=== PATIENT | male | born 1960 | race African-American/Black ===

== ENCOUNTER → 2017-01-04 | Outpatient (CLI) | payer OTHER ==
[2014-09-03 15:19] VITALS: BP 149/103
[~2017-01-04] MED LIST: ASPI325T4 PO; FURO-68 PO; HYDR-2869 PO; ISOS30TA4 PO; METO25TA4 PO
--- NOTE | 2017-01-04 12:58 | CARD ---
APPROVED REPORT EXAM: Two-dimensional and M-mode echocardiogram with Doppler and color Doppler. Other Information Quality : GoodHR: 72bpm Rhythm : NSR INDICATION Non ischemic cardiomyopathy RISK FACTORS Hypertension 2D DIMENSIONS RVDd3.3 (2.9-3.5cm)Left Atrium(2D)5.2 (1.6-4.0cm) IVSd1.3 (0.7-1.1cm)Aortic Root(2D)3.1 (2.0-3.7cm) LVDd5.5 (3.9-5.9cm)LVOT Diameter2.2 (1.8-2.4cm) PWd1.3 (0.7-1.1cm)LVDs3.6 (2.5-4.0cm) FS (%) 34.7 %SV91.7 ml LVEF(%)63.3 (>50%) Aortic Valve AI P 1/2 Cjsk459bk Mitral Valve MV E Rmenvhpb809.6cm/sMV E Peak Gr.4mmHg MV DECEL [id number] A Chgqinmm93.6cm/s MV E Mean Gr.1mmHgE/A Ratio2.2 MV A Evrmkeog09et Pulmonary Valve PV Peak Ecezldml97.7cm/s Tricuspid Valve TR P. Rvedqair506sp/sTR Peak Gr.49mmHg Pulmonary Vein S1 Hkaeiauj86.0cm/sD2 Ddhhrgjo81.7cm/s PVa juwlylqe11nbag LEFT VENTRICLE The left ventricle is normal size. There is mild concentric left ventricular hypertrophy. The left ve ntricular systolic function is normal. The Ejection Fraction is 60-65%. There is normal LV segmental wall motion. Transmitral Doppler flow pattern is Grade II-pseudonormal filling dynamics. RIGHT VENTRICLE The right ventricle is normal size. There is normal right ventricular wall thickness. The right ventr icular systolic function is normal. ATRIA The left atrium is moderately dilated. The right atrium is moderately dilated. The interatrial septum is intact with no evidence for an atrial septal defect or patent foramen ovale as noted on 2-D or Do ppler imaging. AORTIC VALVE The aortic valve is mildly sclerotic. The aortic valve is trileaflet. Doppler and Color Flow revealed mild to moderate aortic regurgitation. There is no significant aortic valvular stenosis. MITRAL VALVE The mitral valve leaflets are thickened. There is no evidence of mitral valve prolapse. There is no m itral valve stenosis. Doppler and Color Flow revealed moderate mitral regurgitation. TRICUSPID VALVE Doppler and Color Flow revealed moderate tricuspid regurgitation. The pulmonary artery systolic press ure is estimated at 52 mmHg. There is moderate pulmonary hypertension. PULMONIC VALVE The pulmonary valve is normal in structure and function. Doppler and Color Flow revealed no pulmonic valvular regurgitation. There is no pulmonic valvular stenosis. GREAT VESSELS The aortic root is normal in size. The ascending aorta is normal in size. The pulmonary artery is nor mal. The IVC is normal in size and collapses >50% with inspiration. PERICARDIAL EFFUSION There is trace pericardial effusion. Critical Notification Critical Value: No <Conclusion> The left ventricular systolic function is normal. The Ejection Fraction is 60-65%. There is normal LV segmental wall motion. The left atrium is moderately dilated. Mild to moderate aortic regurgitation. Moderate mitral regurgitation. Moderate tricuspid regurgitation. The pulmonary artery systolic pressure is estimated at 52 mmHg. There is moderate pulmonary hypertension. There is trace pericardial effusion.
== END | disposition home or self-care (01) ==
LOC: ECHO 09:59
PROVIDERS: ATTEND Internal Medicine Cardiovascular Disease
DX: I42.8 Other cardiomyopathies (principal); I51.7 Cardiomegaly; I35.1 Nonrheumatic aortic (valve) insufficiency; I34.0 Nonrheumatic mitral (valve) insufficiency; I27.2 Other secondary pulmonary hypertension
CPT/HCPCS: 93306

== ENCOUNTER → 2018-07-08 | Outpatient (CLI) | payer OTHER ==
[2014-09-03 15:19] VITALS: BP 149/103
[~2018-07-08] MED LIST changes: -ASPI325T4 PO; +ASPI325T8 PO
--- NOTE | 2018-07-08 13:48 | CARD ---
MR#: [id number] Date of Study: 07/08/2018 Ordering Physician: DESMOND VINCENT, Referring Physician: DESMOND VINCENT Tech: Qi Moser RDCS APPROVED REPORT EXAM: Two-dimensional and M-mode echocardiogram with Doppler and color Doppler. Other Information Quality : Good INDICATION Non-Ischemic Cardiomyopathy RISK FACTORS Smoking 2D DIMENSIONS RVDd3.3 (2.9-3.5cm)Left Atrium(2D)3.9 (1.6-4.0cm) IVSd1.5 (0.7-1.1cm)Aortic Root(2D)3.0 (2.0-3.7cm) LVDd4.9 (3.9-5.9cm)LVOT Diameter2.2 (1.8-2.4cm) PWd1.7 (0.7-1.1cm)LVDs3.6 (2.5-4.0cm) FS (%) 26.8 %SV59.7 ml LVEF(%)52.2 (>50%) Aortic Valve AoV Peak Luis.231.0cm/sAoV VTI34.7cm AO Peak GR.21.3mmHgLVOT Peak Luis.146.3cm/s LVOT VTI 23.90cmAO Mean GR.11mmHg COCO (VMAX)2.78he1FTV (VTI)2.59cm2 AI P 1/2 Fnvt018dh Mitral Valve MV E Jpbvfxmo54.3cm/sMV DECEL USWF395js MV A Bomgsdor29.2cm/sMV ETY23fz E/A Ratio0.8MVA (PHT)2.86cm2 TDI E/Lateral E'18.6E/Medial E'16.0 Tricuspid Valve TR P. Ickgubto301jw/sRAP YZUXZPYT1ytXw TR Peak Gr.21byGtAGCT27baTj Pulmonary Vein S1 Idzrmtmm63.7cm/sD2 Xxjyowma09.1cm/s LEFT VENTRICLE The Left Ventricle is borderline dilated. There is moderate concentric left ventricular hypertrophy. Left ventricle systolic function is low normal. The Ejection Fraction is 50-55%. There is normal LV s egmental wall motion. Transmitral Doppler flow pattern is Grade I-abnormal relaxation pattern. RIGHT VENTRICLE The right ventricle is normal size. The right ventricular systolic function is normal. ATRIA The left atrium is mildly dilated. The right atrium size is normal. The interatrial septum is intact with no evidence for an atrial septal defect or patent foramen ovale as noted on 2-D or Doppler imagi ng. AORTIC VALVE The aortic valve is calcified but opens well. Doppler and Color Flow revealed mild to moderate aortic regurgitation. There is no significant aortic valvular stenosis. MITRAL VALVE The mitral valve is normal in structure and function. There is no evidence of mitral valve prolapse. There is no mitral valve stenosis. Doppler and Color-flow revealed trace to mild mitral regurgitation . TRICUSPID VALVE The tricuspid valve is normal in structure and function. Doppler and Color Flow revealed mild tricusp id regurgitation. The PA pressure was estimated at 42 mmHg. There is no tricuspid valve stenosis. PULMONIC VALVE The pulmonic valve is not well visualized. Doppler and Color Flow revealed no pulmonic valvular regur gitation. There is no pulmonic valvular stenosis. GREAT VESSELS The aortic root is normal in size. The ascending aorta is normal in size. The IVC is normal in size a nd collapses >50% with inspiration. PERICARDIAL EFFUSION There is no evidence of significant pericardial effusion. Critical Notification Critical Value: No <Conclusion> The Left Ventricle is borderline dilated. Left ventricle systolic function is low normal. The Ejection Fraction is 50-55%. There is moderate concentric left ventricular hypertrophy. There is no significant aortic valvular stenosis. Doppler and Color Flow revealed mild to moderate aortic regurgitation. Doppler and Color-flow revealed trace to mild mitral regurgitation. Doppler and Color Flow revealed mild tricuspid regurgitation. The PA pressure was estimated at 42 mmHg. Signed by : Fred Harrison MD Electronically Approved : 07/08/2018 13:47:23
== END | disposition home or self-care (01) ==
LOC: ECHO 12:46
PROVIDERS: ATTEND Internal Medicine Cardiovascular Disease
DX: I08.2 Rheumatic disorders of both aortic and tricuspid valves (principal); J43.9 Emphysema, unspecified; I13.0 Hypertensive heart and chronic kidney disease with heart failure and stage 1 through stage 4 chronic kidney disease, or unspecified chronic kidney disease; I50.21 Acute systolic (congestive) heart failure; N18.3 Chronic kidney disease, stage 3 (moderate); I48.91 Unspecified atrial fibrillation; Z86.2 Personal history of diseases of the blood and blood-forming organs and certain disorders involving the immune mechanism; Z87.891 Personal history of nicotine dependence
CPT/HCPCS: 93306

== ENCOUNTER → 2018-12-06 | Outpatient (CLI) | payer OTHER ==
[2014-09-03 15:19] VITALS: BP 149/103
[~2018-12-06] MED LIST changes: +ACET500T68 PO; +AMIO200T4 PO; +APIX5TAB PO; +ASPI-630 PO; +AZIT250T6 PO; +BENZ1LOZ48 MM; +BUDE10.22 IH; +BUME1TAB3 PO; +CETI10TA16 PO; +DILT180C29 PO; +DILT240C66 PO; +FERR325T14 PO; +INHA-9 MC; +LACT1CAP19 PO; +LOPE2CAP88 PO; +LOSA25TA54 PO; +METO-247 PO; +MULT1TAB52 PO; +Pantoprazole PO; +REGADENOSON 0.4 MG/5 ML DISP.SYRIN. IV ONE; +SACU1TAB PO; +XOPENEX HFA15 GM IH; +[UNRECOGNIZED DRUG - OTHER]
--- NOTE | 2018-12-06 12:49 | RAD ---
MR#: [id number] Date of Study: 12/06/2018 Ordering Physician: DESMOND VINCENT Referring Physician: ANTONIO AMARO Tech: RT Fernie LunaR) (N) APPROVED REPORT Test Type: Pharmacological Stress Nurse/Tech: Reena Mosley R.N. Test Indications: Dyspnea on exertion Cardiac History: Hypertension, smoker Medications: See Electronic Medical Record Medical History: See Electronic Medical Record Resting ECG: S. tach Resting Heart Rate: 127 bpm Resting Blood Pressure: 153/104mmHg Pretest Chest Pain: No chest pain Nurse/Tech Notes S1S2. lungs sounded clear Consent: The procedure was explained to the patient in lay terms. Informed consent was witnessed. Ariel eout was entered into [employer]. History and Stress Test performed by Reena Mosley R.N. Pharm. Details Pharmacologic stress testing was performed using 0.4mg per 5ml of regadenoson given intravenously ove r 7-10 seconds. Stress Symptoms Dyspnea POST EXERCISE Reason for Termination: Infusion complete Max HR: 129 bpm Max Blood Pressure: 142/102mmHg Blood Pressure response to exercise: Normal blood pressure response during stress. Chest Pain: No. Arrhythmia: Yes. cont. in s. tach ST Change: No. INTERPRETATION Stress EKG Conclusion: Baseline EKG showed atrial flutter. Non diagnostic changes at peak stress. Imaging Protocol IMAGE PROTOCOL: Rest Tc-99m/stress Tc-99m 1 day Rest: Stress: Viability: Radiopharm.Tc99m XojlnoaknBo32o Sestamibi Dose10.5mCi 33mCi Duration 13min. 13min. Img Date 12/06/2018 12/06/2018 Inj-Img Upsb82zuw. 60min. Rest Admin Site:IV - Left AntecubitalAdministrator:RT Beatriz Luna)(N) Stress Admin Site: IV - Left AntecubitalAdministrator: ANGELITO Hannah STRESS DATA End Diast. Vol.201.0mlLVEDV index BSA90.0ml End Syst. Vol.123.0mlLVESV index BSA55.0ml Myocardial Ihmo171.0gEject. Gybgvbcf05.0% Stress Scores Regional WT3.00Summed WT46.00 Regional WM0.00Summed WM21.00 LV Perfusion Scintigraphic images did not show any significant fixed or reversible defects Wall Motion Moderate left ventricle systolic dysfunction with ejection fraction calculated at 39% LV Perf. Quant 17 Seg. SSS0.00 17 Seg. SRS1.00 17 Seg. SDS0.00 Stress Defect Extent (% LAD)0.00Rest Defect Extent (% LAD)0.00Rev. Defect Extent (% LAD)0.00 Stress Defect Extent (% LCX) 0.00Rest Defect Extent (% LCX)12.50Rev. Defect Extent (% LCX)0.00 Stress Defect Extent (% RCA)0.00Rest Defect Extent (% RCA)0.00Rev. Defect Extent (% RCA)0.00 Stress Defect Extent (% RD)0.00Rest Defect Extent (% RD)2.20Rev. Defect Extent (% RD)0.00 Conclusion 1. Regadenoson cardioisotope stress test did not show any evidence of ischemia or infarct. 2. Moderate left ventricle systolic dysfunction with ejection fraction calculated at 39% 3. Intermediate risk for cardiac events based on diminished LV function. Signed by : Desmond Vincent, Electronically Approved : 12/06/2018 12:49:04
== END | disposition home or self-care (01) ==
LOC: NM 07:37
PROVIDERS: ATTEND Internal Medicine Cardiovascular Disease
DX: I48.92 Unspecified atrial flutter (principal); R06.09 Other forms of dyspnea; I10 Essential (primary) hypertension; Z87.891 Personal history of nicotine dependence
CPT/HCPCS: 78452; 93017; 96374; A9500; J2785

== ENCOUNTER 2018-12-09 14:58 | Inpatient (IN) | payer OTHER ==
[2018-12-09] VITALS (11 sets, daily range): BP systolic 170–207; BP diastolic 98–119
[~2018-12-09] VITALS: Ht 193 cm; Wt 93.1 kg
[~2018-12-09 14:58] MED LIST changes: -ACET500T68 PO; -AMIO200T4 PO; -ASPI-630 PO; -AZIT250T6 PO; -BENZ1LOZ48 MM; -BUDE10.22 IH; -BUME1TAB3 PO; -CETI10TA16 PO; -DILT180C29 PO; -FERR325T14 PO; -INHA-9 MC; -LACT1CAP19 PO; -LOPE2CAP88 PO; -METO-247 PO; -MULT1TAB52 PO; -Pantoprazole PO; -REGADENOSON 0.4 MG/5 ML DISP.SYRIN. IV ONE; -SACU1TAB PO; -XOPENEX HFA15 GM IH; -[UNRECOGNIZED DRUG - OTHER]
[2018-12-09] MEDS ORDERED: MORPHINE SULFATE 4 MG/ML VIAL. IV ONE (16:45)
[2018-12-09] MEDS ORDERED: NITROGLYCERIN SUBLINGUAL 0.4 MG BOTTLE OF 25. SL PRN (16:45)
[2018-12-09] MEDS ORDERED: IPRATRPIUM/ALBUTEROL 0.5/2.5MG 3 ML NEBU. NEB ONE (16:45)
[2018-12-09] MEDS ORDERED: cloNIDine HCL 0.1 MG TABLET PO ONE (16:45)
[2018-12-09] MEDS ORDERED: methylPREDNISolone SOD SUCC PF 125 MG/2 ML VIAL. IV ONE (16:45)
[2018-12-09] MEDS ORDERED: ASPIRIN 325 MG TABLET PO ONE (16:45)
[2018-12-09 17:03] LABS: BASO # 0.1 x10^3/uL (0.0-0.2); BASO % 2 % (0-3); EOS % 0 % (0-3); HEMATOCRIT 21.7 % (39.0-53.0); LYMPH # 2.9 x10^3/uL (1.0-4.8); LYMPH % 40 % (24-48); MEAN CORPUSCULAR HEMOGLOBIN 18 pg (25-35); MEAN CORPUSCULAR HGB CONC 28 g/dL (31-37); MEAN CORPUSCULAR VOLUME 65 fL (79-100); MONO # 0.4 x10^3/uL (0.0-1.1); MONO % 6 % (0-9); NEUT # 3.7 x10^3uL (1.8-7.7); NEUT % 52 % (31-73); PLATELET COUNT 384 x10^3/uL (140-400); RED BLOOD COUNT 3.36 x10^6/uL (4.30-5.70); RED CELL DISTRIBUTION WIDTH 20.7 % (11.5-14.5); WHITE BLOOD COUNT 7.2 x10^3/uL (4.0-11.0)
[2018-12-09 17:04] LABS: CALCIUM 8.6 mg/dL (8.5-10.1); CREATININE 2.8 mg/dL (0.7-1.3); GFR 28.3
[2018-12-09 17:05] LABS: POTASSIUM 4.1 mmol/L (3.5-5.1)
[2018-12-09 17:11] LABS: ALBUMIN 3.4 g/dL (3.4-5.0); ALBUMIN/GLOBULIN RATIO 0.9 (1.0-1.7); TOTAL BILIRUBIN 0.6 mg/dL (0.2-1.0); TOTAL PROTEIN 7.2 g/dL (6.4-8.2)
[2018-12-09] MEDS ORDERED: IV NORMAL SALINE 1000ML BAG 1,000 ML IV ONE (17:15)
--- NOTE | 2018-12-09 17:38 | RAD ---
Indication:SOA, CHEST TIGHTNESS X1 DAY TECHNIQUE:Portable AP chest X-ray COMPARISON:09/18/2014 FINDINGS: Heart is mildly enlarged in size. Lungs are hyperinflated with prominent bilateral bronchovascular markings and interstitial opacities. No pneumothorax or pleural effusion. Visualized bony thorax within normal limits. IMPRESSION: Findings of COPD. Superimposed atypical/viral infection/bronchitis. Electronically signed by: Yevgeniy Szymanski DO (12/09/2018 5:35 PM) [facility]
[2018-12-09] MEDS ORDERED: IV NORMAL SALINE 1000ML BAG 1,000 ML IV SCH (17:44)
[2018-12-09] MEDS ORDERED: MORPHINE SULFATE 4 MG/ML VIAL. IV PRN (17:45)
[2018-12-09] MEDS ORDERED: ONDANSETRON PF 4 MG/2 ML VIAL. IV PRN ×2 (17:45→18:15)
[2018-12-09] MEDS ORDERED: AZITHROMYCIN 250 MG TABLET. PO ONE (18:00)
--- NOTE | 2018-12-09 18:12 | PDOC1 ---
History and Physical Date of Admission Date of Admission DATE: 12/09/18 TIME: 18:05 Identification/Chief Complaint Chief Complaint SOA and chest pain today Source Source: Caregiver, Chart review, Patient History of Present Illness History of Present Illness 58-year-old -[place] male brought in by mother, SOA and chest pain today. History of nonischemic cardiomyopathy and is tachypneic on my encounter. But found to have a hemoglobin of 6 with no source. On eliquis 5 twice a day, Cardizem 240, Lasix 40 once a day, losartan 25 daily and beta carrie 50 twice a day. Had a recent stress test 1 month ago ? results. Known to Dr. Barrow,, last echocardiogram June or July 2018 and they do not know the EF. D-dimer mildly elevated 1.39 with high blood pressure and is ordered a VQ scan. CT chest could not be done his creatinine is 2.8 which is a jump from previous. MCV is low at 65. Patient denies any melena hematochezia hematemesis, never had a C scope. Sees nurse transition only for his heart issues. No PCP. Otherwise blood pressure or hemodynamically stable. Nontoxic appearing. NO abd pain, NO hx colon CA in family, NO prev EGD or c scopes SOme uRI sxs lately, sounds nasal, CXR maybe viral/emphysematous lungs - cont to smoke Past Medical History Cardiovascular: AFIB, HTN Past Surgical History Past Surgical History: No pertinent history Family History Family History: High Cholestrol, Hypertension Social History Smoke: 1 pack per day ALCOHOL: none Drugs: None Current Medications Current Medications Current Medications Albuterol/ Ipratropium (Duoneb) 3 ml 1X ONCE NEB Last administered on at 16:57; Start 12/09/18 at 16:45; Stop 12/09/18 at 16:51; Status DC Aspirin (Dany Aspirin) 325 mg 1X ONCE PO Last administered on 12/09/18at 17:36 ; Start 12/09/18 at 16:45; Stop 12/09/18 at 16:51; Status DC Morphine Sulfate (Morphine Sulfate) 4 mg 1X ONCE IV Last administered on at 17:36; Start 12/09/18 at 16:45; Stop 12/09/18 at 16:51; Status DC Nitroglycerin (Nitrostat) 0.4 mg PRN Q5MIN PRN SL CHEST PAIN; Start 12/09/18 at 16:45 Methylprednisolone Sodium Succinate (SOLU-Medrol 125MG VIAL) 125 mg 1X ONCE IV Last administered on 12/09/18at 17:35; Start 12/09/18 at 16:45; Stop 12/09/18 at 16:51; Status DC Clonidine HCl (Catapres) 0.1 mg 1X ONCE PO Last administered on 12/09/18at 17: 36; Start 12/09/18 at 16:45; Stop 12/09/18 at 16:51; Status DC Sodium Chloride 1,000 ml @ 1,000 mls/hr 1X ONCE IV Last administered on at 17:35; Start 12/09/18 at 17:15; Stop 12/09/18 at 18:14 Ondansetron HCl (Zofran) 4 mg PRN Q8HRS PRN IV NAUSEA/VOMITING; Start 12/09/18 at 17:45; Stop 12/09/18 at 18:03; Status DC Morphine Sulfate (Morphine Sulfate) 4 mg PRN Q2HR PRN IV PAIN; Start 12/09/18 at 17:45; Stop 12/10/18 at 17:44 Sodium Chloride 1,000 ml @ 100 mls/hr Q10H IV ; Start 12/09/18 at 17:44; Stop 12/10/18 at 17:43 Albuterol/ Ipratropium (Duoneb) 3 ml RTQID NEB ; Start 12/09/18 at 20:00; Stop 12/10/18 at 19:59 Ondansetron HCl (Zofran) 4 mg PRN Q6HRS PRN IV NAUSEA/VOMITING; Start 12/09/18 at 18:15 Cetirizine HCl (ZyrTEC) 10 mg DAILY PO ; Start 12/10/18 at 09:00 Azithromycin (Zithromax) 500 mg 1X ONCE PO ; Start 12/09/18 at 18:00; Stop at 18:01 Azithromycin (Zithromax) 250 mg DAILY PO ; Start 12/10/18 at 09:00; Status UNV Furosemide (Lasix) 40 mg DAILY PO ; Start 12/10/18 at 09:00; Status UNV Losartan Potassium (Cozaar) 25 mg DAILY PO ; Start 12/10/18 at 09:00; Status UNV Metoprolol Tartrate (Lopressor) 12.5 mg BID PO ; Start 12/09/18 at 21:00; Status UNV Diltiazem HCl (Cardizem 24hr Cd) 240 mg DAILY PO ; Start 12/10/18 at 09:00; Status UNV Active Scripts Active Reported Cartia Xt (Diltiazem Hcl) 240 Mg Cap.er.24h 240 Mg PO Eliquis (Apixaban) 5 Mg Tablet 5 Mg PO Losartan Potassium (Losartan Potassium) 25 Mg Tablet 25 Mg PO DAILY Lasix (Furosemide) 40 Mg Tablet 40 Mg PO DAILY Metoprolol Tartrate 25 Mg Tablet 12.5 Mg PO BID 90 Days Allergies Allergies: Coded Allergies: No Known Drug Allergies (Unverified , 08/29/14) ROS Review of System So A, chest pain, congestion, the rest of ROS 14 point negative Physical Exam General: mild distress, Other (tachypneic RR 30s) HEENT: Atraumatic, PERRLA, Other (pale, palpebral conjunctivae) Lungs: Normal air movement, Other (symmetrical chest expansion, hyperresonant to percussion) Heart: S1S2, RRR, no gallops, no murmurs Cardiovascular: S1, S2 Abdomen: Normal bowel sounds, Soft, No tenderness, No hepatosplenomegaly, No masses Male Genitals Exam: normal genitalia, normal prostate Rectal Exam: not examined PELVIC: Nml ext genitalia Extremities: No clubbing, No cyanosis, No edema, Normal pulses, No tenderness/ swelling Skin: No rashes, No breakdown, No significant lesion Neuro: Normal gait, Normal speech, Strength at 5/5 X4 ext, Normal tone, Sensation intact, Cranial nerves 3-12 NL, Reflexes 2+ Psych/Mental Status: Mental status NL, Mood NL Vitals Vitals Vital Signs Date Time Temp Pulse Resp B/P (MAP) Pulse Ox O2 Delivery O2 Flow Rate FiO2 12/09/18 17:36 99 189/114 12/09/18 17:36 20 96 Room Air 12/09/18 16:33 98.2 98.2 Labs Labs Laboratory Tests Test 12/09/18 16:45 White Blood Count 7.2 x10^3/uL (4.0-11.0) Red Blood Count 3.36 x10^6/uL (4.30-5.70) Hemoglobin 6.0 g/dL (13.0-17.5) Hematocrit 21.7 % (39.0-53.0) Mean Corpuscular Volume 65 fL (79-100) Mean Corpuscular Hemoglobin 18 pg (25-35) Mean Corpuscular Hemoglobin Concent 28 g/dL (31-37) Red Cell Distribution Width 20.7 % (11.5-14.5) Platelet Count 384 x10^3/uL (140-400) Neutrophils (%) (Auto) 52 % (31-73) Lymphocytes (%) (Auto) 40 % (24-48) Monocytes (%) (Auto) 6 % (0-9) Eosinophils (%) (Auto) 0 % (0-3) Basophils (%) (Auto) 2 % (0-3) Neutrophils # (Auto) 3.7 x10^3uL (1.8-7.7) Lymphocytes # (Auto) 2.9 x10^3/uL (1.0-4.8) Monocytes # (Auto) 0.4 x10^3/uL (0.0-1.1) Eosinophils # (Auto) 0.0 x10^3/uL (0.0-0.7) Basophils # (Auto) 0.1 x10^3/uL (0.0-0.2) D-Dimer (Jocelin) 1.39 ug/mlFEU (0.00-0.50) Sodium Level 144 mmol/L (136-145) Potassium Level 4.1 mmol/L (3.5-5.1) Chloride Level 109 mmol/L (98-107) Carbon Dioxide Level 24 mmol/L (21-32) Anion Gap 11 (6-14) Blood Urea Nitrogen 31 mg/dL (8-26) Creatinine 2.8 mg/dL (0.7-1.3) Estimated GFR (Cockcroft-Gault) 28.3 BUN/Creatinine Ratio 11 (6-20) Glucose Level 106 mg/dL (70-99) Calcium Level 8.6 mg/dL (8.5-10.1) Total Bilirubin 0.6 mg/dL (0.2-1.0) Aspartate Amino Transf (AST/SGOT) 18 U/L (15-37) Alanine Aminotransferase (ALT/SGPT) 18 U/L (16-63) Alkaline Phosphatase 78 U/L (46-116) Creatine Kinase 77 U/L (39-308) Creatine Kinase MB (Mass) 1.1 ng/mL (0.0-3.6) Creatine Kinase MB Relative Index 1.4 % (0-4) Troponin I Quantitative 0.025 ng/mL (0.000-0.055) Total Protein 7.2 g/dL (6.4-8.2) Albumin 3.4 g/dL (3.4-5.0) Albumin/Globulin Ratio 0.9 (1.0-1.7) Laboratory Tests Test 12/09/18 16:45 White Blood Count 7.2 x10^3/uL (4.0-11.0) Red Blood Count 3.36 x10^6/uL (4.30-5.70) Hemoglobin 6.0 g/dL (13.0-17.5) Hematocrit 21.7 % (39.0-53.0) Mean Corpuscular Volume 65 fL (79-100) Mean Corpuscular Hemoglobin 18 pg (25-35) Mean Corpuscular Hemoglobin Concent 28 g/dL (31-37) Red Cell Distribution Width 20.7 % (11.5-14.5) Platelet Count 384 x10^3/uL (140-400) Neutrophils (%) (Auto) 52 % (31-73) Lymphocytes (%) (Auto) 40 % (24-48) Monocytes (%) (Auto) 6 % (0-9) Eosinophils (%) (Auto) 0 % (0-3) Basophils (%) (Auto) 2 % (0-3) Neutrophils # (Auto) 3.7 x10^3uL (1.8-7.7) Lymphocytes # (Auto) 2.9 x10^3/uL (1.0-4.8) Monocytes # (Auto) 0.4 x10^3/uL (0.0-1.1) Eosinophils # (Auto) 0.0 x10^3/uL (0.0-0.7) Basophils # (Auto) 0.1 x10^3/uL (0.0-0.2) D-Dimer (Jocelin) 1.39 ug/mlFEU (0.00-0.50) Sodium Level 144 mmol/L (136-145) Potassium Level 4.1 mmol/L (3.5-5.1) Chloride Level 109 mmol/L (98-107) Carbon Dioxide Level 24 mmol/L (21-32) Anion Gap 11 (6-14) Blood Urea Nitrogen 31 mg/dL (8-26) Creatinine 2.8 mg/dL (0.7-1.3) Estimated GFR (Cockcroft-Gault) 28.3 BUN/Creatinine Ratio 11 (6-20) Glucose Level 106 mg/dL (70-99) Calcium Level 8.6 mg/dL (8.5-10.1) Total Bilirubin 0.6 mg/dL (0.2-1.0) Aspartate Amino Transf (AST/SGOT) 18 U/L (15-37) Alanine Aminotransferase (ALT/SGPT) 18 U/L (16-63) Alkaline Phosphatase 78 U/L (46-116) Creatine Kinase 77 U/L (39-308) Creatine Kinase MB (Mass) 1.1 ng/mL (0.0-3.6) Creatine Kinase MB Relative Index 1.4 % (0-4) Troponin I Quantitative 0.025 ng/mL (0.000-0.055) Total Protein 7.2 g/dL (6.4-8.2) Albumin 3.4 g/dL (3.4-5.0) Albumin/Globulin Ratio 0.9 (1.0-1.7) VTE Prophylaxis Ordered VTE Prophylaxis Devices: Yes VTE Pharmacological Prophylaxi: Yes Assessment/Plan Assessment/Plan MIcrocytic anemia Acute anemia-rule out active blood loss Nonischemic cardiomyopathy AK I on possibly CK D Elevated d-dimer Tachypnea Accel hypertension POA PLAN: Admit 2 midnights D-dimer elevated hence VQ scan ordered Consult renal regarding this jump in creat Consult GI - due c scope Checked for Hemoccult Hold Eliquis Okay to continue beta carrie 50 twice a day and Cardizem Hold Lasix and losartan given creatinine Avoid nephrotoxins Draw iron panel and reticulocyte count ferritin etc. before BT Transfuse 1 packed RBC Recheck H&H tomorrow Seen at ER FUll code okay for clears now then nPO post mN in case GI PAUL Vasquez MD Dec 09, 2018 18:12
[2018-12-09] MEDS ORDERED: TEMAZEPAM 7.5 MG CAPSULE PO PRN (18:15)
[2018-12-09] MEDS ORDERED: guaiFENesin DM 200MG/20MG 10 ML SYRUP PO PRN (18:15)
[2018-12-09] MEDS ORDERED: NICOTINE 21MG PATCH. TD PRN (18:15)
[2018-12-09 18:57] LABS: ANISOCYTOSIS MOD; HYPOCHROMIA MARKED; MICROCYTOSIS MARKED; OVALOCYTES PRESENT; PLT ESTIMATE ADEQUATE (ADEQUATE); POIKILOCYTOSIS MOD; SCHISTOCYTES FEW; TEAR DROP CELLS OCC
[2018-12-09 18:58] LABS: BIZZARE CELLS FEW
[2018-12-09 19:17] LABS: INFLUENZA A PATIENT NEGATIVE (NEGATIVE); INFLUENZA B PATIENT NEGATIVE (NEGATIVE)
--- NOTE | 2018-12-09 19:53 | RAD ---
Indication: Shortness of breath for one day. Elevated d-dimer. TECHNIQUE: Nuclear medicine VQ scan with 26 mCi of xenon-133 for ventilation scan and 6 mCi of technetium 99M MAA for perfusion scan. COMPARISON: Chest x-ray from same day FINDINGS: Appropriate washout in and washout of xenon-133 without evidence of COPD. Relatively homogeneous distribution is seen of the perfusion agent without ventilation/perfusion mismatch or focal wedge-shaped areas of photopenia. IMPRESSION: Low probability VQ scan. Consider further evaluation with DVT exam. Electronically signed by: Yevgeniy Szymanski DO (12/09/2018 7:51 PM) [facility]
[2018-12-09] MEDS: IPRATRPIUM/ALBUTEROL 0.5/2.5MG 3 ML NEBU. NEB SCH (20:11)
[2018-12-09] MEDS: METOPROLOL TART IMMED RELEASE 25 MG TABLET. PO SCH (22:16)
--- NOTE | 2018-12-09 22:20 | PHYS DOC ---
Past Medical History Past Medical History: A-Fib, Hypertension Additional Past Medical Histor: A. fib Past Surgical History: No Surgical History Additional Information: 0.25 PPD Alcohol Use: Rarely Drug Use: None Adult General Chief Complaint Chief Complaint: SHORTNESS OF BREATH [facility] HPI Patient is a 58 year old male who presents with shortness of breath that started last night and then dull chest pain that began today. The patient is a smoker. He is seen by Dr. Elaine, but does not have a primary care provider. The patient is positive for hypertension, hyperlipidemia and takes eliquist for previous blood clot. He denies cough, diaphoresis or radiation of his chest pain. He states that it feels more like a heaviness. Review of Systems Review of Systems Constitutional: Denies fever or chills [] Eyes: Denies change in visual acuity, redness, or eye pain [] HENT: Denies nasal congestion or sore throat [] Respiratory: See history of present illness Cardiovascular: No additional information not addressed in HPI [] GI: Denies abdominal pain, nausea, vomiting, bloody stools or diarrhea [] : Denies dysuria or hematuria [] Musculoskeletal: Denies back pain or joint pain [] Integument: Denies rash or skin lesions [] Neurologic: Denies headache, focal weakness or sensory changes [] Endocrine: Denies polyuria or polydipsia [] All other systems were reviewed and found to be within normal limits, except as documented in this note. Current Medications Current Medications Current Medications Medications (Trade) Dose Ordered Sig/Hari Start Time Stop Time Status Last Admin Dose Admin Albuterol/ Ipratropium (Duoneb) 3 ml 1X ONCE 12/09/18 16:45 12/09/18 16:51 DC 12/09/18 16:57 3 ML Aspirin (Dany Aspirin) 325 mg 1X ONCE 12/09/18 16:45 12/09/18 16:51 DC 12/09/18 17:36 325 MG Clonidine HCl (Catapres) 0.1 mg 1X ONCE 12/09/18 16:45 12/09/18 16:51 DC 12/09/18 17:36 0.1 MG Methylprednisolone Sodium Succinate (SOLU-Medrol 125MG VIAL) 125 mg 1X ONCE 12/09/18 16:45 12/09/18 16:51 DC 12/09/18 17:35 125 MG Morphine Sulfate (Morphine Sulfate) 4 mg 1X ONCE 12/09/18 16:45 12/09/18 16:51 DC 12/09/18 17:36 4 MG Nitroglycerin (Nitrostat) 0.4 mg PRN Q5MIN PRN 12/09/18 16:45 Sodium Chloride 1,000 ml @ 1,000 mls/hr 1X ONCE 12/09/18 17:15 12/09/18 18:14 DC 12/09/18 17:35 1,000 MLS/HR Allergies Allergies Allergies Coded Allergies Type Severity Reaction Last Updated Verified No Known Drug Allergies 08/29/14 No Physical Exam Physical Exam Constitutional: Well developed, well nourished, no acute distress, non-toxic appearance. [] Cardiovascular:Heart rate regular rhythm, no murmur [] Lungs & Thorax: Bilateral breath sounds clear to auscultation [] Abdomen: Bowel sounds normal, soft, no tenderness, no masses, no pulsatile masses. [] Skin: Warm, dry, no erythema, no rash. [] Back: No tenderness, no CVA tenderness. [] Extremities: No tenderness, no cyanosis, no clubbing, ROM intact, no edema. [] Neurologic: Alert and oriented X 3, normal motor function, normal sensory function, no focal deficits noted. [] Psychologic: Affect normal, judgement normal, mood normal. [] Current Patient Data Vital Signs Vital Signs Date Time Temp Pulse Resp B/P (MAP) Pulse Ox O2 Delivery O2 Flow Rate FiO2 12/09/18 17:36 99 189/114 12/09/18 17:36 20 96 Room Air 12/09/18 16:33 98.2 98.2 Lab Values Laboratory Tests Test 12/09/18 16:40 12/09/18 16:45 Iron Level 14 ug/dL (65-175) L Total Iron Binding Capacity 455 ug/dL (250-450) H Iron Saturation 3 % (15-34) L Ferritin 15 ng/mL (26-388) L White Blood Count 7.2 x10^3/uL (4.0-11.0) Red Blood Count 3.36 x10^6/uL (4.30-5.70) L Hemoglobin 6.0 g/dL (13.0-17.5) *L Hematocrit 21.7 % (39.0-53.0) L Mean Corpuscular Volume 65 fL (79-100) L Mean Corpuscular Hemoglobin 18 pg (25-35) L Mean Corpuscular Hemoglobin Concent 28 g/dL (31-37) L Red Cell Distribution Width 20.7 % (11.5-14.5) H Platelet Count 384 x10^3/uL (140-400) Neutrophils (%) (Auto) 52 % (31-73) Lymphocytes (%) (Auto) 40 % (24-48) Monocytes (%) (Auto) 6 % (0-9) Eosinophils (%) (Auto) 0 % (0-3) Basophils (%) (Auto) 2 % (0-3) Neutrophils # (Auto) 3.7 x10^3uL (1.8-7.7) Lymphocytes # (Auto) 2.9 x10^3/uL (1.0-4.8) Monocytes # (Auto) 0.4 x10^3/uL (0.0-1.1) Eosinophils # (Auto) 0.0 x10^3/uL (0.0-0.7) Basophils # (Auto) 0.1 x10^3/uL (0.0-0.2) Platelet Estimate Adequate (ADEQUATE) Hypochromasia Marked Poikilocytosis Mod Anisocytosis Mod Microcytosis Marked Tear Drop Cells Occ Ovalocytes Present Schistocytes Few RBC Morphology Bizarre Forms Few D-Dimer (Jocelin) 1.39 ug/mlFEU (0.00-0.50) H Sodium Level 144 mmol/L (136-145) Potassium Level 4.1 mmol/L (3.5-5.1) Chloride Level 109 mmol/L (98-107) H Carbon Dioxide Level 24 mmol/L (21-32) Anion Gap 11 (6-14) Blood Urea Nitrogen 31 mg/dL (8-26) H Creatinine 2.8 mg/dL (0.7-1.3) H Estimated GFR (Cockcroft-Gault) 28.3 BUN/Creatinine Ratio 11 (6-20) Glucose Level 106 mg/dL (70-99) H Calcium Level 8.6 mg/dL (8.5-10.1) Total Bilirubin 0.6 mg/dL (0.2-1.0) Aspartate Amino Transferase (AST) 18 U/L (15-37) Alanine Aminotransferase (ALT) 18 U/L (16-63) Alkaline Phosphatase 78 U/L (46-116) Creatine Kinase 77 U/L (39-308) Creatine Kinase MB (Mass) 1.1 ng/mL (0.0-3.6) Creatine Kinase MB Relative Index 1.4 % (0-4) Troponin I Quantitative 0.025 ng/mL (0.000-0.055) [id number]-Klh-I-Type Natriuretic Peptide 7620 pg/mL (0-124) H Total Protein 7.2 g/dL (6.4-8.2) Albumin 3.4 g/dL (3.4-5.0) Albumin/Globulin Ratio 0.9 (1.0-1.7) L Laboratory Tests 12/09/18 16:45 Laboratory Tests 12/09/18 16:45 EKG EKG [] Radiology/Procedures Radiology/Procedures [] Course & Med Decision Making Course & Med Decision Making Pertinent Labs and Imaging studies reviewed. (See chart for details) []The patient's labs and imaging have been relatively benign. Given the patient' s history and symptom onset he will be admitted for further evaluation. He has been admitted to Dr. Guerra's service and cardiology and nephrology have both been consulted in his care. Parker Disclaimer Draglucy Disclaimer This electronic medical record was generated, in whole or in part, using a voice recognition dictation system. Departure Departure Impression: Primary Impression: Shortness of breath Additional Impressions: Anemia Elevated serum creatinine Chest pain Disposition: ADMITTED INPATIENT Condition: GOOD Problem Qualifiers PABLO BALLARD APRN Dec 09, 2018 22:20
[2018-12-09] MEDS ORDERED: [UNRECOGNIZED DRUG - OTHER] (23:03)
[2018-12-09] MEDS ORDERED: LOPE2CAP88 PO (23:07)
[2018-12-09] MEDS ORDERED: BENZ1LOZ48 MM (23:09)
[2018-12-09] MEDS ORDERED: ACET500T68 PO (23:13)
[2018-12-10] VITALS (23 sets, daily range): BP systolic 146–221; BP diastolic 72–116
[2018-12-10] MEDS ORDERED: FUROSEMIDE 20 MG/2 ML VIAL. IVP ONE (01:00)
[2018-12-10] MEDS ORDERED: FUROSEMIDE 40 MG/4 ML VIAL. IVP ONE (01:45)
[2018-12-10 04:13] LABS: CREATININE 2.3 mg/dL (0.7-1.3); GFR 35.5; POTASSIUM 4.2 mmol/L (3.5-5.1)
--- NOTE | 2018-12-10 04:54 | EKG ---
[facility] [address] [place] [address] Test Date: 2018-12-09 Test Time: 16:40:23 Pat Name: ADEN HUMPHRIES Department: Room: 246 1 Gender: M [employer] Teacher: : 1960 Requested By: PABLO BALLARD Order Number: [id number] Reading MD: Colt Elaine Measurements Intervals [place] Rate: 95 P: [place]: QRS: 60 QRSD: 84 T: 106 QT: 372 QTc: 471 Interpretive Statements SINUS RHYTHM LVH WITH REPOLARIZATION ABNORMALITY ABNORMAL ECG Electronically Signed On 12-17-2018 10:48:51 PHLEBOTOMY PROGRAM COORDINATOR by Colt Elaine
[2018-12-10 05:21] LABS: BASO % 0 % (0-3); EOS % 0 % (0-3); HEMATOCRIT 23.9 % (39.0-53.0); LYMPH # 0.3 x10^3/uL (1.0-4.8); LYMPH % 4 % (24-48); MEAN CORPUSCULAR HEMOGLOBIN 20 pg (25-35); MEAN CORPUSCULAR HGB CONC 29 g/dL (31-37); MEAN CORPUSCULAR VOLUME 67 fL (79-100); MONO # 0.1 x10^3/uL (0.0-1.1); MONO % 1 % (0-9); NEUT # 7.2 x10^3uL (1.8-7.7); NEUT % 96 % (31-73); PLATELET COUNT 337 x10^3/uL (140-400); RED BLOOD COUNT 3.55 x10^6/uL (4.30-5.70); RED CELL DISTRIBUTION WIDTH 23.2 % (11.5-14.5); WHITE BLOOD COUNT 7.5 x10^3/uL (4.0-11.0)
--- NOTE | 2018-12-10 05:31 | NUR ---
CRITICAL HGB WAS CALLED 7.0. EXPALINED TO LAB THAT BLOOD ISNT DRAWN WHEN PT IS GETTING BLOOD, HOLD OFF TILL BLOOD IS FINISHED. LCRN
[2018-12-10] MEDS: METOPROLOL TART IMMED RELEASE 25 MG TABLET. PO SCH ×2 (08:07→20:58)
[2018-12-10] MEDS: hydrALAZINE 20 MG/ML VIAL. IVP PRN ×2 (08:08)
[2018-12-10] MEDS: IPRATRPIUM/ALBUTEROL 0.5/2.5MG 3 ML NEBU. NEB SCH ×4 (08:24→20:34)
[2018-12-10 08:35] LABS: HEMATOCRIT 26.4 % (39.0-53.0); HEMOGLOBIN 7.9 g/dL (13.0-17.5)
[2018-12-10] MEDS: CETIRIZINE HCL 10 MG TABLET. PO SCH (09:00)
[2018-12-10] MEDS ORDERED: FUROSEMIDE 40 MG TABLET. PO SCH (09:00)
[2018-12-10] MEDS ORDERED: LOSARTAN POTASSIUM 25 MG TABLET. PO SCH (09:00)
[2018-12-10] MEDS: AZITHROMYCIN 250 MG TABLET. PO SCH (09:00)
[2018-12-10] MEDS: PANTOPRAZOLE IV PUSH 40 MG VIAL. IVP SCH (11:31)
--- NOTE | 2018-12-10 11:48 | PDOC2 ---
GI CONSULT Reason For Consult: microcytic anemia due c scope HPI: HPI: 58 y/o male admitted through ER w/ SOA and CP ("squeezing") x 2 weeks, worse w/ exertion. Found w/ Hgb 6, now 7.9 s/p transfusion 2 units. Denies obvious bleeding including hematemesis, hematochezia, and melena. MCV 65, iron sat 3, BUN 37 (now 24) w/ Cr 2.8 (now 2.3). For comparison, Hgb was 8-10 range in 2014. On Eliquis. No previous 'scopes (though recommended in 2014). Takes Zegerid PRN for heartburn. No dysphagia, n/v, abd pain, weight loss, change in appetite, diarrhea, or constipation. No GB or pancreas history. Had +Hep B Core Total Ab w/ surface Ab 278 in 2013 - quant neg. Hep A and C neg at that time. Fatty liver on past imaging. No NSAIDs. PMH: PMH: NICM, TIA, A Fib, HTN, CKD, fatty liver, anemia, COPD FH: Family History: Other ("you're asking the wrong person") Social History: Smoke: <1 pack per day ALCOHOL: none Drugs: None ROS: GEN: Denies fevers, chills, sweats HEENT: Denies blurred vision, sore throat CV: +chest pain RESP: +SOA GI: Per HPI : Denies hematuria, dysuria ENDO: Denies weight changes NEURO: Denies confusion, dizziness MSK: Denies weakness, joint pain/swelling SKIN: Denies jaundice, pruritus Vitals: Vitals: Vital Signs Date Time Temp Pulse Resp B/P (MAP) Pulse Ox O2 Delivery O2 Flow Rate FiO2 12/10/18 08:25 99 Nasal Cannula 2.0 12/10/18 08:08 100 174/120 12/10/18 07:00 97.5 20 97.5 Labs: Labs: Laboratory Tests Test 12/09/18 16:40 12/09/18 16:45 12/09/18 17:40 12/09/18 18:16 Iron Level 14 ug/dL (65-175) Total Iron Binding Capacity 455 ug/dL (250-450) Iron Saturation 3 % (15-34) Ferritin 15 ng/mL (26-388) White Blood Count 7.2 x10^3/uL (4.0-11.0) Red Blood Count 3.36 x10^6/uL (4.30-5.70) Hemoglobin 6.0 g/dL (13.0-17.5) Hematocrit 21.7 % (39.0-53.0) Mean Corpuscular Volume 65 fL (79-100) Mean Corpuscular Hemoglobin 18 pg (25-35) Mean Corpuscular Hemoglobin Concent 28 g/dL (31-37) Red Cell Distribution Width 20.7 % (11.5-14.5) Platelet Count 384 x10^3/uL (140-400) Neutrophils (%) (Auto) 52 % (31-73) Lymphocytes (%) (Auto) 40 % (24-48) Monocytes (%) (Auto) 6 % (0-9) Eosinophils (%) (Auto) 0 % (0-3) Basophils (%) (Auto) 2 % (0-3) Neutrophils # (Auto) 3.7 x10^3uL (1.8-7.7) Lymphocytes # (Auto) 2.9 x10^3/uL (1.0-4.8) Monocytes # (Auto) 0.4 x10^3/uL (0.0-1.1) Eosinophils # (Auto) 0.0 x10^3/uL (0.0-0.7) Basophils # (Auto) 0.1 x10^3/uL (0.0-0.2) Platelet Estimate Adequate (ADEQUATE) Hypochromasia Marked Poikilocytosis Mod Anisocytosis Mod Microcytosis Marked Tear Drop Cells Occ Ovalocytes Present Schistocytes Few RBC Morphology Bizarre Forms Few D-Dimer (Jocelin) 1.39 ug/mlFEU (0.00-0.50) Sodium Level 144 mmol/L (136-145) Potassium Level 4.1 mmol/L (3.5-5.1) Chloride Level 109 mmol/L (98-107) Carbon Dioxide Level 24 mmol/L (21-32) Anion Gap 11 (6-14) Blood Urea Nitrogen 31 mg/dL (8-26) Creatinine 2.8 mg/dL (0.7-1.3) Estimated GFR (Cockcroft-Gault) 28.3 BUN/Creatinine Ratio 11 (6-20) Glucose Level 106 mg/dL (70-99) Calcium Level 8.6 mg/dL (8.5-10.1) Total Bilirubin 0.6 mg/dL (0.2-1.0) Aspartate Amino Transf (AST/SGOT) 18 U/L (15-37) Alanine Aminotransferase (ALT/SGPT) 18 U/L (16-63) Alkaline Phosphatase 78 U/L (46-116) Creatine Kinase 77 U/L (39-308) Creatine Kinase MB (Mass) 1.1 ng/mL (0.0-3.6) Creatine Kinase MB Relative Index 1.4 % (0-4) Troponin I Quantitative 0.025 ng/mL (0.000-0.055) GN-[id number]-[id number]-Type Natriuretic Peptide 7620 pg/mL (0-124) Total Protein 7.2 g/dL (6.4-8.2) Albumin 3.4 g/dL (3.4-5.0) Albumin/Globulin Ratio 0.9 (1.0-1.7) Reticulocyte Count (auto) 1.6 % (0.5-2.5) Influenza Type A Antigen Negative (NEGATIVE) Influenza Type B Antigen Negative (NEGATIVE) Test 12/09/18 20:50 12/09/18 23:45 12/10/18 03:30 12/10/18 08:20 Troponin I Quantitative 0.020 ng/mL (0.000-0.055) 0.020 ng/mL (0.000-0.055) White Blood Count 7.5 x10^3/uL (4.0-11.0) Red Blood Count 3.55 x10^6/uL (4.30-5.70) Hemoglobin 7.0 g/dL (13.0-17.5) 7.9 g/dL (13.0-17.5) Hematocrit 23.9 % (39.0-53.0) 26.4 % (39.0-53.0) Mean Corpuscular Volume 67 fL (79-100) Mean Corpuscular Hemoglobin 20 pg (25-35) Mean Corpuscular Hemoglobin Concent 29 g/dL (31-37) 30 g/dL (31-37) Red Cell Distribution Width 23.2 % (11.5-14.5) Platelet Count 337 x10^3/uL (140-400) Neutrophils (%) (Auto) 96 % (31-73) Lymphocytes (%) (Auto) 4 % (24-48) Monocytes (%) (Auto) 1 % (0-9) Eosinophils (%) (Auto) 0 % (0-3) Basophils (%) (Auto) 0 % (0-3) Neutrophils # (Auto) 7.2 x10^3uL (1.8-7.7) Lymphocytes # (Auto) 0.3 x10^3/uL (1.0-4.8) Monocytes # (Auto) 0.1 x10^3/uL (0.0-1.1) Eosinophils # (Auto) 0.0 x10^3/uL (0.0-0.7) Basophils # (Auto) 0.0 x10^3/uL (0.0-0.2) Sodium Level 143 mmol/L (136-145) Potassium Level 4.2 mmol/L (3.5-5.1) Chloride Level 108 mmol/L (98-107) Carbon Dioxide Level 24 mmol/L (21-32) Anion Gap 11 (6-14) Blood Urea Nitrogen 24 mg/dL (8-26) Creatinine 2.3 mg/dL (0.7-1.3) Estimated GFR (Cockcroft-Gault) 35.5 Glucose Level 149 mg/dL (70-99) Calcium Level 9.0 mg/dL (8.5-10.1) Allergies: Coded Allergies: No Known Drug Allergies (Unverified , 08/29/14) Medications: Current Medications Medications (Trade) Dose Ordered Sig/Hari Route PRN Reason Start Time Stop Time Status Last Admin Dose Admin Albuterol/ Ipratropium (Duoneb) 3 ml 1X ONCE NEB 12/09/18 16:45 12/09/18 16:51 DC 12/09/18 16:57 Aspirin (Dany Aspirin) 325 mg 1X ONCE PO 12/09/18 16:45 12/09/18 16:51 DC 12/09/18 17:36 Morphine Sulfate (Morphine Sulfate) 4 mg 1X ONCE IV 12/09/18 16:45 12/09/18 16:51 DC 12/09/18 17:36 Methylprednisolone Sodium Succinate (SOLU-Medrol 125MG VIAL) 125 mg 1X ONCE IV 12/09/18 16:45 12/09/18 16:51 DC 12/09/18 17:35 Clonidine HCl (Catapres) 0.1 mg 1X ONCE PO 12/09/18 16:45 12/09/18 16:51 DC 12/09/18 17:36 Sodium Chloride 1,000 ml @ 1,000 mls/hr 1X ONCE IV 12/09/18 17:15 12/09/18 18:14 DC 12/09/18 17:35 Albuterol/ Ipratropium (Duoneb) 3 ml RTQID NEB 12/09/18 20:00 12/10/18 19:59 12/10/18 08:24 Azithromycin (Zithromax) 500 mg 1X ONCE PO 12/09/18 18:00 12/09/18 18:05 DC 12/09/18 18:00 Metoprolol Tartrate (Lopressor) 12.5 mg BID PO 12/09/18 21:00 12/10/18 08:07 Diltiazem HCl (Cardizem 24hr Cd) 240 mg DAILY PO 12/10/18 09:00 12/10/18 08:08 Furosemide (Lasix) 20 mg 1X ONCE IVP 12/10/18 01:00 12/10/18 01:01 DC 12/10/18 00:42 Hydralazine HCl (Apresoline Inj) 10 mg PRN Q4HRS PRN IVP ELEVATED BP, SEE COMMENTS 12/09/18 23:30 12/10/18 08:08 Furosemide (Lasix) 40 mg 1X ONCE IVP 12/10/18 01:45 12/10/18 01:46 DC 12/10/18 06:00 Imaging: Imaging: CXR IMPRESSION: Findings of COPD. Superimposed atypical/viral infection/bronchitis. VQ scan IMPRESSION: Low probability VQ scan. Consider further evaluation with DVT exam. PE: GEN: NAD HEENT: Atraumatic, PERRL LUNGS: decreased, NC HEART: RRR ABD: NABS, S/ND/NT EXTREMITY: No edema SKIN: No rashes, no jaundice NEURO/PSYCH: A & O 3 A/P: A/P: CP, SOA NICOLETTE - no obvious bleeding, Hgb improved w/ transfusion NICM, A Fib on Eliquis, HTN, COPD/bronchitis, CKD Heartburn - Zegerid PRN CRC screen - none H/o Hep B, hepatic steatosis +tobacco -- Add IV PPI. Plan for EGD this afternoon. Needs screening colonoscopy - can puruse outpt. CASEY HOYOS Dec 10, 2018 11:47
[2018-12-10] MEDS ORDERED: hydrALAZINE 20 MG/ML VIAL. IVP PRN (12:00)
--- NOTE | 2018-12-10 12:09 | PDOC2 ---
[facility]ANE [facility] DIRECTOR OF EXTENSION WORK 12/10/18 1209: CARDIAC CONSULT DATE OF CONSULT Date of Consult DATE: 12/10/18 TIME: 11:41 REASON FOR CONSULT Reason for Consult: Chest pain REFERRING PHYSICIAN Referring Physician: Lucía SOURCE Source: Chart review, Patient HISTORY OF PRESENT ILLNESS HISTORY OF PRESENT ILLNESS This is a 58 yo male admitted for complains of SOA and weakness in the last few weeks. This was worse yesterday wheezy but still smokes tobacco. Midchest tightness x1 2 days ago, with wheezing. No leg edema, no palpitations. No black stools no nausea or vomiting. no abd pain. PAST MEDICAL HISTORY Cardiovascular: AFIB, HTN, Other (NICM) Pulmonary: COPD CENTRAL NERVOUS SYSTEM: TIA GI: No pertinent hx Heme/Onc: Anemia NOS Hepatobiliary: Other (chronic anticoagulation) Psych: No pertinent hx Musculoskeletal: Osteoarthritis Renal/: Chronic renal insuff Endocrine: No pertinent hx PAST SURGICAL HISTORY Past Surgical History: Other ([facility]) FAMILY HISTORY Family History: Heart Disease, Hypertension SOCIAL HISTORY Smoke: <1 pack per day ALCOHOL: none Drugs: None Lives: with Family CURRENT MEDICATIONS CURRENT MEDICATIONS Current Medications Medications (Trade) Dose Ordered Sig/Hari Route PRN Reason Start Time Stop Time Status Last Admin Dose Admin Albuterol/ Ipratropium (Duoneb) 3 ml 1X ONCE NEB 12/09/18 16:45 12/09/18 16:51 DC 12/09/18 16:57 Aspirin (Dany Aspirin) 325 mg 1X ONCE PO 12/09/18 16:45 12/09/18 16:51 DC 12/09/18 17:36 Morphine Sulfate (Morphine Sulfate) 4 mg 1X ONCE IV 12/09/18 16:45 12/09/18 16:51 DC 12/09/18 17:36 Methylprednisolone Sodium Succinate (SOLU-Medrol 125MG VIAL) 125 mg 1X ONCE IV 12/09/18 16:45 12/09/18 16:51 DC 12/09/18 17:35 Clonidine HCl (Catapres) 0.1 mg 1X ONCE PO 12/09/18 16:45 12/09/18 16:51 DC 12/09/18 17:36 Sodium Chloride 1,000 ml @ 1,000 mls/hr 1X ONCE IV 12/09/18 17:15 12/09/18 18:14 DC 12/09/18 17:35 Albuterol/ Ipratropium (Duoneb) 3 ml RTQID NEB 12/09/18 20:00 12/10/18 19:59 12/10/18 08:24 Azithromycin (Zithromax) 500 mg 1X ONCE PO 12/09/18 18:00 12/09/18 18:05 DC 12/09/18 18:00 Metoprolol Tartrate (Lopressor) 12.5 mg BID PO 12/09/18 21:00 12/10/18 08:07 Diltiazem HCl (Cardizem 24hr Cd) 240 mg DAILY PO 12/10/18 09:00 12/10/18 08:08 Furosemide (Lasix) 20 mg 1X ONCE IVP 12/10/18 01:00 12/10/18 01:01 DC 12/10/18 00:42 Hydralazine HCl (Apresoline Inj) 10 mg PRN Q4HRS PRN IVP ELEVATED BP, SEE COMMENTS 12/09/18 23:30 12/10/18 08:08 Furosemide (Lasix) 40 mg 1X ONCE IVP 12/10/18 01:45 12/10/18 01:46 DC 12/10/18 06:00 Pantoprazole Sodium (PROTONIX VIAL for IV PUSH) 40 mg DAILYAC IVP 12/10/18 11:30 12/10/18 11:31 ALLERGIES ALLERGIES: Coded Allergies: No Known Drug Allergies (Unverified , 12/10/18) ROS Review of System 14 point ROS evaluated with pertinent positives noted per HPI PHYSICAL EXAM General: Alert, Oriented X3, Cooperative, No acute distress HEENT: Atraumatic, Mucous membr. moist/pink Lungs: Other (diminished bases) Heart: Regular rate (SR), Normal S1, Normal S2 Abdomen: Soft, No tenderness Extremities: No cyanosis, No edema Skin: No breakdown, No significant lesion Neuro: Normal speech, Sensation intact Psych/Mental Status: Mental status NL, Mood NL MUSCULOSKELETAL: Osteoarthritic changes both hands VITALS VITALS Vital Signs Date Time Temp Pulse Resp B/P (MAP) Pulse Ox O2 Delivery O2 Flow Rate FiO2 12/10/18 08:25 99 Nasal Cannula 2.0 12/10/18 08:08 100 174/120 12/10/18 07:00 97.5 20 97.5 LABS Lab: Laboratory Tests Test 12/09/18 16:40 12/09/18 16:45 12/09/18 17:40 12/09/18 18:16 Iron Level 14 ug/dL (65-175) Total Iron Binding Capacity 455 ug/dL (250-450) Iron Saturation 3 % (15-34) Ferritin 15 ng/mL (26-388) White Blood Count 7.2 x10^3/uL (4.0-11.0) Red Blood Count 3.36 x10^6/uL (4.30-5.70) Hemoglobin 6.0 g/dL (13.0-17.5) Hematocrit 21.7 % (39.0-53.0) Mean Corpuscular Volume 65 fL (79-100) Mean Corpuscular Hemoglobin 18 pg (25-35) Mean Corpuscular Hemoglobin Concent 28 g/dL (31-37) Red Cell Distribution Width 20.7 % (11.5-14.5) Platelet Count 384 x10^3/uL (140-400) Neutrophils (%) (Auto) 52 % (31-73) Lymphocytes (%) (Auto) 40 % (24-48) Monocytes (%) (Auto) 6 % (0-9) Eosinophils (%) (Auto) 0 % (0-3) Basophils (%) (Auto) 2 % (0-3) Neutrophils # (Auto) 3.7 x10^3uL (1.8-7.7) Lymphocytes # (Auto) 2.9 x10^3/uL (1.0-4.8) Monocytes # (Auto) 0.4 x10^3/uL (0.0-1.1) Eosinophils # (Auto) 0.0 x10^3/uL (0.0-0.7) Basophils # (Auto) 0.1 x10^3/uL (0.0-0.2) Platelet Estimate Adequate (ADEQUATE) Hypochromasia Marked Poikilocytosis Mod Anisocytosis Mod Microcytosis Marked Tear Drop Cells Occ Ovalocytes Present Schistocytes Few RBC Morphology Bizarre Forms Few D-Dimer (Jocelin) 1.39 ug/mlFEU (0.00-0.50) Sodium Level 144 mmol/L (136-145) Potassium Level 4.1 mmol/L (3.5-5.1) Chloride Level 109 mmol/L (98-107) Carbon Dioxide Level 24 mmol/L (21-32) Anion Gap 11 (6-14) Blood Urea Nitrogen 31 mg/dL (8-26) Creatinine 2.8 mg/dL (0.7-1.3) Estimated GFR (Cockcroft-Gault) 28.3 BUN/Creatinine Ratio 11 (6-20) Glucose Level 106 mg/dL (70-99) Calcium Level 8.6 mg/dL (8.5-10.1) Total Bilirubin 0.6 mg/dL (0.2-1.0) Aspartate Amino Transf (AST/SGOT) 18 U/L (15-37) Alanine Aminotransferase (ALT/SGPT) 18 U/L (16-63) Alkaline Phosphatase 78 U/L (46-116) Creatine Kinase 77 U/L (39-308) Creatine Kinase MB (Mass) 1.1 ng/mL (0.0-3.6) Creatine Kinase MB Relative Index 1.4 % (0-4) Troponin I Quantitative 0.025 ng/mL (0.000-0.055) RX-[id number]-Type Natriuretic Peptide 7620 pg/mL (0-124) Total Protein 7.2 g/dL (6.4-8.2) Albumin 3.4 g/dL (3.4-5.0) Albumin/Globulin Ratio 0.9 (1.0-1.7) Reticulocyte Count (auto) 1.6 % (0.5-2.5) Influenza Type A Antigen Negative (NEGATIVE) Influenza Type B Antigen Negative (NEGATIVE) Test 12/09/18 20:50 12/09/18 23:45 12/10/18 03:30 12/10/18 08:20 Troponin I Quantitative 0.020 ng/mL (0.000-0.055) 0.020 ng/mL (0.000-0.055) White Blood Count 7.5 x10^3/uL (4.0-11.0) Red Blood Count 3.55 x10^6/uL (4.30-5.70) Hemoglobin 7.0 g/dL (13.0-17.5) 7.9 g/dL (13.0-17.5) Hematocrit 23.9 % (39.0-53.0) 26.4 % (39.0-53.0) Mean Corpuscular Volume 67 fL (79-100) Mean Corpuscular Hemoglobin 20 pg (25-35) Mean Corpuscular Hemoglobin Concent 29 g/dL (31-37) 30 g/dL (31-37) Red Cell Distribution Width 23.2 % (11.5-14.5) Platelet Count 337 x10^3/uL (140-400) Neutrophils (%) (Auto) 96 % (31-73) Lymphocytes (%) (Auto) 4 % (24-48) Monocytes (%) (Auto) 1 % (0-9) Eosinophils (%) (Auto) 0 % (0-3) Basophils (%) (Auto) 0 % (0-3) Neutrophils # (Auto) 7.2 x10^3uL (1.8-7.7) Lymphocytes # (Auto) 0.3 x10^3/uL (1.0-4.8) Monocytes # (Auto) 0.1 x10^3/uL (0.0-1.1) Eosinophils # (Auto) 0.0 x10^3/uL (0.0-0.7) Basophils # (Auto) 0.0 x10^3/uL (0.0-0.2) Sodium Level 143 mmol/L (136-145) Potassium Level 4.2 mmol/L (3.5-5.1) Chloride Level 108 mmol/L (98-107) Carbon Dioxide Level 24 mmol/L (21-32) Anion Gap 11 (6-14) Blood Urea Nitrogen 24 mg/dL (8-26) Creatinine 2.3 mg/dL (0.7-1.3) Estimated GFR (Cockcroft-Gault) 35.5 Glucose Level 149 mg/dL (70-99) Calcium Level 9.0 mg/dL (8.5-10.1) ECHOCARDIOGRAM ECHOCARDIOGRAM <Conclusion> The Left Ventricle is borderline dilated. Left ventricle systolic function is low normal. The Ejection Fraction is 50-55%. There is moderate concentric left ventricular hypertrophy. There is no significant aortic valvular stenosis. Doppler and Color Flow revealed mild to moderate aortic regurgitation. Doppler and Color-flow revealed trace to mild mitral regurgitation. Doppler and Color Flow revealed mild tricuspid regurgitation. The PA pressure was estimated at 42 mmHg. DATE: 07/08/18 1347 HEART CATH HEART CATH Conclusion No significant coronary artery disease Recommendations Optimization of medical therapy for severe non ischemic cardiomyopathy. Repeat 2D echo in 3 months and consider AICD implantation if LV function does not improve. DATE: 09/03/14912 ASSESSMENT/PLAN ASSESSMENT/PLAN 1. Chest pain: Recent MPI with no reversible defect noted above. Likely from bronchospasm 2. Dyspnea: r/t AECOPD and anemia 3. Recovered NICM: EF now at 50-55% but noted EF with MPI at 36% 4. Severe microcytic hypochromic anemia: Hgb 6.0 post tranfusion at 7.9 5. AECOPD with continued tobaccoism 6. NEVA on CKD3 7. PAFIB: SR 8. HTN: labile 9. Chronic systolic CHF 10. Chronic anticoagulation with eliquis for stroke prevention: last dose yesterday. Recommendations 1. Limited TTE today 2. Hold eliquis for now. EGD pending 3. Continue BP regimen. Increase metoprolol to 25 mg no wheezing. Hydralazine IV PRN 4. Smoking cessation DESMOND VINCENT MD 12/10/182100: CARDIAC CONSULT ASSESSMENT/PLAN ASSESSMENT/PLAN Patient seen and examined. Agree with LEAD MINER's assessment and plan. CP with atypical features - WA ruled out Recent MPI did not show any ischemia 2D echo showed normal LV function Continue current workup for anemia per GI team Thank you for your consultation LANE KHAN APRN Dec 10, 2018 12:09 DESMOND VINCENT MD Dec 10, 2018 21:01
--- NOTE | 2018-12-10 14:51 | PDOC2 ---
CONSULT Date of Consult Date of Consult DATE: 12/10/18 TIME: 14:43 Reason for Consult Reason for Consult: NEVA Referring Physician Referring Physician: YISEL Identification/Chief Complaint Chief Complaint CHEST PAIN AND SOB Source Source: Chart review History of Present Illness Reason for Visit: THIS IS A 58 YR OLD WITH SOB AND CHEST PAIN. NOTED TO HAVE VERY HIGH BP. NOT SEEING ANY DOCTORS. CR OF 2.8 NOTED AND HE IS NOT AWARE OF ANY CKD. OLD RECORDS INDICATED NEVA WITH CR OF 3.3 IN 2013 AND ALSO CKD WITH BASELINE CR OF ABOUT 2.0- 2.5 ON AVG. NO NSAIDS, NO NEPHROTOXINS AND NO OTHER HX. NO PROBLEMS VOIDING PER PT. MED LIST SHOWED ARB AND DIURETICS BUT NOT SURE IF HE HAS BEEN TAKING ANY OF THEM Past Medical History Cardiovascular: AFIB, HTN, Other (NICM) Hepatobiliary: Other (chronic anticoagulation) Musculoskeletal: Osteoarthritis Renal/: Chronic renal insuff Past Surgical History Past Surgical History: Other ([facility]) Family History Family History: Heart Disease, Hypertension Social History <1 pack per day ALCOHOL: none Drugs: None Lives: with Family Current Problem List Problem List Problems Medical Problems: (1) Elevated serum creatinine Status: Acute (2) Shortness of breath Status: Acute Current Medications Current Medications Current Medications Albuterol/ Ipratropium (Duoneb) 3 ml 1X ONCE NEB Last administered on at 16:57; Start 12/09/18 at 16:45; Stop 12/09/18 at 16:51; Status DC Aspirin (Dany Aspirin) 325 mg 1X ONCE PO Last administered on 12/09/18at 17:36 ; Start 12/09/18 at 16:45; Stop 12/09/18 at 16:51; Status DC Morphine Sulfate (Morphine Sulfate) 4 mg 1X ONCE IV Last administered on at 17:36; Start 12/09/18 at 16:45; Stop 12/09/18 at 16:51; Status DC Nitroglycerin (Nitrostat) 0.4 mg PRN Q5MIN PRN SL CHEST PAIN; Start 12/09/18 at 16:45 Methylprednisolone Sodium Succinate (SOLU-Medrol 125MG VIAL) 125 mg 1X ONCE IV Last administered on 12/09/18at 17:35; Start 12/09/18 at 16:45; Stop 12/09/18 at 16:51; Status DC Clonidine HCl (Catapres) 0.1 mg 1X ONCE PO Last administered on 12/09/18at 17: 36; Start 12/09/18 at 16:45; Stop 12/09/18 at 16:51; Status DC Sodium Chloride 1,000 ml @ 1,000 mls/hr 1X ONCE IV Last administered on at 17:35; Start 12/09/18 at 17:15; Stop 12/09/18 at 18:14; Status DC Ondansetron HCl (Zofran) 4 mg PRN Q8HRS PRN IV NAUSEA/VOMITING; Start 12/09/18 at 17:45; Stop 12/09/18 at 18:03; Status DC Morphine Sulfate (Morphine Sulfate) 4 mg PRN Q2HR PRN IV PAIN; Start 12/09/18 at 17:45; Stop 12/10/18 at 17:44 Sodium Chloride 1,000 ml @ 100 mls/hr Q10H IV ; Start 12/09/18 at 17:44; Stop 12/09/18 at 23:32; Status DC Albuterol/ Ipratropium (Duoneb) 3 ml RTQID NEB Last administered on 12/10/18at 12:19; Start 12/09/18 at 20:00; Stop 12/10/18 at 19:59 Ondansetron HCl (Zofran) 4 mg PRN Q6HRS PRN IV NAUSEA/VOMITING; Start 12/09/18 at 18:15 Cetirizine HCl (ZyrTEC) 10 mg DAILY PO ; Start 12/10/18 at 09:00 Azithromycin (Zithromax) 500 mg 1X ONCE PO Last administered on 12/09/18at 18: 00; Start 12/09/18 at 18:00; Stop 12/09/18 at 18:05; Status DC Azithromycin (Zithromax) 250 mg DAILY PO ; Start 12/10/18 at 09:00 Furosemide (Lasix) 40 mg DAILY PO ; Start 12/10/18 at 09:00; Stop 12/10/18 at 09 :00; Status DC Losartan Potassium (Cozaar) 25 mg DAILY PO ; Start 12/10/18 at 09:00; Stop 12/10 at 09:00; Status DC Metoprolol Tartrate (Lopressor) 12.5 mg BID PO Last administered on 12/10/18at 08:07; Start 12/09/18 at 21:00; Stop 12/10/18 at 12:10; Status DC Diltiazem HCl (Cardizem 24hr Cd) 240 mg DAILY PO Last administered on at 08:08; Start 12/10/18 at 09:00 Nicotine (Nicoderm Cq 21mg) 1 patch PRN DAILY PRN TD SMOKING CESSATION; Start 12/09/18 at 18:15 Guaifenesin (Robitussin Dm) 10 ml PRN Q6HRS PRN PO COUGH; Start 12/09/18 at 18: 15 Temazepam (Restoril) 7.5 mg PRN QHS PRN PO INSOMNIA; Start 12/09/18 at 18:15 Furosemide (Lasix) 20 mg 1X ONCE IVP Last administered on 12/10/18at 00:42; Start 12/10/18 at 01:00; Stop 12/10/18 at 01:01; Status DC Hydralazine HCl (Apresoline Inj) 10 mg PRN Q4HRS PRN IVP ELEVATED BP, SEE COMMENTS Last administered on 12/10/18at 08:08; Start 12/09/18 at 23:30 Furosemide (Lasix) 40 mg 1X ONCE IVP Last administered on 12/10/18at 06:00; Start 12/10/18 at 01:45; Stop 12/10/18 at 01:46; Status DC Pantoprazole Sodium (PROTONIX VIAL for IV PUSH) 40 mg DAILYAC IVP Last administered on 12/10/18at 11:31; Start 12/10/18 at 11:30 Hydralazine HCl (Apresoline Inj) 10 mg PRN Q4HRS PRN IVP ELEVATED BP, SEE COMMENTS; Start 12/10/18 at 12:00 Metoprolol Tartrate (Lopressor) 25 mg BID PO ; Start 12/10/18 at 21:00 Active Scripts Active Reported Acetaminophen 500 Mg Tablet 1,000 Mg PO PRN Q6HRS PRN Cepacol Sore Throat Lozenge (Benzocaine/Menthol) 1 Each Lozenge 1 Each MM PRN Q2HRS Imodium A-D (Loperamide HCl) 2 Mg Capsule 2 Mg PO PRN BID PRN [tylonAL SINUS] 1 DAILY Cartia Xt (Diltiazem Hcl) 240 Mg Cap.er.24h 240 Mg PO DAILY Eliquis (Apixaban) Unknown Strength Tablet 5 Mg PO BID Losartan Potassium (Losartan Potassium) 25 Mg Tablet 25 Mg PO DAILY Lasix (Furosemide) 40 Mg Tablet 40 Mg PO DAILY Metoprolol Tartrate 25 Mg Tablet 12.5 Mg PO BID 90 Days Allergies Allergies: Coded Allergies: No Known Drug Allergies (Unverified , 08/29/14) ROS General: YES: Fatigue, Malaise PSYCHOLOGICAL ROS: YES: Anxiety, Depression Eyes: Yes Decreased vision ALLERGY AND IMMUNOLOGY: YES: Seasonal Allergies Respiratory: YES: Shortness of breath Cardiovascular: yes Chest Pain Genitourinary: YES Other (NOCTURIA) Musculoskeletal: Yes Muscular Weakness Neurological: Yes Weakness Skin: Yes Dry Skin, Yes Eczema Physical Exam General: Alert, Oriented X3, Cooperative, No acute distress, mild distress HEENT: Atraumatic, PERRLA Lungs: Clear to auscultation Heart: Regular rate, Normal S1, Normal S2 Abdomen: Normal bowel sounds, Soft, No tenderness Skin: No breakdown Neuro: Normal speech, Cranial nerves 3-12 NL Psych/Mental Status: Mental status NL, Mood NL MUSCULOSKELETAL: No joint tenderness, No deformity, No swelling Vitals VITALS Vital Signs Date Time Temp Pulse Resp B/P (MAP) Pulse Ox O2 Delivery O2 Flow Rate FiO2 12/10/18 12:19 97 Room Air 12/10/18 11:00 98.1 99 18 170/90 (116) 98.1 12/10/18 08:25 2.0 Labs Labs Laboratory Tests Test 12/09/18 16:40 12/09/18 16:45 12/09/18 17:40 12/09/18 18:16 Iron Level 14 ug/dL (65-175) Total Iron Binding Capacity 455 ug/dL (250-450) Iron Saturation 3 % (15-34) Ferritin 15 ng/mL (26-388) White Blood Count 7.2 x10^3/uL (4.0-11.0) Red Blood Count 3.36 x10^6/uL (4.30-5.70) Hemoglobin 6.0 g/dL (13.0-17.5) Hematocrit 21.7 % (39.0-53.0) Mean Corpuscular Volume 65 fL (79-100) Mean Corpuscular Hemoglobin 18 pg (25-35) Mean Corpuscular Hemoglobin Concent 28 g/dL (31-37) Red Cell Distribution Width 20.7 % (11.5-14.5) Platelet Count 384 x10^3/uL (140-400) Neutrophils (%) (Auto) 52 % (31-73) Lymphocytes (%) (Auto) 40 % (24-48) Monocytes (%) (Auto) 6 % (0-9) Eosinophils (%) (Auto) 0 % (0-3) Basophils (%) (Auto) 2 % (0-3) Neutrophils # (Auto) 3.7 x10^3uL (1.8-7.7) Lymphocytes # (Auto) 2.9 x10^3/uL (1.0-4.8) Monocytes # (Auto) 0.4 x10^3/uL (0.0-1.1) Eosinophils # (Auto) 0.0 x10^3/uL (0.0-0.7) Basophils # (Auto) 0.1 x10^3/uL (0.0-0.2) Platelet Estimate Adequate (ADEQUATE) Hypochromasia Marked Poikilocytosis Mod Anisocytosis Mod Microcytosis Marked Tear Drop Cells Occ Ovalocytes Present Schistocytes Few RBC Morphology Bizarre Forms Few D-Dimer (Jocelin) 1.39 ug/mlFEU (0.00-0.50) Sodium Level 144 mmol/L (136-145) Potassium Level 4.1 mmol/L (3.5-5.1) Chloride Level 109 mmol/L (98-107) Carbon Dioxide Level 24 mmol/L (21-32) Anion Gap 11 (6-14) Blood Urea Nitrogen 31 mg/dL (8-26) Creatinine 2.8 mg/dL (0.7-1.3) Estimated GFR (Cockcroft-Gault) 28.3 BUN/Creatinine Ratio 11 (6-20) Glucose Level 106 mg/dL (70-99) Calcium Level 8.6 mg/dL (8.5-10.1) Total Bilirubin 0.6 mg/dL (0.2-1.0) Aspartate Amino Transf (AST/SGOT) 18 U/L (15-37) Alanine Aminotransferase (ALT/SGPT) 18 U/L (16-63) Alkaline Phosphatase 78 U/L (46-116) Creatine Kinase 77 U/L (39-308) Creatine Kinase MB (Mass) 1.1 ng/mL (0.0-3.6) Creatine Kinase MB Relative Index 1.4 % (0-4) Troponin I Quantitative 0.025 ng/mL (0.000-0.055) HW-Xck-Y-Type Natriuretic Peptide 7620 pg/mL (0-124) Total Protein 7.2 g/dL (6.4-8.2) Albumin 3.4 g/dL (3.4-5.0) Albumin/Globulin Ratio 0.9 (1.0-1.7) Reticulocyte Count (auto) 1.6 % (0.5-2.5) Influenza Type A Antigen Negative (NEGATIVE) Influenza Type B Antigen Negative (NEGATIVE) Test 12/09/18 20:50 12/09/18 23:45 12/10/18 03:30 12/10/18 08:20 Troponin I Quantitative 0.020 ng/mL (0.000-0.055) 0.020 ng/mL (0.000-0.055) White Blood Count 7.5 x10^3/uL (4.0-11.0) Red Blood Count 3.55 x10^6/uL (4.30-5.70) Hemoglobin 7.0 g/dL (13.0-17.5) 7.9 g/dL (13.0-17.5) Hematocrit 23.9 % (39.0-53.0) 26.4 % (39.0-53.0) Mean Corpuscular Volume 67 fL (79-100) Mean Corpuscular Hemoglobin 20 pg (25-35) Mean Corpuscular Hemoglobin Concent 29 g/dL (31-37) 30 g/dL (31-37) Red Cell Distribution Width 23.2 % (11.5-14.5) Platelet Count 337 x10^3/uL (140-400) Neutrophils (%) (Auto) 96 % (31-73) Lymphocytes (%) (Auto) 4 % (24-48) Monocytes (%) (Auto) 1 % (0-9) Eosinophils (%) (Auto) 0 % (0-3) Basophils (%) (Auto) 0 % (0-3) Neutrophils # (Auto) 7.2 x10^3uL (1.8-7.7) Lymphocytes # (Auto) 0.3 x10^3/uL (1.0-4.8) Monocytes # (Auto) 0.1 x10^3/uL (0.0-1.1) Eosinophils # (Auto) 0.0 x10^3/uL (0.0-0.7) Basophils # (Auto) 0.0 x10^3/uL (0.0-0.2) Sodium Level 143 mmol/L (136-145) Potassium Level 4.2 mmol/L (3.5-5.1) Chloride Level 108 mmol/L (98-107) Carbon Dioxide Level 24 mmol/L (21-32) Anion Gap 11 (6-14) Blood Urea Nitrogen 24 mg/dL (8-26) Creatinine 2.3 mg/dL (0.7-1.3) Estimated GFR (Cockcroft-Gault) 35.5 Glucose Level 149 mg/dL (70-99) Calcium Level 9.0 mg/dL (8.5-10.1) Test 12/10/18 13:25 Hemoglobin 7.6 g/dL (13.0-17.5) Laboratory Tests Test 12/09/18 16:40 12/09/18 16:45 12/09/18 17:40 12/09/18 18:16 Iron Level 14 ug/dL (65-175) Total Iron Binding Capacity 455 ug/dL (250-450) Iron Saturation 3 % (15-34) Ferritin 15 ng/mL (26-388) White Blood Count 7.2 x10^3/uL (4.0-11.0) Red Blood Count 3.36 x10^6/uL (4.30-5.70) Hemoglobin 6.0 g/dL (13.0-17.5) Hematocrit 21.7 % (39.0-53.0) Mean Corpuscular Volume 65 fL (79-100) Mean Corpuscular Hemoglobin 18 pg (25-35) Mean Corpuscular Hemoglobin Concent 28 g/dL (31-37) Red Cell Distribution Width 20.7 % (11.5-14.5) Platelet Count 384 x10^3/uL (140-400) Neutrophils (%) (Auto) 52 % (31-73) Lymphocytes (%) (Auto) 40 % (24-48) Monocytes (%) (Auto) 6 % (0-9) Eosinophils (%) (Auto) 0 % (0-3) Basophils (%) (Auto) 2 % (0-3) Neutrophils # (Auto) 3.7 x10^3uL (1.8-7.7) Lymphocytes # (Auto) 2.9 x10^3/uL (1.0-4.8) Monocytes # (Auto) 0.4 x10^3/uL (0.0-1.1) Eosinophils # (Auto) 0.0 x10^3/uL (0.0-0.7) Basophils # (Auto) 0.1 x10^3/uL (0.0-0.2) Platelet Estimate Adequate (ADEQUATE) Hypochromasia Marked Poikilocytosis Mod Anisocytosis Mod Microcytosis Marked Tear Drop Cells Occ Ovalocytes Present Schistocytes Few RBC Morphology Bizarre Forms Few D-Dimer (Jocelin) 1.39 ug/mlFEU (0.00-0.50) Sodium Level 144 mmol/L (136-145) Potassium Level 4.1 mmol/L (3.5-5.1) Chloride Level 109 mmol/L (98-107) Carbon Dioxide Level 24 mmol/L (21-32) Anion Gap 11 (6-14) Blood Urea Nitrogen 31 mg/dL (8-26) Creatinine 2.8 mg/dL (0.7-1.3) Estimated GFR (Cockcroft-Gault) 28.3 BUN/Creatinine Ratio 11 (6-20) Glucose Level 106 mg/dL (70-99) Calcium Level 8.6 mg/dL (8.5-10.1) Total Bilirubin 0.6 mg/dL (0.2-1.0) Aspartate Amino Transf (AST/SGOT) 18 U/L (15-37) Alanine Aminotransferase (ALT/SGPT) 18 U/L (16-63) Alkaline Phosphatase 78 U/L (46-116) Creatine Kinase 77 U/L (39-308) Creatine Kinase MB (Mass) 1.1 ng/mL (0.0-3.6) Creatine Kinase MB Relative Index 1.4 % (0-4) Troponin I Quantitative 0.025 ng/mL (0.000-0.055) AE-Fbm-L-Type Natriuretic Peptide 7620 pg/mL (0-124) Total Protein 7.2 g/dL (6.4-8.2) Albumin 3.4 g/dL (3.4-5.0) Albumin/Globulin Ratio 0.9 (1.0-1.7) Reticulocyte Count (auto) 1.6 % (0.5-2.5) Influenza Type A Antigen Negative (NEGATIVE) Influenza Type B Antigen Negative (NEGATIVE) Test 12/09/18 20:50 12/09/18 23:45 12/10/18 03:30 12/10/18 08:20 Troponin I Quantitative 0.020 ng/mL (0.000-0.055) 0.020 ng/mL (0.000-0.055) White Blood Count 7.5 x10^3/uL (4.0-11.0) Red Blood Count 3.55 x10^6/uL (4.30-5.70) Hemoglobin 7.0 g/dL (13.0-17.5) 7.9 g/dL (13.0-17.5) Hematocrit 23.9 % (39.0-53.0) 26.4 % (39.0-53.0) Mean Corpuscular Volume 67 fL (79-100) Mean Corpuscular Hemoglobin 20 pg (25-35) Mean Corpuscular Hemoglobin Concent 29 g/dL (31-37) 30 g/dL (31-37) Red Cell Distribution Width 23.2 % (11.5-14.5) Platelet Count 337 x10^3/uL (140-400) Neutrophils (%) (Auto) 96 % (31-73) Lymphocytes (%) (Auto) 4 % (24-48) Monocytes (%) (Auto) 1 % (0-9) Eosinophils (%) (Auto) 0 % (0-3) Basophils (%) (Auto) 0 % (0-3) Neutrophils # (Auto) 7.2 x10^3uL (1.8-7.7) Lymphocytes # (Auto) 0.3 x10^3/uL (1.0-4.8) Monocytes # (Auto) 0.1 x10^3/uL (0.0-1.1) Eosinophils # (Auto) 0.0 x10^3/uL (0.0-0.7) Basophils # (Auto) 0.0 x10^3/uL (0.0-0.2) Sodium Level 143 mmol/L (136-145) Potassium Level 4.2 mmol/L (3.5-5.1) Chloride Level 108 mmol/L (98-107) Carbon Dioxide Level 24 mmol/L (21-32) Anion Gap 11 (6-14) Blood Urea Nitrogen 24 mg/dL (8-26) Creatinine 2.3 mg/dL (0.7-1.3) Estimated GFR (Cockcroft-Gault) 35.5 Glucose Level 149 mg/dL (70-99) Calcium Level 9.0 mg/dL (8.5-10.1) Test 12/10/18 13:25 Hemoglobin 7.6 g/dL (13.0-17.5) Assessment/Plan Assessment/Plan IMP NEVA-CR OF 2.8 CKD STAGE 3-CR PROB ABOUT 2.5 CHEST PAIN MALIGNANT HTN NON COMPLIANCE ANEMIA CM COPD PLAN IVF'S CARDIOLOGY EVAL RENAL SONOGRAM ANEMIA W/U-PARTLY DUE TO CKD UA WITH MICRO CONTROL BP WILL FOLLOW SCOT CASSIDY MD Dec 10, 2018 14:51
[2018-12-10] MEDS: IV RINGERS,LACTATED 1000ML 1,000 ML IV SCH (15:30)
--- NOTE | 2018-12-10 16:40 | CARD ---
MR#: [id number] Date of Study: 12/10/2018 Ordering Physician: LANE KHAN, Referring Physician: PAUL MORILLO Tech: Qi Moser [facility] APPROVED REPORT EXAM: LIMITED Two-dimensional echocardiogram with color and Doppler Other Information Quality : Excellent INDICATION Cardiomyopathy LV Function:Systolic 2D DIMENSIONS RVDd3.2 (2.9-3.5cm)Left Atrium(2D)4.9 (1.6-4.0cm) IVSd1.4 (0.7-1.1cm)Aortic Root(2D)3.1 (2.0-3.7cm) LVDd5.3 (3.9-5.9cm)PWd1.4 (0.7-1.1cm) LVDs4.1 (2.5-4.0cm)FS (%) 23.4 % SV62.9 mlLVEF(%)46.4 (>50%) Aortic Valve AI P 1/2 [id number] Tricuspid Valve TR P. [id number] TR Peak [id number] LEFT VENTRICLE The left ventricle is normal size. There is mild concentric left ventricular hypertrophy. Left ventri george systolic function is low normal. The Ejection Fraction is 50-55%. There is normal LV segmental wa ll motion. RIGHT VENTRICLE The right ventricle is normal size. The right ventricular systolic function is normal. ATRIA The left atrium is mildly dilated. The right atrium is mildly dilated. The interatrial septum is inta ct with no evidence for an atrial septal defect or patent foramen ovale as noted on 2-D or Doppler im aging. AORTIC VALVE The aortic valve is calcified but opens well. Doppler and Color Flow revealed mild to moderate aortic regurgitation. There is no significant aortic valvular stenosis. MITRAL VALVE The mitral valve is calcified but opens well. Mitral annular calcification is mild. There is no evide nce of mitral valve prolapse. There is no mitral valve stenosis. Doppler and Color-flow revealed mild mitral regurgitation. TRICUSPID VALVE The tricuspid valve is normal in structure and function. Doppler and Color Flow revealed moderate tri cuspid regurgitation. There is severe pulmonary hypertension. The PA pressure was estimated at 86 mmH g. There is no tricuspid valve stenosis. GREAT VESSELS The aortic root is normal in size. PERICARDIAL EFFUSION There is no evidence of significant pericardial effusion. Critical Notification Critical Value: No <Conclusion> Left ventricle systolic function is low normal. The Ejection Fraction is 50-55%. There is normal LV segmental wall motion. The left atrium is mildly dilated. Mild to moderate aortic regurgitation. Mild mitral regurgitation. Moderate tricuspid regurgitation. There is severe pulmonary hypertension. The PA pressure was estimated at 86 mmHg. There is no evidence of significant pericardial effusion. Signed by : Colt Elaine, Electronically Approved : 12/10/2018 16:39:28
[2018-12-10] MEDS ORDERED: PROPOFOL 20 ML IV ONE (16:51)
--- NOTE | 2018-12-10 17:10 | PDOC4 ---
Operative Note Operative Note EGD Meds propofol per anesthesia Pre-op dx melena/anemia Post-op dx duodenitis Plan advance diet serial cbcs o/p colonoscopy unless blood counts worsen CHRISTOPHER PRICE MD Dec 10, 2018 17:10
--- NOTE | 2018-12-10 19:50 | PDOC ---
PROGRESS NOTES Chief Complaint Chief Complaint Assessment/Plan Microcytic anemia most likely iron deficiency from blood loss Acute anemia-rule out active blood loss Nonischemic cardiomyopathy AK I on possibly CK D Elevated d-dimer Tachypnea Accel hypertension POA PLAN: Admit 2 midnights VQ scan low probablility for PE follow recommendations from nephrology follow GI recommendations Checked for Hemoccult Hold Eliquis Okay to continue beta carrie 50 twice a day and Cardizem Hold Lasix and losartan given creatinine Avoid nephrotoxins Draw iron panel and reticulocyte count ferritin etc. before BT Recheck H&H tomorrow FUll code History of Present Illness History of Present Illness Patient with no new complaints. Patient denies abdominal discomfort no chest pain or palpitations were reported. Plan of care explained detail all concerns were addressed to the best of my abilities Vitals Vitals Vital Signs Date Time Temp Pulse Resp B/P (MAP) Pulse Ox O2 Delivery O2 Flow Rate FiO2 12/10/18 18:58 86 171/100 12/10/18 17:30 18 98 Room Air 12/10/18 17:20 98.2 2 98.2 Physical Exam General: Alert, Oriented X3, Cooperative, No acute distress Heart: Regular rate (SR), Normal S1, Normal S2 Lungs: Clear Abdomen: Soft, No tenderness Extremities: No cyanosis, No edema Skin: No breakdown, No significant lesion Labs LABS Laboratory Tests Test 12/09/18 20:50 12/09/18 23:45 12/10/18 03:30 12/10/18 08:20 Troponin I Quantitative 0.020 ng/mL (0.000-0.055) 0.020 ng/mL (0.000-0.055) White Blood Count 7.5 x10^3/uL (4.0-11.0) Red Blood Count 3.55 x10^6/uL (4.30-5.70) Hemoglobin 7.0 g/dL (13.0-17.5) 7.9 g/dL (13.0-17.5) Hematocrit 23.9 % (39.0-53.0) 26.4 % (39.0-53.0) Mean Corpuscular Volume 67 fL (79-100) Mean Corpuscular Hemoglobin 20 pg (25-35) Mean Corpuscular Hemoglobin Concent 29 g/dL (31-37) 30 g/dL (31-37) Red Cell Distribution Width 23.2 % (11.5-14.5) Platelet Count 337 x10^3/uL (140-400) Neutrophils (%) (Auto) 96 % (31-73) Lymphocytes (%) (Auto) 4 % (24-48) Monocytes (%) (Auto) 1 % (0-9) Eosinophils (%) (Auto) 0 % (0-3) Basophils (%) (Auto) 0 % (0-3) Neutrophils # (Auto) 7.2 x10^3uL (1.8-7.7) Lymphocytes # (Auto) 0.3 x10^3/uL (1.0-4.8) Monocytes # (Auto) 0.1 x10^3/uL (0.0-1.1) Eosinophils # (Auto) 0.0 x10^3/uL (0.0-0.7) Basophils # (Auto) 0.0 x10^3/uL (0.0-0.2) Sodium Level 143 mmol/L (136-145) Potassium Level 4.2 mmol/L (3.5-5.1) Chloride Level 108 mmol/L (98-107) Carbon Dioxide Level 24 mmol/L (21-32) Anion Gap 11 (6-14) Blood Urea Nitrogen 24 mg/dL (8-26) Creatinine 2.3 mg/dL (0.7-1.3) Estimated GFR (Cockcroft-Gault) 35.5 Glucose Level 149 mg/dL (70-99) Calcium Level 9.0 mg/dL (8.5-10.1) Test 12/10/18 13:25 Hemoglobin 7.6 g/dL (13.0-17.5) Review of Systems Review of Systems Pertinent as per history of present illness otherwise 14 point review of system is negative Assessment and Plan Assessmemt and Plan Problems Medical Problems: (1) Elevated serum creatinine Status: Acute (2) Shortness of breath Status: Acute Comment Review of Relevant I have reviewed the following items emmanuel (where applicable) has been applied. Labs Laboratory Tests Test 12/09/18 16:40 12/09/18 16:45 12/09/18 17:40 12/09/18 18:16 Iron Level 14 ug/dL (65-175) Total Iron Binding Capacity 455 ug/dL (250-450) Iron Saturation 3 % (15-34) Ferritin 15 ng/mL (26-388) White Blood Count 7.2 x10^3/uL (4.0-11.0) Red Blood Count 3.36 x10^6/uL (4.30-5.70) Hemoglobin 6.0 g/dL (13.0-17.5) Hematocrit 21.7 % (39.0-53.0) Mean Corpuscular Volume 65 fL (79-100) Mean Corpuscular Hemoglobin 18 pg (25-35) Mean Corpuscular Hemoglobin Concent 28 g/dL (31-37) Red Cell Distribution Width 20.7 % (11.5-14.5) Platelet Count 384 x10^3/uL (140-400) Neutrophils (%) (Auto) 52 % (31-73) Lymphocytes (%) (Auto) 40 % (24-48) Monocytes (%) (Auto) 6 % (0-9) Eosinophils (%) (Auto) 0 % (0-3) Basophils (%) (Auto) 2 % (0-3) Neutrophils # (Auto) 3.7 x10^3uL (1.8-7.7) Lymphocytes # (Auto) 2.9 x10^3/uL (1.0-4.8) Monocytes # (Auto) 0.4 x10^3/uL (0.0-1.1) Eosinophils # (Auto) 0.0 x10^3/uL (0.0-0.7) Basophils # (Auto) 0.1 x10^3/uL (0.0-0.2) Platelet Estimate Adequate (ADEQUATE) Hypochromasia Marked Poikilocytosis Mod Anisocytosis Mod Microcytosis Marked Tear Drop Cells Occ Ovalocytes Present Schistocytes Few RBC Morphology Bizarre Forms Few D-Dimer (Jocelin) 1.39 ug/mlFEU (0.00-0.50) Sodium Level 144 mmol/L (136-145) Potassium Level 4.1 mmol/L (3.5-5.1) Chloride Level 109 mmol/L (98-107) Carbon Dioxide Level 24 mmol/L (21-32) Anion Gap 11 (6-14) Blood Urea Nitrogen 31 mg/dL (8-26) Creatinine 2.8 mg/dL (0.7-1.3) Estimated GFR (Cockcroft-Gault) 28.3 BUN/Creatinine Ratio 11 (6-20) Glucose Level 106 mg/dL (70-99) Calcium Level 8.6 mg/dL (8.5-10.1) Total Bilirubin 0.6 mg/dL (0.2-1.0) Aspartate Amino Transf (AST/SGOT) 18 U/L (15-37) Alanine Aminotransferase (ALT/SGPT) 18 U/L (16-63) Alkaline Phosphatase 78 U/L (46-116) Creatine Kinase 77 U/L (39-308) Creatine Kinase MB (Mass) 1.1 ng/mL (0.0-3.6) Creatine Kinase MB Relative Index 1.4 % (0-4) Troponin I Quantitative 0.025 ng/mL (0.000-0.055) DJ-Gjc-X-Type Natriuretic Peptide 7620 pg/mL (0-124) Total Protein 7.2 g/dL (6.4-8.2) Albumin 3.4 g/dL (3.4-5.0) Albumin/Globulin Ratio 0.9 (1.0-1.7) Reticulocyte Count (auto) 1.6 % (0.5-2.5) Influenza Type A Antigen Negative (NEGATIVE) Influenza Type B Antigen Negative (NEGATIVE) Test 12/09/18 20:50 12/09/18 23:45 12/10/18 03:30 12/10/18 08:20 Troponin I Quantitative 0.020 ng/mL (0.000-0.055) 0.020 ng/mL (0.000-0.055) White Blood Count 7.5 x10^3/uL (4.0-11.0) Red Blood Count 3.55 x10^6/uL (4.30-5.70) Hemoglobin 7.0 g/dL (13.0-17.5) 7.9 g/dL (13.0-17.5) Hematocrit 23.9 % (39.0-53.0) 26.4 % (39.0-53.0) Mean Corpuscular Volume 67 fL (79-100) Mean Corpuscular Hemoglobin 20 pg (25-35) Mean Corpuscular Hemoglobin Concent 29 g/dL (31-37) 30 g/dL (31-37) Red Cell Distribution Width 23.2 % (11.5-14.5) Platelet Count 337 x10^3/uL (140-400) Neutrophils (%) (Auto) 96 % (31-73) Lymphocytes (%) (Auto) 4 % (24-48) Monocytes (%) (Auto) 1 % (0-9) Eosinophils (%) (Auto) 0 % (0-3) Basophils (%) (Auto) 0 % (0-3) Neutrophils # (Auto) 7.2 x10^3uL (1.8-7.7) Lymphocytes # (Auto) 0.3 x10^3/uL (1.0-4.8) Monocytes # (Auto) 0.1 x10^3/uL (0.0-1.1) Eosinophils # (Auto) 0.0 x10^3/uL (0.0-0.7) Basophils # (Auto) 0.0 x10^3/uL (0.0-0.2) Sodium Level 143 mmol/L (136-145) Potassium Level 4.2 mmol/L (3.5-5.1) Chloride Level 108 mmol/L (98-107) Carbon Dioxide Level 24 mmol/L (21-32) Anion Gap 11 (6-14) Blood Urea Nitrogen 24 mg/dL (8-26) Creatinine 2.3 mg/dL (0.7-1.3) Estimated GFR (Cockcroft-Gault) 35.5 Glucose Level 149 mg/dL (70-99) Calcium Level 9.0 mg/dL (8.5-10.1) Test 12/10/18 13:25 Hemoglobin 7.6 g/dL (13.0-17.5) Laboratory Tests Test 12/09/18 20:50 12/09/18 23:45 12/10/18 03:30 12/10/18 08:20 Troponin I Quantitative 0.020 ng/mL (0.000-0.055) 0.020 ng/mL (0.000-0.055) White Blood Count 7.5 x10^3/uL (4.0-11.0) Red Blood Count 3.55 x10^6/uL (4.30-5.70) Hemoglobin 7.0 g/dL (13.0-17.5) 7.9 g/dL (13.0-17.5) Hematocrit 23.9 % (39.0-53.0) 26.4 % (39.0-53.0) Mean Corpuscular Volume 67 fL (79-100) Mean Corpuscular Hemoglobin 20 pg (25-35) Mean Corpuscular Hemoglobin Concent 29 g/dL (31-37) 30 g/dL (31-37) Red Cell Distribution Width 23.2 % (11.5-14.5) Platelet Count 337 x10^3/uL (140-400) Neutrophils (%) (Auto) 96 % (31-73) Lymphocytes (%) (Auto) 4 % (24-48) Monocytes (%) (Auto) 1 % (0-9) Eosinophils (%) (Auto) 0 % (0-3) Basophils (%) (Auto) 0 % (0-3) Neutrophils # (Auto) 7.2 x10^3uL (1.8-7.7) Lymphocytes # (Auto) 0.3 x10^3/uL (1.0-4.8) Monocytes # (Auto) 0.1 x10^3/uL (0.0-1.1) Eosinophils # (Auto) 0.0 x10^3/uL (0.0-0.7) Basophils # (Auto) 0.0 x10^3/uL (0.0-0.2) Sodium Level 143 mmol/L (136-145) Potassium Level 4.2 mmol/L (3.5-5.1) Chloride Level 108 mmol/L (98-107) Carbon Dioxide Level 24 mmol/L (21-32) Anion Gap 11 (6-14) Blood Urea Nitrogen 24 mg/dL (8-26) Creatinine 2.3 mg/dL (0.7-1.3) Estimated GFR (Cockcroft-Gault) 35.5 Glucose Level 149 mg/dL (70-99) Calcium Level 9.0 mg/dL (8.5-10.1) Test 12/10/18 13:25 Hemoglobin 7.6 g/dL (13.0-17.5) Medications Current Medications Albuterol/ Ipratropium (Duoneb) 3 ml 1X ONCE NEB Last administered on at 16:57; Start 12/09/18 at 16:45; Stop 12/09/18 at 16:51; Status DC Aspirin (Dany Aspirin) 325 mg 1X ONCE PO Last administered on 12/09/18 17:36 ; Start 12/09/18 at 16:45; Stop 12/09/18 at 16:51; Status DC Morphine Sulfate (Morphine Sulfate) 4 mg 1X ONCE IV Last administered on 17:36; Start 12/09/18 at 16:45; Stop 12/09/18 at 16:51; Status DC Nitroglycerin (Nitrostat) 0.4 mg PRN Q5MIN PRN SL CHEST PAIN; Start 12/09/18 at 16:45 Methylprednisolone Sodium Succinate (SOLU-Medrol 125MG VIAL) 125 mg 1X ONCE IV Last administered on 12/09/18 17:35; Start 12/09/18 at 16:45; Stop 12/09/18 at 16:51; Status DC Clonidine HCl (Catapres) 0.1 mg 1X ONCE PO Last administered on 12/09/18 17: 36; Start 12/09/18 at 16:45; Stop 12/09/18 at 16:51; Status DC Sodium Chloride 1,000 ml @ 1,000 mls/hr 1X ONCE IV Last administered on at 17:35; Start 12/09/18 at 17:15; Stop 12/09/18 at 18:14; Status DC Ondansetron HCl (Zofran) 4 mg PRN Q8HRS PRN IV NAUSEA/VOMITING; Start 12/09/18 at 17:45; Stop 12/09/18 at 18:03; Status DC Morphine Sulfate (Morphine Sulfate) 4 mg PRN Q2HR PRN IV PAIN; Start 12/09/18 at 17:45; Stop 12/10/18 at 17:44; Status DC Sodium Chloride 1,000 ml @ 100 mls/hr Q10H IV ; Start 12/09/18 at 17:44; Stop 12/09/18 at 23:32; Status DC Albuterol/ Ipratropium (Duoneb) 3 ml RTQID NEB Last administered on 12/10/18at 12:19; Start 12/09/18 at 20:00; Stop 12/10/18 at 19:59 Ondansetron HCl (Zofran) 4 mg PRN Q6HRS PRN IV NAUSEA/VOMITING; Start 12/09/18 at 18:15 Cetirizine HCl (ZyrTEC) 10 mg DAILY PO ; Start 12/10/18 at 09:00 Azithromycin (Zithromax) 500 mg 1X ONCE PO Last administered on 12/09/18at 18: 00; Start 12/09/18 at 18:00; Stop 12/09/18 at 18:05; Status DC Azithromycin (Zithromax) 250 mg DAILY PO ; Start 12/10/18 at 09:00 Furosemide (Lasix) 40 mg DAILY PO ; Start 12/10/18 at 09:00; Stop 12/10/18 at 09 :00; Status DC Losartan Potassium (Cozaar) 25 mg DAILY PO ; Start 12/10/18 at 09:00; Stop 12/10 at 09:00; Status DC Metoprolol Tartrate (Lopressor) 12.5 mg BID PO Last administered on 12/10/18at 08:07; Start 12/09/18 at 21:00; Stop 12/10/18 at 12:10; Status DC Diltiazem HCl (Cardizem 24hr Cd) 240 mg DAILY PO Last administered on at 08:08; Start 12/10/18 at 09:00 Nicotine (Nicoderm Cq 21mg) 1 patch PRN DAILY PRN TD SMOKING CESSATION; Start 12/09/18 at 18:15 Guaifenesin (Robitussin Dm) 10 ml PRN Q6HRS PRN PO COUGH; Start 12/09/18 at 18: 15 Temazepam (Restoril) 7.5 mg PRN QHS PRN PO INSOMNIA; Start 12/09/18 at 18:15 Furosemide (Lasix) 20 mg 1X ONCE IVP Last administered on 12/10/18at 00:42; Start 12/10/18 at 01:00; Stop 12/10/18 at 01:01; Status DC Hydralazine HCl (Apresoline Inj) 10 mg PRN Q4HRS PRN IVP ELEVATED BP, SEE COMMENTS Last administered on 12/10/18at 08:08; Start 12/09/18 at 23:30; Stop at 16:55; Status DC Furosemide (Lasix) 40 mg 1X ONCE IVP Last administered on 12/10/18at 06:00; Start 12/10/18 at 01:45; Stop 12/10/18 at 01:46; Status DC Pantoprazole Sodium (PROTONIX VIAL for IV PUSH) 40 mg DAILYAC IVP Last administered on 12/10/18at 11:31; Start 12/10/18 at 11:30 Hydralazine HCl (Apresoline Inj) 10 mg PRN Q4HRS PRN IVP ELEVATED BP, SEE COMMENTS Last administered on 12/10/18at 18:58; Start 12/10/18 at 12:00 Metoprolol Tartrate (Lopressor) 25 mg BID PO ; Start 12/10/18 at 21:00 Ringer's Solution 1,000 ml @ 75 mls/hr [id number] IV Last administered on at 15:30; Start 12/10/18 at 15:30 Propofol 20 ml @ As Directed STK-MED ONCE IV ; Start 12/10/18 at 16:51; Stop at 16:52; Status DC Lactobacillus Rhamnosus (Culturelle) 1 cap BID PO ; Start 12/10/18 at 21:00 Active Scripts Active Reported Acetaminophen 500 Mg Tablet 1,000 Mg PO PRN Q6HRS PRN Cepacol Sore Throat Lozenge (Benzocaine/Menthol) 1 Each Lozenge 1 Each MM PRN Q2HRS Imodium A-D (Loperamide HCl) 2 Mg Capsule 2 Mg PO PRN BID PRN [tylonAL SINUS] 1 DAILY Cartia Xt (Diltiazem Hcl) 240 Mg Cap.er.24h 240 Mg PO DAILY Eliquis (Apixaban) Unknown Strength Tablet 5 Mg PO BID Losartan Potassium (Losartan Potassium) 25 Mg Tablet 25 Mg PO DAILY Lasix (Furosemide) 40 Mg Tablet 40 Mg PO DAILY Metoprolol Tartrate 25 Mg Tablet 12.5 Mg PO BID 90 Days Vitals/I & O Vital Sign - Last 24 Hours 12/09/18 12/09/18 12/09/18 12/09/18 20:00 20:11 22:00 22:09 Temp 97.7 97.7 Pulse 98 100 Resp 22 22 B/P (MAP) 170/98 170/106 O2 Delivery Room Air Room Air 12/09/18 12/09/18 12/09/18 12/09/18 22:12 22:16 22:32 22:38 Temp 97.2 97.0 97.6 97.2 97.0 97.6 Pulse 98 98 98 98 Resp B/P (MAP) 173/111 170/102 175/107 183/108 12/09/18 12/09/18 12/09/18 12/09/18 22:52 23:00 23:11 23:22 Temp 97.0 98.4 97.6 97.3 97.0 98.4 97.6 97.3 Pulse 98 96 114 98 Resp B/P (MAP) 183/115 183/115 (137) 207/119 181/110 Pulse Ox 100 O2 Delivery Nasal Cannula O2 Flow Rate 2.0 12/09/18 12/10/18 12/10/18 12/10/18 23:52 00:00 00:19 00:47 Temp 98.0 97.6 97.6 98.0 97.6 97.6 Pulse 96 98 98 98 Resp B/P (MAP) 188/107 188/107 173/107 189/106 12/10/18 12/10/18 12/10/18 12/10/18 00:52 01:22 01:52 02:38 Temp 97.6 97.6 98.2 97.6 97.6 98.2 Pulse 96 94 100 Resp B/P (MAP) 221/116 176/111 175/109 177/100 12/10/18 12/10/18 12/10/18 12/10/18 02:44 02:59 03:14 03:25 Temp 98.0 98.2 98.3 97.9 98.0 98.2 98.3 97.9 Pulse 96 96 96 94 Resp B/P (MAP) 183/110 192/107 175/102 176/107 (130) Pulse Ox 100 O2 Delivery Nasal Cannula O2 Flow Rate 2.0 12/10/18 12/10/18 12/10/18 12/10/18 03:29 03:44 03:52 04:44 Temp 98.0 98.0 98.3 98.0 98.0 98.0 98.3 98.0 Pulse 94 94 94 92 Resp 20 20 22 20 B/P (MAP) 176/107 179/108 173/113 186/105 12/10/18 12/10/18 12/10/18 12/10/18 05:50 06:50 07:00 07:53 Temp 98.3 98.0 97.5 98.3 98.0 97.5 Pulse 114 97 103 Resp 20 20 20 B/P (MAP) 172/107 187/115 188/116 (140) Pulse Ox 97 O2 Delivery Room Air Nasal Cannula O2 Flow Rate 2.0 12/10/18 12/10/18 12/10/18 12/10/18 08:07 08:08 08:08 08:25 Pulse 100 95 100 B/P (MAP) 174/120 174/120 174/120 Pulse Ox 99 O2 Delivery Nasal Cannula O2 Flow Rate 2.0 12/10/18 12/10/18 12/10/18 12/10/18 11:00 12:19 15:17 15:17 Temp 98.1 98 98.1 98.0 Pulse 99 90 Resp 18 B/P (MAP) 170/90 (116) Pulse Ox 96 97 100 O2 Delivery Room Air Room Air Nasal Cannula O2 Flow Rate 2.0 12/10/18 12/10/18 12/10/18 12/10/18 17:05 17:20 17:30 17:45 Temp 98.0 98.2 98.0 98.2 Pulse 90 92 89 92 Resp 18 18 18 B/P (MAP) 141/82 165/103 158/90 171/108 (129) Pulse Ox 100 100 98 O2 Delivery Nasal Cannula Nasal Cannula Room Air O2 Flow Rate 4 2 12/10/18 12/10/18 12/10/18 18:15 18:30 18:58 Pulse 91 101 86 B/P (MAP) 170/108 (128) 175/108 (130) 171/100 Intake and Output 12/09/18 12/09/18 12/10/18 15:00 23:00 07:00 Intake Total 1356 ml Output Total 1050 ml Balance 306 ml ISAIAH SNYDER MD Dec 10, 2018 19:50
[2018-12-10] MEDS: LACTOBACILLUS RHAMNOSUS GG 1 CAPSULE. PO SCH (20:58)
--- NOTE | 2018-12-10 22:58 | RAD ---
Indication: Acute kidney injury TECHNIQUE: Ultrasound renal and bladder COMPARISON: None FINDINGS: The right kidney measures 10.3 x 4.3 x 5.3 cm (longitudinal, AP, transverse) without hydronephrosis. Bladder is decompressed and not visualized. Left kidney measures 10.6 x 5.6 x 4.6 cm without hydronephrosis. Bilateral echogenic cortex of the kidney. IMPRESSION: 1. No hydronephrosis. 2. Bilateral echogenic kidneys suggests medical renal disease. Electronically signed by: Yevgeniy Szymanski DO (12/10/2018 10:54 PM) [facility]
[2018-12-11 03:05] VITALS: BP 154/90
[2018-12-11 04:40] LABS: BASO % 0 % (0-3); EOS % 0 % (0-3); HEMOGLOBIN 7.6 g/dL (13.0-17.5); LYMPH # 1.7 x10^3/uL (1.0-4.8); LYMPH % 17 % (24-48); MEAN CORPUSCULAR HEMOGLOBIN 20 pg (25-35); MEAN CORPUSCULAR HGB CONC 29 g/dL (31-37); MEAN CORPUSCULAR VOLUME 69 fL (79-100); MONO # 0.7 x10^3/uL (0.0-1.1); MONO % 8 % (0-9); NEUT # 7.3 x10^3uL (1.8-7.7); NEUT % 75 % (31-73); PLATELET COUNT 304 x10^3/uL (140-400); RED BLOOD COUNT 3.77 x10^6/uL (4.30-5.70); RED CELL DISTRIBUTION WIDTH 25.2 % (11.5-14.5); WHITE BLOOD COUNT 9.8 x10^3/uL (4.0-11.0)
[2018-12-11] MEDS: IV RINGERS,LACTATED 1000ML 1,000 ML IV SCH (04:50)
[2018-12-11 05:38] LABS: CALCIUM 8.4 mg/dL (8.5-10.1); CREATININE 2.6 mg/dL (0.7-1.3); GFR 30.8
[2018-12-11] MEDS: PANTOPRAZOLE IV PUSH 40 MG VIAL. IVP SCH (07:19)
[2018-12-11 07:42] VITALS: BP 136/92
[2018-12-11] MEDS: CETIRIZINE HCL 10 MG TABLET. PO SCH (09:11)
[2018-12-11] MEDS: LACTOBACILLUS RHAMNOSUS GG 1 CAPSULE. PO SCH (09:11)
[2018-12-11] MEDS: AZITHROMYCIN 250 MG TABLET. PO SCH (09:11)
[2018-12-11] MEDS: METOPROLOL TART IMMED RELEASE 25 MG TABLET. PO SCH (09:12)
[2018-12-11 09:33] LABS: BILIRUBIN,URINE NEGATIVE (NEG); CLARITY,URINE CLEAR; COLOR,URINE YELLOW; NITRITE,URINE NEGATIVE (NEG); PH,URINE 5.5; PROTEIN,URINE 30 mg/dL (NEG-TRACE); UROBILINOGEN,URINE 0.2 mg/dL (0.2 mg/dL)
[2018-12-11 10:03] LABS: BACTERIA,URINE 0 /HPF (0-FEW); RBC,URINE 0 /HPF (0-2); SQUAMOUS EPITHELIAL CELL,UR FEW /LPF; WBC,URINE 0 /HPF (0-4)
[2018-12-11 10:40] VITALS: BP 144/92
--- NOTE | 2018-12-11 12:02 | PDOC ---
Renal-Progress Notes Subjective Notes Notes NONE History of Present Illness Hx of present illness STABLE Vitals Vitals Vital Signs Date Time Temp Pulse Resp B/P (MAP) Pulse Ox O2 Delivery O2 Flow Rate FiO2 12/11/18 10:40 97.8 86 20 144/92 (109) 99 Nasal Cannula 2.0 97.8 Weight Weight [ ] I.O. Intake and Output Intake and Output 12/11/18 07:00 Intake Total 1630 ml Output Total 2275 ml Balance -645 ml Intake Oral 1380 ml IV Total 250 ml Output Urine Total 2275 ml Labs Labs Laboratory Tests Test 12/10/18 13:25 12/11/18 04:05 12/11/18 09:25 Hemoglobin 7.6 g/dL (13.0-17.5) 7.6 g/dL (13.0-17.5) White Blood Count 9.8 x10^3/uL (4.0-11.0) Red Blood Count 3.77 x10^6/uL (4.30-5.70) Hematocrit 26.0 % (39.0-53.0) Mean Corpuscular Volume 69 fL (79-100) Mean Corpuscular Hemoglobin 20 pg (25-35) Mean Corpuscular Hemoglobin Concent 29 g/dL (31-37) Red Cell Distribution Width 25.2 % (11.5-14.5) Platelet Count 304 x10^3/uL (140-400) Neutrophils (%) (Auto) 75 % (31-73) Lymphocytes (%) (Auto) 17 % (24-48) Monocytes (%) (Auto) 8 % (0-9) Eosinophils (%) (Auto) 0 % (0-3) Basophils (%) (Auto) 0 % (0-3) Neutrophils # (Auto) 7.3 x10^3uL (1.8-7.7) Lymphocytes # (Auto) 1.7 x10^3/uL (1.0-4.8) Monocytes # (Auto) 0.7 x10^3/uL (0.0-1.1) Eosinophils # (Auto) 0.0 x10^3/uL (0.0-0.7) Basophils # (Auto) 0.0 x10^3/uL (0.0-0.2) Sodium Level 146 mmol/L (136-145) Potassium Level 4.0 mmol/L (3.5-5.1) Chloride Level 109 mmol/L (98-107) Carbon Dioxide Level 25 mmol/L (21-32) Anion Gap 12 (6-14) Blood Urea Nitrogen 30 mg/dL (8-26) Creatinine 2.6 mg/dL (0.7-1.3) Estimated GFR (Cockcroft-Gault) 30.8 Glucose Level 130 mg/dL (70-99) Calcium Level 8.4 mg/dL (8.5-10.1) Urine Collection Type Unknown Urine Color Yellow Urine Clarity Clear Urine pH 5.5 Urine Specific [place] 1.020 Urine Protein 30 mg/dL (NEG-TRACE) Urine Glucose (UA) Negative mg/dL (NEG) Urine Ketones (Stick) Negative mg/dL (NEG) Urine Blood Negative (NEG) Urine Nitrite Negative (NEG) Urine Bilirubin Negative (NEG) Urine Urobilinogen Dipstick 0.2 mg/dL (0.2 mg/dL) Urine Leukocyte Esterase Negative (NEG) Urine RBC 0 /HPF (0-2) Urine WBC 0 /HPF (0-4) Urine Squamous Epithelial Cells Few /LPF Urine Bacteria 0 /HPF (0-FEW) Review of Systems Constitutional: yes: alert, oriented Ears/Nose/Throat: Yes: no symptom reported Eyes: Yes: no symptom reported Pulmonary: Yes no symptom reported Cardiovascular: Yes no symptom reported Gastrointestional: Yes: no symptom reported Genitourinary: Yes: no symptom reported Musculoskeletal: Yes: no symptom reported Skin: Yes no symptom reported Psychiatric/Neurological: Yes: no symptom reported Endocrine: Yes: no symptom reported Physical Exam General Appearance: no apparent distress Skin: warm Respiratory: bilateral CTA Heart: S1S2 Abdomen: soft, bowel sounds present Genitourinary: bladder flat Extremities: pulses present Neurology: alert Musculoskeletal: Osteoarthritis Assessment Assessment IMP NEVA-CR BACK TO BASELINE-SONO C/W CMRD AND UA NEG CKD STAGE 3-CR PROB ABOUT 2.5 CHEST PAIN MALIGNANT HTN-BETTER NON COMPLIANCE ANEMIA CM COPD PLAN EGD PENDING IVF'S CARDIOLOGY EVAL ANEMIA W/U-PARTLY DUE TO CKD WILL FOLLOW SCOT CASSIDY MD Dec 11, 2018 12:02
[2018-12-11 14:41] VITALS: BP 128/76
--- NOTE | 2018-12-11 14:43 | PDOC ---
Subjective: Subjective: Pt was seen earlier today during [email or web address] downtime. Was sleeping - offered no complaints, said he was going home. Objective: Objective: Reviewed w/ RN - possible DC later, on cardiac diet but asking for [employer] chicken. Vital Signs: Vital Signs Date Time Temp Pulse Resp B/P (MAP) Pulse Ox O2 Delivery O2 Flow Rate FiO2 12/11/18 10:40 97.8 86 20 144/92 (109) 99 Nasal Cannula 2.0 97.8 Labs: Laboratory Tests Test 12/11/18 04:05 12/11/18 09:25 White Blood Count 9.8 x10^3/uL Red Blood Count 3.77 x10^6/uL Hemoglobin 7.6 g/dL Hematocrit 26.0 % Mean Corpuscular Volume 69 fL Mean Corpuscular Hemoglobin 20 pg Mean Corpuscular Hemoglobin Concent 29 g/dL Red Cell Distribution Width 25.2 % Platelet Count 304 x10^3/uL Neutrophils (%) (Auto) 75 % Lymphocytes (%) (Auto) 17 % Monocytes (%) (Auto) 8 % Eosinophils (%) (Auto) 0 % Basophils (%) (Auto) 0 % Neutrophils # (Auto) 7.3 x10^3uL Lymphocytes # (Auto) 1.7 x10^3/uL Monocytes # (Auto) 0.7 x10^3/uL Eosinophils # (Auto) 0.0 x10^3/uL Basophils # (Auto) 0.0 x10^3/uL Sodium Level 146 mmol/L Potassium Level 4.0 mmol/L Chloride Level 109 mmol/L Carbon Dioxide Level 25 mmol/L Anion Gap 12 Blood Urea Nitrogen 30 mg/dL Creatinine 2.6 mg/dL Estimated GFR (Cockcroft-Gault) 30.8 Glucose Level 130 mg/dL Calcium Level 8.4 mg/dL Urine Collection Type Unknown Urine Color Yellow Urine Clarity Clear Urine pH 5.5 Urine Specific [place] 1.020 Urine Protein 30 mg/dL Urine Glucose (UA) Negative mg/dL Urine Ketones (Stick) Negative mg/dL Urine Blood Negative Urine Nitrite Negative Urine Bilirubin Negative Urine Urobilinogen Dipstick 0.2 mg/dL Urine Leukocyte Esterase Negative Urine RBC 0 /HPF Urine WBC 0 /HPF Urine Squamous Epithelial Cells Few /LPF Urine Bacteria 0 /HPF Imaging: EGD 12/10 duodenitis PE: GEN: NAD LUNGS: CTAB HEART: RRR ABD: S/ND/NT NEURO/PSYCH: A & O 3, drowsy A/P: NICOLETTE - Hgb stable after transfusion (?didn't get 3rd unit) -- DC considered - would send home on PPI and PO iron, monitor labs w/ PCP ( particularly considering use of Eliquis, etc.), and follow-up for colonoscopy ( our office will contact). Compliance possibly an issue. CASEY HOYOS Dec 11, 2018 14:43
--- NOTE | 2018-12-11 14:55 | NUR ---
SS following for discharge planning. SS reviewed pt chart. Pt is from home and currently requiring oxygen. No discharge needs noted at this time. SS will continue to follow for pending discharge needs.
--- NOTE | 2018-12-11 15:18 | PDOC ---
CARDIO Progress Notes Date and Time Date of Service 12/11/2018 Time of Evaluation 1140 Subjective Subjective: No Chest Pain, No shortness of breath, No Palpitations Vitals Vitals Vital Signs Date Time Temp Pulse Resp B/P (MAP) Pulse Ox O2 Delivery O2 Flow Rate FiO2 12/11/18 14:41 97.7 85 20 128/76 (93) 100 Nasal Cannula 2.0 97.7 Weight Weight [ ] Input and Output Intake and Output Intake and Output 12/11/18 07:00 Intake Total 1630 ml Output Total 2275 ml Balance -645 ml Intake Oral 1380 ml IV Total 250 ml Output Urine Total 2275 ml Laboratory Labs Laboratory Tests Test 12/11/18 04:05 12/11/18 09:25 White Blood Count 9.8 x10^3/uL (4.0-11.0) Red Blood Count 3.77 x10^6/uL (4.30-5.70) Hemoglobin 7.6 g/dL (13.0-17.5) Hematocrit 26.0 % (39.0-53.0) Mean Corpuscular Volume 69 fL (79-100) Mean Corpuscular Hemoglobin 20 pg (25-35) Mean Corpuscular Hemoglobin Concent 29 g/dL (31-37) Red Cell Distribution Width 25.2 % (11.5-14.5) Platelet Count 304 x10^3/uL (140-400) Neutrophils (%) (Auto) 75 % (31-73) Lymphocytes (%) (Auto) 17 % (24-48) Monocytes (%) (Auto) 8 % (0-9) Eosinophils (%) (Auto) 0 % (0-3) Basophils (%) (Auto) 0 % (0-3) Neutrophils # (Auto) 7.3 x10^3uL (1.8-7.7) Lymphocytes # (Auto) 1.7 x10^3/uL (1.0-4.8) Monocytes # (Auto) 0.7 x10^3/uL (0.0-1.1) Eosinophils # (Auto) 0.0 x10^3/uL (0.0-0.7) Basophils # (Auto) 0.0 x10^3/uL (0.0-0.2) Sodium Level 146 mmol/L (136-145) Potassium Level 4.0 mmol/L (3.5-5.1) Chloride Level 109 mmol/L (98-107) Carbon Dioxide Level 25 mmol/L (21-32) Anion Gap 12 (6-14) Blood Urea Nitrogen 30 mg/dL (8-26) Creatinine 2.6 mg/dL (0.7-1.3) Estimated GFR (Cockcroft-Gault) 30.8 Glucose Level 130 mg/dL (70-99) Calcium Level 8.4 mg/dL (8.5-10.1) Urine Collection Type Unknown Urine Color Yellow Urine Clarity Clear Urine pH 5.5 Urine Specific [place] 1.020 Urine Protein 30 mg/dL (NEG-TRACE) Urine Glucose (UA) Negative mg/dL (NEG) Urine Ketones (Stick) Negative mg/dL (NEG) Urine Blood Negative (NEG) Urine Nitrite Negative (NEG) Urine Bilirubin Negative (NEG) Urine Urobilinogen Dipstick 0.2 mg/dL (0.2 mg/dL) Urine Leukocyte Esterase Negative (NEG) Urine RBC 0 /HPF (0-2) Urine WBC 0 /HPF (0-4) Urine Squamous Epithelial Cells Few /LPF Urine Bacteria 0 /HPF (0-FEW) Review of Systems Constitutional: yes: alert, oriented Ears/Nose/Throat: Yes: no symptom reported Eyes: Yes: no symptom reported Pulmonary: Yes no symptom reported Cardiovascular: Yes no symptom reported Gastrointestional: Yes: no symptom reported Genitourinary: Yes: no symptom reported Musculoskeletal: Yes: no symptom reported Skin: Yes no symptom reported Psychiatric/Neurological: Yes: no symptom reported Endocrine: Yes: no symptom reported Physical Exam HEENT: Neck Supple W Full Motion Chest: Symmetric LUNGS: Clear to Auscultation Heart: S1S2, RRR (SR) Abdomen: Soft N/T Extremities: No Calf Tenderness Neurology: alert, oriented, follow commands Assessment Assessment 1. Chest pain: Recent MPI with no reversible defect noted above. Likely from bronchospasm. none further 2. Dyspnea: r/t AECOPD/severe pulmonary HTN (PAP 86 mmHg) and anemia 3. Recovered NICM: EF now at 50-55% from 35% 4. Severe microcytic hypochromic anemia: Hgb 6.0 post transfusion stable at 7.6. multifactorial. GI following. No obvious bleed so far. 5. AECOPD with continued tobaccoism. Better 6. NEVA on CKD3: nephrology following 7. PAFIB: SR with brief bursts of AFIB. 8. HTN: controlled 9. Chronic systolic CHF: compensated 10. Chronic anticoagulation with eliquis for stroke prevention: last dose 2018 Recommendations 1. No further eliquis at this time due to severe anemia, suspect was NICOLETTE. Discussed with pt in regards to ASA vs Eliquis and agree to utilize ASA for now for stroke prevention. 2. Continue BP regimen including metoprolol, cardizem. Hydralazine IV PRN 3. Will reeval eliquis use as an outpt, pending outpt hemogram trend and post outpt colonoscopy. 4. Possible noncompliance and discussed. Smoking cessation 5. Follow up in [address] KHAN APRN Dec 11, 2018 15:18
[2018-12-11] MEDS ORDERED: ASPI-630 PO (15:45)
[2018-12-11] MEDS ORDERED: LACT1CAP19 PO (15:45)
[2018-12-11] MEDS ORDERED: CETI10TA16 PO (15:45)
[2018-12-11] MEDS ORDERED: Pantoprazole PO (15:45)
[2018-12-11] MEDS ORDERED: AZIT250T6 PO (15:45)
--- NOTE | 2018-12-11 16:15 | PDOC3 ---
Discharge Summary Visit Information Date of Admission: Dec 09, 2018 Date of Discharge: Dec 11, 2018 Admitting Diagnosis: Microcytic anemia Admitting Diagnosis Comment: MIcrocytic anemia Acute anemia-rule out active blood loss Nonischemic cardiomyopathy AK I on possibly CK D Elevated d-dimer Tachypnea Accel hypertension POA Final Diagnosis MIcrocytic anemia secondary to duodenitis and eliquis therapy. Nonischemic cardiomyopathy acute renal failure secondary to dehydration Elevated d-dimer with no evidence of thrombosis Tachypnea resolved Accel hypertension POA resolved Brief Hospital Course Allergies Allergies Coded Allergies Type Severity Reaction Last Updated Verified No Known Drug Allergies 12/10/18 No Vital Signs Vital Signs Date Time Temp Pulse Resp B/P (MAP) Pulse Ox O2 Delivery O2 Flow Rate FiO2 12/11/18 14:41 97.7 85 20 128/76 (93) 100 Nasal Cannula 2.0 97.7 Lab Results Laboratory Tests Test 12/09/18 16:40 12/09/18 16:45 12/09/18 17:40 12/09/18 18:16 Iron Level 14 ug/dL (65-175) Total Iron Binding Capacity 455 ug/dL (250-450) Iron Saturation 3 % (15-34) Ferritin 15 ng/mL (26-388) White Blood Count 7.2 x10^3/uL (4.0-11.0) Red Blood Count 3.36 x10^6/uL (4.30-5.70) Hemoglobin 6.0 g/dL (13.0-17.5) Hematocrit 21.7 % (39.0-53.0) Mean Corpuscular Volume 65 fL (79-100) Mean Corpuscular Hemoglobin 18 pg (25-35) Mean Corpuscular Hemoglobin Concent 28 g/dL (31-37) Red Cell Distribution Width 20.7 % (11.5-14.5) Platelet Count 384 x10^3/uL (140-400) Neutrophils (%) (Auto) 52 % (31-73) Lymphocytes (%) (Auto) 40 % (24-48) Monocytes (%) (Auto) 6 % (0-9) Eosinophils (%) (Auto) 0 % (0-3) Basophils (%) (Auto) 2 % (0-3) Neutrophils # (Auto) 3.7 x10^3uL (1.8-7.7) Lymphocytes # (Auto) 2.9 x10^3/uL (1.0-4.8) Monocytes # (Auto) 0.4 x10^3/uL (0.0-1.1) Eosinophils # (Auto) 0.0 x10^3/uL (0.0-0.7) Basophils # (Auto) 0.1 x10^3/uL (0.0-0.2) Platelet Estimate Adequate (ADEQUATE) Hypochromasia Marked Poikilocytosis Mod Anisocytosis Mod Microcytosis Marked Tear Drop Cells Occ Ovalocytes Present Schistocytes Few RBC Morphology Bizarre Forms Few D-Dimer (Jocelin) 1.39 ug/mlFEU (0.00-0.50) Sodium Level 144 mmol/L (136-145) Potassium Level 4.1 mmol/L (3.5-5.1) Chloride Level 109 mmol/L (98-107) Carbon Dioxide Level 24 mmol/L (21-32) Anion Gap 11 (6-14) Blood Urea Nitrogen 31 mg/dL (8-26) Creatinine 2.8 mg/dL (0.7-1.3) Estimated GFR (Cockcroft-Gault) 28.3 BUN/Creatinine Ratio 11 (6-20) Glucose Level 106 mg/dL (70-99) Calcium Level 8.6 mg/dL (8.5-10.1) Total Bilirubin 0.6 mg/dL (0.2-1.0) Aspartate Amino Transf (AST/SGOT) 18 U/L (15-37) Alanine Aminotransferase (ALT/SGPT) 18 U/L (16-63) Alkaline Phosphatase 78 U/L (46-116) Creatine Kinase 77 U/L (39-308) Creatine Kinase MB (Mass) 1.1 ng/mL (0.0-3.6) Creatine Kinase MB Relative Index 1.4 % (0-4) Troponin I Quantitative 0.025 ng/mL (0.000-0.055) CB-Diq-G-Type Natriuretic Peptide 7620 pg/mL (0-124) Total Protein 7.2 g/dL (6.4-8.2) Albumin 3.4 g/dL (3.4-5.0) Albumin/Globulin Ratio 0.9 (1.0-1.7) Reticulocyte Count (auto) 1.6 % (0.5-2.5) Influenza Type A Antigen Negative (NEGATIVE) Influenza Type B Antigen Negative (NEGATIVE) Test 12/09/18 20:50 12/09/18 23:45 12/10/18 03:30 12/10/18 08:20 Troponin I Quantitative 0.020 ng/mL (0.000-0.055) 0.020 ng/mL (0.000-0.055) White Blood Count 7.5 x10^3/uL (4.0-11.0) Red Blood Count 3.55 x10^6/uL (4.30-5.70) Hemoglobin 7.0 g/dL (13.0-17.5) 7.9 g/dL (13.0-17.5) Hematocrit 23.9 % (39.0-53.0) 26.4 % (39.0-53.0) Mean Corpuscular Volume 67 fL (79-100) Mean Corpuscular Hemoglobin 20 pg (25-35) Mean Corpuscular Hemoglobin Concent 29 g/dL (31-37) 30 g/dL (31-37) Red Cell Distribution Width 23.2 % (11.5-14.5) Platelet Count 337 x10^3/uL (140-400) Neutrophils (%) (Auto) 96 % (31-73) Lymphocytes (%) (Auto) 4 % (24-48) Monocytes (%) (Auto) 1 % (0-9) Eosinophils (%) (Auto) 0 % (0-3) Basophils (%) (Auto) 0 % (0-3) Neutrophils # (Auto) 7.2 x10^3uL (1.8-7.7) Lymphocytes # (Auto) 0.3 x10^3/uL (1.0-4.8) Monocytes # (Auto) 0.1 x10^3/uL (0.0-1.1) Eosinophils # (Auto) 0.0 x10^3/uL (0.0-0.7) Basophils # (Auto) 0.0 x10^3/uL (0.0-0.2) Sodium Level 143 mmol/L (136-145) Potassium Level 4.2 mmol/L (3.5-5.1) Chloride Level 108 mmol/L (98-107) Carbon Dioxide Level 24 mmol/L (21-32) Anion Gap 11 (6-14) Blood Urea Nitrogen 24 mg/dL (8-26) Creatinine 2.3 mg/dL (0.7-1.3) Estimated GFR (Cockcroft-Gault) 35.5 Glucose Level 149 mg/dL (70-99) Calcium Level 9.0 mg/dL (8.5-10.1) Test 12/10/18 13:25 12/11/18 04:05 12/11/18 09:25 Hemoglobin 7.6 g/dL (13.0-17.5) 7.6 g/dL (13.0-17.5) White Blood Count 9.8 x10^3/uL (4.0-11.0) Red Blood Count 3.77 x10^6/uL (4.30-5.70) Hematocrit 26.0 % (39.0-53.0) Mean Corpuscular Volume 69 fL (79-100) Mean Corpuscular Hemoglobin 20 pg (25-35) Mean Corpuscular Hemoglobin Concent 29 g/dL (31-37) Red Cell Distribution Width 25.2 % (11.5-14.5) Platelet Count 304 x10^3/uL (140-400) Neutrophils (%) (Auto) 75 % (31-73) Lymphocytes (%) (Auto) 17 % (24-48) Monocytes (%) (Auto) 8 % (0-9) Eosinophils (%) (Auto) 0 % (0-3) Basophils (%) (Auto) 0 % (0-3) Neutrophils # (Auto) 7.3 x10^3uL (1.8-7.7) Lymphocytes # (Auto) 1.7 x10^3/uL (1.0-4.8) Monocytes # (Auto) 0.7 x10^3/uL (0.0-1.1) Eosinophils # (Auto) 0.0 x10^3/uL (0.0-0.7) Basophils # (Auto) 0.0 x10^3/uL (0.0-0.2) Sodium Level 146 mmol/L (136-145) Potassium Level 4.0 mmol/L (3.5-5.1) Chloride Level 109 mmol/L (98-107) Carbon Dioxide Level 25 mmol/L (21-32) Anion Gap 12 (6-14) Blood Urea Nitrogen 30 mg/dL (8-26) Creatinine 2.6 mg/dL (0.7-1.3) Estimated GFR (Cockcroft-Gault) 30.8 Glucose Level 130 mg/dL (70-99) Calcium Level 8.4 mg/dL (8.5-10.1) Urine Collection Type Unknown Urine Color Yellow Urine Clarity Clear Urine pH 5.5 Urine Specific [place] 1.020 Urine Protein 30 mg/dL (NEG-TRACE) Urine Glucose (UA) Negative mg/dL (NEG) Urine Ketones (Stick) Negative mg/dL (NEG) Urine Blood Negative (NEG) Urine Nitrite Negative (NEG) Urine Bilirubin Negative (NEG) Urine Urobilinogen Dipstick 0.2 mg/dL (0.2 mg/dL) Urine Leukocyte Esterase Negative (NEG) Urine RBC 0 /HPF (0-2) Urine WBC 0 /HPF (0-4) Urine Squamous Epithelial Cells Few /LPF Urine Bacteria 0 /HPF (0-FEW) Laboratory Tests Test 12/11/18 04:05 12/11/18 09:25 White Blood Count 9.8 x10^3/uL (4.0-11.0) Red Blood Count 3.77 x10^6/uL (4.30-5.70) Hemoglobin 7.6 g/dL (13.0-17.5) Hematocrit 26.0 % (39.0-53.0) Mean Corpuscular Volume 69 fL (79-100) Mean Corpuscular Hemoglobin 20 pg (25-35) Mean Corpuscular Hemoglobin Concent 29 g/dL (31-37) Red Cell Distribution Width 25.2 % (11.5-14.5) Platelet Count 304 x10^3/uL (140-400) Neutrophils (%) (Auto) 75 % (31-73) Lymphocytes (%) (Auto) 17 % (24-48) Monocytes (%) (Auto) 8 % (0-9) Eosinophils (%) (Auto) 0 % (0-3) Basophils (%) (Auto) 0 % (0-3) Neutrophils # (Auto) 7.3 x10^3uL (1.8-7.7) Lymphocytes # (Auto) 1.7 x10^3/uL (1.0-4.8) Monocytes # (Auto) 0.7 x10^3/uL (0.0-1.1) Eosinophils # (Auto) 0.0 x10^3/uL (0.0-0.7) Basophils # (Auto) 0.0 x10^3/uL (0.0-0.2) Sodium Level 146 mmol/L (136-145) Potassium Level 4.0 mmol/L (3.5-5.1) Chloride Level 109 mmol/L (98-107) Carbon Dioxide Level 25 mmol/L (21-32) Anion Gap 12 (6-14) Blood Urea Nitrogen 30 mg/dL (8-26) Creatinine 2.6 mg/dL (0.7-1.3) Estimated GFR (Cockcroft-Gault) 30.8 Glucose Level 130 mg/dL (70-99) Calcium Level 8.4 mg/dL (8.5-10.1) Urine Collection Type Unknown Urine Color Yellow Urine Clarity Clear Urine pH 5.5 Urine Specific [place] 1.020 Urine Protein 30 mg/dL (NEG-TRACE) Urine Glucose (UA) Negative mg/dL (NEG) Urine Ketones (Stick) Negative mg/dL (NEG) Urine Blood Negative (NEG) Urine Nitrite Negative (NEG) Urine Bilirubin Negative (NEG) Urine Urobilinogen Dipstick 0.2 mg/dL (0.2 mg/dL) Urine Leukocyte Esterase Negative (NEG) Urine RBC 0 /HPF (0-2) Urine WBC 0 /HPF (0-4) Urine Squamous Epithelial Cells Few /LPF Urine Bacteria 0 /HPF (0-FEW) Brief Hospital Course Mr. Fleming is a 58 old with history of non ishcemic cardiomyotpithy who was admitted for evalution of severe anemia and renal dysfucntion , patient underwent evaluation for a possible pulmonary embolism due to a d-dimer that was mildly elevated. Patient did not have active bleeding during his hospital stay. Patient had been on Eliquis which probably prevented him from having a thrombosis this was confirmed with the VQ scan was low probability for pulmonary embolism. Patient was seen in consultation by GI perform an EGD with findings consistent with duodenitis. The patient was taken off his Eliquis and he will be going home with aspirin only. Patient will have pantoprazole as well and he will have iron supplementation for his microcytic anemia. He was empirically treated for bronchitis given that he has an active history of smoking. Counseling has been done, until quitting smoking has been stressed to the patient prior to discharge. He will be going home with azithromycin for 3 more days to complete a course of antibiotics. He was in good spirits to be dismissed home his hemoglobin was 7.6 upon discharge signs and symptoms of alarm were discussed with the patient prior to dismissal concerns were addressed to the best of my abilities. Ferrous sulfate was also recommended on a daily basis for his iron deficiency anemia Greater than 35 minutes were spent in discharge process the patient counseled coronation of care and arrangements for safe discharge Physical exam Gen.: well-developed well-nourished in no apparent distress Head: Normal shape atraumatic Eyes: Pupils equal reactive to light and accommodation, normal conjunctivae and lids Ears: Normal shape Nose: Normal shape no trauma Mouth: No exudates of the back of throat no thrush no lesions Neck: Supple no JVD no carotid bruit or lymphadenopathy no thyromegaly Chest: Lungs clear to auscultation with good inspiratory effort no crackles rales or rhonchi Cardiovascular: S1-S2 regular rhythm no murmurs gallops or rubs Abdomen: Bowel sounds present soft nontender no hepatosplenomegaly appreciated sign Extremities: No clubbing no cyanosis no edema peripheral pulses palpated bilaterally Neurological: Alert awake oriented in person time place and situation, cranial nerves II through XII intact, no motor or sensory deficits appreciated Psych: Appropriate mood, cooperative Discharge Information Condition at Discharge: Improved Follow Up: Weeks Disposition/Orders: D/C to Home Scheduled Aspirin (Aspirin) 81 Mg Tab.chew, 1 TAB PO DAILY for antiplatelet, #30 Ref 3 Prescribed by: ISAIAH SNYDER MD on 12/11/18 154 Azithromycin (Azithromycin Tablet) 250 Mg Tablet, 250 MG PO DAILY for COPD for 3 Days, #3 Prescribed by: ISAIAH SNYDER MD on 12/11/18 1547 Benzocaine/Menthol (Cepacol Sore Throat Lozenge) 1 Each Lozenge, 1 EACH MM PRN Q2HRS for COUGHING, (Reported) Entered as Reported by: Lauren Garcia on 12/09/182308 Last Action: New Order on 12/09/182308 by Lauren Garcia Cetirizine Hcl (Cetirizine Hcl) 10 Mg Tablet, 10 MG PO DAILY for allergies for 30 Days, #30 Prescribed by: ISAIAH SNYDER MD on 12/11/18 1545 Diltiazem Hcl (Cartia Xt) 240 Mg Cap.er.24h, 240 MG PO DAILY for blood pressure, (Reported) Entered as Reported by: VASU CARPENTER on 12/06/18830 Last Action: Edited on 12/09/182302 by Lauren Garcia Ferrous Sulfate (Ferrous Sulfate) 325 Mg Tablet, 1 TAB PO DAILY for anemia, #30 Ref 3 Prescribed by: ISAIAH SNYDER MD on 12/11/18 1616 Furosemide (Lasix) 40 Mg Tablet, 40 MG PO DAILY, #30 (Reported) Entered as Reported by: Monique Edwards on 09/03/141652 Last Action: Continued on 12/09/181802 by PAUL MORILLO Lactobacillus Rhamnosus Gg (Culturelle) 1 Each Cap.sprink, 1 CAP PO BID for probiotic for 14 Days, #28 Prescribed by: ISAIAH SNYDER MD on 12/11/18 154 Losartan Potassium (Losartan Potassium ) 25 Mg Tablet, 25 MG PO DAILY for HYPERTENSION, (Reported) Entered as Reported by: VASU CARPENTER on 12/06/18830 Last Action: Continued on 12/09/181802 by PAUL MORILLO Metoprolol Tartrate (Metoprolol Tartrate) 25 Mg Tablet, 12.5 MG PO BID for FOR HYPERTENSION for 90 Days, Ref 0 (Reported) Entered as Reported by: Monique Edwards on 09/03/141652 Last Action: Continued on 12/09/181802 by PAUL MORILLO [Pantoprazole] 40 MG TABLET.DR, 40 MG PO DAILYAC for duodenitis for 30 Days, #30 Prescribed by: ISAIAH SNYDER MD on 12/11/18 1545 [tylonAL SINUS] , 1 DAILY for SINUS , (Reported) Entered as Reported by: Lauren Garcia on 12/09/182302 Last Action: New Order on 12/09/182302 by Lauren Garcia Scheduled PRN Acetaminophen (Acetaminophen) 500 Mg Tablet, 1,000 MG PO PRN Q6HRS PRN for PAIN, (Reported) Entered as Reported by: Lauren Garcia on 12/09/182312 Last Action: New Order on 12/09/182312 by Lauren Garcia Loperamide HCl (Imodium A-D) 2 Mg Capsule, 2 MG PO PRN BID PRN for DIARRHEA, ( Reported) Entered as Reported by: Lauren Garcia on 12/09/182306 Last Action: New Order on 12/09/182306 by Lauren Garcia Discontinued Medications Apixaban (Eliquis) Unknown Strength Tablet, 5 MG PO BID for blood thinner, ( Reported) Entered as Reported by: VASU CARPENTER on 12/06/18830 Last Action: Edited on 12/09/182302 by Lauren Garcia Hydralazine Hcl (Hydralazine Hcl) 50 Mg Tablet, 50 MG PO TID for HYPERTENSION, SEE COMMENTS for 30 Days, (Reported) Discontinued Reason: DC Entered as Reported by: Monique Edwards on 09/03/14 165 Isosorbide Mononitrate (Isosorbide Mononitrate Er) 30 Mg Tab.er.24h, 30 MG PO DAILY for 90 Days, (Reported) Discontinued Reason: DC Entered as Reported by: Monique Edwards on 09/03/14 165 ISAIAH SNYDER MD Dec 11, 2018 16:15
[2018-12-11] MEDS ORDERED: FERR325T14 PO (16:16)
[2018-12-11] MEDS ORDERED: FERROUS SULFATE ORAL 300 MG/5 ML SOLUTION. PO SCH (17:00)
--- NOTE | 2018-12-11 17:06 | NUR ---
Discharge Note: ADEN HUMPHRIES Discharge instructions and discharge home medications reviewed with Patient and a copy given. All questions have been answered and understanding verbalized. The following instructions and handouts were given: CP, ANEMIA, CARDIAC DIET, LOW SALT DIET, SOA, FOLLOW UP Discontinued lines and drains: Peripheral IV intact. Patient discharged to Home or Self Care with Family Member via Wheelchair
[2018-12-12] MEDS ORDERED: PANTOPRAZOLE 40 MG TABLET.DR. PO SCH (07:30)
[2018-12-12 15:23] LABS: HGB ELECROPHORESIS COMMENT Note: (.)
[2018-12-20] MEDS ORDERED: APIX5TAB PO (10:06)
== END 2018-12-11 16:40 | disposition home or self-care (01) | DRG 683 ==
LOC: ER 14:58 → 2 SOUTH 17:39
PROVIDERS: ADMIT Internal Medicine; ATTEND Internal Medicine
PROC: 30233N1 Transfusion of Nonautologous Red Blood Cells into Peripheral Vein, Percutaneous Approach (ICD-10-PCS; principal; 2018-12-09)
PROC: 0DJ08ZZ Inspection of Upper Intestinal Tract, Via Natural or Artificial Opening Endoscopic (ICD-10-PCS; 2018-12-10)
DX: N17.9 Acute kidney failure, unspecified (principal); J44.1 Chronic obstructive pulmonary disease with (acute) exacerbation; I42.8 Other cardiomyopathies; I13.0 Hypertensive heart and chronic kidney disease with heart failure and stage 1 through stage 4 chronic kidney disease, or unspecified chronic kidney disease; I50.22 Chronic systolic (congestive) heart failure; D50.9 Iron deficiency anemia, unspecified; E78.5 Hyperlipidemia, unspecified; R79.1 Abnormal coagulation profile; K76.0 Fatty (change of) liver, not elsewhere classified; T45.515A Adverse effect of anticoagulants, initial encounter; F17.200 Nicotine dependence, unspecified, uncomplicated; M19.90 Unspecified osteoarthritis, unspecified site; N18.3 Chronic kidney disease, stage 3 (moderate); I27.20 Pulmonary hypertension, unspecified; I48.0 Paroxysmal atrial fibrillation; E86.0 Dehydration; F17.210 Nicotine dependence, cigarettes, uncomplicated; Z86.73 Personal history of transient ischemic attack (TIA), and cerebral infarction without residual deficits; Z91.19 Patient's noncompliance with other medical treatment and regimen; Z82.49 Family history of ischemic heart disease and other diseases of the circulatory system; Z79.01 Long term (current) use of anticoagulants; Y92.89 Other specified places as the place of occurrence of the external cause; Z79.899 Other long term (current) drug therapy; Z71.6 Tobacco abuse counseling; K29.80 Duodenitis without bleeding
CPT/HCPCS: 36415; 43235; 71045; 76770; 78582; 80048; 80053; 81001; 82550; 82553; 82728; 83020; 83540; 83550; 83880; 84484; 85014; 85018; 85025; 85045; 85379; 86850; 86900; 86901; 86920; 87804; 93005; 93308; 93320; 93325; 94640; 94760; 96374; 99406; A9540; A9558; C9113; J0360; J1940; J2270; J2704; J2930; J7030; J7120; J7620; P9016; Q0144; 99285-25

== ENCOUNTER → 2018-12-19 | Outpatient (CLI) | payer OTHER ==
[2018-12-11 14:41] VITALS: BP 128/76
[~2018-12-19] MED LIST changes: +ACET500T68 PO; +AMIO200T4 PO; +ASPI-630 PO; +AZIT250T6 PO; +BENZ1LOZ48 MM; +BUDE10.22 IH; +BUME1TAB3 PO; +CETI10TA16 PO; +DILT180C29 PO; +FERR325T14 PO; +INHA-9 MC; +LACT1CAP19 PO; +LOPE2CAP88 PO; +METO-247 PO; +MULT1TAB52 PO; +Pantoprazole PO; +SACU1TAB PO; +XOPENEX HFA15 GM IH; +[UNRECOGNIZED DRUG - OTHER]
[2018-12-19 12:16] LABS: BASO # 0.1 x10^3/uL (0.0-0.2); BASO % 1 % (0-3); EOS # 0.1 x10^3/uL (0.0-0.7); EOS % 1 % (0-3); HEMATOCRIT 28.3 % (39.0-53.0); HEMOGLOBIN 8.2 g/dL (13.0-17.5); LYMPH # 1.6 x10^3/uL (1.0-4.8); LYMPH % 18 % (24-48); MEAN CORPUSCULAR HEMOGLOBIN 21 pg (25-35); MEAN CORPUSCULAR HGB CONC 29 g/dL (31-37); MEAN CORPUSCULAR VOLUME 72 fL (79-100); MONO # 0.5 x10^3/uL (0.0-1.1); MONO % 5 % (0-9); NEUT # 6.7 x10^3uL (1.8-7.7); NEUT % 75 % (31-73); PLATELET COUNT 288 x10^3/uL (140-400); RED CELL DISTRIBUTION WIDTH 27.6 % (11.5-14.5); WHITE BLOOD COUNT 8.9 x10^3/uL (4.0-11.0)
[2018-12-19 12:44] LABS: ALBUMIN 3.4 g/dL (3.4-5.0); CALCIUM 8.7 mg/dL (8.5-10.1); CREATININE 2.4 mg/dL (0.7-1.3); GFR 33.8; PHOSPHORUS 3.2 mg/dL (2.6-4.7); POTASSIUM 4.2 mmol/L (3.5-5.1)
[2018-12-19 12:48] LABS: % BANDS 2 % (0-9); % LYMPHS 12 % (24-48); % MONOS 5 % (0-10); % SEGS 81 % (35-66)
[2018-12-19 12:49] LABS: ANISOCYTOSIS MARKED; HYPOCHROMIA MOD; MICROCYTOSIS SLIGHT; OVALOCYTES MOD; PLT ESTIMATE ADEQUATE (ADEQUATE); POLYCHROMASIA SLIGHT; SPHEROCYTES FEW; TEAR DROP CELLS FEW
[2018-12-19 12:50] LABS: POIKILOCYTOSIS MOD; SCHISTOCYTES FEW
[2018-12-19 21:14] LABS: CALCIUM PTH 8.7 mg/dL (8.7-10.2); CREATININE PTH 2.05 mg/dL (0.76-1.27); PHOSPHORUS PTH 3.2 mg/dL (2.5-4.5); PTH INTACT 119 pg/mL (15-65); UR PROTEIN RD 277.2 mg/dL (Not Estab.)
== END | disposition home or self-care (01) ==
LOC: LAB 11:28
PROVIDERS: ATTEND Internal Medicine Nephrology
DX: N17.9 Acute kidney failure, unspecified (principal); D63.1 Anemia in chronic kidney disease
CPT/HCPCS: 36415; 80069; 82570; 82728; 83540; 83550; 83970; 84156; 85007; 85025

== ENCOUNTER → 2018-12-20 | Day surgery (SDC) | payer OTHER ==
[~2018-12-20] MED LIST changes: +HYDROmorphone 2 MG/ML VIAL IV PRN; +IV RINGERS,LACTATED 1000ML 1,000 ML IV SCH; +LIDOCAINE 1% PF 2 ML VIAL. ID PRN; +LIDOCAINE 1% PF 2 ML VIAL. ONE; +MORPHINE SULFATE 2 MG/ML VIAL. IV PRN; +PROCHLORPERAZINE 10 MG/2 ML VIAL. IV PRN; +PROPOFOL 40 ML IV ONE; +fentaNYL PF VIAL 100 MCG/2 ML VIAL IV PRN
--- NOTE | 2018-12-20 11:34 | NUR ---
pts heart rate 120's and regular. orders from dr ochoa to infuse remaining liter of fluid. if no change in heart rate obtain 12 lead ekg
[2018-12-20] MEDS: METOPROLOL TARTRATE 5 MG/5 ML VIAL. IVP PRN ×2 (11:56→12:21)
--- NOTE | 2018-12-20 12:29 | EKG ---
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
--- NOTE | 2018-12-20 12:30 | NUR ---
21 lead done 10mg iv lopressor given with no change in heart rate and bp. cardiology paged.
--- NOTE | 2018-12-20 12:50 | NUR ---
SPOKE WITH Kerri CHILEL FOR CARDIOLOGY. ORDERS RECEIVED. PT WILL BE GIVEN 240 CARDIZEM. PT HAS NOT BEEN TAKING HIS HOME CARDIZEM MEDICATION. REPRINTED DISCHARGE MEDICATION LIST FOR PT AND SHOWED HIM WHICH MEDS HES SUPPOSED TO BE TAKING. PT V/U.
[2018-12-20 13:08] VITALS: BP 145/101
--- NOTE | 2018-12-23 11:08 | PATHOLOGY ---
[facility] Accession Number: [id number] . 01 Material submitted: . PART A: RECTAL POLYP PART B: SIGMOID POLYP . 01 Clinical history: . Anemia . 02 Diagnosis: A. Colorectal biopsy, rectal polyp: - Hyperplastic polyp. . B. Colon biopsies, sigmoid polyp: - Hyperplastic polyp. . (JPM:mml; 12/23/2018) [facility]/12/23/2018 . 02 Comment: There are no adenomatous changes or evidence of malignancy. . (JPM:mml; 12/23/2018) . 02 Electronically signed: . Ag Dunaway MD, Pathologist NPI- [id number] . 01 Gross description: . A. Received in formalin labeled "Lonnie, Yrn, rectal polyp," is a single segment of rubio soft tissue measuring 0.4 cm in maximum dimension. The specimen is entirely submitted in cassette A1. . B. Received in formalin labeled "Lonnie, Yrn, sigmoid polyp" are 5 segments of rubio soft tissue measuring 1.1 x 0.6 x 0.2 cm in aggregate dimensions and ranging from 0.3 to 0.5 cm in maximum dimension. The specimen is submitted entirely in cassette B1. (TSD; 12/20/2018) TOB/TOB . 02 Pathologist provided ICD-10: K62.1, K63.5 . 02 CPT . 310414, 615908 Specimen Comment: A courtesy copy of this report has been sent to Specimen Comment: [phone]. Specimen Comment: Report sent to Performed at: [address], [place], [place] [id number] MD Tomy Vitale MD Phone: [phone] Performed at: 02 [facility] [address] [place], [place] [id number] MD Ag Dunaway MD Phone: [phone]
== END | disposition home or self-care (01) ==
LOC: ENDOS 09:29
PROVIDERS: ATTEND Internal Medicine Gastroenterology
DX: K57.30 Diverticulosis of large intestine without perforation or abscess without bleeding (principal); K63.5 Polyp of colon; K62.1 Rectal polyp; K64.3 Fourth degree hemorrhoids; K64.4 Residual hemorrhoidal skin tags; D50.0 Iron deficiency anemia secondary to blood loss (chronic); Z86.73 Personal history of transient ischemic attack (TIA), and cerebral infarction without residual deficits; I48.91 Unspecified atrial fibrillation; I12.9 Hypertensive chronic kidney disease with stage 1 through stage 4 chronic kidney disease, or unspecified chronic kidney disease; N18.9 Chronic kidney disease, unspecified; J44.9 Chronic obstructive pulmonary disease, unspecified; F17.210 Nicotine dependence, cigarettes, uncomplicated; Z79.899 Other long term (current) drug therapy
CPT/HCPCS: 45380; 88305; 93005; J2704; J3490

== ENCOUNTER 2019-01-26 20:17 | Inpatient (IN) | payer OTHER ==
[~2019-01-26] VITALS: Ht 193 cm; Wt 89.4 kg
[~2019-01-26 20:17] MED LIST changes: -AMIO200T4 PO; -BUDE10.22 IH; -BUME1TAB3 PO; -DILT180C29 PO; -HYDROmorphone 2 MG/ML VIAL IV PRN; -INHA-9 MC; -IV RINGERS,LACTATED 1000ML 1,000 ML IV SCH; -LIDOCAINE 1% PF 2 ML VIAL. ID PRN; -LIDOCAINE 1% PF 2 ML VIAL. ONE; -METO-247 PO; -MORPHINE SULFATE 2 MG/ML VIAL. IV PRN; -MULT1TAB52 PO; -PROCHLORPERAZINE 10 MG/2 ML VIAL. IV PRN; -PROPOFOL 40 ML IV ONE; -SACU1TAB PO; -XOPENEX HFA15 GM IH; -fentaNYL PF VIAL 100 MCG/2 ML VIAL IV PRN
[2019-01-26 20:57] LABS: BASO # 0.1 x10^3/uL (0.0-0.2); BASO % 1 % (0-3); EOS # 0.1 x10^3/uL (0.0-0.7); EOS % 2 % (0-3); HEMATOCRIT 38.1 % (39.0-53.0); HEMOGLOBIN 11.5 g/dL (13.0-17.5); LYMPH # 1.4 x10^3/uL (1.0-4.8); LYMPH % 17 % (24-48); MEAN CORPUSCULAR HEMOGLOBIN 25 pg (25-35); MEAN CORPUSCULAR HGB CONC 30 g/dL (31-37); MEAN CORPUSCULAR VOLUME 83 fL (79-100); MONO # 0.7 x10^3/uL (0.0-1.1); MONO % 8 % (0-9); NEUT # 5.9 x10^3uL (1.8-7.7); NEUT % 72 % (31-73); PLATELET COUNT 323 x10^3/uL (140-400); RED BLOOD COUNT 4.57 x10^6/uL (4.30-5.70); RED CELL DISTRIBUTION WIDTH 26.6 % (11.5-14.5); WHITE BLOOD COUNT 8.1 x10^3/uL (4.0-11.0)
[2019-01-26 21:07] LABS: CALCIUM 8.9 mg/dL (8.5-10.1); CREATININE 2.4 mg/dL (0.7-1.3); GFR 33.8
[2019-01-26 21:12] LABS: ALBUMIN 3.4 g/dL (3.4-5.0); ALBUMIN/GLOBULIN RATIO 0.9 (1.0-1.7); TOTAL BILIRUBIN 1.1 mg/dL (0.2-1.0)
[2019-01-26 21:18] LABS: BILIRUBIN,URINE NEGATIVE (NEG); CLARITY,URINE CLEAR; COLOR,URINE YELLOW; NITRITE,URINE NEGATIVE (NEG); PROTEIN,URINE 100 mg/dL (NEG-TRACE)
[2019-01-26 21:23] LABS: HYALINE CASTS, URINE MODERATE /HPF; SQUAMOUS EPITHELIAL CELL,UR FEW /LPF
[2019-01-26 21:24] LABS: BACTERIA,URINE 0 /HPF (0-FEW); BARBITURATES NEG (NEG); BENZODIAZEPINES NEG (NEG); CANNABINOIDS NEG (NEG); COCAINE NEG (NEG); METHADONE NEG (NEG); OPIATES NEG (NEG); PHENCYCLIDINE NEG (NEG)
[2019-01-26] MEDS ORDERED: cloNIDine HCL 0.1 MG TABLET PO ONE (21:30)
[2019-01-26 21:31] LABS: AMPHETAMINE/METHAMPHETAMINE NEG (NEG)
[2019-01-26 21:34] LABS: ANISOCYTOSIS MARKED; PLT ESTIMATE ADEQUATE (ADEQUATE); POLYCHROMASIA SLIGHT
[2019-01-26 21:35] LABS: OVALOCYTES MOD; TEAR DROP CELLS FEW
[2019-01-26 21:36] LABS: SCHISTOCYTES FEW
--- NOTE | 2019-01-26 21:37 | RAD ---
CHEST AP ONLY Clinical History: CHEST PAIN Technique: AP view of the chest was obtained at 01/26/2019 9:04 PM. Comparison: December 09, 2018. Findings: The heart is moderately enlarged. The pulmonary vessels appear normal. The lungs and pleural margins are clear. Impression: Moderate cardiomegaly. Stable appearance of the chest. Electronically signed by: Graham Cifuentes III, MD (01/26/2019 9:34 PM) [id number]
--- NOTE | 2019-01-26 21:53 | PHYS DOC ---
Past Medical History Past Medical History: A-Fib, Hypertension Additional Past Medical Histor: A. fib Past Surgical History: No Surgical History Alcohol Use: Rarely Drug Use: None Adult General Chief Complaint Chief Complaint: HYPERTENSION HPI HPI Patient is a 58 year old Chinese male with history of atrial fibrillation currently anticoagulated who presents with local medical complaints. Patient reports dyspnea on exertion for the past several days, orthopnea, paroxysmal nocturnal dyspnea and elevated blood pressure. Patient states he's been compliant with his medications. He checked his blood pressure prior to ED arrival noted be 180/120, prompting him to come to the emergency department. Patient denies chest pain, palpitations. Denies increased leg pain or swelling. No other acute symptoms or complaints. [] Review of Systems Review of Systems Review symptoms as prescribed. All other review symptoms are negative. All other systems were reviewed and found to be within normal limits, except as documented in this note. Current Medications Current Medications Current Medications Medications (Trade) Dose Ordered Sig/Hari Start Time Stop Time Status Last Admin Dose Admin Clonidine HCl (Catapres) 0.2 mg 1X ONCE 01/26/19 21:30 01/26/19 21:31 DC 01/26/19 21:35 0.2 MG Furosemide (Lasix) 40 mg 1X ONCE 01/26/19 22:00 01/26/19 22:01 Allergies Allergies Allergies Coded Allergies Type Severity Reaction Last Updated Verified No Known Drug Allergies 12/20/18 No Physical Exam Physical Exam Constitutional: Well developed, well nourished, no acute distress, non-toxic appearance. [] HENT: Normocephalic, atraumatic, bilateral external ears normal, oropharynx moist, no oral exudates, nose normal. [] Eyes: PERRLA, EOMI, conjunctiva normal, no discharge. [] Neck: Normal range of motion, JVD.[] Cardiovascular: Tachycardic, regular rhythm.[] Lungs & Thorax: Bilateral breath sounds clear to auscultation [] Abdomen: Bowel sounds normal, soft, ascites.. [] Skin: Warm, dry, no erythema, no rash. [] Back: No tenderness, no CVA tenderness. [] Extremities: No tenderness, mild peripheral edema., Negative Homans signs.[] Neurologic: Alert and oriented X 3, normal motor function, normal sensory function, no focal deficits noted. [] Psychologic: Affect normal, judgement normal, mood normal. [] Current Patient Data Vital Signs Vital Signs Date Time Temp Pulse Resp B/P (MAP) Pulse Ox O2 Delivery O2 Flow Rate FiO2 01/26/19 21:35 128 157/114 Lab Values Laboratory Tests Test 01/26/19 20:10 01/26/19 21:10 White Blood Count 8.1 x10^3/uL (4.0-11.0) Red Blood Count 4.57 x10^6/uL (4.30-5.70) Hemoglobin 11.5 g/dL (13.0-17.5) L Hematocrit 38.1 % (39.0-53.0) L Mean Corpuscular Volume 83 fL (79-100) Mean Corpuscular Hemoglobin 25 pg (25-35) Mean Corpuscular Hemoglobin Concent 30 g/dL (31-37) L Red Cell Distribution Width 26.6 % (11.5-14.5) H Platelet Count 323 x10^3/uL (140-400) Neutrophils (%) (Auto) 72 % (31-73) Lymphocytes (%) (Auto) 17 % (24-48) L Monocytes (%) (Auto) 8 % (0-9) Eosinophils (%) (Auto) 2 % (0-3) Basophils (%) (Auto) 1 % (0-3) Neutrophils # (Auto) 5.9 x10^3uL (1.8-7.7) Lymphocytes # (Auto) 1.4 x10^3/uL (1.0-4.8) Monocytes # (Auto) 0.7 x10^3/uL (0.0-1.1) Eosinophils # (Auto) 0.1 x10^3/uL (0.0-0.7) Basophils # (Auto) 0.1 x10^3/uL (0.0-0.2) Platelet Estimate Adequate (ADEQUATE) Polychromasia Slight Anisocytosis Marked Tear Drop Cells Few Ovalocytes Mod Schistocytes Few D-Dimer (Jocelin) 0.64 ug/mlFEU (0.00-0.50) H Sodium Level 144 mmol/L (136-145) Potassium Level 4.0 mmol/L (3.5-5.1) Chloride Level 106 mmol/L (98-107) Carbon Dioxide Level 26 mmol/L (21-32) Anion Gap 12 (6-14) Blood Urea Nitrogen 31 mg/dL (8-26) H Creatinine 2.4 mg/dL (0.7-1.3) H Estimated GFR (Cockcroft-Gault) 33.8 BUN/Creatinine Ratio 13 (6-20) Glucose Level 103 mg/dL (70-99) H Calcium Level 8.9 mg/dL (8.5-10.1) Total Bilirubin 1.1 mg/dL (0.2-1.0) H Aspartate Amino Transferase (AST) 26 U/L (15-37) Alanine Aminotransferase (ALT) 29 U/L (16-63) Alkaline Phosphatase 95 U/L (46-116) Troponin I Quantitative 0.049 ng/mL (0.000-0.055) LY-Goy-F-Type Natriuretic Peptide 06354 pg/mL (0-124) H Total Protein 7.0 g/dL (6.4-8.2) Albumin 3.4 g/dL (3.4-5.0) Albumin/Globulin Ratio 0.9 (1.0-1.7) L Thyroid Stimulating Hormone (TSH) 2.688 uIU/mL (0.358-3.74) Urine Collection Type Unknown Urine Color Yellow Urine Clarity Clear Urine pH 6.0 Urine Specific [place] 1.015 Urine Protein 100 mg/dL (NEG-TRACE) Urine Glucose (UA) Negative mg/dL (NEG) Urine Ketones (Stick) Negative mg/dL (NEG) Urine Blood Negative (NEG) Urine Nitrite Negative (NEG) Urine Bilirubin Negative (NEG) Urine Urobilinogen Dipstick 1.0 mg/dL (0.2 mg/dL) Urine Leukocyte Esterase Negative (NEG) Urine RBC 6-10 /HPF (0-2) Urine WBC 1-4 /HPF (0-4) Urine Squamous Epithelial Cells Few /LPF Urine Transitional Epithelial Cells Few /LPF Urine Bacteria 0 /HPF (0-FEW) Urine Hyaline Casts Moderate /HPF Urine Mucus Slight /LPF Urine Opiates Screen Neg (NEG) Urine Methadone Screen Neg (NEG) Urine Barbiturates Neg (NEG) Urine Phencyclidine Screen Neg (NEG) Urine Amphetamine/Methamphetamine Neg (NEG) Urine Benzodiazepines Screen Neg (NEG) Urine Cocaine Screen Neg (NEG) Urine Cannabinoids Screen Neg (NEG) Urine Ethyl Alcohol Neg (NEG) Laboratory Tests 01/26/19 20:10 Laboratory Tests 01/26/19 20:10 EKG EKG [EKG: Accelerated junctional rhythm with LVH versus atrial flutter.] Radiology/Procedures Radiology/Procedures [CXR: Cardiomegaly with pulmonary vascular congestion on Provera ED reviewed.] Course & Med Decision Making Course & Med Decision Making Pertinent Labs and Imaging studies reviewed. (See chart for details) [Patient given Catapres and Lasix. Blood pressure remains elevated. Patient remains tachycardic. Patient started on Cardizem drip. Will admit to the hospitalist service with anticipated cardiology consult.] Dragon Disclaimer Dragon Disclaimer This electronic medical record was generated, in whole or in part, using a voice recognition dictation system. Departure Departure Impression: Primary Impression: Acute congestive heart failure Additional Impressions: Accelerated hypertension Atrial tachycardia Disposition: 09 ADMITTED INPATIENT Admitting Physician: Yumi Goodwin Condition: IMPROVED Referrals: NO PCP (PCP) Problem Qualifiers JAKUB MILTON DO Jan 26, 2019 21:53
[2019-01-26] MEDS ORDERED: FUROSEMIDE 40 MG/4 ML VIAL. IVP ONE (22:00)
[2019-01-26] MEDS ORDERED: ONDANSETRON PF 4 MG/2 ML VIAL. IV PRN (22:00)
[2019-01-26] MEDS: dilTIAZem INJ 125 MG in IV DEXTROSE 5% 100ML 100 ML IV PRN (22:22)
[2019-01-26 23:50] VITALS: BP 133/105
[2019-01-27] VITALS (21 sets, daily range): BP systolic 104–154; BP diastolic 78–116
[2019-01-27 04:55] LABS: BASO % 1 % (0-3); EOS # 0.2 x10^3/uL (0.0-0.7); EOS % 3 % (0-3); HEMATOCRIT 34.9 % (39.0-53.0); HEMOGLOBIN 10.7 g/dL (13.0-17.5); LYMPH # 1.3 x10^3/uL (1.0-4.8); LYMPH % 21 % (24-48); MEAN CORPUSCULAR HEMOGLOBIN 25 pg (25-35); MEAN CORPUSCULAR HGB CONC 31 g/dL (31-37); MEAN CORPUSCULAR VOLUME 82 fL (79-100); MONO # 0.6 x10^3/uL (0.0-1.1); MONO % 10 % (0-9); NEUT % 65 % (31-73); PLATELET COUNT 300 x10^3/uL (140-400); RED BLOOD COUNT 4.25 x10^6/uL (4.30-5.70); RED CELL DISTRIBUTION WIDTH 26.9 % (11.5-14.5); WHITE BLOOD COUNT 6.2 x10^3/uL (4.0-11.0)
[2019-01-27] MEDS: dilTIAZem INJ 125 MG in IV DEXTROSE 5% 100ML 100 ML IV PRN ×2 (05:00→13:36)
[2019-01-27 05:55] LABS: ALBUMIN 3.3 g/dL (3.4-5.0); ALBUMIN/GLOBULIN RATIO 1.1 (1.0-1.7); CALCIUM 8.8 mg/dL (8.5-10.1); CREATININE 2.5 mg/dL (0.7-1.3); GFR 32.3; POTASSIUM 3.7 mmol/L (3.5-5.1); TOTAL BILIRUBIN 1.1 mg/dL (0.2-1.0); TOTAL PROTEIN 6.3 g/dL (6.4-8.2)
--- NOTE | 2019-01-27 08:02 | PDOC1 ---
History and Physical Date of Admission Date of Admission DATE: 01/27/19 TIME: 07:57 Identification/Chief Complaint Chief Complaint Shortness of Breath Source Source: Patient History of Present Illness History of Present Illness Patient is a 58 year old Citizen Of [place] male w/ PMHx NICM, TIA, A Fib, HTN, CKD, fatty liver, anemia, COPD who p/w dyspnea on exertion for the past several days , orthopnea, paroxysmal nocturnal dyspnea and elevated blood pressure. Patient states he's been compliant with his medications. He checked his blood pressure prior to ED arrival noted be 180/120, prompting him to come to the emergency department. Patient denies chest pain, palpitations. Denies increased leg pain or swelling. No other acute symptoms or complaints. Hospitalized in November for UGIB, found with duodenitis, taken off Eliquis at that time, placed on ASA only. Past Medical History Cardiovascular: AFIB, HTN, Other Pulmonary: COPD CENTRAL NERVOUS SYSTEM: TIA GI: No pertinent hx Heme/Onc: Anemia NOS Hepatobiliary: Other Psych: No pertinent hx Musculoskeletal: Osteoarthritis Renal/: Chronic renal insuff Endocrine: No pertinent hx Past Surgical History Past Surgical History: Other Family History Family History: Heart Disease, Hypertension Social History Smoke: No ALCOHOL: none Drugs: None Current Problem List Problem List Problems Medical Problems: (1) Accelerated hypertension Status: Acute (2) Acute congestive heart failure Status: Acute (3) Atrial tachycardia Status: Acute Current Medications Current Medications Current Medications Clonidine HCl (Catapres) 0.2 mg 1X ONCE PO Last administered on 01/26/19at 21: 35; Start 01/26/19 at 21:30; Stop 01/26/19 at 21:31; Status DC Furosemide (Lasix) 40 mg 1X ONCE IVP Last administered on 01/26/19at 22:22; Start 01/26/19 at 22:00; Stop 01/26/19 at 22:01; Status DC Diltiazem HCl 125 mg/Dextrose 125 ml @ 5 mls/hr CONT PRN IV SEE I/O RECORD Last administered on 01/27/19at 05:00; Start 01/26/19 at 22:00 Ondansetron HCl (Zofran) 4 mg PRN Q8HRS PRN IV NAUSEA/VOMITING 1ST CHOICE; Start 01/26/19 at 22:00; Stop 01/27/19 at 21:59 Furosemide (Lasix) 40 mg BID92 IVP ; Start 01/27/19 at 09:00 Active Scripts Active Ferrous Sulfate 325 Mg Tablet 1 Tab PO DAILY Aspirin 81 Mg Tab.chew 1 Tab PO DAILY Cetirizine Hcl 10 Mg Tablet 10 Mg PO DAILY 30 Days [Pantoprazole] 40 MG Tablet.dr 40 Mg PO DAILYAC 30 Days Reported Eliquis (Apixaban) 5 Mg Tablet 5 Mg PO DAILY Acetaminophen 500 Mg Tablet 1,000 Mg PO PRN Q6HRS PRN Cepacol Sore Throat Lozenge (Benzocaine/Menthol) 1 Each Lozenge 1 Each MM PRN Q2HRS Imodium A-D (Loperamide HCl) 2 Mg Capsule 2 Mg PO PRN BID PRN [tylonAL SINUS] 1 DAILY Cartia Xt (Diltiazem Hcl) 240 Mg Cap.er.24h 240 Mg PO DAILY Losartan Potassium (Losartan Potassium) 25 Mg Tablet 25 Mg PO DAILY Lasix (Furosemide) 40 Mg Tablet 40 Mg PO DAILY Metoprolol Tartrate 25 Mg Tablet 12.5 Mg PO BID 90 Days Allergies Allergies: Coded Allergies: No Known Drug Allergies (Unverified , 12/20/18) ROS General: YES: Fatigue, Malaise; No: Chills, Night Sweats, Appetite, Other PSYCHOLOGICAL ROS: No: Anxiety, Behavioral Disorder, Concentration difficultie , Decreased libido, Depression, Disorientation, Hallucinations, Hostility, Irritablity, Memory difficulties, Mood Swings, Obsessive thoughts, Physical abuse, Sexual abuse, Sleep disturbances, Suicidal ideation, Other Eyes: No Blurry vision, No Decreased vision, No Double vision, No Dry eyes, No Excessive tearing, No Eye Pain, No Itchy Eyes, No Loss of vision, No Photophobia , No Scotomata, No Uses contacts, No Uses glasses, No Other HEENT: No: Heacaches, Visual Changes, Hearing change, Nasal congestion, Nasal discharge, Oral lesions, Sinus pain, Sore Throat, Epistaxis, Sneezing, Snoring, Tinnitus, Vertigo, Vocal changes, Other ALLERGY AND IMMUNOLOGY: No: Hives, Insect Bite Sensitivity, Itchy/Watery Eyes, Nasal Congestion, Post Nasal Drip, Seasonal Allergies, Other Hematological and Lymphatic: No: Bleeding Problems, Blood Clots, Blood Transfusions, Brusing, Night Sweats, Pallor, Swollen Lymph Nodes, Other ENDOCRINE: YES: Malaise/lethargy; No: Breast Changes, Galactorrhea, Hair Pattern Changes, Hot Flashes, Mood Swings, Palpitations, Polydipsia/polyuria, Skin Changes, Temperature Intolerance , Unexpected Weight Changes, Other Respiratory: YES: Shortness of breath, SOB with excertion; No: Cough, Hemoptysis, Orthopnea, Pleuritic Pain, Sputum Changes, Stridor, Tachypnea, Wheezing, Other Cardiovascular: yes Palpitations; No Chest Pain, No Orthopnea, No Paroxysmal Noc. Dyspnea, No Edema, No Lt Headedness, No Other Gastrointestinal: No Nausea, No Vomiting, No Abdominal Pain, No Diarrhea, No Constipation, No Melena, No Hematochezia, No Other Genitourinary: No Dysuria, No Frequency, No Incontinence, No Hematuria, No Retention, No Discharge, No Urgency, No Pain, No Flank Pain, No Other, No , No , No , No , No , No , No Musculoskeletal: No Gait Disturbance, No Joint Pain, No Joint Stiffness, No Joint Swelling, No Muscle Pain, No Muscular Weakness, No Pain In:, No Swelling In:, No Other Neurological: No Behavorial Changes, No Bowel/Bladder ControlChng, No Confusion , No Dizziness, No Gait Disturbance, No Headaches, No Impaired Coord/balance, No Memory Loss, No Numbness/Tingling, No Seizures, No Speech Problems, No Tremors, No Visual Changes, No Weakness, No Other Skin: No Dry Skin, No Eczema, No Hair Changes, No Lumps, No Mole Changes, No Mottling, No Nail Changes, No Pruritus, No Rash, No Skin Lesion Changes, No Other, No Acne Physical Exam General: Alert, Oriented X3, Cooperative, No acute distress HEENT: Atraumatic, PERRLA, EOMI, Mucous membr. moist/pink Lungs: Clear to auscultation, Normal air movement Heart: irregularly irregular Abdomen: Normal bowel sounds, Soft, No tenderness, No hepatosplenomegaly, No masses Extremities: No clubbing, No cyanosis, No edema, Normal pulses, No tenderness/ swelling Skin: No rashes, No breakdown, No significant lesion Neuro: Normal gait, Normal speech, Strength at 5/5 X4 ext, Normal tone, Sensation intact, Cranial nerves 3-12 NL, Reflexes 2+ Psych/Mental Status: Mental status NL, Mood NL Vitals Vitals Vital Signs Date Time Temp Pulse Resp B/P (MAP) Pulse Ox O2 Delivery O2 Flow Rate FiO2 01/27/19 07:33 98.0 128 20 117/93 (101) 98 Room Air 98.0 Labs Labs Laboratory Tests Test 01/26/19 20:10 01/26/19 21:10 01/26/19 22:45 01/27/19 04:00 White Blood Count 8.1 x10^3/uL (4.0-11.0) 6.2 x10^3/uL (4.0-11.0) Red Blood Count 4.57 x10^6/uL (4.30-5.70) 4.25 x10^6/uL (4.30-5.70) Hemoglobin 11.5 g/dL (13.0-17.5) 10.7 g/dL (13.0-17.5) Hematocrit 38.1 % (39.0-53.0) 34.9 % (39.0-53.0) Mean Corpuscular Volume 83 fL (79-100) 82 fL (79-100) Mean Corpuscular Hemoglobin 25 pg (25-35) 25 pg (25-35) Mean Corpuscular Hemoglobin Concent 30 g/dL (31-37) 31 g/dL (31-37) Red Cell Distribution Width 26.6 % (11.5-14.5) 26.9 % (11.5-14.5) Platelet Count 323 x10^3/uL (140-400) 300 x10^3/uL (140-400) Neutrophils (%) (Auto) 72 % (31-73) 65 % (31-73) Lymphocytes (%) (Auto) 17 % (24-48) 21 % (24-48) Monocytes (%) (Auto) 8 % (0-9) 10 % (0-9) Eosinophils (%) (Auto) 2 % (0-3) 3 % (0-3) Basophils (%) (Auto) 1 % (0-3) 1 % (0-3) Neutrophils # (Auto) 5.9 x10^3uL (1.8-7.7) 4.0 x10^3uL (1.8-7.7) Lymphocytes # (Auto) 1.4 x10^3/uL (1.0-4.8) 1.3 x10^3/uL (1.0-4.8) Monocytes # (Auto) 0.7 x10^3/uL (0.0-1.1) 0.6 x10^3/uL (0.0-1.1) Eosinophils # (Auto) 0.1 x10^3/uL (0.0-0.7) 0.2 x10^3/uL (0.0-0.7) Basophils # (Auto) 0.1 x10^3/uL (0.0-0.2) 0.0 x10^3/uL (0.0-0.2) Platelet Estimate Adequate (ADEQUATE) Polychromasia Slight Anisocytosis Marked Tear Drop Cells Few Ovalocytes Mod Schistocytes Few D-Dimer (Jocelin) 0.64 ug/mlFEU (0.00-0.50) Sodium Level 144 mmol/L (136-145) 146 mmol/L (136-145) Potassium Level 4.0 mmol/L (3.5-5.1) 3.7 mmol/L (3.5-5.1) Chloride Level 106 mmol/L (98-107) 107 mmol/L (98-107) Carbon Dioxide Level 26 mmol/L (21-32) 25 mmol/L (21-32) Anion Gap 12 (6-14) 14 (6-14) Blood Urea Nitrogen 31 mg/dL (8-26) 31 mg/dL (8-26) Creatinine 2.4 mg/dL (0.7-1.3) 2.5 mg/dL (0.7-1.3) Estimated GFR (Cockcroft-Gault) 33.8 32.3 BUN/Creatinine Ratio 13 (6-20) 12 (6-20) Glucose Level 103 mg/dL (70-99) 128 mg/dL (70-99) Calcium Level 8.9 mg/dL (8.5-10.1) 8.8 mg/dL (8.5-10.1) Total Bilirubin 1.1 mg/dL (0.2-1.0) 1.1 mg/dL (0.2-1.0) Aspartate Amino Transf (AST/SGOT) 26 U/L (15-37) 22 U/L (15-37) Alanine Aminotransferase (ALT/SGPT) 29 U/L (16-63) 32 U/L (16-63) Alkaline Phosphatase 95 U/L (46-116) 94 U/L (46-116) Troponin I Quantitative 0.049 ng/mL (0.000-0.055) 0.049 ng/mL (0.000-0.055) 0.041 ng/mL (0.000-0.055) WN-Dzw-V-Type Natriuretic Peptide 83168 pg/mL (0-124) 93418 pg/mL (0-124) Total Protein 7.0 g/dL (6.4-8.2) 6.3 g/dL (6.4-8.2) Albumin 3.4 g/dL (3.4-5.0) 3.3 g/dL (3.4-5.0) Albumin/Globulin Ratio 0.9 (1.0-1.7) 1.1 (1.0-1.7) Thyroid Stimulating Hormone (TSH) 2.688 uIU/mL (0.358-3.74) Urine Collection Type Unknown Urine Color Yellow Urine Clarity Clear Urine pH 6.0 Urine Specific [place] 1.015 Urine Protein 100 mg/dL (NEG-TRACE) Urine Glucose (UA) Negative mg/dL (NEG) Urine Ketones (Stick) Negative mg/dL (NEG) Urine Blood Negative (NEG) Urine Nitrite Negative (NEG) Urine Bilirubin Negative (NEG) Urine Urobilinogen Dipstick 1.0 mg/dL (0.2 mg/dL) Urine Leukocyte Esterase Negative (NEG) Urine RBC 6-10 /HPF (0-2) Urine WBC 1-4 /HPF (0-4) Urine Squamous Epithelial Cells Few /LPF Urine Transitional Epithelial Cells Few /LPF Urine Bacteria 0 /HPF (0-FEW) Urine Hyaline Casts Moderate /HPF Urine Mucus Slight /LPF Urine Opiates Screen Neg (NEG) Urine Methadone Screen Neg (NEG) Urine Barbiturates Neg (NEG) Urine Phencyclidine Screen Neg (NEG) Urine Amphetamine/Methamphetamine Neg (NEG) Urine Benzodiazepines Screen Neg (NEG) Urine Cocaine Screen Neg (NEG) Urine Cannabinoids Screen Neg (NEG) Urine Ethyl Alcohol Neg (NEG) Laboratory Tests Test 01/26/19 20:10 01/26/19 21:10 01/26/19 22:45 01/27/19 04:00 White Blood Count 8.1 x10^3/uL (4.0-11.0) 6.2 x10^3/uL (4.0-11.0) Red Blood Count 4.57 x10^6/uL (4.30-5.70) 4.25 x10^6/uL (4.30-5.70) Hemoglobin 11.5 g/dL (13.0-17.5) 10.7 g/dL (13.0-17.5) Hematocrit 38.1 % (39.0-53.0) 34.9 % (39.0-53.0) Mean Corpuscular Volume 83 fL (79-100) 82 fL (79-100) Mean Corpuscular Hemoglobin 25 pg (25-35) 25 pg (25-35) Mean Corpuscular Hemoglobin Concent 30 g/dL (31-37) 31 g/dL (31-37) Red Cell Distribution Width 26.6 % (11.5-14.5) 26.9 % (11.5-14.5) Platelet Count 323 x10^3/uL (140-400) 300 x10^3/uL (140-400) Neutrophils (%) (Auto) 72 % (31-73) 65 % (31-73) Lymphocytes (%) (Auto) 17 % (24-48) 21 % (24-48) Monocytes (%) (Auto) 8 % (0-9) 10 % (0-9) Eosinophils (%) (Auto) 2 % (0-3) 3 % (0-3) Basophils (%) (Auto) 1 % (0-3) 1 % (0-3) Neutrophils # (Auto) 5.9 x10^3uL (1.8-7.7) 4.0 x10^3uL (1.8-7.7) Lymphocytes # (Auto) 1.4 x10^3/uL (1.0-4.8) 1.3 x10^3/uL (1.0-4.8) Monocytes # (Auto) 0.7 x10^3/uL (0.0-1.1) 0.6 x10^3/uL (0.0-1.1) Eosinophils # (Auto) 0.1 x10^3/uL (0.0-0.7) 0.2 x10^3/uL (0.0-0.7) Basophils # (Auto) 0.1 x10^3/uL (0.0-0.2) 0.0 x10^3/uL (0.0-0.2) Platelet Estimate Adequate (ADEQUATE) Polychromasia Slight Anisocytosis Marked Tear Drop Cells Few Ovalocytes Mod Schistocytes Few D-Dimer (Jocelin) 0.64 ug/mlFEU (0.00-0.50) Sodium Level 144 mmol/L (136-145) 146 mmol/L (136-145) Potassium Level 4.0 mmol/L (3.5-5.1) 3.7 mmol/L (3.5-5.1) Chloride Level 106 mmol/L (98-107) 107 mmol/L (98-107) Carbon Dioxide Level 26 mmol/L (21-32) 25 mmol/L (21-32) Anion Gap 12 (6-14) 14 (6-14) Blood Urea Nitrogen 31 mg/dL (8-26) 31 mg/dL (8-26) Creatinine 2.4 mg/dL (0.7-1.3) 2.5 mg/dL (0.7-1.3) Estimated GFR (Cockcroft-Gault) 33.8 32.3 BUN/Creatinine Ratio 13 (6-20) 12 (6-20) Glucose Level 103 mg/dL (70-99) 128 mg/dL (70-99) Calcium Level 8.9 mg/dL (8.5-10.1) 8.8 mg/dL (8.5-10.1) Total Bilirubin 1.1 mg/dL (0.2-1.0) 1.1 mg/dL (0.2-1.0) Aspartate Amino Transf (AST/SGOT) 26 U/L (15-37) 22 U/L (15-37) Alanine Aminotransferase (ALT/SGPT) 29 U/L (16-63) 32 U/L (16-63) Alkaline Phosphatase 95 U/L (46-116) 94 U/L (46-116) Troponin I Quantitative 0.049 ng/mL (0.000-0.055) 0.049 ng/mL (0.000-0.055) 0.041 ng/mL (0.000-0.055) ZD-Igy-K-Type Natriuretic Peptide 85375 pg/mL (0-124) 14008 pg/mL (0-124) Total Protein 7.0 g/dL (6.4-8.2) 6.3 g/dL (6.4-8.2) Albumin 3.4 g/dL (3.4-5.0) 3.3 g/dL (3.4-5.0) Albumin/Globulin Ratio 0.9 (1.0-1.7) 1.1 (1.0-1.7) Thyroid Stimulating Hormone (TSH) 2.688 uIU/mL (0.358-3.74) Urine Collection Type Unknown Urine Color Yellow Urine Clarity Clear Urine pH 6.0 Urine Specific [place] 1.015 Urine Protein 100 mg/dL (NEG-TRACE) Urine Glucose (UA) Negative mg/dL (NEG) Urine Ketones (Stick) Negative mg/dL (NEG) Urine Blood Negative (NEG) Urine Nitrite Negative (NEG) Urine Bilirubin Negative (NEG) Urine Urobilinogen Dipstick 1.0 mg/dL (0.2 mg/dL) Urine Leukocyte Esterase Negative (NEG) Urine RBC 6-10 /HPF (0-2) Urine WBC 1-4 /HPF (0-4) Urine Squamous Epithelial Cells Few /LPF Urine Transitional Epithelial Cells Few /LPF Urine Bacteria 0 /HPF (0-FEW) Urine Hyaline Casts Moderate /HPF Urine Mucus Slight /LPF Urine Opiates Screen Neg (NEG) Urine Methadone Screen Neg (NEG) Urine Barbiturates Neg (NEG) Urine Phencyclidine Screen Neg (NEG) Urine Amphetamine/Methamphetamine Neg (NEG) Urine Benzodiazepines Screen Neg (NEG) Urine Cocaine Screen Neg (NEG) Urine Cannabinoids Screen Neg (NEG) Urine Ethyl Alcohol Neg (NEG) Images Images CXR - moderate cardiomegaly VTE Prophylaxis Ordered VTE Prophylaxis Devices: Yes VTE Pharmacological Prophylaxi: Yes Assessment/Plan Assessment/Plan A/P: Acute on chronic diastolic HF - diuresing currently, difficult with his NEVA AFIB with RVR - on cardizem 20mg per hour and metoprolol 25mg BID, IV metoprolol for now. Digoxin is not a good option given his renal function. Will consult cardiology Nonischemic cardiomyopathy - cont BB, ASA, statin AK I on possibly CK D - vasomotor vs cardiorenal Tachypnea Accel hypertension POA AECOPD - will cont nebulizers, may be better for xopenex FEN - cardiac diet PPX - SCDs FULL CODE Inpatient for afib with RVR, will be in at least 2 midnights. RENETTA CADET MD Jan 27, 2019 08:02
--- NOTE | 2019-01-27 08:09 | EKG ---
[facility] [address] [place] [address] Test Date: 2019-01-26 Test Time: 20:33:17 Pat Name: ADEN HUMPHRIES Department: Room: 211 1 Gender: M Pheresis Nurse: : 1960 Requested By: JAKUB MILTON Order Number: [id number] Reading MD: Colt Elaine Measurements Intervals [place] Rate: 127 P: VA: QRS: 36 QRSD: 98 T: 139 QT: 340 QTc: 500 Interpretive Statements ATRIAL FLUTTER WITH RVR LVH WITH REPOLARIZATION ABNORMALITY ABNORMAL ECG Electronically Signed On 02-03-2019 12:56:00 CDT by Colt Elaine
[2019-01-27] MEDS ORDERED: METO25TA4 PO (08:47)
[2019-01-27] MEDS ORDERED: MULT1TAB52 PO (08:47)
[2019-01-27] MEDS ORDERED: BUDE10.22 IH (08:50)
[2019-01-27] MEDS: FUROSEMIDE 40 MG/4 ML VIAL. IVP SCH ×2 (08:50→13:37)
--- NOTE | 2019-01-27 11:38 | PDOC2 ---
AARON WELCH ROUTE CDL DRIVER 01/27/19 1138: CARDIAC CONSULT DATE OF CONSULT Date of Consult DATE: 01/27/19 TIME: 11:25 REASON FOR CONSULT Reason for Consult: CHF REFERRING PHYSICIAN Referring Physician: Dr. aDhl SOURCE Source: Chart review, Patient HISTORY OF PRESENT ILLNESS HISTORY OF PRESENT ILLNESS This is a 58 yo male, with a history of NICM with LVEF recovery, AFIB, pulmonary HTN, and CKD, who presented secondary to shortness of breath and hypertension. Patient was seen by our service this past November due to AFIB with RVR in the setting of significant anemia. Eliquis was discontinued at this time and ASA was recommended for stroke prophylaxis. Patients reports feeling well for a few weeks. For the last couple of weeks, has had shortness of breath and palpitations. Palpitations seem to be more frequent and strong over the last couple of days. Reports it feels as his "chest is closing in on me". Associated with orthopnea and mild LE edema. Has non-productive cough. Is occasionally lightheaded. No diaphoresis, chest pain, or nausea/vomiting. Reports compliance with medications. PAST MEDICAL HISTORY Past Medical History Cardiovascular: AFIB, HTN, CHF, Other (NICM) Pulmonary: COPD CENTRAL NERVOUS SYSTEM: TIA GI: No pertinent hx Heme/Onc: Anemia NOS Hepatobiliary: Other (chronic anticoagulation) Psych: No pertinent hx Musculoskeletal: Osteoarthritis Renal/: Chronic renal insuff Endocrine: No pertinent hx PAST SURGICAL HISTORY Past Surgical History: Other ([facility]) FAMILY HISTORY Family History: Heart Disease, Hypertension SOCIAL HISTORY Smoke: Quit (11/2018) ALCOHOL: none Drugs: None Lives: Alone CURRENT MEDICATIONS CURRENT MEDICATIONS Current Medications Medications (Trade) Dose Ordered Sig/Hari Route PRN Reason Start Time Stop Time Status Last Admin Dose Admin Clonidine HCl (Catapres) 0.2 mg 1X ONCE PO 01/26/19 21:30 01/26/19 21:31 DC 01/26/19 21:35 Furosemide (Lasix) 40 mg 1X ONCE IVP 01/26/19 22:00 01/26/19 22:01 DC 01/26/19 22:22 Diltiazem HCl 125 mg/Dextrose 125 ml @ 5 mls/hr CONT PRN IV SEE I/O RECORD 01/26/19 22:00 01/27/19 05:00 Furosemide (Lasix) 40 mg [id number] IVP 01/27/19 09:00 01/27/19 08:50 ALLERGIES ALLERGIES: Coded Allergies: No Known Drug Allergies (Unverified , 12/20/18) ROS Review of System 14 point ROS conducted with pertinent positives noted above in HPI. PHYSICAL EXAM PHYSICAL EXAM General: Alert, Oriented X3, Cooperative, No acute distress HEENT: Atraumatic, Mucous membr. moist/pink Lungs: Other (bibasilar crackles) Heart: IRR (AFIB with RVR- rate 125), Normal S1, Normal S2 Abdomen: Soft, No tenderness Extremities: No cyanosis, 1+ bilateral LE edema Skin: No breakdown, No significant lesion Neuro: Normal speech, Sensation intact Psych/Mental Status: Mental status NL, Mood NL MUSCULOSKELETAL: Osteoarthritic changes both hands VITALS VITALS Vital Signs Date Time Temp Pulse Resp B/P (MAP) Pulse Ox O2 Delivery O2 Flow Rate FiO2 01/27/19 10:51 98.2 128 20 119/95 (103) 95 Room Air 98.2 LABS Lab: Laboratory Tests Test 01/26/19 20:10 01/26/19 21:10 01/26/19 22:45 01/27/19 04:00 White Blood Count 8.1 x10^3/uL (4.0-11.0) 6.2 x10^3/uL (4.0-11.0) Red Blood Count 4.57 x10^6/uL (4.30-5.70) 4.25 x10^6/uL (4.30-5.70) Hemoglobin 11.5 g/dL (13.0-17.5) 10.7 g/dL (13.0-17.5) Hematocrit 38.1 % (39.0-53.0) 34.9 % (39.0-53.0) Mean Corpuscular Volume 83 fL (79-100) 82 fL (79-100) Mean Corpuscular Hemoglobin 25 pg (25-35) 25 pg (25-35) Mean Corpuscular Hemoglobin Concent 30 g/dL (31-37) 31 g/dL (31-37) Red Cell Distribution Width 26.6 % (11.5-14.5) 26.9 % (11.5-14.5) Platelet Count 323 x10^3/uL (140-400) 300 x10^3/uL (140-400) Neutrophils (%) (Auto) 72 % (31-73) 65 % (31-73) Lymphocytes (%) (Auto) 17 % (24-48) 21 % (24-48) Monocytes (%) (Auto) 8 % (0-9) 10 % (0-9) Eosinophils (%) (Auto) 2 % (0-3) 3 % (0-3) Basophils (%) (Auto) 1 % (0-3) 1 % (0-3) Neutrophils # (Auto) 5.9 x10^3uL (1.8-7.7) 4.0 x10^3uL (1.8-7.7) Lymphocytes # (Auto) 1.4 x10^3/uL (1.0-4.8) 1.3 x10^3/uL (1.0-4.8) Monocytes # (Auto) 0.7 x10^3/uL (0.0-1.1) 0.6 x10^3/uL (0.0-1.1) Eosinophils # (Auto) 0.1 x10^3/uL (0.0-0.7) 0.2 x10^3/uL (0.0-0.7) Basophils # (Auto) 0.1 x10^3/uL (0.0-0.2) 0.0 x10^3/uL (0.0-0.2) Platelet Estimate Adequate (ADEQUATE) Polychromasia Slight Anisocytosis Marked Tear Drop Cells Few Ovalocytes Mod Schistocytes Few D-Dimer (Jocelin) 0.64 ug/mlFEU (0.00-0.50) Sodium Level 144 mmol/L (136-145) 146 mmol/L (136-145) Potassium Level 4.0 mmol/L (3.5-5.1) 3.7 mmol/L (3.5-5.1) Chloride Level 106 mmol/L (98-107) 107 mmol/L (98-107) Carbon Dioxide Level 26 mmol/L (21-32) 25 mmol/L (21-32) Anion Gap 12 (6-14) 14 (6-14) Blood Urea Nitrogen 31 mg/dL (8-26) 31 mg/dL (8-26) Creatinine 2.4 mg/dL (0.7-1.3) 2.5 mg/dL (0.7-1.3) Estimated GFR (Cockcroft-Gault) 33.8 32.3 BUN/Creatinine Ratio 13 (6-20) 12 (6-20) Glucose Level 103 mg/dL (70-99) 128 mg/dL (70-99) Calcium Level 8.9 mg/dL (8.5-10.1) 8.8 mg/dL (8.5-10.1) Total Bilirubin 1.1 mg/dL (0.2-1.0) 1.1 mg/dL (0.2-1.0) Aspartate Amino Transf (AST/SGOT) 26 U/L (15-37) 22 U/L (15-37) Alanine Aminotransferase (ALT/SGPT) 29 U/L (16-63) 32 U/L (16-63) Alkaline Phosphatase 95 U/L (46-116) 94 U/L (46-116) Troponin I Quantitative 0.049 ng/mL (0.000-0.055) 0.049 ng/mL (0.000-0.055) 0.041 ng/mL (0.000-0.055) NK-Uyw-Y-Type Natriuretic Peptide 67788 pg/mL (0-124) 65688 pg/mL (0-124) Total Protein 7.0 g/dL (6.4-8.2) 6.3 g/dL (6.4-8.2) Albumin 3.4 g/dL (3.4-5.0) 3.3 g/dL (3.4-5.0) Albumin/Globulin Ratio 0.9 (1.0-1.7) 1.1 (1.0-1.7) Thyroid Stimulating Hormone (TSH) 2.688 uIU/mL (0.358-3.74) Urine Collection Type Unknown Urine Color Yellow Urine Clarity Clear Urine pH 6.0 Urine Specific [place] 1.015 Urine Protein 100 mg/dL (NEG-TRACE) Urine Glucose (UA) Negative mg/dL (NEG) Urine Ketones (Stick) Negative mg/dL (NEG) Urine Blood Negative (NEG) Urine Nitrite Negative (NEG) Urine Bilirubin Negative (NEG) Urine Urobilinogen Dipstick 1.0 mg/dL (0.2 mg/dL) Urine Leukocyte Esterase Negative (NEG) Urine RBC 6-10 /HPF (0-2) Urine WBC 1-4 /HPF (0-4) Urine Squamous Epithelial Cells Few /LPF Urine Transitional Epithelial Cells Few /LPF Urine Bacteria 0 /HPF (0-FEW) Urine Hyaline Casts Moderate /HPF Urine Mucus Slight /LPF Urine Opiates Screen Neg (NEG) Urine Methadone Screen Neg (NEG) Urine Barbiturates Neg (NEG) Urine Phencyclidine Screen Neg (NEG) Urine Amphetamine/Methamphetamine Neg (NEG) Urine Benzodiazepines Screen Neg (NEG) Urine Cocaine Screen Neg (NEG) Urine Cannabinoids Screen Neg (NEG) Urine Ethyl Alcohol Neg (NEG) ECHOCARDIOGRAM ECHOCARDIOGRAM <Conclusion> The Left Ventricle is borderline dilated. Left ventricle systolic function is low normal. The Ejection Fraction is 50-55%. There is moderate concentric left ventricular hypertrophy. There is no significant aortic valvular stenosis. Doppler and Color Flow revealed mild to moderate aortic regurgitation. Doppler and Color-flow revealed trace to mild mitral regurgitation. Doppler and Color Flow revealed mild tricuspid regurgitation. The PA pressure was estimated at 42 mmHg. DATE: 07/08/18 1347 Limited Echo <Conclusion> Left ventricle systolic function is low normal. The Ejection Fraction is 50-55%. There is normal LV segmental wall motion. The left atrium is mildly dilated. Mild to moderate aortic regurgitation. Mild mitral regurgitation. Moderate tricuspid regurgitation. There is severe pulmonary hypertension. The PA pressure was estimated at 86 mmHg. There is no evidence of significant pericardial effusion. DATE: 12/10/18 1639 STRESS TEST STRESS TEST Conclusion 1. Regadenoson cardioisotope stress test did not show any evidence of ischemia or infarct. 2. Moderate left ventricle systolic dysfunction with ejection fraction calculated at 39% 3. Intermediate risk for cardiac events based on diminished LV function. DATE: 12/06/18 1249 HEART CATH HEART CATH FINDINGS 1. The left main coronary artery arose from the left sinus of Valsalva, gave rise to the left anterior descending, ramus intermedius and left circumflex arteries and did not show any significant stenosis. 2. The left anterior descending artery did not show any significant stenosis. 3. The ramus intermedius artery did not show any significant stenosis. 4. The left circumflex artery did not show any significant stenosis. 5. The right coronary artery was a dominant vessel arising from the right sinus of Valsalva that did not show any significant stenosis. Conclusion No significant coronary artery disease Recommendations Optimization of medical therapy for severe non ischemic cardiomyopathy. Repeat 2D echo in 3 months and consider AICD implantation if LV function does not improve. DATE: 09/03/14912 ASSESSMENT/PLAN ASSESSMENT/PLAN 1. PAFIB/flutter with RVR; on Cardizem gtt at 15- rate remains elevated. Previously of Eliquis for stroke prevention, but this was discontinued in November due to significant anemia. 2. Acute on chronic diastolic HF; AFIB with RVR likely contributing factor. Recent stress test without any ischemic or infarct 3. Recovered NICM: EF now at 50-55% 4. Anemia; hgb stable at 10.7 5. AECOPD with h/o tobaccoism; recently quit 6. NEVA on CKD 7. HTN Recommendations Metoprolol 5mg IV x1 now Resume oral metoprolol and Cardizem when rate is better controlled. May need to uptitrate Mild diuresis with close monitoring of renal function Hold ARB with NEVA ASA for stroke prevention given recent anemia/GIB DESMOND VINCENT MD 01/27/19 1630: CARDIAC CONSULT ASSESSMENT/PLAN ASSESSMENT/PLAN Patient seen and examined. Agree with DIESEL DINKEY ENGINEER's assessment and plan. Continue to titrate Cardizem infusion for better rate control. Recent 2-D echo showed normal LV systolic function. Continue diuresis for acute on chronic diastolic heart failure probably precipitated by RVR. He was deemed a poor candidate for long-term and to correlation secondary to anemia in the past. We will consider outpatient referral for TRINITY closure. Thank you for your consultation. AARON WELCH APRN Jan 27, 2019 11:38 DESMOND VINCENT MD Jan 27, 2019 16:30
[2019-01-27] MEDS ORDERED: METOPROLOL TARTRATE 5 MG/5 ML VIAL. IVP ONE (11:45)
[2019-01-27] MEDS ORDERED: NON FORMULARY ITEM (Budesonide/Formoterol Fumarate (Symbicort 80-4.5 Mcg Inhaler) 1 PUFF) IH SCH (13:00)
[2019-01-27] MEDS ORDERED: LOSARTAN POTASSIUM 25 MG TABLET. PO SCH (13:00)
[2019-01-27] MEDS ORDERED: APIXABAN 5 MG TABLET. PO SCH (13:00)
[2019-01-27] MEDS ORDERED: ACETAMINOPHEN 500 MG TABLET PO PRN (13:00)
--- NOTE | 2019-01-27 13:08 | NUR ---
SS following for discharge planning. SS reviewed pt chart. Pt is from home and is currently on room air. No discharge needs noted at this time. SS will continue to follow for pending discharge needs.
[2019-01-27] MEDS: METOPROLOL TART IMMED RELEASE 25 MG TABLET. PO SCH ×2 (13:37→20:55)
[2019-01-27] MEDS: ASPIRIN 325 MG TABLET PO SCH (13:37)
[2019-01-27] MEDS: FERROUS SULFATE 325 MG TABLET. PO SCH (13:37)
[2019-01-27] MEDS: MULTIVITAMIN with MINERAL TABLET. PO SCH (13:37)
[2019-01-27] MEDS ORDERED: DIGOXIN IV 500 MCG/2 ML AMPUL. IV ONE (14:30)
[2019-01-27] MEDS: ALBUTEROL SULFATE 2.5 MG/3 ML NEBU. NEB SCH ×2 (15:07→20:21)
[2019-01-27] MEDS: BUDESONIDE 0.5 MG/2 ML NEBU. NEB SCH (20:22)
[2019-01-28] VITALS (10 sets, daily range): BP systolic 134–162; BP diastolic 84–109
[2019-01-28] MEDS: ALBUTEROL SULFATE 2.5 MG/3 ML NEBU. NEB SCH ×4 (07:19→19:51)
[2019-01-28] MEDS: BUDESONIDE 0.5 MG/2 ML NEBU. NEB SCH ×2 (07:19→19:51)
--- NOTE | 2019-01-28 07:41 | PDOC ---
PROGRESS NOTES Chief Complaint Chief Complaint A/P: Acute on chronic diastolic HF - diuresing currently, difficult with his NEVA AFIB with RVR - on cardizem 20mg per hour and metoprolol 25mg BID, IV metoprolol for now. Digoxin is not a good superintendent terminal option given his renal function. F/u cardiology recs Nonischemic cardiomyopathy - cont BB, ASA, statin AK I on possibly CK D - vasomotor vs cardiorenal Tachypnea Accel hypertension POA AECOPD - will cont nebulizers, may be better for xopenex FEN - cardiac diet PPX - SCDs FULL CODE Inpatient for afib with RVR, will be in at least 2 midnights. History of Present Illness History of Present Illness Patient is a 58 yo [place] male w/ PMHx NICM, TIA, A Fib, HTN, CKD, fatty liver , anemia, COPD who p/w dyspnea on exertion for the past several days, orthopnea , paroxysmal nocturnal dyspnea and elevated blood pressure. Patient states he's been compliant with his medications. He checked his blood pressure prior to ED arrival noted be 180/120, prompting him to come to the emergency department. Patient denies chest pain, palpitations. Denies increased leg pain or swelling. No other acute symptoms or complaints. Hospitalized in November for UGIB, found with duodenitis, taken off Eliquis at that time, placed on ASA only. He was continued on cardizem and metoprolol with rate control yesterday afternoon in the 90s, but has been in the 130s all morning. S/p digoxin 500mcg x1 dose. Short of breath. Denies CP. Vitals Vitals Vital Signs Date Time Temp Pulse Resp B/P (MAP) Pulse Ox O2 Delivery O2 Flow Rate FiO2 01/28/19 07:25 99 Room Air 01/28/19 03:11 98.5 103 16 134/85 (101) 98.5 Physical Exam General: Alert, Oriented X3, Cooperative, No acute distress Lungs: Clear Abdomen: Normal bowel sounds, Soft, No tenderness, No hepatosplenomegaly, No masses Extremities: No clubbing, No cyanosis, No edema, Normal pulses, No tenderness/ swelling Skin: No rashes, No breakdown, No significant lesion Assessment and Plan Assessmemt and Plan Problems Medical Problems: (1) Accelerated hypertension Status: Acute (2) Acute congestive heart failure Status: Acute (3) Atrial tachycardia Status: Acute Comment Review of Relevant I have reviewed the following items emmanuel (where applicable) has been applied. Labs Laboratory Tests Test 01/26/19 20:10 01/26/19 21:10 01/26/19 22:45 01/27/19 04:00 White Blood Count 8.1 x10^3/uL (4.0-11.0) 6.2 x10^3/uL (4.0-11.0) Red Blood Count 4.57 x10^6/uL (4.30-5.70) 4.25 x10^6/uL (4.30-5.70) Hemoglobin 11.5 g/dL (13.0-17.5) 10.7 g/dL (13.0-17.5) Hematocrit 38.1 % (39.0-53.0) 34.9 % (39.0-53.0) Mean Corpuscular Volume 83 fL (79-100) 82 fL (79-100) Mean Corpuscular Hemoglobin 25 pg (25-35) 25 pg (25-35) Mean Corpuscular Hemoglobin Concent 30 g/dL (31-37) 31 g/dL (31-37) Red Cell Distribution Width 26.6 % (11.5-14.5) 26.9 % (11.5-14.5) Platelet Count 323 x10^3/uL (140-400) 300 x10^3/uL (140-400) Neutrophils (%) (Auto) 72 % (31-73) 65 % (31-73) Lymphocytes (%) (Auto) 17 % (24-48) 21 % (24-48) Monocytes (%) (Auto) 8 % (0-9) 10 % (0-9) Eosinophils (%) (Auto) 2 % (0-3) 3 % (0-3) Basophils (%) (Auto) 1 % (0-3) 1 % (0-3) Neutrophils # (Auto) 5.9 x10^3uL (1.8-7.7) 4.0 x10^3uL (1.8-7.7) Lymphocytes # (Auto) 1.4 x10^3/uL (1.0-4.8) 1.3 x10^3/uL (1.0-4.8) Monocytes # (Auto) 0.7 x10^3/uL (0.0-1.1) 0.6 x10^3/uL (0.0-1.1) Eosinophils # (Auto) 0.1 x10^3/uL (0.0-0.7) 0.2 x10^3/uL (0.0-0.7) Basophils # (Auto) 0.1 x10^3/uL (0.0-0.2) 0.0 x10^3/uL (0.0-0.2) Platelet Estimate Adequate (ADEQUATE) Polychromasia Slight Anisocytosis Marked Tear Drop Cells Few Ovalocytes Mod Schistocytes Few D-Dimer (Jocelin) 0.64 ug/mlFEU (0.00-0.50) Sodium Level 144 mmol/L (136-145) 146 mmol/L (136-145) Potassium Level 4.0 mmol/L (3.5-5.1) 3.7 mmol/L (3.5-5.1) Chloride Level 106 mmol/L (98-107) 107 mmol/L (98-107) Carbon Dioxide Level 26 mmol/L (21-32) 25 mmol/L (21-32) Anion Gap 12 (6-14) 14 (6-14) Blood Urea Nitrogen 31 mg/dL (8-26) 31 mg/dL (8-26) Creatinine 2.4 mg/dL (0.7-1.3) 2.5 mg/dL (0.7-1.3) Estimated GFR (Cockcroft-Gault) 33.8 32.3 BUN/Creatinine Ratio 13 (6-20) 12 (6-20) Glucose Level 103 mg/dL (70-99) 128 mg/dL (70-99) Calcium Level 8.9 mg/dL (8.5-10.1) 8.8 mg/dL (8.5-10.1) Total Bilirubin 1.1 mg/dL (0.2-1.0) 1.1 mg/dL (0.2-1.0) Aspartate Amino Transf (AST/SGOT) 26 U/L (15-37) 22 U/L (15-37) Alanine Aminotransferase (ALT/SGPT) 29 U/L (16-63) 32 U/L (16-63) Alkaline Phosphatase 95 U/L (46-116) 94 U/L (46-116) Troponin I Quantitative 0.049 ng/mL (0.000-0.055) 0.049 ng/mL (0.000-0.055) 0.041 ng/mL (0.000-0.055) GC-Fzq-A-Type Natriuretic Peptide 35252 pg/mL (0-124) 65415 pg/mL (0-124) Total Protein 7.0 g/dL (6.4-8.2) 6.3 g/dL (6.4-8.2) Albumin 3.4 g/dL (3.4-5.0) 3.3 g/dL (3.4-5.0) Albumin/Globulin Ratio 0.9 (1.0-1.7) 1.1 (1.0-1.7) Thyroid Stimulating Hormone (TSH) 2.688 uIU/mL (0.358-3.74) Urine Collection Type Unknown Urine Color Yellow Urine Clarity Clear Urine pH 6.0 Urine Specific [place] 1.015 Urine Protein 100 mg/dL (NEG-TRACE) Urine Glucose (UA) Negative mg/dL (NEG) Urine Ketones (Stick) Negative mg/dL (NEG) Urine Blood Negative (NEG) Urine Nitrite Negative (NEG) Urine Bilirubin Negative (NEG) Urine Urobilinogen Dipstick 1.0 mg/dL (0.2 mg/dL) Urine Leukocyte Esterase Negative (NEG) Urine RBC 6-10 /HPF (0-2) Urine WBC 1-4 /HPF (0-4) Urine Squamous Epithelial Cells Few /LPF Urine Transitional Epithelial Cells Few /LPF Urine Bacteria 0 /HPF (0-FEW) Urine Hyaline Casts Moderate /HPF Urine Mucus Slight /LPF Urine Opiates Screen Neg (NEG) Urine Methadone Screen Neg (NEG) Urine Barbiturates Neg (NEG) Urine Phencyclidine Screen Neg (NEG) Urine Amphetamine/Methamphetamine Neg (NEG) Urine Benzodiazepines Screen Neg (NEG) Urine Cocaine Screen Neg (NEG) Urine Cannabinoids Screen Neg (NEG) Urine Ethyl Alcohol Neg (NEG) Medications Current Medications Clonidine HCl (Catapres) 0.2 mg 1X ONCE PO Last administered on 01/26/19at 21: 35; Start 01/26/19 at 21:30; Stop 01/26/19 at 21:31; Status DC Furosemide (Lasix) 40 mg 1X ONCE IVP Last administered on 01/26/19at 22:22; Start 01/26/19 at 22:00; Stop 01/26/19 at 22:01; Status DC Diltiazem HCl 125 mg/Dextrose 125 ml @ 5 mls/hr CONT PRN IV SEE I/O RECORD Last administered on 01/27/19at 13:36; Start 01/26/19 at 22:00 Ondansetron HCl (Zofran) 4 mg PRN Q8HRS PRN IV NAUSEA/VOMITING 1ST CHOICE; Start 01/26/19 at 22:00; Stop 01/28/19 at 00:37; Status DC Furosemide (Lasix) 40 mg BID92 IVP Last administered on 01/27/19at 13:37; Start 01/27/19 at 09:00 Metoprolol Tartrate (Lopressor Vial) 5 mg 1X ONCE IVP Last administered on at 12:07; Start 01/27/19 at 11:45; Stop 01/27/19 at 11:48; Status DC Ferrous Sulfate (Feosol) 325 mg DAILY PO Last administered on 01/27/19at 13:37; Start 01/27/19 at 13:00 Losartan Potassium (Cozaar) 25 mg DAILY PO ; Start 01/27/19 at 13:00; Stop 01/27 at 13:00; Status DC Metoprolol Tartrate (Lopressor) 25 mg BID PO Last administered on 01/27/19at 20: 55; Start 01/27/19 at 13:00 Acetaminophen (Tylenol) 1,000 mg PRN Q6HRS PRN PO MILD PAIN / TEMP; Start 01/27 at 13:00 Non-Formulary Medication (Budesonide/ Formoterol Fumarate (Symbicort 80-4.5 Mcg Inhaler)) 1 puff QID IH ; Start 01/27/19 at 13:00; Status UNV Multivitamins (Thera M Plus) 1 tab DAILY PO Last administered on 01/27/19at 13: 37; Start 01/27/19 at 13:00 Apixaban (Eliquis) 5 mg BID PO ; Start 01/27/19 at 13:00; Stop 01/27/19 at 13:00 ; Status DC Aspirin (Dany Aspirin) 325 mg DAILYWBKFT PO Last administered on 01/27/19at 13: 37; Start 01/27/19 at 13:00 Albuterol Sulfate (Ventolin Neb Soln) 2.5 mg RTQID NEB Last administered on at 07:19; Start 01/27/19 at 16:00 Budesonide (Pulmicort) 0.5 mg RTBID NEB Last administered on 01/28/19at 07:19; Start 01/27/19 at 20:00 Digoxin (Lanoxin) 500 mcg 1X ONCE IV Last administered on 01/27/19at 14:52; Start 01/27/19 at 14:30; Stop 01/27/19 at 14:31; Status DC Diltiazem HCl (Cardizem 24hr Cd) 240 mg DAILY PO Last administered on at 16:39; Start 01/27/19 at 16:30 Active Scripts Active Ferrous Sulfate 325 Mg Tablet 1 Tab PO DAILY Reported Symbicort 80-4.5 Mcg Inhaler (Budesonide/Formoterol Fumarate) 10.2 Gm Hfa.aer.ad 1 Puff IH QID Multivitamins (Multivitamin) 1 Each Tablet 1 Each PO DAILY Metoprolol Tartrate 25 Mg Tablet 25 Mg PO BID Acetaminophen 500 Mg Tablet 1,000 Mg PO PRN Q6HRS PRN Cartia Xt (Diltiazem Hcl) 240 Mg Cap.er.24h 240 Mg PO DAILY Losartan Potassium (Losartan Potassium) 25 Mg Tablet 25 Mg PO DAILY Lasix (Furosemide) 40 Mg Tablet 40 Mg PO DAILY Vitals/I & O Vital Sign - Last 24 Hours 01/27/19 01/27/19 01/27/19 01/27/19 08:00 08:10 09:00 10:00 Pulse 128 128 114 B/P (MAP) 140/97 (111) 144/96 (112) 119/95 (103) O2 Delivery Room Air 01/27/19 01/27/19 01/27/19 01/27/19 10:51 11:00 12:00 12:07 Temp 98.2 98.2 Pulse 128 128 116 129 Resp 20 B/P (MAP) 119/95 (103) 113/83 (93) 140/100 (113) Pulse Ox 95 O2 Delivery Room Air 01/27/19 01/27/19 01/27/19 01/27/19 13:00 13:37 14:00 14:50 Temp 97.5 97.5 Pulse 128 128 128 85 Resp 20 B/P (MAP) 129/94 (106) 142/116 (125) 142/102 (115) Pulse Ox 96 O2 Delivery Room Air 01/27/19 01/27/19 01/27/19 01/27/19 14:52 15:00 15:10 16:00 Pulse 85 84 68 B/P (MAP) 104/78 (87) 121/88 (99) Pulse Ox 98 O2 Delivery Room Air 01/27/19 01/27/19 01/27/19 01/27/19 16:39 18:00 19:20 19:20 Temp 98.2 98.2 Pulse 85 126 104 Resp 20 B/P (MAP) 138/93 (108) 140/99 (113) Pulse Ox 91 O2 Delivery Room Air Room Air 01/27/19 01/27/19 01/27/19 01/27/19 20:27 20:28 20:55 22:45 Temp 98.4 98.4 Pulse 115 87 Resp 20 B/P (MAP) 140/94 154/89 (110) Pulse Ox 94 O2 Delivery Room Air Room Air Room Air 01/28/19 01/28/19 03:11 07:25 Temp 98.5 98.5 Pulse 103 Resp 16 B/P (MAP) 134/85 (101) Pulse Ox 93 99 O2 Delivery Room Air Room Air Intake and Output 01/27/19 01/27/19 01/28/19 15:00 23:00 07:00 Intake Total 60 ml 620 ml 220 ml Output Total 2250 ml 1500 ml Balance -2190 ml -880 ml 220 ml RENETTA CADET MD Jan 28, 2019 07:41
[2019-01-28] MEDS: FERROUS SULFATE 325 MG TABLET. PO SCH (09:18)
[2019-01-28] MEDS: ASPIRIN 325 MG TABLET PO SCH (09:18)
[2019-01-28] MEDS: MULTIVITAMIN with MINERAL TABLET. PO SCH (09:18)
[2019-01-28] MEDS: METOPROLOL TART IMMED RELEASE 25 MG TABLET. PO SCH ×2 (09:19→21:02)
[2019-01-28] MEDS: FUROSEMIDE 40 MG/4 ML VIAL. IVP SCH ×2 (09:19→14:16)
[2019-01-28] MEDS ORDERED: DIGOXIN IV 500 MCG/2 ML AMPUL. IV ONE (13:30)
--- NOTE | 2019-01-28 13:39 | PDOC ---
LANE KHAN HR LEADER 01/28/19 1339: CARDIO Progress Notes Date and Time Date of Service 01/28/2019 Time of Evaluation 1310 Subjective Subjective: No Chest Pain, No shortness of breath, No Palpitations Vitals Vitals Vital Signs Date Time Temp Pulse Resp B/P (MAP) Pulse Ox O2 Delivery O2 Flow Rate FiO2 01/28/19 11:27 99 Room Air 01/28/19 11:00 97.7 128 20 143/107 (119) 97.7 Weight Weight [ ] Input and Output Intake and Output Intake and Output 01/28/19 06:59 Intake Total 900 ml Output Total 3750 ml Balance -2850 ml Intake Oral 900 ml Output Urine Total 3750 ml # Voids 2 Physical Exam HEENT: Neck Supple W Full Motion Chest: Symmetric LUNGS: Clear to Auscultation Heart: irregularly irregular (AFIB RVR) Abdomen: Soft N/T Extremities: No Calf Tenderness, Other (2+ bilateral LE pitting edema) Neurology: alert, oriented, follow commands Assessment Assessment 1. PAFIB/flutter with RVR remains 2. Acute on chronic diastolic HF; AFIB with RVR likely contributing factor. Recent stress test without any ischemic or infarct 3. Recovered NICM: EF now at 50-55% 4. Normocytic Anemia; hgb stable at 10.7 5. AECOPD with h/o tobaccoism; recently quit 6. NEVA on CKD3 7. HTN 8. Severe pulmonary HTN (possibly secondary) with valvular insufficiency: mod TR, mild MR and mild to mod AI. Recommendations Dig IV today 250 mcg, no further digoxin afterwards with his renal insufficiency. Will increase cardizem. Not snf candidate for amiodarone given his significant pulmonary issues. If RVR remains despite changes to meds then will consider amiodarone drip overnight. ASA for stroke prevention. Eliquis taken off due to prior anemia If RVR remains then will consider for SHAI/CVN tomorrow but will need at least 4 weeks of anticoagulation. Hold ARB with NEVA Will clarify with GI if truly pt has GI bleed issues and how recent based on recent endoscopy. DESMOND VINCENT MD 01/29/19 6096: CARDIO Progress Notes Assessment Assessment Patient seen and examined 01/28/19. Agree with DISABILITY INSURANCE CLAIM EXAMINER's assessment and plan. A. fib/flutter rate still not well-controlled. Agree with increasing Cardizem dose and giving another dose of digoxin. Acute on chronic diastolic heart failure better compensated. He is a poor candidate for long-term anticoagulation. LANE KHAN APRN Jan 28, 2019 13:39 DESMOND VINCENT MD Jan 29, 2019 08:17
[2019-01-28] MEDS ORDERED: ANTI-COAG MONITOR BY PHARMACY. MC PRN (18:00)
[2019-01-28] MEDS ORDERED: AMIODARONE 900 MG in IV DEXTROSE 5% 500 ML IV PRN (18:00)
[2019-01-28] MEDS: APIXABAN 5 MG TABLET. PO SCH (18:54)
[2019-01-29] VITALS (15 sets, daily range): BP systolic 130–171; BP diastolic 85–121
[2019-01-29 05:49] LABS: ALBUMIN 3.1 g/dL (3.4-5.0); CALCIUM 8.7 mg/dL (8.5-10.1); CREATININE 2.3 mg/dL (0.7-1.3); GFR 35.5; PHOSPHORUS 4.9 mg/dL (2.6-4.7); POTASSIUM 3.6 mmol/L (3.5-5.1)
[2019-01-29] MEDS ORDERED: 0.9 % SODIUM CHLORIDE 10 ML DISP.SYRIN. IV PRN (07:30)
[2019-01-29] MEDS ORDERED: POTASSIUM CHLORIDE 20 MEQ TABLET.ER. PO ONE ×2 (07:30→08:15)
[2019-01-29] MEDS: ALBUTEROL SULFATE 2.5 MG/3 ML NEBU. NEB SCH ×2 (07:36→11:46)
[2019-01-29] MEDS: BUDESONIDE 0.5 MG/2 ML NEBU. NEB SCH (07:36)
--- NOTE | 2019-01-29 08:02 | PDOC ---
PROGRESS NOTES Chief Complaint Chief Complaint A/P: Acute on chronic diastolic HF - diuresing currently, difficult with his NEVA AFIB with RVR - on cardizem 20mg per hour and metoprolol 25mg BID, IV metoprolol for now. 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 F/u cardiology recs Nonischemic cardiomyopathy - cont BB, ASA, statin AK I on possibly CK D - vasomotor vs cardiorenal Tachypnea Accel hypertension POA AECOPD - will cont nebulizers, may be better for xopenex FEN - cardiac diet PPX - SCDs FULL CODE Inpatient for afib with RVR, will be in at least 2 midnights. History of Present Illness History of Present Illness Patient is a 58 yo Somali male w/ PMHx NICM, TIA, A Fib, HTN, CKD, fatty liver , anemia, COPD who p/w dyspnea on exertion for the past several days, orthopnea , paroxysmal nocturnal dyspnea and elevated blood pressure. Patient states he's been compliant with his medications. He checked his blood pressure prior to ED arrival noted be 180/120, prompting him to come to the emergency department. Patient denies chest pain, palpitations. Denies increased leg pain or swelling. No other acute symptoms or complaints. Hospitalized in November for UGIB, found with duodenitis, taken off Eliquis at that time, placed on ASA only. He was continued on cardizem and metoprolol with rate control yesterday afternoon in the 90s, but has been in the 130s all morning. S/p digoxin 500mcg x2 doses and amiodarone loading. Short of breath. Denies CP. To cardioversion per cardiology today. He states he is leaving the hospital no matter what today. Vitals Vitals Vital Signs Date Time Temp Pulse Resp B/P (MAP) Pulse Ox O2 Delivery O2 Flow Rate FiO2 01/29/19 07:36 99 Room Air 01/29/19 06:28 117 164/116 (132) 01/29/19 02:55 97.8 20 97.8 Physical Exam General: Alert, Oriented X3, Cooperative, No acute distress Lungs: Clear Abdomen: Normal bowel sounds, Soft, No tenderness, No hepatosplenomegaly, No masses Extremities: No clubbing, No cyanosis, No edema, Normal pulses, No tenderness/ swelling Skin: No rashes, No breakdown, No significant lesion Labs LABS Laboratory Tests Test 01/29/19 04:10 Sodium Level 143 mmol/L (136-145) Potassium Level 3.6 mmol/L (3.5-5.1) Chloride Level 104 mmol/L (98-107) Carbon Dioxide Level 29 mmol/L (21-32) Anion Gap 10 (6-14) Blood Urea Nitrogen 26 mg/dL (8-26) Creatinine 2.3 mg/dL (0.7-1.3) Estimated GFR (Cockcroft-Gault) 35.5 Glucose Level 101 mg/dL (70-99) Calcium Level 8.7 mg/dL (8.5-10.1) Phosphorus Level 4.9 mg/dL (2.6-4.7) Albumin 3.1 g/dL (3.4-5.0) Assessment and Plan Assessmemt and Plan Problems Medical Problems: (1) Accelerated hypertension Status: Acute (2) Acute congestive heart failure Status: Acute (3) Atrial tachycardia Status: Acute Comment Review of Relevant I have reviewed the following items emmanuel (where applicable) has been applied. Labs Laboratory Tests Test 01/29/19 04:10 Sodium Level 143 mmol/L (136-145) Potassium Level 3.6 mmol/L (3.5-5.1) Chloride Level 104 mmol/L (98-107) Carbon Dioxide Level 29 mmol/L (21-32) Anion Gap 10 (6-14) Blood Urea Nitrogen 26 mg/dL (8-26) Creatinine 2.3 mg/dL (0.7-1.3) Estimated GFR (Cockcroft-Gault) 35.5 Glucose Level 101 mg/dL (70-99) Calcium Level 8.7 mg/dL (8.5-10.1) Phosphorus Level 4.9 mg/dL (2.6-4.7) Albumin 3.1 g/dL (3.4-5.0) Laboratory Tests Test 01/29/19 04:10 Sodium Level 143 mmol/L (136-145) Potassium Level 3.6 mmol/L (3.5-5.1) Chloride Level 104 mmol/L (98-107) Carbon Dioxide Level 29 mmol/L (21-32) Anion Gap 10 (6-14) Blood Urea Nitrogen 26 mg/dL (8-26) Creatinine 2.3 mg/dL (0.7-1.3) Estimated GFR (Cockcroft-Gault) 35.5 Glucose Level 101 mg/dL (70-99) Calcium Level 8.7 mg/dL (8.5-10.1) Phosphorus Level 4.9 mg/dL (2.6-4.7) Albumin 3.1 g/dL (3.4-5.0) Medications Current Medications Clonidine HCl (Catapres) 0.2 mg 1X ONCE PO Last administered on 01/26/19at 21: 35; Start 01/26/19 at 21:30; Stop 01/26/19 at 21:31; Status DC Furosemide (Lasix) 40 mg 1X ONCE IVP Last administered on 01/26/19at 22:22; Start 01/26/19 at 22:00; Stop 01/26/19 at 22:01; Status DC Diltiazem HCl 125 mg/Dextrose 125 ml @ 5 mls/hr CONT PRN IV SEE I/O RECORD Last administered on 01/27/19at 13:36; Start 01/26/19 at 22:00; Stop 01/29/19 at 07:29; Status DC Ondansetron HCl (Zofran) 4 mg PRN Q8HRS PRN IV NAUSEA/VOMITING 1ST CHOICE; Start 01/26/19 at 22:00; Stop 01/28/19 at 00:37; Status DC Furosemide (Lasix) 40 mg BID92 IVP Last administered on 01/28/19at 14:16; Start 01/27/19 at 09:00 Metoprolol Tartrate (Lopressor Vial) 5 mg 1X ONCE IVP Last administered on at 12:07; Start 01/27/19 at 11:45; Stop 01/27/19 at 11:48; Status DC Ferrous Sulfate (Feosol) 325 mg DAILY PO Last administered on 01/28/19at 09:18; Start 01/27/19 at 13:00 Losartan Potassium (Cozaar) 25 mg DAILY PO ; Start 01/27/19 at 13:00; Stop 01/27 at 13:00; Status DC Metoprolol Tartrate (Lopressor) 25 mg BID PO Last administered on 01/28/19at 21: 02; Start 01/27/19 at 13:00 Acetaminophen (Tylenol) 1,000 mg PRN Q6HRS PRN PO MILD PAIN / TEMP; Start 01/27 at 13:00 Non-Formulary Medication (Budesonide/ Formoterol Fumarate (Symbicort 80-4.5 Mcg Inhaler)) 1 puff QID IH ; Start 01/27/19 at 13:00; Status UNV Multivitamins (Thera M Plus) 1 tab DAILY PO Last administered on 01/28/19at 09: 18; Start 01/27/19 at 13:00 Apixaban (Eliquis) 5 mg BID PO ; Start 01/27/19 at 13:00; Stop 01/27/19 at 13:00 ; Status DC Aspirin (Dany Aspirin) 325 mg DAILYWBKFT PO Last administered on 01/28/19at 09: 18; Start 01/27/19 at 13:00 Albuterol Sulfate (Ventolin Neb Soln) 2.5 mg RTQID NEB Last administered on at 07:36; Start 01/27/19 at 16:00 Budesonide (Pulmicort) 0.5 mg RTBID NEB Last administered on 01/29/19at 07:36; Start 01/27/19 at 20:00 Digoxin (Lanoxin) 500 mcg 1X ONCE IV Last administered on 01/27/19at 14:52; Start 01/27/19 at 14:30; Stop 01/27/19 at 14:31; Status DC Diltiazem HCl (Cardizem 24hr Cd) 240 mg DAILY PO Last administered on 09:18; Start 01/27/19 at 16:30; Stop 01/28/19 at 13:31; Status DC Digoxin (Lanoxin) 250 mcg 1X ONCE IV Last administered on 01/28/19at 14:16; Start 01/28/19 at 13:30; Stop 01/28/19 at 13:31; Status DC Diltiazem HCl (Cardizem 24hr Cd) 300 mg DAILY PO ; Start 01/29/19 at 09:00 Amiodarone HCl 900 mg/Dextrose 518 ml @ 0 mls/hr CONT PRN IV SEE I/O RECORD Last administered on 01/28/19at 18:32; Start 01/28/19 at 18:00; Stop 01/28/19 at 18:32; Status DC Apixaban (Eliquis) 5 mg BID PO Last administered on 01/28/19at 18:54; Start at 18:30 Info (Anti-Coagulation Monitoring By Pharmacy) 1 each PRN DAILY PRN MC SEE COMMENTS; Start 01/28/19 at 18:00 Sodium Chloride (Normal Saline Flush) 10 ml QSHIFT PRN IV AFTER MEDS AND BLOOD DRAWS; Start 01/29/19 at 07:30 Potassium Chloride (Klor-Con) 20 meq 1X ONCE PO ; Start 01/29/19 at 07:30; Stop 01/29/19 at 07:31; Status DC Active Scripts Active Ferrous Sulfate 325 Mg Tablet 1 Tab PO DAILY Reported Symbicort 80-4.5 Mcg Inhaler (Budesonide/Formoterol Fumarate) 10.2 Gm Hfa.aer.ad 1 Puff IH QID Multivitamins (Multivitamin) 1 Each Tablet 1 Each PO DAILY Metoprolol Tartrate 25 Mg Tablet 25 Mg PO BID Acetaminophen 500 Mg Tablet 1,000 Mg PO PRN Q6HRS PRN Cartia Xt (Diltiazem Hcl) 240 Mg Cap.er.24h 240 Mg PO DAILY Losartan Potassium (Losartan Potassium) 25 Mg Tablet 25 Mg PO DAILY Lasix (Furosemide) 40 Mg Tablet 40 Mg PO DAILY Vitals/I & O Vital Sign - Last 24 Hours 01/28/19 01/28/19 01/28/19 01/28/19 09:18 09:19 11:00 11:27 Temp 97.7 97.7 Pulse 128 128 128 Resp 20 B/P (MAP) 155/109 155/109 143/107 (119) Pulse Ox 92 99 O2 Delivery Room Air Room Air 01/28/19 01/28/19 01/28/19 01/28/19 14:16 15:00 15:50 19:15 Temp 98.0 98.3 98.0 98.3 Pulse 128 43 128 Resp 20 20 B/P (MAP) 143/107 140/87 (104) 162/107 (125) Pulse Ox 96 99 93 O2 Delivery Room Air Room Air Room Air 01/28/19 01/28/19 01/28/19 01/28/19 19:28 19:51 19:52 20:00 Pulse 126 B/P (MAP) 149/101 (117) Pulse Ox 99 99 O2 Delivery Room Air Room Air Room Air 01/28/19 01/28/19 01/28/19 01/28/19 20:28 21:02 21:28 22:28 Pulse 96 100 84 102 B/P (MAP) 156/84 (108) 156/84 141/92 (108) 148/95 (112) 01/28/19 01/29/19 01/29/19 01/29/19 23:40 00:28 01:28 02:55 Temp 98.1 97.8 98.1 97.8 Pulse 92 69 69 115 Resp 20 20 B/P (MAP) 159/90 (113) 138/93 (108) 134/87 (103) 139/104 (116) Pulse Ox 97 96 O2 Delivery Room Air Room Air 01/29/19 01/29/19 01/29/19 01/29/19 03:28 04:28 05:28 06:28 Pulse 105 114 120 117 B/P (MAP) 141/85 (103) 155/111 (126) 171/121 (138) 164/116 (132) 01/29/19 07:36 Pulse Ox 99 O2 Delivery Room Air Intake and Output 01/28/19 01/28/19 01/29/19 14:59 22:59 06:59 Intake Total 200 ml 620 ml Output Total 1850 ml 725 ml 150 ml Balance -1850 ml -525 ml 470 ml RENETTA CADET MD Jan 29, 2019 08:02
[2019-01-29] MEDS: APIXABAN 5 MG TABLET. PO SCH (08:44)
[2019-01-29] MEDS: FERROUS SULFATE 325 MG TABLET. PO SCH (09:00)
[2019-01-29] MEDS ORDERED: BENZOCAINE ONE 20% MUCOSAL SPRAY. MM (09:30)
[2019-01-29] MEDS ORDERED: LIDOCAINE 2% JELLY 6ML IN APPLICATOR. MM ONE (09:30)
[2019-01-29] MEDS ORDERED: LIDOCAINE 2% VISCOUS 15 ML SOLUTION. SWSW ONE (09:30)
--- NOTE | 2019-01-29 09:55 | PDOC ---
[facility] [employer] WORK[employer] 01/29/19 0955: CARDIO Progress Notes Date and Time Date of Service 01/29/2019 Time of Evaluation 0940 Subjective Subjective: No Chest Pain, No shortness of breath, No Palpitations Vitals Vitals Vital Signs Date Time Temp Pulse Resp B/P (MAP) Pulse Ox O2 Delivery O2 Flow Rate FiO2 01/29/19 07:36 99 Room Air 01/29/19 06:28 117 164/116 (132) 01/29/19 02:55 97.8 20 97.8 Weight Weight [ ] Input and Output Intake and Output Intake and Output 01/29/19 06:59 Intake Total 820 ml Output Total 2725 ml Balance -1905 ml Intake Oral 820 ml Output Urine Total 2725 ml Laboratory Labs Laboratory Tests Test 01/29/19 04:10 Sodium Level 143 mmol/L (136-145) Potassium Level 3.6 mmol/L (3.5-5.1) Chloride Level 104 mmol/L (98-107) Carbon Dioxide Level 29 mmol/L (21-32) Anion Gap 10 (6-14) Blood Urea Nitrogen 26 mg/dL (8-26) Creatinine 2.3 mg/dL (0.7-1.3) Estimated GFR (Cockcroft-Gault) 35.5 Glucose Level 101 mg/dL (70-99) Calcium Level 8.7 mg/dL (8.5-10.1) Phosphorus Level 4.9 mg/dL (2.6-4.7) Magnesium Level 2.1 mg/dL (1.8-2.4) Albumin 3.1 g/dL (3.4-5.0) Physical Exam HEENT: Neck Supple W Full Motion Chest: Symmetric LUNGS: Clear to Auscultation Heart: irregularly irregular (AFIB RVR) Abdomen: Soft N/T Extremities: No Calf Tenderness, Other (2+ bilateral LE pitting edema) Neurology: alert, oriented, follow commands Assessment Assessment 1. PAFIB/flutter with RVR remains despite amio drip 2. Acute on chronic diastolic/systolic CHF: compensated 3. Hx of NICM 4. Normocytic Anemia; hgb stable at 10.7 5. AECOPD with h/o tobaccoism; recently quit 6. NEVA on CKD3: Cr stable at 2.3 7. HTN 8. Severe pulmonary HTN (possibly secondary) with valvular insufficiency: mod TR, mild MR and mild to mod AI. Recommendations Amiodarone drip ongoing. Eliquis for stroke prevention at least for 1 month and will continue unless issues with anemia. Has been clarified with GI and no significant ulcers based on recent endoscopy. Continue BB. May need to DC cardizem based on SHAI findings. DC ASA. SHAI/CVN today, further recommendations pending cardioversion. Risks and benefits discussed and agreeable to proceed May need to restart losartan at low dose if EF is low. Will monitor BMP as an outpt Lasix therapy with K replacement. Follow up in 4 weeks. Pt hurrying up to go today. May DC this afternoon pending CVN. DESMOND VINCENT MD 01/29/19 2133: CARDIO Progress Notes Assessment Assessment Patient seen and examined. Agree with AVIATION SAFETY TECHNICIAN's assessment and plan. s/p successful SHAI guided cardioversion to SR Continue amiodarone and eliquis EF 20-25% probably tachycardia mediated cardiomyopathy Agree with stopping CZM, continue BB and add losartan to optimize therapy Follow up in one month L[facility] [employer] Jan 29, 2019 09:55 DESMOND VINCENT MD Jan 29, 2019 21:33
[2019-01-29] MEDS: METOPROLOL TART IMMED RELEASE 25 MG TABLET. PO SCH (09:59)
--- NOTE | 2019-01-29 10:13 | NUR ---
SS following up with discharge planning. SS reviewed pt chart. Pt is from home and is currently on room air. No discharge needs noted at this time. SS will continue to follow for pending discharge needs.
[2019-01-29] MEDS ORDERED: PROPOFOL 20 ML IV ONE (11:21)
--- NOTE | 2019-01-29 12:18 | EKG ---
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
--- NOTE | 2019-01-29 12:49 | CARD ---
MR#: [id number] Date of Study: 01/29/2019 Ordering Physician: LANE KHAN, Referring Physician: MARITA SAMPSON Tech: Qi Moser RDCS APPROVED REPORT EXAM: Transesophageal echocardiogram with color flow Doppler and Synchronized Cardioversion. INDICATION Atrial Fibrillation Reason For Test : Evaluate Left Atrial Appendage prior to Cardioversion PROCEDURE After obtaining informed consent, patient underwent transesophageal echo in the PACU. Type of Sedation : General Anesthesia Sedation was administered by Arash Cohen CRNA. Sedation was achieved with Propofol 150 mg intravenously. Transesophageal probe was inserted and advanced into esophagus by Colt Elaine MD. The SHAI was performed without complications. Synchronized Cardioversion attempted: Successful Rhythm following Synchronized Cardioversion: Normal Sinus Rhythm Throughout the procedure, the blood pressure, pulse oximetry, cardiac rhythm, and rate were monitored . The patient tolerated the procedure without adverse effects. Recovery from general anesthesia was une ventful and vital signs were stable. LEFT VENTRICLE The left ventricular systolic function is severely impaired. The Ejection Fraction is 20-25%. There i s severe global hypokinesis of the left ventricle. AORTIC VALVE The aortic valve is calcified but opens well. Doppler and Color Flow revealed mild aortic regurgitati on. There is no significant aortic valvular stenosis. MITRAL VALVE The mitral valve is calcified but opens well. There is no evidence of mitral valve prolapse. There is no mitral valve stenosis. Doppler and Color-flow revealed moderate mitral regurgitation. TRICUSPID VALVE The tricuspid valve is normal in structure and function. Doppler and Color Flow revealed moderate to severe tricuspid regurgitation. There is no tricuspid valve stenosis. PULMONIC VALVE The pulmonic valve is not well visualized. Doppler and Color Flow revealed trace pulmonic valvular re gurgitation. There is no pulmonic valvular stenosis. GREAT VESSELS The ascending aorta is normal in size. PERICARDIAL EFFUSION There is no evidence of significant pericardial effusion. Critical Notification Critical Value: No <Conclusion> The left ventricular systolic function is severely impaired. The Ejection Fraction is 20-25%. Mild aortic regurgitation. Moderate mitral regurgitation. Moderate to severe tricuspid regurgitation. There is no evidence of significant pericardial effusion. No intracardiac vegetations or thrombi. Patient successfully underwent DC cardioversion, reported separately. Signed by : Colt Elaine, Electronically Approved : 01/29/2019 12:49:05
--- NOTE | 2019-01-29 12:52 | PDOC ---
Provider Note Provider Note PROCEDURE SHAI guided external cardioversion INDICATIONS Atrial flutter/fibrillation with heart rate refractory to control with pharmacotherapy COMPLICATIONS None PROCEDURE DETAILS An informed consent was obtained from patient. Patient was administered intravenous propofol for general anesthesia team. A SHAI probe was advanced and standard tomographic images were obtained that ruled out any intracardiac vegetations or thrombi. Patient was then administered 200 J of synchronized biphasic DC current successful conversion of patient's rhythm from atrial flutter to sinus rhythm. He was hemodynamically stable without any neurological deficits at the end of procedure. He tolerated the procedure well. CONCLUSIONS Successful cardioversion of patient's rhythm from atrial flutter to sinus rhythm. DESMOND VINCENT MD Jan 29, 2019 12:52
[2019-01-29] MEDS ORDERED: METO-247 PO (14:47)
[2019-01-29] MEDS ORDERED: AMIO200T4 PO (14:47)
[2019-01-29] MEDS ORDERED: APIX5TAB PO (14:47)
[2019-01-29] MEDS: MULTIVITAMIN with MINERAL TABLET. PO SCH (14:52)
--- NOTE | 2019-01-29 14:53 | PDOC3 ---
Discharge Summary Visit Information Date of Admission: Jan 26, 2019 Date of Discharge: Jan 29, 2019 Admitting Diagnosis: Atrial tachycardia Final Diagnosis Problems Medical Problems: (1) Accelerated hypertension Status: Acute (2) Acute congestive heart failure Status: Acute (3) Atrial tachycardia Status: Acute Brief Hospital Course Allergies Allergies Coded Allergies Type Severity Reaction Last Updated Verified No Known Drug Allergies 12/20/18 No Vital Signs Vital Signs Date Time Temp Pulse Resp B/P (MAP) Pulse Ox O2 Delivery O2 Flow Rate FiO2 01/29/19 13:43 90 137/97 (110) 01/29/19 12:20 97.7 18 100 Room Air 97.7 01/29/19 12:10 8 Lab Results Laboratory Tests Test 01/29/19 04:10 Sodium Level 143 mmol/L (136-145) Potassium Level 3.6 mmol/L (3.5-5.1) Chloride Level 104 mmol/L (98-107) Carbon Dioxide Level 29 mmol/L (21-32) Anion Gap 10 (6-14) Blood Urea Nitrogen 26 mg/dL (8-26) Creatinine 2.3 mg/dL (0.7-1.3) Estimated GFR (Cockcroft-Gault) 35.5 Glucose Level 101 mg/dL (70-99) Calcium Level 8.7 mg/dL (8.5-10.1) Phosphorus Level 4.9 mg/dL (2.6-4.7) Magnesium Level 2.1 mg/dL (1.8-2.4) Albumin 3.1 g/dL (3.4-5.0) Laboratory Tests Test 01/29/19 04:10 Sodium Level 143 mmol/L (136-145) Potassium Level 3.6 mmol/L (3.5-5.1) Chloride Level 104 mmol/L (98-107) Carbon Dioxide Level 29 mmol/L (21-32) Anion Gap 10 (6-14) Blood Urea Nitrogen 26 mg/dL (8-26) Creatinine 2.3 mg/dL (0.7-1.3) Estimated GFR (Cockcroft-Gault) 35.5 Glucose Level 101 mg/dL (70-99) Calcium Level 8.7 mg/dL (8.5-10.1) Phosphorus Level 4.9 mg/dL (2.6-4.7) Magnesium Level 2.1 mg/dL (1.8-2.4) Albumin 3.1 g/dL (3.4-5.0) Brief Hospital Course Patient is a 58 yo [place] male w/ PMHx NICM, TIA, A Fib, HTN, CKD, fatty liver , anemia, COPD who p/w dyspnea on exertion for the past several days, orthopnea , paroxysmal nocturnal dyspnea and elevated blood pressure. Patient states he's been compliant with his medications. He checked his blood pressure prior to ED arrival noted be 180/120, prompting him to come to the emergency department. Patient denies chest pain, palpitations. Denies increased leg pain or swelling. No other acute symptoms or complaints. Hospitalized in November for UGIB, found with duodenitis, taken off Eliquis at that time, placed on ASA only. He was seen by cardiology and despite 20mg cardizem GTT and metoprolol up to 200mg daily and 2 doses of digoxin as well as loading on amiodarone over the course of 3 days he did not convert and only slowed to the 90s to reveal underlying atrial flutter. He underwent DC cardioversion with SHAI resulted below , this was successful and he was sent home with eliquis, metoprolol, diltiazem and amio scripts and cardiology f/u instructions. Greater than 30 minutes spent on d/c. A/P: Acute on chronic diastolic HF - diuresing, difficult with his NEVA AFIB with RVR - Cardioverted Nonischemic cardiomyopathy - cont BB, ASA, statin AK I on possibly CK D - vasomotor vs cardiorenal Tachypnea Accel hypertension POA AECOPD - will cont nebulizers, may be better for xopenex Echo - The left ventricular systolic function is severely impaired. The Ejection Fraction is 20-25%. Mild aortic regurgitation. Moderate mitral regurgitation. Moderate to severe tricuspid regurgitation. There is no evidence of significant pericardial effusion. No intracardiac vegetations or thrombi. Patient successfully underwent DC cardioversion, reported separately by cardiology Discharge Information Condition at Discharge: Improved Follow Up: Weeks (2) Disposition/Orders: D/C to Home Scheduled Amiodarone Hcl (Amiodarone Hcl) 200 Mg Tablet, 200 MG PO DAILY for afib for 30 Days, #30 Prescribed by: RENETTA CADET MD on 01/29/19 6365 Apixaban (Eliquis) 5 Mg Tablet, 5 MG PO BID for afib for 30 Days, #60 Prescribed by: RENETTA CADET MD on 01/29/19 1447 Budesonide/Formoterol Fumarate (Symbicort 80-4.5 Mcg Inhaler) 10.2 Gm Hfa.aer.ad , 1 PUFF IH QID for SOA, (Reported) Entered as Reported by: BJ METCALF on 01/27/19 0850 Last Action: Converted on 01/27/191247 by RENETTA CADET MD Diltiazem Hcl (Cartia Xt) 240 Mg Cap.er.24h, 240 MG PO DAILY for blood pressure, (Reported) Entered as Reported by: VASU CARPENTER on 12/06/18830 Last Action: Converted on 01/27/191613 by BJ METCALF Ferrous Sulfate (Ferrous Sulfate) 325 Mg Tablet, 1 TAB PO DAILY for anemia, #30 Ref 3 Prescribed by: ISAIAH SNYDER MD on 12/11/18 161 Last Action: Continued on 01/27/191247 by RENETTA CADET MD Furosemide (Lasix) 40 Mg Tablet, 40 MG PO DAILY, #30 (Reported) Entered as Reported by: Monique Edwards on 09/03/14 1653 Last Action: HELD on 01/27/191613 by BJ METCALF Losartan Potassium (Losartan Potassium ) 25 Mg Tablet, 25 MG PO DAILY for HYPERTENSION, (Reported) Entered as Reported by: VASU CARPENTER on 12/06/18830 Last Action: Continued on 01/27/191247 by RENETTA CADET MD Metoprolol Succinate (Metoprolol Succinate ( Xl )) 100 Mg Tab.er.24h, 100 MG PO DAILY for afib for 30 Days, #30 Prescribed by: RENETTA CADET MD on 01/29/19 1447 Metoprolol Tartrate (Metoprolol Tartrate) 25 Mg Tablet, 25 MG PO BID for FOR HYPERTENSION, #60 Ref 0 (Reported) Entered as Reported by: BJ METCALF on 01/27/19 0847 Last Action: Continued on 01/27/191247 by RENETTA CADET MD Multivitamin (Multivitamins) 1 Each Tablet, 1 EACH PO DAILY for supplement, ( Reported) Entered as Reported by: BJ METCALF on 01/27/19 0847 Last Action: Converted on 01/27/191247 by RENETTA CADET MD Scheduled PRN Acetaminophen (Acetaminophen) 500 Mg Tablet, 1,000 MG PO PRN Q6HRS PRN for PAIN, (Reported) Entered as Reported by: Lauren Garcia on 12/09/18 2313 Last Action: Converted on 01/27/191247 by RENETTA CADET MD Discontinued Medications Azithromycin (Azithromycin Tablet) 250 Mg Tablet, 250 MG PO DAILY for COPD for 3 Days, #3 Discontinued Reason: not on Prescribed by: ISAIAH SNYDER MD on 12/11/181544 Last Action: Discontinued on 01/26/192334 by Jessica Blanchard Lactobacillus Rhamnosus Gg (Culturelle) 1 Each Cap.sprink, 1 CAP PO BID for probiotic for 14 Days, #28 Discontinued Reason: not on Prescribed by: ISAIAH SNYDER MD on 12/11/181544 Last Action: Discontinued on 01/26/192334 by RENETTA Benson MD Jan 29, 2019 14:53
[2019-01-29] MEDS ORDERED: AMIODARONE HCL 200 MG TABLET. PO SCH (15:00)
[2019-01-29] MEDS ORDERED: LOSARTAN POTASSIUM 50 MG TABLET. PO SCH (15:00)
[2019-01-29] MEDS ORDERED: POTASSIUM CHLORIDE 20 MEQ TABLET.ER. PO SCH (15:00)
[2019-01-29 15:29] LABS: CHOLESTEROL/HDL RATIO 4.1
--- NOTE | 2019-01-29 15:53 | NUR ---
Discharge Note: ADEN HUMPHRIES Discharge instructions and discharge home medications reviewed with Patient and a copy given. All questions have been answered and understanding verbalized. The following instructions and handouts were given: Discontinued iv lines: catheter intact. Patient discharged to home with family member, sister, via wheelchair.
[2019-01-30] MEDS ORDERED: METOPROLOL SUCC 24HR ER 100 MG TAB.ER.24H. PO SCH (09:00)
[2019-01-30] MEDS ORDERED: FUROSEMIDE 40 MG TABLET. PO SCH (09:00)
[2019-03-26] MEDS ORDERED: PANT20TA2 PO (12:56)
[2019-03-26] MEDS ORDERED: ALBU2.5V8 INH (12:56)
== END 2019-01-29 15:30 | disposition home or self-care (01) | DRG 682 ==
LOC: ER 20:17 → 2 NORTH 22:00
PROVIDERS: ADMIT Internal Medicine; ATTEND Internal Medicine
PROC: B246ZZ4 Ultrasonography of Right and Left Heart, Transesophageal (ICD-10-PCS; principal; 2019-01-29 11:30)
PROC: 5A2204Z Restoration of Cardiac Rhythm, Single (ICD-10-PCS; 2019-01-29 11:30)
DX: N17.9 Acute kidney failure, unspecified (principal); I50.43 Acute on chronic combined systolic (congestive) and diastolic (congestive) heart failure; I13.0 Hypertensive heart and chronic kidney disease with heart failure and stage 1 through stage 4 chronic kidney disease, or unspecified chronic kidney disease; I47.1 Supraventricular tachycardia; J44.1 Chronic obstructive pulmonary disease with (acute) exacerbation; I48.92 Unspecified atrial flutter; I42.9 Cardiomyopathy, unspecified; I48.0 Paroxysmal atrial fibrillation; M19.90 Unspecified osteoarthritis, unspecified site; I27.20 Pulmonary hypertension, unspecified; I08.3 Combined rheumatic disorders of mitral, aortic and tricuspid valves; D64.9 Anemia, unspecified; N18.3 Chronic kidney disease, stage 3 (moderate); Z79.01 Long term (current) use of anticoagulants; Z86.73 Personal history of transient ischemic attack (TIA), and cerebral infarction without residual deficits; Z79.899 Other long term (current) drug therapy; Z82.49 Family history of ischemic heart disease and other diseases of the circulatory system; Z87.891 Personal history of nicotine dependence
CPT/HCPCS: 36415; 71045; 80053; 80061; 80069; 80307; 81001; 83735; 83880; 84443; 84484; 85025; 85379; 92960; 93005; 93312; 93320; 93325; 94640; 94760; 96374; J0282; J1160; J1940; J2704; J3490; J7613; J7626; 99285-25

== ENCOUNTER 2019-02-09 23:55 | Inpatient (IN) | payer OTHER ==
[~2019-02-09] VITALS: Ht 193 cm; Wt 94.1 kg
[~2019-02-09 23:55] MED LIST changes: +AMIO200T4 PO; +BUDE10.22 IH; +METO-247 PO; +MULT1TAB52 PO
--- NOTE | 2019-02-10 00:31 | PHYS DOC ---
Past Medical History Past Medical History: A-Fib, CHF, Hypertension Additional Past Medical Histor: A. fib Past Surgical History: No Surgical History Alcohol Use: Rarely Drug Use: None Adult General Chief Complaint Chief Complaint: RAPID HEART RATE HPI HPI Patient is a 58 year old male who presents with shortness of breath and rapid hear beat. Patient states this evening he was laying in bed watching tv and became short of breath and started having a rapid heart beat. His shortness of breath is worsened by exertion. He has not tried anything at home to alleviate his shortness of breath. Patient is also reporting increased swelling in his legs bilaterally. He denies any chest pain, lightheadedness, dizziness, or diaphoresis. Review of Systems Review of Systems Constitutional: Denies fever or chills Eyes: Denies change in visual acuity or eye pain HENT: Denies nasal congestion or sore throat Respiratory:Reports shortness of breath. Denies cough Cardiovascular: Reports fast heart beat. Denies chest pain. GI: Denies abdominal pain, nausea, vomiting : Denies dysuria or hematuria Musculoskeletal: Denies back pain or joint pain Integument: Denies rash or skin lesions Neurologic: Denies headache or sensory change Complete systems were reviewed and found to be within normal limits, except as documented in this note. Current Medications Current Medications Current Medications Medications (Trade) Dose Ordered Sig/Hari Start Time Stop Time Status Last Admin Dose Admin Aspirin (Dany Aspirin) 325 mg 1X ONCE 02/10/19 01:00 02/10/19 01:01 DC 02/10/19 01:37 325 MG Sodium Chloride 1,000 ml @ 1,000 mls/hr 1X ONCE 02/10/19 01:00 02/10/19 01:59 DC Allergies Allergies Allergies Coded Allergies Type Severity Reaction Last Updated Verified No Known Drug Allergies 12/20/18 No Physical Exam Physical Exam Constitutional: Well developed, well nourished, minor respiratory distress HENT: Normocephalic, atraumatic Eyes: EOMI, conjunctiva normal Neck: Normal range of motion, supple Cardiovascular:Tachycardic, no murmurs Lungs & Thorax: Expiratory wheezing bilaterally, no rhonchi or rales Abdomen: Bowel sounds normal, soft, no tenderness Skin: Warm, dry, Back: No tenderness, no CVA tenderness. Extremities:No cyanosis, bilateral lower leg edema Neurologic: Alert and oriented X 3, no focal deficits noted. Psychologic: Affect normal, mood normal. Current Patient Data Vital Signs Vital Signs Date Time Temp Pulse Resp B/P (MAP) Pulse Ox O2 Delivery O2 Flow Rate FiO2 02/10/19 00:13 98.9 121 26 146/114 (125) 94 Room Air 98.9 Lab Values Laboratory Tests Test 02/10/19 00:23 White Blood Count 7.7 x10^3/uL (4.0-11.0) Red Blood Count 4.87 x10^6/uL (4.30-5.70) Hemoglobin 12.6 g/dL (13.0-17.5) L Hematocrit 40.7 % (39.0-53.0) Mean Corpuscular Volume 84 fL (79-100) Mean Corpuscular Hemoglobin 26 pg (25-35) Mean Corpuscular Hemoglobin Concent 31 g/dL (31-37) Red Cell Distribution Width 22.2 % (11.5-14.5) H Platelet Count 318 x10^3/uL (140-400) Neutrophils (%) (Auto) 68 % (31-73) Lymphocytes (%) (Auto) 20 % (24-48) L Monocytes (%) (Auto) 10 % (0-9) H Eosinophils (%) (Auto) 1 % (0-3) Basophils (%) (Auto) 1 % (0-3) Neutrophils # (Auto) 5.3 x10^3uL (1.8-7.7) Lymphocytes # (Auto) 1.5 x10^3/uL (1.0-4.8) Monocytes # (Auto) 0.8 x10^3/uL (0.0-1.1) Eosinophils # (Auto) 0.1 x10^3/uL (0.0-0.7) Basophils # (Auto) 0.1 x10^3/uL (0.0-0.2) Platelet Estimate Adequate (ADEQUATE) Polychromasia Slight Hypochromasia Slight Poikilocytosis Slight Anisocytosis Mod Tear Drop Cells Occ Ovalocytes Occ Crenated Cell Present Schistocytes Occ Prothrombin Time 17.2 SEC (11.7-14.0) H Prothrombin Time INR 1.4 (0.8-1.1) H D-Dimer (Jocelin) 2.92 ug/mlFEU (0.00-0.50) H Sodium Level 143 mmol/L (136-145) Potassium Level 4.0 mmol/L (3.5-5.1) Chloride Level 104 mmol/L (98-107) Carbon Dioxide Level 26 mmol/L (21-32) Anion Gap 13 (6-14) Blood Urea Nitrogen 37 mg/dL (8-26) H Creatinine 3.0 mg/dL (0.7-1.3) H Estimated GFR (Cockcroft-Gault) 26.1 BUN/Creatinine Ratio 12 (6-20) Glucose Level 101 mg/dL (70-99) H Calcium Level 9.2 mg/dL (8.5-10.1) Magnesium Level 2.0 mg/dL (1.8-2.4) Total Bilirubin 0.8 mg/dL (0.2-1.0) Aspartate Amino Transferase (AST) 21 U/L (15-37) Alanine Aminotransferase (ALT) 25 U/L (16-63) Alkaline Phosphatase 107 U/L (46-116) Troponin I Quantitative 0.041 ng/mL (0.000-0.055) LC-Cpb-T-Type Natriuretic Peptide 29271 pg/mL (0-124) H Total Protein 7.6 g/dL (6.4-8.2) Albumin 3.7 g/dL (3.4-5.0) Albumin/Globulin Ratio 0.9 (1.0-1.7) L Lipase 240 U/L (73-393) Thyroid Stimulating Hormone (TSH) 5.945 uIU/mL (0.358-3.74) H Free Thyroxine 1.24 ng/dL (0.76-1.46) Free Triiodothyronine (T3) pg/mL 2.16 pg/mL (2.18-3.98) L Laboratory Tests 02/10/19 00:23 Laboratory Tests 02/10/19 00:23 EKG EKG EKG @ 0007, sinus tachycardia at rate of 120 bpm, no ST elevation or signs of ischemia Radiology/Procedures Radiology/Procedures Chest X-Ray: Initial read by ER physician demonstrated no acute process Course & Med Decision Making Course & Med Decision Making 50-year-old male presents emergency department with shortness of breath and fast heart rate. Patient states the symptoms came on suddenly when he was laying in bed watching TV. On exam patient was fluid overloaded and hypoxic at 83%. Labs and imaging obtained and posted to chart. Elevated d-dimer. CTA unable to obtain due to kidney function. Patient requiring admission for further evaluation and treatment. Discussed with Dr. Gunter who is in agreement with admission. Discussed findings and plan with patient and family, who acknowledge understanding and agreement. Dragon Disclaimer Dragon Disclaimer This electronic medical record was generated, in whole or in part, using a voice recognition dictation system. Departure Departure Impression: Primary Impression: CHF exacerbation Additional Impressions: Elevated d-dimer Hypoxia Disposition: ADMITTED INPATIENT Admitting Physician: Jacqueline Gunter Condition: STABLE Referrals: NO PCP (PCP) Problem Qualifiers Primary Impression: CHF exacerbation Heart failure type: unspecified Qualified Codes: I50.9 - Heart failure, unspecified ADEN BOLTON DO Feb 10, 2019 00:31
[2019-02-10 00:37] LABS: BASO # 0.1 x10^3/uL (0.0-0.2); BASO % 1 % (0-3); EOS # 0.1 x10^3/uL (0.0-0.7); EOS % 1 % (0-3); HEMATOCRIT 40.7 % (39.0-53.0); HEMOGLOBIN 12.6 g/dL (13.0-17.5); LYMPH # 1.5 x10^3/uL (1.0-4.8); LYMPH % 20 % (24-48); MEAN CORPUSCULAR HEMOGLOBIN 26 pg (25-35); MEAN CORPUSCULAR HGB CONC 31 g/dL (31-37); MEAN CORPUSCULAR VOLUME 84 fL (79-100); MONO # 0.8 x10^3/uL (0.0-1.1); MONO % 10 % (0-9); NEUT # 5.3 x10^3uL (1.8-7.7); NEUT % 68 % (31-73); PLATELET COUNT 318 x10^3/uL (140-400); RED BLOOD COUNT 4.87 x10^6/uL (4.30-5.70); RED CELL DISTRIBUTION WIDTH 22.2 % (11.5-14.5); WHITE BLOOD COUNT 7.7 x10^3/uL (4.0-11.0)
[2019-02-10 00:44] LABS: CALCIUM 9.2 mg/dL (8.5-10.1); GFR 26.1
[2019-02-10 00:48] LABS: PROTHROMBIN TIME PATIENT 17.2 SEC (11.7-14.0)
[2019-02-10 00:50] LABS: ALBUMIN 3.7 g/dL (3.4-5.0); ALBUMIN/GLOBULIN RATIO 0.9 (1.0-1.7); TOTAL BILIRUBIN 0.8 mg/dL (0.2-1.0); TOTAL PROTEIN 7.6 g/dL (6.4-8.2)
[2019-02-10 01:00] LABS: FREE T4 1.24 ng/dL (0.76-1.46); THYROID STIM HORMONE (TSH) 5.945 uIU/mL (0.358-3.74)
[2019-02-10] MEDS ORDERED: IV NORMAL SALINE 1000ML BAG 1,000 ML IV ONE (01:00)
[2019-02-10] MEDS ORDERED: ASPIRIN 325 MG TABLET PO ONE (01:00)
[2019-02-10 01:22] LABS: PLT ESTIMATE ADEQUATE (ADEQUATE)
[2019-02-10 01:24] LABS: ANISOCYTOSIS MOD; HYPOCHROMIA SLIGHT; OVALOCYTES OCC; POIKILOCYTOSIS SLIGHT; POLYCHROMASIA SLIGHT; SCHISTOCYTES OCC; TEAR DROP CELLS OCC
[2019-02-10] MEDS ORDERED: ONDANSETRON PF 4 MG/2 ML VIAL. IV PRN (02:00)
[2019-02-10] MEDS: BUMETANIDE 1 MG/4 ML VIAL. IV SCH ×3 (02:30→14:37)
[2019-02-10 03:40] VITALS: BP 147/112
--- NOTE | 2019-02-10 03:44 | RAD ---
CHEST PA LATERAL CLINICAL INDICATION: COUGH;TACHYCARDIA COMPARISON: 01/26/2019 FINDINGS: Heart is top normal in size. Lungs are hyperinflated. Diffuse bilateral interstitial opacities are seen. No pneumothorax or pleural effusion. Visualized bony thorax within normal limits. IMPRESSION: COPD. Superimposed atypical/viral infection or interstitial pulmonary edema. Electronically signed by: Yevgeniy Szymanski DO (02/10/2019 3:41 AM) [facility]
--- NOTE | 2019-02-10 06:32 | NUR ---
Paged Dr Gunter RE: BPs 140s/110s. Waiting call back.
--- NOTE | 2019-02-10 06:53 | NUR ---
Dr Gunter returned call. Orders obtained to restart home blood pressure medications.
[2019-02-10 07:00] VITALS: BP 142/110
[2019-02-10] MEDS ORDERED: ACETAMINOPHEN 500 MG TABLET PO PRN (07:15)
--- NOTE | 2019-02-10 07:21 | EKG ---
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
--- NOTE | 2019-02-10 07:51 | PDOC1 ---
History and Physical Date of Admission: Date of Admission DATE: 02/10/19 TIME: 07:48 Chief Complaint: Chief Complain: Shortness of breath History of Present Illness: HPI: Patient is a 58 year old male who presents with shortness of breath and rapid hear beat. Patient states this evening he was laying in bed watching tv and became short of breath and started having a rapid heart beat. His shortness of breath is worsened by exertion. He has not tried anything at home to alleviate his shortness of breath. Patient is also reporting increased swelling in his legs bilaterally. He denies any chest pain, lightheadedness, dizziness, or diaphoresis. Patient is a 58 yo [place] male w/ PMHx NICM, TIA, A Fib, HTN, CKD, fatty liver, anemia, COPD who p/w dyspnea on exertion for the past several days, orthopnea, paroxysmal nocturnal dyspnea and elevated blood pressure with palpitations. Patient states he's been compliant with his medications. He checked his blood pressure prior to ED arrival noted be 180/120, prompting him to come to the emergency department. Patient denies chest pain, palpitations. Denies increased leg pain or swelling. No other acute symptoms or complaints. Hospitalized in November for UGIB, found with duodenitis, taken off Eliquis at that time, placed on ASA only. He was seen by cardiology and despite 20mg cardizem GTT and metoprolol up to 200mg daily and 2 doses of digoxin as well as loading on amiodarone over the course of 3 days he did not convert and only slowed to the 90s to reveal underlying atrial flutter. He underwent DC cardioversion with SHAI resulted below, this was successful and he was sent home with eliquis, metoprolol, diltiazem and amio scripts and cardiology f/u instructions. Past Medical/Surgical History: PMH/PSH: Past Medical History Cardiovascular: AFIB, HTN, CHF, Other (NICM) Pulmonary: COPD CENTRAL NERVOUS SYSTEM: TIA GI: No pertinent hx Heme/Onc: Anemia NOS Hepatobiliary: Other (chronic anticoagulation) Psych: No pertinent hx Musculoskeletal: Osteoarthritis Renal/: Chronic renal insuff Endocrine: No pertinent hx Past Surgical History - LHC, CV Allergies: Allergies: Coded Allergies: No Known Drug Allergies (Unverified , 12/20/18) Family History: Family History: Father - Heart Disease, Hypertension Social History: Social Hisoty: Social History Smoke: Quit (11/2018) ALCOHOL: none Drugs: None Lives: Alone Current Medications: Current Medications Current Medications Aspirin (Dany Aspirin) 325 mg 1X ONCE PO Last administered on 02/10/19at 01:37; Start 02/10/19 at 01:00; Stop 02/10/19 at 01:01; Status DC Sodium Chloride 1,000 ml @ 1,000 mls/hr 1X ONCE IV ; Start 02/10/19 at 01:00; Stop 02/10/19 at 01:59; Status DC Bumetanide (Bumex) 0.5 mg BID92 IV Last administered on 02/10/19at 02:30; Start 02/10/19 at 02:30 Enoxaparin Sodium (Lovenox 100mg Syringe) 100 mg 1X ONCE SQ ; Start 02/10/19 at 02:30; Stop 02/10/19 at 03:12; Status DC Ondansetron HCl (Zofran) 4 mg PRN Q8HRS PRN IV NAUSEA/VOMITING 1ST CHOICE; Start 02/10/19 at 02:00; Stop 02/11/19 at 01:59 Amiodarone HCl (Cordarone) 200 mg DAILY PO ; Start 02/10/19 at 09:00 Apixaban (Eliquis) 5 mg BID PO ; Start 02/10/19 at 09:00 Ferrous Sulfate (Feosol) 325 mg DAILY PO ; Start 02/10/19 at 09:00 Furosemide (Lasix) 40 mg DAILY PO ; Start 02/10/19 at 09:00 Losartan Potassium (Cozaar) 50 mg DAILY PO ; Start 02/10/19 at 09:00 Metoprolol Succinate (Toprol Xl) 100 mg DAILY PO ; Start 02/10/19 at 09:00 Metoprolol Tartrate (Lopressor) 12 mg BID PO ; Start 02/10/19 at 09:00; Status UNV Acetaminophen (Tylenol) 1,000 mg PRN Q6HRS PRN PO MILD PAIN / TEMP; Start 02/10/19 at 07:15 Non-Formulary Medication (Budesonide/ Formoterol Fumarate (Symbicort 80-4.5 Mcg Inhaler)) 1 puff QID IH ; Start 02/10/19 at 09:00; Status UNV Diltiazem HCl (Cardizem 24hr Cd) 240 mg DAILY PO ; Start 02/10/19 at 09:00 Multivitamins (Thera M Plus) 1 tab DAILY PO ; Start 02/10/19 at 09:00 Budesonide (Pulmicort) 0.5 mg RTBID NEB ; Start 02/10/19 at 08:00 Albuterol Sulfate (Ventolin Neb Soln) 2.5 mg RTQID NEB ; Start 02/10/19 at 08:00 Active Scripts Active Metoprolol Succinate ( Xl ) (Metoprolol Succinate) 100 Mg Tab.er.24h 100 Mg PO DAILY 30 Days Amiodarone Hcl 200 Mg Tablet 200 Mg PO DAILY 30 Days Eliquis (Apixaban) 5 Mg Tablet 5 Mg PO BID 30 Days Ferrous Sulfate 325 Mg Tablet 1 Tab PO DAILY Reported Symbicort 80-4.5 Mcg Inhaler (Budesonide/Formoterol Fumarate) 10.2 Gm Hfa.aer.ad 1 Puff IH QID Multivitamins (Multivitamin) 1 Each Tablet 1 Each PO DAILY Metoprolol Tartrate 25 Mg Tablet 12 Mg PO BID Acetaminophen 500 Mg Tablet 1,000 Mg PO PRN Q6HRS PRN Cartia Xt (Diltiazem Hcl) 240 Mg Cap.er.24h 240 Mg PO DAILY Losartan Potassium (Losartan Potassium) 25 Mg Tablet 50 Mg PO DAILY Lasix (Furosemide) 40 Mg Tablet 40 Mg PO DAILY ROS: Review of Systems Review of System REVIEW OF SYSTEMS: GENERAL: has some weakness SKIN: No bruising, hair changes or rashes. EYES: No blurred, double or loss of vision. NOSE AND THROAT: No history of nosebleeds, hoarseness or sore throat. HEART: Palpitations and shortness of breath on exertion. LUNGS: Denies cough, hemoptysis. Has wheezing & shortness of breath. GASTROINTESTINAL: Denies changes in appetite, nausea, vomiting, diarrhea or constipation. GENITOURINARY: No history of frequency, urgency, hesitancy or nocturia. NEUROLOGIC: Denies history of numbness, tingling, tremor or weakness. PSYCHIATRIC: No history of panic, anxiety or depression. ENDOCRINE: No history of heat or cold intolerance, polyuria or polydipsia. EXTREMITIES: Denies muscle weakness, joint pain, pain on walking or stiffness. Physical Exam: Vital Signs: Vital Signs Date Time Temp Pulse Resp B/P (MAP) Pulse Ox O2 Delivery O2 Flow Rate FiO2 02/10/19 03:40 97.7 118 22 147/112 (124) 98 Nasal Cannula 2.0 97.7 Physcial Exam: GEN.: No apparent distress. Alert and oriented. HEENT: Head is normocephalic, atraumatic NECK: Supple, no JVD LUNGS: Clear to auscultation without rhonchi or wheezing HEART: RRR, S1, S2 present. Peripheral pulses intact ABDOMEN: Soft, nontender. Positive bowel sounds no organomegaly EXTREMITIES: Without any cyanosis, clubbing, or edema. Pedal pulses intact NEUROLOGIC: Normal speech, normal tone. A&O x 3 PSYCHIATRIC: Normal affect, normal mood. Stable SKIN: No ulcerations or rashes Labs: Labs: Laboratory Tests Test 02/10/19 00:23 02/10/19 04:55 White Blood Count 7.7 x10^3/uL (4.0-11.0) Red Blood Count 4.87 x10^6/uL (4.30-5.70) Hemoglobin 12.6 g/dL (13.0-17.5) Hematocrit 40.7 % (39.0-53.0) Mean Corpuscular Volume 84 fL (79-100) Mean Corpuscular Hemoglobin 26 pg (25-35) Mean Corpuscular Hemoglobin Concent 31 g/dL (31-37) Red Cell Distribution Width 22.2 % (11.5-14.5) Platelet Count 318 x10^3/uL (140-400) Neutrophils (%) (Auto) 68 % (31-73) Lymphocytes (%) (Auto) 20 % (24-48) Monocytes (%) (Auto) 10 % (0-9) Eosinophils (%) (Auto) 1 % (0-3) Basophils (%) (Auto) 1 % (0-3) Neutrophils # (Auto) 5.3 x10^3uL (1.8-7.7) Lymphocytes # (Auto) 1.5 x10^3/uL (1.0-4.8) Monocytes # (Auto) 0.8 x10^3/uL (0.0-1.1) Eosinophils # (Auto) 0.1 x10^3/uL (0.0-0.7) Basophils # (Auto) 0.1 x10^3/uL (0.0-0.2) Platelet Estimate Adequate (ADEQUATE) Polychromasia Slight Hypochromasia Slight Poikilocytosis Slight Anisocytosis Mod Tear Drop Cells Occ Ovalocytes Occ Crenated Cell Present Schistocytes Occ Prothrombin Time 17.2 SEC (11.7-14.0) Prothromb Time International Ratio 1.4 (0.8-1.1) D-Dimer (Jocelin) 2.92 ug/mlFEU (0.00-0.50) Sodium Level 143 mmol/L (136-145) Potassium Level 4.0 mmol/L (3.5-5.1) Chloride Level 104 mmol/L (98-107) Carbon Dioxide Level 26 mmol/L (21-32) Anion Gap 13 (6-14) Blood Urea Nitrogen 37 mg/dL (8-26) Creatinine 3.0 mg/dL (0.7-1.3) Estimated GFR (Cockcroft-Gault) 26.1 BUN/Creatinine Ratio 12 (6-20) Glucose Level 101 mg/dL (70-99) Calcium Level 9.2 mg/dL (8.5-10.1) Magnesium Level 2.0 mg/dL (1.8-2.4) Total Bilirubin 0.8 mg/dL (0.2-1.0) Aspartate Amino Transf (AST/SGOT) 21 U/L (15-37) Alanine Aminotransferase (ALT/SGPT) 25 U/L (16-63) Alkaline Phosphatase 107 U/L (46-116) Troponin I Quantitative 0.041 ng/mL (0.000-0.055) 0.037 ng/mL (0.000-0.055) UI-Esr-Q-Type Natriuretic Peptide 84611 pg/mL (0-124) Total Protein 7.6 g/dL (6.4-8.2) Albumin 3.7 g/dL (3.4-5.0) Albumin/Globulin Ratio 0.9 (1.0-1.7) Lipase 240 U/L (73-393) Thyroid Stimulating Hormone (TSH) 5.945 uIU/mL (0.358-3.74) Free Thyroxine 1.24 ng/dL (0.76-1.46) Free Triiodothyronine (T3) pg/mL 2.16 pg/mL (2.18-3.98) Laboratory Tests Test 02/10/19 00:23 02/10/19 04:55 White Blood Count 7.7 x10^3/uL (4.0-11.0) Red Blood Count 4.87 x10^6/uL (4.30-5.70) Hemoglobin 12.6 g/dL (13.0-17.5) Hematocrit 40.7 % (39.0-53.0) Mean Corpuscular Volume 84 fL (79-100) Mean Corpuscular Hemoglobin 26 pg (25-35) Mean Corpuscular Hemoglobin Concent 31 g/dL (31-37) Red Cell Distribution Width 22.2 % (11.5-14.5) Platelet Count 318 x10^3/uL (140-400) Neutrophils (%) (Auto) 68 % (31-73) Lymphocytes (%) (Auto) 20 % (24-48) Monocytes (%) (Auto) 10 % (0-9) Eosinophils (%) (Auto) 1 % (0-3) Basophils (%) (Auto) 1 % (0-3) Neutrophils # (Auto) 5.3 x10^3uL (1.8-7.7) Lymphocytes # (Auto) 1.5 x10^3/uL (1.0-4.8) Monocytes # (Auto) 0.8 x10^3/uL (0.0-1.1) Eosinophils # (Auto) 0.1 x10^3/uL (0.0-0.7) Basophils # (Auto) 0.1 x10^3/uL (0.0-0.2) Platelet Estimate Adequate (ADEQUATE) Polychromasia Slight Hypochromasia Slight Poikilocytosis Slight Anisocytosis Mod Tear Drop Cells Occ Ovalocytes Occ Crenated Cell Present Schistocytes Occ Prothrombin Time 17.2 SEC (11.7-14.0) Prothromb Time International Ratio 1.4 (0.8-1.1) D-Dimer (Jocelin) 2.92 ug/mlFEU (0.00-0.50) Sodium Level 143 mmol/L (136-145) Potassium Level 4.0 mmol/L (3.5-5.1) Chloride Level 104 mmol/L (98-107) Carbon Dioxide Level 26 mmol/L (21-32) Anion Gap 13 (6-14) Blood Urea Nitrogen 37 mg/dL (8-26) Creatinine 3.0 mg/dL (0.7-1.3) Estimated GFR (Cockcroft-Gault) 26.1 BUN/Creatinine Ratio 12 (6-20) Glucose Level 101 mg/dL (70-99) Calcium Level 9.2 mg/dL (8.5-10.1) Magnesium Level 2.0 mg/dL (1.8-2.4) Total Bilirubin 0.8 mg/dL (0.2-1.0) Aspartate Amino Transf (AST/SGOT) 21 U/L (15-37) Alanine Aminotransferase (ALT/SGPT) 25 U/L (16-63) Alkaline Phosphatase 107 U/L (46-116) Troponin I Quantitative 0.041 ng/mL (0.000-0.055) 0.037 ng/mL (0.000-0.055) GA-Ari-E-Type Natriuretic Peptide 45376 pg/mL (0-124) Total Protein 7.6 g/dL (6.4-8.2) Albumin 3.7 g/dL (3.4-5.0) Albumin/Globulin Ratio 0.9 (1.0-1.7) Lipase 240 U/L (73-393) Thyroid Stimulating Hormone (TSH) 5.945 uIU/mL (0.358-3.74) Free Thyroxine 1.24 ng/dL (0.76-1.46) Free Triiodothyronine (T3) pg/mL 2.16 pg/mL (2.18-3.98) Images: Images COPD. Superimposed atypical/viral infection or interstitial pulmonary edema. Assessment/Plan Assessment/Plan A/P: Acute on chronic diastolic HF - diuresing, difficult with his NEVA AFIB with RVR - Cardioverted out of aflutter, but has been back in now. Will change from cardizem to metoprolol Nonischemic cardiomyopathy - cont BB, ASA, statin AK I on possibly CK D - vasomotor vs cardiorenal. Hold EBONIE/ARB Accel hypertension POA AECOPD - will cont nebulizers, may be better for xopenex Elevated D-dimer. VQ pending - though he has been compliant with eliquis this is likely to be negative Severe pulmonary HTN with valvular insufficiency: mod TR, mild MR and mild to mod AI - needs good BP control HTN - Hydralazine IV PRN Echo - The left ventricular systolic function is severely impaired. The Ejection Fraction is 20-25%. Mild aortic regurgitation. Moderate mitral regurgitation. Moderate to severe tricuspid regurgitation. There is no evidence of significant pericardial effusion. No intracardiac vegetations or thrombi. Patient successfully underwent DC cardioversion, reported separately by cardiology FEN - Cardiac diet PPX - Eliquis FULL CODE Inpatient for CHF exacerbation, NEVA, and Afib RENETTA CADET MD Feb 10, 2019 07:51
[2019-02-10] MEDS: MULTIVITAMIN with MINERAL TABLET. PO SCH (07:56)
[2019-02-10] MEDS: FERROUS SULFATE 325 MG TABLET. PO SCH (07:56)
[2019-02-10] MEDS: APIXABAN 5 MG TABLET. PO SCH ×2 (07:56→20:11)
[2019-02-10] MEDS: AMIODARONE HCL 200 MG TABLET. PO SCH (07:57)
[2019-02-10] MEDS ORDERED: ALBUTEROL SULFATE 2.5 MG/3 ML NEBU. NEB SCH (08:00)
[2019-02-10] MEDS ORDERED: METOPROLOL SUCC 24HR ER 100 MG TAB.ER.24H. PO SCH (09:00)
[2019-02-10] MEDS ORDERED: METOPROLOL TART IMMED RELEASE 25 MG TABLET. PO SCH (09:00)
[2019-02-10] MEDS ORDERED: FUROSEMIDE 40 MG TABLET. PO SCH (09:00)
[2019-02-10] MEDS ORDERED: LOSARTAN POTASSIUM 25 MG TABLET. PO SCH (09:00)
[2019-02-10] MEDS ORDERED: NON FORMULARY ITEM (Budesonide/Formoterol Fumarate (Symbicort 80-4.5 Mcg Inhaler) 1 PUFF) IH SCH (09:00)
--- NOTE | 2019-02-10 09:14 | PDOC2 ---
AARON WELCH BIOINFORMATICS ASSOCIATE 02/10/19 0914: CARDIAC CONSULT DATE OF CONSULT Date of Consult DATE: 02/10/19 TIME: 09:01 REASON FOR CONSULT Reason for Consult: Dr. Walters REFERRING PHYSICIAN Referring Physician: CHF Exacerbation SOURCE Source: Chart review, Patient HISTORY OF PRESENT ILLNESS HISTORY OF PRESENT ILLNESS This is a 58 yo male who presented secondary to shortness of breath, elevated blood pressure, and elevated HR. Patient was seen by our service earlier this month due to a/c heart failure and AFIB with RVR. Underwent SHAI guided CV 01/29/19. Patient successfully converted to SR. Discharged home with Amiodarone, metoprolol, and Eliquis for stroke prophylaxis. Patient reports compliance with medications, although he is not able to recall names of his medications. Has had some mild LE edema since Sunday. On Sunday, was slightly short of breath. Could tell his heart rate was elevated as his neck veins were pulsating fast. Blood pressure was also elevated at home. Denies any specific palpitations, dizziness, chest pain, diaphoresis, orthopnea, PND, or nausea/vomiting. EKG upon arrival read as ST rate 120, but appears as 2:[address] with a rate of 114. Has a history of NICM. LV recovered and Echo 06/2018 and showed LVEF 50- 55%. Last admission, with AFIB with RVR, SHAI notable for depressed LV function with an EF of 20-25%. 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 Stress test 11/2018 without evidence of ischemia or infarct. PAST MEDICAL HISTORY Past Medical History Cardiovascular: AFIB, HTN, CHF, Other (NICM) Pulmonary: COPD CENTRAL NERVOUS SYSTEM: TIA GI: No pertinent hx Heme/Onc: Anemia NOS Hepatobiliary: Other (chronic anticoagulation) Psych: No pertinent hx Musculoskeletal: Osteoarthritis Renal/: Chronic renal insuff Endocrine: No pertinent hx PAST SURGICAL HISTORY Past Surgical History LHC, CV FAMILY HISTORY Family History: Heart Disease, Hypertension SOCIAL HISTORY Social History Smoke: Quit (11/2018) ALCOHOL: none Drugs: None Lives: Alone CURRENT MEDICATIONS CURRENT MEDICATIONS Current Medications Medications (Trade) Dose Ordered Sig/Hari Route PRN Reason Start Time Stop Time Status Last Admin Dose Admin Aspirin (Dany Aspirin) 325 mg 1X ONCE PO 02/10/19 01:00 02/10/19 01:01 DC 02/10/19 01:37 Bumetanide (Bumex) 0.5 mg BID92 IV 02/10/19 02:30 02/10/19 02:30 Amiodarone HCl (Cordarone) 200 mg DAILY PO 02/10/19 09:00 02/10/19 07:57 Apixaban (Eliquis) 5 mg BID PO 02/10/19 09:00 02/10/19 07:56 Ferrous Sulfate (Feosol) 325 mg DAILY PO 02/10/19 09:00 02/10/19 07:56 Losartan Potassium (Cozaar) 50 mg DAILY PO 02/10/19 09:00 02/10/19 07:55 Metoprolol Succinate (Toprol Xl) 100 mg DAILY PO 02/10/19 09:00 02/10/19 07:55 Diltiazem HCl (Cardizem 24hr Cd) 240 mg DAILY PO 02/10/19 09:00 02/10/19 07:56 Multivitamins (Thera M Plus) 1 tab DAILY PO 02/10/19 09:00 02/10/19 07:56 ALLERGIES ALLERGIES: Coded Allergies: No Known Drug Allergies (Unverified , 12/20/18) ROS Review of System 14 point ROS conducted with pertinent positives noted above in HPI. PHYSICAL EXAM PHYSICAL EXAM General: Alert, Oriented X3, Cooperative, No acute distress HEENT: Atraumatic, Mucous membr. moist/pink Lungs: Other (bibasilar crackles) Heart: Normal S1, Normal S2 Abdomen: Soft, No tenderness Extremities: No cyanosis, 1+ bilateral LE edema Skin: No breakdown, No significant lesion Neuro: Normal speech, Sensation intact Psych/Mental Status: Mental status NL, Mood NL MUSCULOSKELETAL: Osteoarthritic changes both hands VITALS VITALS Vital Signs Date Time Temp Pulse Resp B/P (MAP) Pulse Ox O2 Delivery O2 Flow Rate FiO2 02/10/19 07:57 115 142/110 02/10/19 07:00 97.3 20 95 Nasal Cannula 2.0 97.3 LABS Lab: Laboratory Tests Test 02/10/19 00:23 02/10/19 04:55 02/10/19 07:55 White Blood Count 7.7 x10^3/uL (4.0-11.0) Red Blood Count 4.87 x10^6/uL (4.30-5.70) Hemoglobin 12.6 g/dL (13.0-17.5) Hematocrit 40.7 % (39.0-53.0) Mean Corpuscular Volume 84 fL (79-100) Mean Corpuscular Hemoglobin 26 pg (25-35) Mean Corpuscular Hemoglobin Concent 31 g/dL (31-37) Red Cell Distribution Width 22.2 % (11.5-14.5) Platelet Count 318 x10^3/uL (140-400) Neutrophils (%) (Auto) 68 % (31-73) Lymphocytes (%) (Auto) 20 % (24-48) Monocytes (%) (Auto) 10 % (0-9) Eosinophils (%) (Auto) 1 % (0-3) Basophils (%) (Auto) 1 % (0-3) Neutrophils # (Auto) 5.3 x10^3uL (1.8-7.7) Lymphocytes # (Auto) 1.5 x10^3/uL (1.0-4.8) Monocytes # (Auto) 0.8 x10^3/uL (0.0-1.1) Eosinophils # (Auto) 0.1 x10^3/uL (0.0-0.7) Basophils # (Auto) 0.1 x10^3/uL (0.0-0.2) Platelet Estimate Adequate (ADEQUATE) Polychromasia Slight Hypochromasia Slight Poikilocytosis Slight Anisocytosis Mod Tear Drop Cells Occ Ovalocytes Occ Crenated Cell Present Schistocytes Occ Prothrombin Time 17.2 SEC (11.7-14.0) Prothromb Time International Ratio 1.4 (0.8-1.1) D-Dimer (Jocelin) 2.92 ug/mlFEU (0.00-0.50) Sodium Level 143 mmol/L (136-145) Potassium Level 4.0 mmol/L (3.5-5.1) Chloride Level 104 mmol/L (98-107) Carbon Dioxide Level 26 mmol/L (21-32) Anion Gap 13 (6-14) Blood Urea Nitrogen 37 mg/dL (8-26) Creatinine 3.0 mg/dL (0.7-1.3) Estimated GFR (Cockcroft-Gault) 26.1 BUN/Creatinine Ratio 12 (6-20) Glucose Level 101 mg/dL (70-99) Calcium Level 9.2 mg/dL (8.5-10.1) Magnesium Level 2.0 mg/dL (1.8-2.4) Total Bilirubin 0.8 mg/dL (0.2-1.0) Aspartate Amino Transf (AST/SGOT) 21 U/L (15-37) Alanine Aminotransferase (ALT/SGPT) 25 U/L (16-63) Alkaline Phosphatase 107 U/L (46-116) Troponin I Quantitative 0.041 ng/mL (0.000-0.055) 0.037 ng/mL (0.000-0.055) 0.031 ng/mL (0.000-0.055) NN-Tao-Y-Type Natriuretic Peptide 55630 pg/mL (0-124) Total Protein 7.6 g/dL (6.4-8.2) Albumin 3.7 g/dL (3.4-5.0) Albumin/Globulin Ratio 0.9 (1.0-1.7) Lipase 240 U/L (73-393) Thyroid Stimulating Hormone (TSH) 5.945 uIU/mL (0.358-3.74) Free Thyroxine 1.24 ng/dL (0.76-1.46) Free Triiodothyronine (T3) pg/mL 2.16 pg/mL (2.18-3.98) ECHOCARDIOGRAM ECHOCARDIOGRAM <Conclusion> The Left Ventricle is borderline dilated. Left ventricle systolic function is low normal. The Ejection Fraction is 50-55%. There is moderate concentric left ventricular hypertrophy. There is no significant aortic valvular stenosis. Doppler and Color Flow revealed mild to moderate aortic regurgitation. Doppler and Color-flow revealed trace to mild mitral regurgitation. Doppler and Color Flow revealed mild tricuspid regurgitation. The PA pressure was estimated at 42 mmHg. DATE: 07/08/18 1347 Limited Echo <Conclusion> Left ventricle systolic function is low normal. The Ejection Fraction is 50-55%. There is normal LV segmental wall motion. The left atrium is mildly dilated. Mild to moderate aortic regurgitation. Mild mitral regurgitation. Moderate tricuspid regurgitation. There is severe pulmonary hypertension. The PA pressure was estimated at 86 mmHg. There is no evidence of significant pericardial effusion. DATE: 12/10/18 1639 SHAI <Conclusion> The left ventricular systolic function is severely impaired. The Ejection Fraction is 20-25%. Mild aortic regurgitation. Moderate mitral regurgitation. Moderate to severe tricuspid regurgitation. There is no evidence of significant pericardial effusion. No intracardiac vegetations or thrombi. Patient successfully underwent DC cardioversion, reported separately. DATE: 01/29/19 1249 STRESS TEST STRESS TEST Conclusion 1. Regadenoson cardioisotope stress test did not show any evidence of ischemia or infarct. 2. Moderate left ventricle systolic dysfunction with ejection fraction calculated at 39% 3. Intermediate risk for cardiac events based on diminished LV function. DATE: 12/06/18 1249 HEART CATH HEART CATH FINDINGS 1. The left main coronary artery arose from the left sinus of Valsalva, gave rise to the left anterior descending, ramus intermedius and left circumflex arteries and did not show any significant stenosis. 2. The left anterior descending artery did not show any significant stenosis. 3. The ramus intermedius artery did not show any significant stenosis. 4. The left circumflex artery did not show any significant stenosis. 5. The right coronary artery was a dominant vessel arising from the right sinus of Valsalva that did not show any significant stenosis. Conclusion No significant coronary artery disease Recommendations Optimization of medical therapy for severe non ischemic cardiomyopathy. Repeat 2D echo in 3 months and consider AICD implantation if LV function does not improve. DATE: 09/03/14 0913 ASSESSMENT/PLAN ASSESSMENT/PLAN 1. Acute on chronic diastolic/systolic CHF. CXR with pulmonary edema. Neck veins distended 2. NICM; LVEF 20-25%. Cath 2013 without significant CAD. Stress test earlier this year without ischemic or infarct 3. PAFIB/flutter; s/p CV 01/29/19. Presently 2:1 flutter with intermittent 3:1 flutter. rate near 115 4. AECOPD with h/o tobaccoism; recently quit 5. Elevated D-dimer. VQ pending 6. NEVA on CKD 7. Hypertension; mildly elevated 8. Severe pulmonary HTN with valvular insufficiency: mod TR, mild MR and mild to mod AI. Recommendations Diuresis as renal function allows. DC Cardizem given significant LV dysfunction Continue Metoprolol for rate control. Will increase for better rate control Continue Amiodarone Eliquis for stroke prophylaxis. Hold ARB for now with NEVA Hydralazine IV PRN for HTN Consider inotropic support if unable to adequately diuresis Consider outpatient EP referral DESMOND VINCENT MD 02/10/19 2134: CARDIAC CONSULT ASSESSMENT/PLAN ASSESSMENT/PLAN Patient seen and examined. Agree with ICE SCULPTOR's assessment and plan Continue diuresis for acute on chronic systolic heart failure I/O -1.5 L Patient with PAF/flutter with recent SHAI guided cardioversion presently back in atrial flutter Agree with metoprolol for rate control. Continue amiodarone and eliquis We will consider outpatient referral to EP for possible ablation therapy Nephrology consult for ac on chronic renal insuff Thank you for your consultation AARON WELCH APRN Feb 10, 2019 09:14 DESMOND VINCENT MD Feb 10, 2019 21:34
--- NOTE | 2019-02-10 10:52 | NUR ---
SW reviewed pt's medical chart and evaluated for potential dc needs. Pt is from home alone and was admitted for CHF exacerbation and hypoxia. PT/OT has not been ordered. Pt is currently on 2 liters of O2. SW will continue to follow and be available for dc needs.
[2019-02-10 11:00] VITALS: BP 131/102
[2019-02-10] MEDS: BUDESONIDE 0.5 MG/2 ML NEBU. NEB SCH ×2 (11:45→19:27)
[2019-02-10] MEDS: LEVALBUTEROL 1.25 MG/0.5 ML NEBU. NEB SCH ×3 (12:00→19:28)
[2019-02-10] MEDS ORDERED: METOPROLOL SUCC 24HR ER 25 MG TAB.ER.24H. PO ONE (12:30)
--- NOTE | 2019-02-10 13:58 | RAD ---
Ventilation/perfusion lung scan, 02/10/2019: HISTORY: Elevated d-dimer, dyspnea, chest discomfort The ventilation study was performed utilizing 24.6 mCi of xenon-133. Activity in the lungs is mildly heterogeneous. There is good washout of the xenon from both lungs. Perfusion imaging was performed utilizing 5.5 mCi of technetium 99m MAA. A similar pattern of activity is present in both lungs. No significant unmatched or segmental perfusion defects are seen. IMPRESSION: There are no VQ findings to suggest pulmonary emboli. Electronically signed by: Salvador Ngo MD (02/10/2019 1:55 PM) [facility]
[2019-02-10 15:00] VITALS: BP 142/97
[2019-02-10] MEDS: ANTI-COAG MONITOR BY PHARMACY. MC PRN (16:38)
[2019-02-10 19:35] VITALS: BP 131/100
[2019-02-10 23:00] VITALS: BP 149/112
[2019-02-10] MEDS: hydrALAZINE 20 MG/ML VIAL. IVP PRN (23:22)
[2019-02-11 03:10] VITALS: BP 141/105
[2019-02-11 07:00] VITALS: BP 136/102
[2019-02-11] MEDS: LEVALBUTEROL 1.25 MG/0.5 ML NEBU. NEB SCH ×4 (08:04→20:11)
[2019-02-11] MEDS: BUDESONIDE 0.5 MG/2 ML NEBU. NEB SCH ×2 (08:04→20:12)
[2019-02-11] MEDS: FERROUS SULFATE 325 MG TABLET. PO SCH (08:49)
[2019-02-11] MEDS: APIXABAN 5 MG TABLET. PO SCH ×2 (08:49→20:00)
[2019-02-11] MEDS: AMIODARONE HCL 200 MG TABLET. PO SCH (08:50)
[2019-02-11] MEDS: MULTIVITAMIN with MINERAL TABLET. PO SCH (08:51)
[2019-02-11] MEDS: BUMETANIDE 1 MG/4 ML VIAL. IV SCH ×2 (08:53→14:38)
[2019-02-11] MEDS ORDERED: METOPROLOL SUCC 24HR ER 50 MG TAB.ER.24H. PO SCH (09:00)
[2019-02-11 10:15] LABS: ALBUMIN 3.4 g/dL (3.4-5.0); CREATININE 2.4 mg/dL (0.7-1.3); GFR 33.8; PHOSPHORUS 3.9 mg/dL (2.6-4.7); POTASSIUM 3.7 mmol/L (3.5-5.1)
[2019-02-11 11:00] VITALS: BP 115/91
--- NOTE | 2019-02-11 11:48 | PDOC ---
PROGRESS NOTES Chief Complaint Chief Complaint A/P: Acute on chronic diastolic HF - diuresing, difficult with his NEVA AFIB with RVR - Cardioverted out of aflutter, but has been back in now. Will change from cardizem to metoprolol Nonischemic cardiomyopathy - cont BB, ASA, statin AK I on possibly CK D - vasomotor vs cardiorenal. Hold EBONIE/ARB. consult nephrology Accel hypertension POA AECOPD - will cont nebulizers, may be better for xopenex Elevated D-dimer. VQ negative - compliant with eliquis Severe pulmonary HTN with valvular insufficiency: mod TR, mild MR and mild to mod AI - needs good BP control HTN - Hydralazine IV PRN FEN - Cardiac diet PPX - Eliquis FULL CODE Inpatient for CHF exacerbation, NEVA, and Aflutter History of Present Illness History of Present Illness Patient is a 58 year old male who presents with shortness of breath and rapid hear beat. Patient states this evening he was laying in bed watching tv and became short of breath and started having a rapid heart beat. His shortness of breath is worsened by exertion. He has not tried anything at home to alleviate his shortness of breath. Patient is also reporting increased swelling in his legs bilaterally. He denies any chest pain, lightheadedness, dizziness, or diaphoresis. Patient is a 58 yo [place] male w/ PMHx NICM, TIA, A Fib, HTN, CKD, fatty liver, anemia, COPD who p/w dyspnea on exertion for the past several days, orthopnea, paroxysmal nocturnal dyspnea and elevated blood pressure with palpitations. Patient states he's been compliant with his medications. He checked his blood pressure prior to ED arrival noted be 180/120, prompting him to come to the emergency department. Patient denies chest pain, palpitations. Denies increased leg pain or swelling. No other acute symptoms or complaints. Hospitalized in November for UGIB, found with duodenitis, taken off Eliquis at that time, placed on ASA only. He was seen by cardiology and despite 20mg cardizem GTT and metoprolol up to 200mg daily and 2 doses of digoxin as well as loading on amiodarone over the course of 3 days he did not convert and only slowed to the 90s to reveal underlying atrial flutter. He underwent DC cardioversion with SHAI resulted below, this was successful and he was sent home with eliquis, metoprolol, diltiazem and amio scripts and cardiology f/u instructions. Overnight he diuresed well on Bumex, breathing somewhat better on Xopenex. Metoprolol increased to 150mg XL. His swelling is better. HR still in the 110s, though and still very SOB on exertion and is still on O2. Plan: Cont diuresis Consult nephrology for likely CKD Wean O2 as tolerated, may need 6 min walk testing Vitals Vitals Vital Signs Date Time Temp Pulse Resp B/P (MAP) Pulse Ox O2 Delivery O2 Flow Rate FiO2 02/11/19 08:51 118 136/102 02/11/19 08:08 97 Nasal Cannula 1.0 02/11/19 07:00 97.8 16 97.8 Physical Exam General: Alert, Oriented X3, Cooperative Heart: Other (Irregularly irregular) Lungs: Wheezing Abdomen: Normal bowel sounds, Soft Extremities: No clubbing, No cyanosis Skin: No rashes, No breakdown Labs LABS Laboratory Tests Test 02/11/19 08:56 Sodium Level 146 mmol/L (136-145) Potassium Level 3.7 mmol/L (3.5-5.1) Chloride Level 108 mmol/L (98-107) Carbon Dioxide Level 27 mmol/L (21-32) Anion Gap 11 (6-14) Blood Urea Nitrogen 29 mg/dL (8-26) Creatinine 2.4 mg/dL (0.7-1.3) Estimated GFR (Cockcroft-Gault) 33.8 Glucose Level 145 mg/dL (70-99) Calcium Level 9.0 mg/dL (8.5-10.1) Phosphorus Level 3.9 mg/dL (2.6-4.7) Albumin 3.4 g/dL (3.4-5.0) Comment Review of Relevant I have reviewed the following items emmanuel (where applicable) has been applied. Labs Laboratory Tests Test 02/10/19 00:23 02/10/19 04:55 02/10/19 07:55 02/11/19 08:56 White Blood Count 7.7 x10^3/uL (4.0-11.0) Red Blood Count 4.87 x10^6/uL (4.30-5.70) Hemoglobin 12.6 g/dL (13.0-17.5) Hematocrit 40.7 % (39.0-53.0) Mean Corpuscular Volume 84 fL (79-100) Mean Corpuscular Hemoglobin 26 pg (25-35) Mean Corpuscular Hemoglobin Concent 31 g/dL (31-37) Red Cell Distribution Width 22.2 % (11.5-14.5) Platelet Count 318 x10^3/uL (140-400) Neutrophils (%) (Auto) 68 % (31-73) Lymphocytes (%) (Auto) 20 % (24-48) Monocytes (%) (Auto) 10 % (0-9) Eosinophils (%) (Auto) 1 % (0-3) Basophils (%) (Auto) 1 % (0-3) Neutrophils # (Auto) 5.3 x10^3uL (1.8-7.7) Lymphocytes # (Auto) 1.5 x10^3/uL (1.0-4.8) Monocytes # (Auto) 0.8 x10^3/uL (0.0-1.1) Eosinophils # (Auto) 0.1 x10^3/uL (0.0-0.7) Basophils # (Auto) 0.1 x10^3/uL (0.0-0.2) Platelet Estimate Adequate (ADEQUATE) Polychromasia Slight Hypochromasia Slight Poikilocytosis Slight Anisocytosis Mod Tear Drop Cells Occ Ovalocytes Occ Crenated Cell Present Schistocytes Occ Prothrombin Time 17.2 SEC (11.7-14.0) Prothromb Time International Ratio 1.4 (0.8-1.1) D-Dimer (Jocelin) 2.92 ug/mlFEU (0.00-0.50) Sodium Level 143 mmol/L (136-145) 146 mmol/L (136-145) Potassium Level 4.0 mmol/L (3.5-5.1) 3.7 mmol/L (3.5-5.1) Chloride Level 104 mmol/L (98-107) 108 mmol/L (98-107) Carbon Dioxide Level 26 mmol/L (21-32) 27 mmol/L (21-32) Anion Gap 13 (6-14) 11 (6-14) Blood Urea Nitrogen 37 mg/dL (8-26) 29 mg/dL (8-26) Creatinine 3.0 mg/dL (0.7-1.3) 2.4 mg/dL (0.7-1.3) Estimated GFR (Cockcroft-Gault) 26.1 33.8 BUN/Creatinine Ratio 12 (6-20) Glucose Level 101 mg/dL (70-99) 145 mg/dL (70-99) Calcium Level 9.2 mg/dL (8.5-10.1) 9.0 mg/dL (8.5-10.1) Magnesium Level 2.0 mg/dL (1.8-2.4) Total Bilirubin 0.8 mg/dL (0.2-1.0) Aspartate Amino Transf (AST/SGOT) 21 U/L (15-37) Alanine Aminotransferase (ALT/SGPT) 25 U/L (16-63) Alkaline Phosphatase 107 U/L (46-116) Troponin I Quantitative 0.041 ng/mL (0.000-0.055) 0.037 ng/mL (0.000-0.055) 0.031 ng/mL (0.000-0.055) HG-Bhl-J-Type Natriuretic Peptide 17206 pg/mL (0-124) Total Protein 7.6 g/dL (6.4-8.2) Albumin 3.7 g/dL (3.4-5.0) 3.4 g/dL (3.4-5.0) Albumin/Globulin Ratio 0.9 (1.0-1.7) Lipase 240 U/L (73-393) Thyroid Stimulating Hormone (TSH) 5.945 uIU/mL (0.358-3.74) Free Thyroxine 1.24 ng/dL (0.76-1.46) Free Triiodothyronine (T3) pg/mL 2.16 pg/mL (2.18-3.98) Phosphorus Level 3.9 mg/dL (2.6-4.7) Laboratory Tests Test 02/11/19 08:56 Sodium Level 146 mmol/L (136-145) Potassium Level 3.7 mmol/L (3.5-5.1) Chloride Level 108 mmol/L (98-107) Carbon Dioxide Level 27 mmol/L (21-32) Anion Gap 11 (6-14) Blood Urea Nitrogen 29 mg/dL (8-26) Creatinine 2.4 mg/dL (0.7-1.3) Estimated GFR (Cockcroft-Gault) 33.8 Glucose Level 145 mg/dL (70-99) Calcium Level 9.0 mg/dL (8.5-10.1) Phosphorus Level 3.9 mg/dL (2.6-4.7) Albumin 3.4 g/dL (3.4-5.0) Medications Current Medications Aspirin (Dany Aspirin) 325 mg 1X ONCE PO Last administered on 02/10/19at 01:37; Start 02/10/19 at 01:00; Stop 02/10/19 at 01:01; Status DC Sodium Chloride 1,000 ml @ 1,000 mls/hr 1X ONCE IV ; Start 02/10/19 at 01:00; Stop 02/10/19 at 01:59; Status DC Bumetanide (Bumex) 0.5 mg BID92 IV Last administered on 02/11/19at 08:53; Start 02/10/19 at 02:30 Enoxaparin Sodium (Lovenox 100mg Syringe) 100 mg 1X ONCE SQ ; Start 02/10/19 at 02:30; Stop 02/10/19 at 03:12; Status DC Ondansetron HCl (Zofran) 4 mg PRN Q8HRS PRN IV NAUSEA/VOMITING 1ST CHOICE; Start 02/10/19 at 02:00; Stop 02/11/19 at 01:59; Status DC Amiodarone HCl (Cordarone) 200 mg DAILY PO Last administered on 02/11/19at 08:50; Start 02/10/19 at 09:00 Apixaban (Eliquis) 5 mg BID PO Last administered on 02/11/19at 08:49; Start 02/10/19 at 09:00 Ferrous Sulfate (Feosol) 325 mg DAILY PO Last administered on 02/11/19at 08:49; Start 02/10/19 at 09:00 Furosemide (Lasix) 40 mg DAILY PO ; Start 02/10/19 at 09:00; Stop 02/10/19 at 10:19; Status DC Losartan Potassium (Cozaar) 50 mg DAILY PO Last administered on 02/10/19at 07:55; Start 02/10/19 at 09:00; Stop 02/10/19 at 09:12; Status DC Metoprolol Succinate (Toprol Xl) 100 mg DAILY PO Last administered on 02/10/19 07:55; Start 02/10/19 at 09:00; Stop 02/10/19 at 12:00; Status DC Metoprolol Tartrate (Lopressor) 12 mg BID PO ; Start 02/10/19 at 09:00; Status UNV Acetaminophen (Tylenol) 1,000 mg PRN Q6HRS PRN PO MILD PAIN / TEMP; Start 02/10/19 at 07:15 Non-Formulary Medication (Budesonide/ Formoterol Fumarate (Symbicort 80-4.5 Mcg Inhaler)) 1 puff QID IH ; Start 02/10/19 at 09:00; Status UNV Diltiazem HCl (Cardizem 24hr Cd) 240 mg DAILY PO Last administered on 02/10/19 07:56; Start 02/10/19 at 09:00; Stop 02/10/19 at 09:12; Status DC Multivitamins (Thera M Plus) 1 tab DAILY PO Last administered on 02/11/19 08:51; Start 02/10/19 at 09:00 Budesonide (Pulmicort) 0.5 mg RTBID NEB Last administered on 02/11/19 08:04; Start 02/10/19 at 08:00 Albuterol Sulfate (Ventolin Neb Soln) 2.5 mg RTQID NEB Last administered on 02/10/19 11:42; Start 02/10/19 at 08:00; Stop 02/10/19 at 11:45; Status DC Hydralazine HCl (Apresoline Inj) 10 mg PRN Q4HRS PRN IVP ELEVATED BP, SEE COMMENTS Last administered on 02/10/19at 23:22; Start 02/10/19 at 09:15 Levalbuterol HCl (Xopenex) 1.25 mg RTQID NEB Last administered on 02/11/19 11:41; Start 02/10/19 at 12:00 Metoprolol Succinate (Toprol Xl) 150 mg DAILY PO Last administered on 02/11/19 08:51; Start 02/11/19 at 09:00 Metoprolol Succinate (Toprol Xl) 50 mg 1X ONCE PO Last administered on 02/10/19 12:26; Start 02/10/19 at 12:30; Stop 02/10/19 at 12:31; Status DC Info (Anti-Coagulation Monitoring By Pharmacy) 1 each PRN DAILY PRN MC SEE COMMENTS Last administered on 02/10/19at 16:38; Start 02/10/19 at 16:45 Active Scripts Active Metoprolol Succinate ( Xl ) (Metoprolol Succinate) 100 Mg Tab.er.24h 100 Mg PO DAILY 30 Days Amiodarone Hcl 200 Mg Tablet 200 Mg PO DAILY 30 Days Eliquis (Apixaban) 5 Mg Tablet 5 Mg PO BID 30 Days Ferrous Sulfate 325 Mg Tablet 1 Tab PO DAILY Reported Symbicort 80-4.5 Mcg Inhaler (Budesonide/Formoterol Fumarate) 10.2 Gm Hfa.aer.ad 1 Puff IH QID Multivitamins (Multivitamin) 1 Each Tablet 1 Each PO DAILY Metoprolol Tartrate 25 Mg Tablet 12 Mg PO BID Acetaminophen 500 Mg Tablet 1,000 Mg PO PRN Q6HRS PRN Cartia Xt (Diltiazem Hcl) 240 Mg Cap.er.24h 240 Mg PO DAILY Losartan Potassium (Losartan Potassium) 25 Mg Tablet 50 Mg PO DAILY Lasix (Furosemide) 40 Mg Tablet 40 Mg PO DAILY Vitals/I & O Vital Sign - Last 24 Hours 02/10/19 02/10/19 02/10/19 02/10/19 12:26 15:00 15:29 19:29 Temp 98.0 98.0 Pulse 115 114 Resp 20 B/P (MAP) 134/101 142/97 (112) Pulse Ox 95 96 97 O2 Delivery Nasal Cannula Nasal Cannula Nasal Cannula O2 Flow Rate 2.0 1.0 1.0 02/10/19 02/10/19 02/10/19 02/10/19 19:35 20:00 23:00 23:22 Temp 97.7 98.3 97.7 98.3 Pulse 115 116 116 Resp 22 22 B/P (MAP) 131/100 (110) 149/112 (124) 149/112 Pulse Ox 98 98 O2 Delivery Nasal Cannula Nasal Cannula Nasal Cannula O2 Flow Rate 2.0 2.0 02/11/19 02/11/19 02/11/19 02/11/19 03:10 07:00 07:15 08:04 Temp 97.6 97.8 97.6 97.8 Pulse 117 114 Resp 22 16 B/P (MAP) 141/105 (117) 136/102 (113) Pulse Ox 98 98 97 O2 Delivery Nasal Cannula Nasal Cannula Nasal Cannula Nasal Cannula O2 Flow Rate 2.0 2.0 2.0 1.0 02/11/19 02/11/19 02/11/19 08:08 08:50 08:51 Pulse 118 118 B/P (MAP) 136/102 136/102 Pulse Ox 97 O2 Delivery Nasal Cannula O2 Flow Rate 1.0 Intake and Output 02/10/19 02/10/19 02/11/19 15:00 23:00 07:00 Intake Total 600 ml 300 ml Output Total 950 ml 1000 ml Balance -950 ml -400 ml 300 ml Images Echo - The left ventricular systolic function is severely impaired. The Ejection Fraction is 20-25%. Mild aortic regurgitation. Moderate mitral regurgitation. Moderate to severe tricuspid regurgitation. There is no evidence of significant pericardial effusion. No intracardiac vegetations or thrombi. Patient successfully underwent DC cardioversion, reported separately by cardiology RENETTA CADET MD Feb 11, 2019 11:48
[2019-02-11] MEDS: ANTI-COAG MONITOR BY PHARMACY. MC PRN (13:44)
[2019-02-11 15:00] VITALS: BP 145/106
[2019-02-11] MEDS ORDERED: DIGOXIN IV 500 MCG/2 ML AMPUL. IV ONE (16:45)
--- NOTE | 2019-02-11 16:45 | PDOC ---
LANE [facility] PSYCHOTHERAPIST 02/11/19 1645: CARDIO Progress Notes Date and Time Date of Service 02/11/2019 Time of Evaluation 1250 Subjective Subjective: No Chest Pain, No shortness of breath, No Palpitations Vitals Vitals Vital Signs Date Time Temp Pulse Resp B/P (MAP) Pulse Ox O2 Delivery O2 Flow Rate FiO2 02/11/19 11:45 99 Nasal Cannula 1.0 02/11/19 11:00 97.4 116 18 115/91 (99) 97.4 Weight Weight [ ] Input and Output Intake and Output Intake and Output 02/11/19 07:00 Intake Total 900 ml Output Total 1950 ml Balance -1050 ml Intake Oral 900 ml Output Urine Total 1950 ml Laboratory Labs Laboratory Tests Test 02/11/19 08:56 Sodium Level 146 mmol/L (136-145) Potassium Level 3.7 mmol/L (3.5-5.1) Chloride Level 108 mmol/L (98-107) Carbon Dioxide Level 27 mmol/L (21-32) Anion Gap 11 (6-14) Blood Urea Nitrogen 29 mg/dL (8-26) Creatinine 2.4 mg/dL (0.7-1.3) Estimated GFR (Cockcroft-Gault) 33.8 Glucose Level 145 mg/dL (70-99) Calcium Level 9.0 mg/dL (8.5-10.1) Phosphorus Level 3.9 mg/dL (2.6-4.7) Albumin 3.4 g/dL (3.4-5.0) Physical Exam HEENT: Neck Supple W Full Motion Chest: Symmetric LUNGS: Clear to Auscultation Heart: irregularly irregular (Atrial flutter) Abdomen: Soft N/T Extremities: No Calf Tenderness Neurology: alert, oriented, follow commands Assessment Assessment 1. Acute on chronic diastolic/systolic CHF: compensated 2. NICM; LVEF 20-25% likely tachy induced. 3. PAFIB/flutter; s/p CV 01/29/19. remains on atrial flutter with RVR 110-120s 4. AECOPD with h/o tobaccoism; recently quit 5. Elevated D-dimer. VQ not suggestive of PE 6. NEVA on CKD 7. Hypertension; controlled 8. Severe pulmonary HTN with valvular insufficiency: mod TR, mild MR and mild to mod AI. Recommendations 1. Continue bumex therapy. Increase toprol. Dig IV x1. Continue with amiodarone 2. Eliquis for stroke prophylaxis. 3. Hold ARB for now 4. Outpatient EP referral DESMOND VINCENT MD 02/12/19 1606: CARDIO Progress Notes Assessment Assessment Patient seen and examined 02/11/19. Agree with SR. STRATEGIC SOURCING MANAGER's assessment and plan. Acute on chronic systolic heart failure better compensated with diuretics Atrial flutter rate still slightly elevated We will try digoxin and if the rate is still not under control, we will start diltiazem for rate control Continue eliquis for stroke prophylaxis Plan outpatient EP evaluation for ablation therapy LANE KHAN APRN Feb 11, 2019 16:45 DESMOND VINCENT MD February 12, 2019 16:06
[2019-02-11 19:20] VITALS: BP 154/110
[2019-02-11] MEDS: hydrALAZINE 20 MG/ML VIAL. IVP PRN (20:01)
[2019-02-11 23:20] VITALS: BP 157/106
[2019-02-12] VITALS (16 sets, daily range): BP systolic 110–157; BP diastolic 69–111
[2019-02-12] MEDS: hydrALAZINE 20 MG/ML VIAL. IVP PRN (02:21)
[2019-02-12 05:27] LABS: ALBUMIN 3.2 g/dL (3.4-5.0); CALCIUM 8.8 mg/dL (8.5-10.1); CREATININE 2.2 mg/dL (0.7-1.3); GFR 37.4; PHOSPHORUS 3.7 mg/dL (2.6-4.7); POTASSIUM 3.8 mmol/L (3.5-5.1)
[2019-02-12] MEDS: LEVALBUTEROL 1.25 MG/0.5 ML NEBU. NEB SCH ×5 (08:22→20:05)
[2019-02-12] MEDS: BUDESONIDE 0.5 MG/2 ML NEBU. NEB SCH ×2 (08:22→20:05)
[2019-02-12] MEDS: BUMETANIDE 1 MG/4 ML VIAL. IV SCH ×2 (08:39→13:41)
[2019-02-12] MEDS: METOPROLOL SUCC 24HR ER 100 MG TAB.ER.24H. PO SCH (08:40)
[2019-02-12] MEDS: MULTIVITAMIN with MINERAL TABLET. PO SCH (08:40)
[2019-02-12] MEDS: FERROUS SULFATE 325 MG TABLET. PO SCH (08:40)
[2019-02-12] MEDS: AMIODARONE HCL 200 MG TABLET. PO SCH (08:40)
[2019-02-12] MEDS: APIXABAN 5 MG TABLET. PO SCH ×2 (08:40→21:14)
--- NOTE | 2019-02-12 10:02 | PDOC ---
AARON WELCH [facility] MA[facility] DEPARTMENT 02/12/19 1002: CARDIO Progress Notes Date and Time Date of Service 02/12/19 Time of Evaluation 0982 Subjective Subjective: No Chest Pain, No shortness of breath, No Palpitations Vitals Vitals Vital Signs Date Time Temp Pulse Resp B/P (MAP) Pulse Ox O2 Delivery O2 Flow Rate FiO2 02/12/19 08:40 121 152/102 02/12/19 08:22 98 Nasal Cannula 1.0 02/12/19 07:00 98.4 20 98.4 Weight Weight [ ] Input and Output Intake and Output Intake and Output 02/12/19 06:59 Intake Total 500 ml Output Total 1900 ml Balance -1400 ml Intake Oral 500 ml Output Urine Total 1900 ml # Voids 1 Laboratory Labs Laboratory Tests Test 02/12/19 03:25 Sodium Level 143 mmol/L (136-145) Potassium Level 3.8 mmol/L (3.5-5.1) Chloride Level 106 mmol/L (98-107) Carbon Dioxide Level 25 mmol/L (21-32) Anion Gap 12 (6-14) Blood Urea Nitrogen 26 mg/dL (8-26) Creatinine 2.2 mg/dL (0.7-1.3) Estimated GFR (Cockcroft-Gault) 37.4 Glucose Level 100 mg/dL (70-99) Calcium Level 8.8 mg/dL (8.5-10.1) Phosphorus Level 3.7 mg/dL (2.6-4.7) Albumin 3.2 g/dL (3.4-5.0) Physical Exam HEENT: Neck Supple W Full Motion Chest: Symmetric LUNGS: Clear to Auscultation Heart: irregularly irregular (Atrial flutter rate 120) Abdomen: Soft N/T Extremities: No Calf Tenderness Neurology: alert, oriented, follow commands Assessment Assessment 1. Acute on chronic diastolic/systolic CHF: appears compensated 2. NICM; LVEF 20-25% likely tachy induced. 3. PAFIB/flutter; s/p CV 01/29/19. IV Dig yesterday evening and metoprolol increased to 200mg daily. remains on atrial flutter with RVR rate consistent at 120 4. AECOPD with h/o tobaccoism; recently quit 5. Elevated D-dimer. VQ not suggestive of PE 6. NEVA on CKD; Cr improving 7. Hypertension; controlled 8. Severe pulmonary HTN with valvular insufficiency: mod TR, mild MR and mild to mod AI. 8. Hypothyroidism; new. Replacement as per PCP Recommendations Dig IV x1 now Continue with metoprolol and amiodarone. Convert diuresis to oral Eliquis for stroke prophylaxis. Hold ARB for now. Follow renal recs Outpatient EP referral DESMOND VINCENT MD 02/12/19 1716: CARDIO Progress Notes Assessment Assessment Patient seen and examined. Agree with COMMERCIAL LINES ACCOUNT EXECUTIVE's assessment and plan. Atrial flutter with RVR not controlled with beta blockers and digoxin Start Cardizem infusion for better rate control If heart rate still not controlled, we will consider cardioversion Plan outpatient referral to EP for ablation therapy AARON WELCH APRN February 12, 2019 10:02 DESMOND VINCENT MD February 12, 2019 17:16
[2019-02-12] MEDS ORDERED: DIGOXIN IV 500 MCG/2 ML AMPUL. IV ONE (10:30)
--- NOTE | 2019-02-12 10:59 | PDOC2 ---
CONSULT Date of Consult Date of Consult DATE: 02/12/19 TIME: 10:44 Reason for Consult Reason for Consult: Elevated Creat Identification/Chief Complaint Chief Complaint Currently denies any complaints Source Source: Chart review, Patient History of Present Illness Reason for Visit: Patient is a 58 year old AAM male w/ PMHx NICM, TIA, A Fib, HTN, CKD, fatty liver, anemia, COPD who presents with shortness of breath and rapid heart beat. Patient states that he was laying in bed watching tv and became short of breath and noticed a rapid heart beat. His shortness of breath is worsened by exertion. Patient is also reporting increased swelling in his legs bilaterally. He denies any chest pain, lightheadedness, dizziness, or diaphoresis. He checked his blood pressure prior to ED arrival noted be 180/120, No N/V/D . denies use of NSAID's Hospitalized in November for UGIB, found with duodenitis, He underwent DC cardioversion with SHAI and he was sent home with eliquis, metoprolol, diltiazem and amiodarone OLD RECORDS INDICATED NEVA WITH CR OF 3.3 IN 2013 AND A ON AVG. NO NSAIDS, NO NEPHROTOXINS AND NO OTHER HX. NO PROBLEMS VOIDING PER PT. MED LIST SHOWED ARB AND DIURETICS BUT NOT SURE IF HE HAS BEEN TAKING ANY OF THEM Past Medical History Cardiovascular: AFIB, HTN, Other Pulmonary: COPD CENTRAL NERVOUS SYSTEM: TIA GI: No pertinent hx Heme/Onc: Anemia NOS Hepatobiliary: Other Psych: No pertinent hx Musculoskeletal: Osteoarthritis Renal/: Chronic renal insuff Endocrine: No pertinent hx Past Surgical History Past Surgical History: Other Family History Family History: Heart Disease, Hypertension Social History ALCOHOL: none Drugs: None Lives: with Family Current Medications Current Medications Current Medications Aspirin (Dany Aspirin) 325 mg 1X ONCE PO Last administered on 02/10/19at 01:37; Start 02/10/19 at 01:00; Stop 02/10/19 at 01:01; Status DC Sodium Chloride 1,000 ml @ 1,000 mls/hr 1X ONCE IV ; Start 02/10/19 at 01:00; Stop 02/10/19 at 01:59; Status DC Bumetanide (Bumex) 0.5 mg BID92 IV Last administered on 02/12/19at 08:39; Start 02/10/19 at 02:30 Enoxaparin Sodium (Lovenox 100mg Syringe) 100 mg 1X ONCE SQ ; Start 02/10/19 at 02:30; Stop 02/10/19 at 03:12; Status DC Ondansetron HCl (Zofran) 4 mg PRN Q8HRS PRN IV NAUSEA/VOMITING 1ST CHOICE; Start 02/10/19 at 02:00; Stop 02/11/19 at 01:59; Status DC Amiodarone HCl (Cordarone) 200 mg DAILY PO Last administered on 02/12/19at 08:40; Start 02/10/19 at 09:00 Apixaban (Eliquis) 5 mg BID PO Last administered on 02/12/19at 08:40; Start 02/10/19 at 09:00 Ferrous Sulfate (Feosol) 325 mg DAILY PO Last administered on 02/12/19at 08:40; Start 02/10/19 at 09:00 Furosemide (Lasix) 40 mg DAILY PO ; Start 02/10/19 at 09:00; Stop 02/10/19 at 10:19; Status DC Losartan Potassium (Cozaar) 50 mg DAILY PO Last administered on 02/10/19at 07:55; Start 02/10/19 at 09:00; Stop 02/10/19 at 09:12; Status DC Metoprolol Succinate (Toprol Xl) 100 mg DAILY PO Last administered on 02/10/19at 07:55; Start 02/10/19 at 09:00; Stop 02/10/19 at 12:00; Status DC Metoprolol Tartrate (Lopressor) 12 mg BID PO ; Start 02/10/19 at 09:00; Status UNV Acetaminophen (Tylenol) 1,000 mg PRN Q6HRS PRN PO MILD PAIN / TEMP; Start 02/10/19 at 07:15 Non-Formulary Medication (Budesonide/ Formoterol Fumarate (Symbicort 80-4.5 Mcg Inhaler)) 1 puff QID IH ; Start 02/10/19 at 09:00; Status UNV Diltiazem HCl (Cardizem 24hr Cd) 240 mg DAILY PO Last administered on 02/10/19at 07:56; Start 02/10/19 at 09:00; Stop 02/10/19 at 09:12; Status DC Multivitamins (Thera M Plus) 1 tab DAILY PO Last administered on 02/12/19 08:40; Start 02/10/19 at 09:00 Budesonide (Pulmicort) 0.5 mg RTBID NEB Last administered on 02/11/19 20:12; Start 02/10/19 at 08:00 Albuterol Sulfate (Ventolin Neb Soln) 2.5 mg RTQID NEB Last administered on 02/10/19 11:42; Start 02/10/19 at 08:00; Stop 02/10/19 at 11:45; Status DC Hydralazine HCl (Apresoline Inj) 10 mg PRN Q4HRS PRN IVP ELEVATED BP, SEE COMMENTS Last administered on 02/12/19 02:21; Start 02/10/19 at 09:15 Levalbuterol HCl (Xopenex) 1.25 mg RTQID NEB Last administered on 02/11/19 20:11; Start 02/10/19 at 12:00 Metoprolol Succinate (Toprol Xl) 150 mg DAILY PO Last administered on 02/11/19 08:51; Start 02/11/19 at 09:00; Stop 02/11/19 at 16:45; Status DC Metoprolol Succinate (Toprol Xl) 50 mg 1X ONCE PO Last administered on 02/10/19 12:26; Start 02/10/19 at 12:30; Stop 02/10/19 at 12:31; Status DC Info (Anti-Coagulation Monitoring By Pharmacy) 1 each PRN DAILY PRN MC SEE COMM ENTS Last administered on 02/11/19 13:44; Start 02/10/19 at 16:45 Digoxin (Lanoxin) 250 mcg 1X ONCE IV Last administered on 02/11/19 18:23; Start 02/11/19 at 16:45; Stop 02/11/19 at 18:01; Status DC Metoprolol Succinate (Toprol Xl) 200 mg DAILY PO Last administered on 02/12/19 08:40; Start 02/12/19 at 09:00 Digoxin (Lanoxin) 500 mcg 1X ONCE IV Last administered on 02/12/19 10:31; Start 02/12/19 at 10:30; Stop 02/12/19 at 10:31; Status DC Active Scripts Active Metoprolol Succinate ( Xl ) (Metoprolol Succinate) 100 Mg Tab.er.24h 100 Mg PO DAILY 30 Days Amiodarone Hcl 200 Mg Tablet 200 Mg PO DAILY 30 Days Eliquis (Apixaban) 5 Mg Tablet 5 Mg PO BID 30 Days Ferrous Sulfate 325 Mg Tablet 1 Tab PO DAILY Reported Symbicort 80-4.5 Mcg Inhaler (Budesonide/Formoterol Fumarate) 10.2 Gm Hfa.aer.ad 1 Puff IH QID Multivitamins (Multivitamin) 1 Each Tablet 1 Each PO DAILY Metoprolol Tartrate 25 Mg Tablet 12 Mg PO BID Acetaminophen 500 Mg Tablet 1,000 Mg PO PRN Q6HRS PRN Cartia Xt (Diltiazem Hcl) 240 Mg Cap.er.24h 240 Mg PO DAILY Losartan Potassium (Losartan Potassium) 25 Mg Tablet 50 Mg PO DAILY Lasix (Furosemide) 40 Mg Tablet 40 Mg PO DAILY Allergies Allergies: Coded Allergies: No Known Drug Allergies (Unverified , 12/20/18) ROS Review of System As per HPI Physical Exam Physical Exam GEN.: No apparent distress HEENT: OM moist NECK: Supple, no JVD LUNGS: Clear to auscultation , no use of acc muscles HEART: RRR, S1, S2 present. ABDOMEN: Soft, nontender. EXTREMITIES: Without any cyanosis, clubbing, or edema. NEUROLOGIC: Normal speech, normal tone. A&O x 3 SKIN: No ulcerations or rashes No claire Vital Signs Vital Signs Date Time Temp Pulse Resp B/P (MAP) Pulse Ox O2 Delivery O2 Flow Rate FiO2 02/12/19 10:31 117 152/102 02/12/19 08:22 98 Nasal Cannula 1.0 02/12/19 07:00 98.4 20 98.4 Assessment & Plan NEVA- Intermittent, Cardiorenal In Nov 2018 Creat peaked at 2.9, in 2013 NEVA with Cr 3.3 Renal function improving, appears to be at baseline E-lytes and acid base stable , Holding ARB CKD stage 3- Baseline Creat appears to be 2-2.5 on review of old records in [facility] Was seen as inpatient in Nov and Post Op follow up with Dr. Cuevas on 01/10 Renal function stable at 2.4 Has follow up appt on 03/24/2019 Acute on chronic diastolic HF - On IV Bumex, cardiology managing AFIB with RVR - Cardioverted out of aflutter, but has been back in now. Cardiology monitoring Nonischemic cardiomyopathy - cont BB, ASA, statin left ventricular systolic function is severely impaired. Ejection Fraction is 20-25% Moderate mitral regurgitation. Moderate to severe tricuspid regurgitation COPD - stable Severe pulmonary HTN with valvular insufficiency: mod TR, mild MR and mild to mod AI - needs good BP control HTN - Holding ARB can restart if Renal function stays stable at baseline Anemia- Hg Improved post Transfusion GI was consulted \ Labs Labs Laboratory Tests Test 02/11/19 08:56 02/12/19 03:25 Sodium Level 146 mmol/L (136-145) 143 mmol/L (136-145) Potassium Level 3.7 mmol/L (3.5-5.1) 3.8 mmol/L (3.5-5.1) Chloride Level 108 mmol/L (98-107) 106 mmol/L (98-107) Carbon Dioxide Level 27 mmol/L (21-32) 25 mmol/L (21-32) Anion Gap 11 (6-14) 12 (6-14) Blood Urea Nitrogen 29 mg/dL (8-26) 26 mg/dL (8-26) Creatinine 2.4 mg/dL (0.7-1.3) 2.2 mg/dL (0.7-1.3) Estimated GFR (Cockcroft-Gault) 33.8 37.4 Glucose Level 145 mg/dL (70-99) 100 mg/dL (70-99) Calcium Level 9.0 mg/dL (8.5-10.1) 8.8 mg/dL (8.5-10.1) Phosphorus Level 3.9 mg/dL (2.6-4.7) 3.7 mg/dL (2.6-4.7) Albumin 3.4 g/dL (3.4-5.0) 3.2 g/dL (3.4-5.0) Laboratory Tests Test 02/12/19 03:25 Sodium Level 143 mmol/L (136-145) Potassium Level 3.8 mmol/L (3.5-5.1) Chloride Level 106 mmol/L (98-107) Carbon Dioxide Level 25 mmol/L (21-32) Anion Gap 12 (6-14) Blood Urea Nitrogen 26 mg/dL (8-26) Creatinine 2.2 mg/dL (0.7-1.3) Estimated GFR (Cockcroft-Gault) 37.4 Glucose Level 100 mg/dL (70-99) Calcium Level 8.8 mg/dL (8.5-10.1) Phosphorus Level 3.7 mg/dL (2.6-4.7) Albumin 3.2 g/dL (3.4-5.0) Review All relevant outside records, renal labs, imaging studies, telemetry/EKG's were reviewed. Images Images Renal US 12/10/2018 The right kidney measures 10.3 x 4.3 x 5.3 cm (longitudinal, AP, transverse) without hydronephrosis. Bladder is decompressed and not visualized. Left kidney measures 10.6 x 5.6 x 4.6 cm without hydronephrosis. Bilateral echogenic cortex of the kidney. IMPRESSION: 1. No hydronephrosis. 2. Bilateral echogenic kidneys suggests medical renal disease CxR-- .COPD. Superimposed atypical/viral infection or interstitial pulmonary edema. UNRULY HERR MD February 12, 2019 10:59
[2019-02-12] MEDS ORDERED: amLODIPine BESYLATE 5 MG TABLET PO ONE (12:00)
--- NOTE | 2019-02-12 12:29 | PDOC ---
PROGRESS NOTES Chief Complaint Chief Complaint A/P: Acute on chronic diastolic HF - diuresing, difficult with his NEVA AFIB with RVR - Cardioverted out of aflutter, but has been back in now. Will change from cardizem to metoprolol Nonischemic cardiomyopathy - cont BB, ASA, statin The left ventricular systolic function is severely impaired. The Ejection Fraction is 20-25%. Mild aortic regurgitation. Moderate mitral regurgitation. Moderate to severe tricuspid regurgitation. AK I on possibly CK D - vasomotor vs cardiorenal. Hold EBONIE/ARB. consult nephrology Accel hypertension POA AECOPD - will cont nebulizers, may be better for xopenex Elevated D-dimer. VQ negative - compliant with eliquis Severe pulmonary HTN with valvular insufficiency: mod TR, mild MR and mild to mod AI - needs good BP control HTN - Hydralazine IV PRN CKD STAGE 3-4 REMOTE TOBACCO ABUSE FEN - Cardiac diet PPX - Eliquis FULL CODE Inpatient for CHF exacerbation, NEVA, and Aflutter PULM CONSULT 43 MIN PT EXAM, CHART REVIEW, > 50% OF TIME SPENT WITH EXAM, CHART REVIEW, PT CARE COORDINATION History of Present Illness History of Present Illness Patient is a 58 year old male who presents with shortness of breath and rapid heart beat. Patient states this evening he was laying in bed watching tv and became short of breath and started having a rapid heart beat. His shortness of breath is worsened by exertion. He has not tried anything at home to alleviate his shortness of breath. Patient is also reporting increased swelling in his legs bilaterally. He denies any chest pain, lightheadedness, dizziness, or diaphoresis. Patient is a 58 yo [place] male w/ PMHx NICM, TIA, A Fib, HTN, CKD, fatty liver, anemia, COPD who p/w dyspnea on exertion for the past several days, orthopnea, paroxysmal nocturnal dyspnea and elevated blood pressure with palpitations. Patient states he's been compliant with his medications. He checked his blood pressure prior to ED arrival noted be 180/120, prompting him to come to the emergency department. Patient denies chest pain, palpitations. Denies increased leg pain or swelling. No other acute symptoms or complaints. Hospitalized in November for UGIB, found with duodenitis, taken off Eliquis at that time, placed on ASA only. He was seen by cardiology and despite 20mg cardizem GTT and metoprolol up to 200mg daily and 2 doses of digoxin as well as loading on amiodarone over the course of 3 days he did not convert and only slowed to the 90s to reveal underly ing atrial flutter. He underwent DC cardioversion with SHAI resulted below, this was successful and he was sent home with eliquis, metoprolol, diltiazem and amio scripts and cardiology f/u instructions. Overnight he diuresed well on Bumex, breathing somewhat better on Xopenex. Metoprolol increased to 200mg XL. His swelling is better. HR still in the 110s, though and still very SOB on exertion and is still on O2. Plan: CONSULT PULMONARY Cont diuresis Consult nephrology for likely CKD Wean O2 as tolerated, may need 6 min walk testing metoprolol increased to 200mg daily. remains on atrial flutter with RVR rate co nsistent at 120 Vitals Vitals Vital Signs Date Time Temp Pulse Resp B/P (MAP) Pulse Ox O2 Delivery O2 Flow Rate FiO2 02/12/19 12:05 116 157/111 02/12/19 11:00 97.6 20 96 Nasal Cannula 2.0 97.6 Physical Exam General: Alert, Oriented X3, Cooperative, mild distress Heart: Other (Irregularly irregular) Lungs: Wheezing Abdomen: Normal bowel sounds, Soft Extremities: No clubbing, No cyanosis Skin: No rashes, No breakdown Labs LABS PROCEDURE After obtaining informed consent, patient underwent transesophageal echo in the PACU. Type of Sedation : General Anesthesia Sedation was administered by Arash Cohen CRNA. Sedation was achieved with Propofol 150 mg intravenously. Transesophageal probe was inserted and advanced into esophagus by Colt Elaine MD. The SHAI was performed without complications. Synchronized Cardioversion attempted: Successful Rhythm following Synchronized Cardioversion: Normal Sinus Rhythm Throughout the procedure, the blood pressure, pulse oximetry, cardiac rhythm, and rate were monitored. The patient tolerated the procedure without adverse effects. Recovery from general anesthesia was uneventful and vital signs were stable. LEFT VENTRICLE The left ventricular systolic function is severely impaired. The Ejection Fraction is 20-25%. There is severe global hypokinesis of the left ventricle. AORTIC VALVE The aortic valve is calcified but opens well. Doppler and Color Flow revealed mild aortic regurgitation. There is no significant aortic valvular stenosis. MITRAL VALVE The mitral valve is calcified but opens well. There is no evidence of mitral valve prolapse. There is no mitral valve stenosis. Doppler and Color-flow revealed moderate mitral regurgitation. TRICUSPID VALVE The tricuspid valve is normal in structure and function. Doppler and Color Flow revealed moderate to severe tricuspid regurgitation. There is no tricuspid valve stenosis. PULMONIC VALVE The pulmonic valve is not well visualized. Doppler and Color Flow revealed trace pulmonic valvular regurgitation. There is no pulmonic valvular stenosis. GREAT VESSELS The ascending aorta is normal in size. PERICARDIAL EFFUSION There is no evidence of significant pericardial effusion. Critical Notification Critical Value: No <Conclusion> The left ventricular systolic function is severely impaired. The Ejection Fraction is 20-25%. Mild aortic regurgitation. Moderate mitral regurgitation. Moderate to severe tricuspid regurgitation. There is no evidence of significant pericardial effusion. No intracardiac vegetations or thrombi. Patient successfully underwent DC cardioversion, reported separately. Signed by : Colt Elaine, Laboratory Tests Test 02/12/19 03:25 Sodium Level 143 mmol/L (136-145) Potassium Level 3.8 mmol/L (3.5-5.1) Chloride Level 106 mmol/L (98-107) Carbon Dioxide Level 25 mmol/L (21-32) Anion Gap 12 (6-14) Blood Urea Nitrogen 26 mg/dL (8-26) Creatinine 2.2 mg/dL (0.7-1.3) Estimated GFR (Cockcroft-Gault) 37.4 Glucose Level 100 mg/dL (70-99) Calcium Level 8.8 mg/dL (8.5-10.1) Phosphorus Level 3.7 mg/dL (2.6-4.7) Albumin 3.2 g/dL (3.4-5.0) Comment Review of Relevant I have reviewed the following items emmanuel (where applicable) has been applied. Labs Laboratory Tests Test 02/11/19 08:56 02/12/19 03:25 Sodium Level 146 mmol/L (136-145) 143 mmol/L (136-145) Potassium Level 3.7 mmol/L (3.5-5.1) 3.8 mmol/L (3.5-5.1) Chloride Level 108 mmol/L (98-107) 106 mmol/L (98-107) Carbon Dioxide Level 27 mmol/L (21-32) 25 mmol/L (21-32) Anion Gap 11 (6-14) 12 (6-14) Blood Urea Nitrogen 29 mg/dL (8-26) 26 mg/dL (8-26) Creatinine 2.4 mg/dL (0.7-1.3) 2.2 mg/dL (0.7-1.3) Estimated GFR (Cockcroft-Gault) 33.8 37.4 Glucose Level 145 mg/dL (70-99) 100 mg/dL (70-99) Calcium Level 9.0 mg/dL (8.5-10.1) 8.8 mg/dL (8.5-10.1) Phosphorus Level 3.9 mg/dL (2.6-4.7) 3.7 mg/dL (2.6-4.7) Albumin 3.4 g/dL (3.4-5.0) 3.2 g/dL (3.4-5.0) Laboratory Tests Test 02/12/19 03:25 Sodium Level 143 mmol/L (136-145) Potassium Level 3.8 mmol/L (3.5-5.1) Chloride Level 106 mmol/L (98-107) Carbon Dioxide Level 25 mmol/L (21-32) Anion Gap 12 (6-14) Blood Urea Nitrogen 26 mg/dL (8-26) Creatinine 2.2 mg/dL (0.7-1.3) Estimated GFR (Cockcroft-Gault) 37.4 Glucose Level 100 mg/dL (70-99) Calcium Level 8.8 mg/dL (8.5-10.1) Phosphorus Level 3.7 mg/dL (2.6-4.7) Albumin 3.2 g/dL (3.4-5.0) Medications Current Medications Aspirin (Dany Aspirin) 325 mg 1X ONCE PO Last administered on 02/10/19at 01:37; Start 02/10/19 at 01:00; Stop 02/10/19 at 01:01; Status DC Sodium Chloride 1,000 ml @ 1,000 mls/hr 1X ONCE IV ; Start 02/10/19 at 01:00; Stop 02/10/19 at 01:59; Status DC Bumetanide (Bumex) 0.5 mg BID92 IV Last administered on 02/12/19at 08:39; Start 02/10/19 at 02:30 Enoxaparin Sodium (Lovenox 100mg Syringe) 100 mg 1X ONCE SQ ; Start 02/10/19 at 02:30; Stop 02/10/19 at 03:12; Status DC Ondansetron HCl (Zofran) 4 mg PRN Q8HRS PRN IV NAUSEA/VOMITING 1ST CHOICE; Start 02/10/19 at 02:00; Stop 02/11/19 at 01:59; Status DC Amiodarone HCl (Cordarone) 200 mg DAILY PO Last administered on 02/12/19at 08:40; Start 02/10/19 at 09:00 Apixaban (Eliquis) 5 mg BID PO Last administered on 02/12/19at 08:40; Start 02/10/19 at 09:00 Ferrous Sulfate (Feosol) 325 mg DAILY PO Last administered on 02/12/19at 08:40; Start 02/10/19 at 09:00 Furosemide (Lasix) 40 mg DAILY PO ; Start 02/10/19 at 09:00; Stop 02/10/19 at 10:19; Status DC Losartan Potassium (Cozaar) 50 mg DAILY PO Last administered on 02/10/19at 07:55; Start 02/10/19 at 09:00; Stop 02/10/19 at 09:12; Status DC Metoprolol Succinate (Toprol Xl) 100 mg DAILY PO Last administered on 02/10/19at 07:55; Start 02/10/19 at 09:00; Stop 02/10/19 at 12:00; Status DC Metoprolol Tartrate (Lopressor) 12 mg BID PO ; Start 02/10/19 at 09:00; Status UNV Acetaminophen (Tylenol) 1,000 mg PRN Q6HRS PRN PO MILD PAIN / TEMP; Start 02/10/19 at 07:15 Non-Formulary Medication (Budesonide/ Formoterol Fumarate (Symbicort 80-4.5 Mcg Inhaler)) 1 puff QID IH ; Start 02/10/19 at 09:00; Status UNV Diltiazem HCl (Cardizem 24hr Cd) 240 mg DAILY PO Last administered on 02/10/19at 07:56; Start 02/10/19 at 09:00; Stop 02/10/19 at 09:12; Status DC Multivitamins (Thera M Plus) 1 tab DAILY PO Last administered on 02/12/19 08:40; Start 02/10/19 at 09:00 Budesonide (Pulmicort) 0.5 mg RTBID NEB Last administered on 02/12/19 08:22; Start 02/10/19 at 08:00 Albuterol Sulfate (Ventolin Neb Soln) 2.5 mg RTQID NEB Last administered on 02/10/19 11:42; Start 02/10/19 at 08:00; Stop 02/10/19 at 11:45; Status DC Hydralazine HCl (Apresoline Inj) 10 mg PRN Q4HRS PRN IVP ELEVATED BP, SEE COMMENTS Last administered on 02/12/19 02:21; Start 02/10/19 at 09:15 Levalbuterol HCl (Xopenex) 1.25 mg RTQID NEB Last administered on 02/12/19 11:56; Start 02/10/19 at 12:00 Metoprolol Succinate (Toprol Xl) 150 mg DAILY PO Last administered on 02/11/19 08:51; Start 02/11/19 at 09:00; Stop 02/11/19 at 16:45; Status DC Metoprolol Succinate (Toprol Xl) 50 mg 1X ONCE PO Last administered on 02/10/19 12:26; Start 02/10/19 at 12:30; Stop 02/10/19 at 12:31; Status DC Info (Anti-Coagulation Monitoring By Pharmacy) 1 each PRN DAILY PRN MC SEE COMMENTS Last administered on 02/11/19 13:44; Start 02/10/19 at 16:45 Digoxin (Lanoxin) 250 mcg 1X ONCE IV Last administered on 02/11/19 18:23; Start 02/11/19 at 16:45; Stop 02/11/19 at 18:01; Status DC Metoprolol Succinate (Toprol Xl) 200 mg DAILY PO Last administered on 02/12/19 08:40; Start 02/12/19 at 09:00 Digoxin (Lanoxin) 500 mcg 1X ONCE IV Last administered on 02/12/19 10:31; Start 02/12/19 at 10:30; Stop 02/12/19 at 10:31; Status DC Amlodipine Besylate (Norvasc) 5 mg 1X ONCE PO Last administered on 02/12/19at 12:05; Start 02/12/19 at 12:00; Stop 02/12/19 at 12:01; Status DC Active Scripts Active Metoprolol Succinate ( Xl ) (Metoprolol Succinate) 100 Mg Tab.er.24h 100 Mg PO DAILY 30 Days Amiodarone Hcl 200 Mg Tablet 200 Mg PO DAILY 30 Days Eliquis (Apixaban) 5 Mg Tablet 5 Mg PO BID 30 Days Ferrous Sulfate 325 Mg Tablet 1 Tab PO DAILY Reported Symbicort 80-4.5 Mcg Inhaler (Budesonide/Formoterol Fumarate) 10.2 Gm Hfa.aer.ad 1 Puff IH QID Multivitamins (Multivitamin) 1 Each Tablet 1 Each PO DAILY Metoprolol Tartrate 25 Mg Tablet 12 Mg PO BID Acetaminophen 500 Mg Tablet 1,000 Mg PO PRN Q6HRS PRN Cartia Xt (Diltiazem Hcl) 240 Mg Cap.er.24h 240 Mg PO DAILY Losartan Potassium (Losartan Potassium) 25 Mg Tablet 50 Mg PO DAILY Lasix (Furosemide) 40 Mg Tablet 40 Mg PO DAILY Vitals/I & O Vital Sign - Last 24 Hours 02/11/19 02/11/19 02/11/19 02/11/19 15:00 16:48 18:23 19:20 Temp 97.5 98.0 97.5 98.0 Pulse 117 118 116 Resp 20 22 B/P (MAP) 145/106 (119) 148/105 154/110 (125) Pulse Ox 100 96 98 O2 Delivery Nasal Cannula Nasal Cannula Nasal Cannula O2 Flow Rate 2.0 1.0 2.0 02/11/19 02/11/19 02/11/19 02/11/19 20:00 20:01 20:17 20:18 Pulse 118 B/P (MAP) 148/105 Pulse Ox 98 98 O2 Delivery Nasal Cannula Nasal Cannula Nasal Cannula O2 Flow Rate 2.0 1.0 1.0 02/11/19 02/12/19 02/12/19 02/12/19 23:20 02:21 03:40 07:00 Temp 98.0 99.0 98.4 98.0 99.0 98.4 Pulse 119 119 120 121 Resp 22 20 20 B/P (MAP) 157/106 (123) 157/106 146/104 (118) 152/102 (119) Pulse Ox 96 97 96 O2 Delivery Nasal Cannula Nasal Cannula Nasal Cannula O2 Flow Rate 2.0 2.0 2.0 02/12/19 02/12/19 02/12/19 02/12/19 08:00 08:22 08:40 08:40 Pulse 121 121 B/P (MAP) 152/102 152/102 Pulse Ox 98 O2 Delivery Room Air Nasal Cannula O2 Flow Rate 1.0 02/12/19 02/12/19 02/12/19 10:31 11:00 12:05 Temp 97.6 97.6 Pulse 117 116 116 Resp 20 B/P (MAP) 152/102 157/111 (126) 157/111 Pulse Ox 96 O2 Delivery Nasal Cannula O2 Flow Rate 2.0 Intake and Output 02/11/19 02/11/19 02/12/19 15:00 23:00 07:00 Intake Total 500 ml Output Total 600 ml 400 ml 900 ml Balance -600 ml -400 ml -400 ml LAINA SPENCE MD February 12, 2019 12:29
--- NOTE | 2019-02-12 14:47 | EKG ---
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
[2019-02-12] MEDS: dilTIAZem INJ 125 MG in IV DEXTROSE 5% 100ML 100 ML IV PRN (15:04)
[2019-02-12] MEDS: FUROSEMIDE 40 MG TABLET. PO SCH (15:10)
--- NOTE | 2019-02-12 15:46 | NUR ---
SS following for discharge planning. SS reviewed pt chart. Pt is from home and is currently requiring oxygen. No discharge needs noted at this time. SS will continue to follow for discharge planning.
--- NOTE | 2019-02-12 16:58 | PDOC ---
PULMONARY PROGRESS NOTES Vitals Vital Signs Date Time Temp Pulse Resp B/P (MAP) Pulse Ox O2 Delivery O2 Flow Rate FiO2 02/12/19 16:14 97 Room Air 02/12/19 15:00 97.3 117 20 153/108 (123) 2.0 97.3 Lungs: Wheezing Cardiovascular: S1, S2 Labs Laboratory Tests Test 02/11/19 08:56 02/12/19 03:25 Sodium Level 146 mmol/L (136-145) 143 mmol/L (136-145) Potassium Level 3.7 mmol/L (3.5-5.1) 3.8 mmol/L (3.5-5.1) Chloride Level 108 mmol/L (98-107) 106 mmol/L (98-107) Carbon Dioxide Level 27 mmol/L (21-32) 25 mmol/L (21-32) Anion Gap 11 (6-14) 12 (6-14) Blood Urea Nitrogen 29 mg/dL (8-26) 26 mg/dL (8-26) Creatinine 2.4 mg/dL (0.7-1.3) 2.2 mg/dL (0.7-1.3) Estimated GFR (Cockcroft-Gault) 33.8 37.4 Glucose Level 145 mg/dL (70-99) 100 mg/dL (70-99) Calcium Level 9.0 mg/dL (8.5-10.1) 8.8 mg/dL (8.5-10.1) Phosphorus Level 3.9 mg/dL (2.6-4.7) 3.7 mg/dL (2.6-4.7) Albumin 3.4 g/dL (3.4-5.0) 3.2 g/dL (3.4-5.0) Magnesium Level 2.0 mg/dL (1.8-2.4) Laboratory Tests Test 02/12/19 03:25 Sodium Level 143 mmol/L (136-145) Potassium Level 3.8 mmol/L (3.5-5.1) Chloride Level 106 mmol/L (98-107) Carbon Dioxide Level 25 mmol/L (21-32) Anion Gap 12 (6-14) Blood Urea Nitrogen 26 mg/dL (8-26) Creatinine 2.2 mg/dL (0.7-1.3) Estimated GFR (Cockcroft-Gault) 37.4 Glucose Level 100 mg/dL (70-99) Calcium Level 8.8 mg/dL (8.5-10.1) Phosphorus Level 3.7 mg/dL (2.6-4.7) Magnesium Level 2.0 mg/dL (1.8-2.4) Albumin 3.2 g/dL (3.4-5.0) Medications Active Scripts Medications Dose Route/Sig Max Daily Dose Days Date Category Metoprolol Succinate ( Xl ) (Metoprolol Succinate) 100 Mg Tab.er.24h 100 Mg PO DAILY 30 01/29/19 Rx Amiodarone Hcl 200 Mg Tablet 200 Mg PO DAILY 30 01/29/19 Rx Eliquis (Apixaban) 5 Mg Tablet 5 Mg PO BID 30 01/29/19 Rx Symbicort 80-4.5 Mcg Inhaler (Budesonide/Formoterol Fumarate) 10.2 Gm Hfa.aer.ad 1 Puff IH QID 01/27/19 Reported Multivitamins (Multivitamin) 1 Each Tablet 1 Each PO DAILY 01/27/19 Reported Metoprolol Tartrate 25 Mg Tablet 12 Mg PO BID 01/27/19 Reported Ferrous Sulfate 325 Mg Tablet 1 Tab PO DAILY 12/11/18 Rx Acetaminophen 500 Mg Tablet 1,000 Mg PO PRN Q6HRS PRN 12/09/18 Reported Cartia Xt (Diltiazem Hcl) 240 Mg Cap.er.24h 240 Mg PO DAILY 12/06/18 Reported Losartan Potassium (Losartan Potassium) 25 Mg Tablet 50 Mg PO DAILY 12/06/18 Reported Lasix (Furosemide) 40 Mg Tablet 40 Mg PO DAILY 09/03/14 Reported Impression . AECOPD A FLUTTER CM 25 % NOTE DICTATED NEEDS HOME RX FOR PROAIR WITH SPACER AMAN ASH MD February 12, 2019 16:58
[2019-02-12] MEDS ORDERED: ALBUTEROL SULFATE 2.5 MG/3 ML NEBU. NEB PRN (17:00)
--- NOTE | 2019-02-12 17:36 | RAD ---
Bilateral lower extremity venous doppler ultrasound History: Elevated d-dimer Comparison: None Findings: Multiple grayscale, color, and duplex spectral analysis sonographic images were acquired of the bilateral lower extremity veins to evaluate for the presence of DVT. There is normal phasicity. Normal compression, color-flow, and augmentation is demonstrated from the bilateral common femoral to the popliteal veins. There is normal color flow of the proximal greater saphenous and profunda femoris veins. There is normal color flow of segments of the calf veins. Impression: 1. There is no evidence of deep venous thrombosis from the bilateral common femoral to the popliteal veins. Electronically signed by: Tommy Ruth MD (02/12/2019 5:33 PM) [id number]
[2019-02-13] VITALS (14 sets, daily range): BP systolic 100–152; BP diastolic 58–101
[2019-02-13] MEDS: dilTIAZem INJ 125 MG in IV DEXTROSE 5% 100ML 100 ML IV PRN (00:51)
--- NOTE | 2019-02-13 03:10 | CONS ---
DATE OF CONSULTATION: 02/12/2019 ATTENDING PHYSICIAN: Dr. Song. REASON FOR CONSULTATION: The patient is seen in pulmonary consultation at the request of Dr. Wilkins for shortness of air. HISTORY OF PRESENT ILLNESS: The patient is a 58-year-old, with a history of tobacco use, COPD, unknown FEV1, presented with rapid heart rate. He was found to be in atrial fibrillation with rapid ventricular response, converted out of atrial flutter. He is now on metoprolol. He has underlying cardiomyopathy. He was short of breath with exertion. Quit tobacco a year ago. He uses Symbicort at home. No history given of infectious process. No fever, chills, nausea, vomiting, diarrhea. PAST MEDICAL HISTORY: 1. COPD, unknown FEV1; tobacco dependence, quit a month ago. 2. Cardiomyopathy, ejection fraction 20-25%. 3. Atrial fibrillation with rapid ventricular response, cardioverted out of flutter, now on metoprolol. 4. Moderate to severe tricuspid regurgitation. 5. Acute kidney injury. 6. Acute exacerbation of COPD. 7. Severe secondary pulmonary hypertension. PAST SURGICAL HISTORY: No recent major surgeries. SOCIAL HISTORY: He states that he quit tobacco a month ago. 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 No significant occupational or vocational exposures. No significant alcohol intake. ALLERGIES: No known drug allergies. REVIEW OF SYSTEMS: As indicated in the history of present illness, otherwise, a 10-point system was reviewed and negative. HOME MEDICATIONS: List was reviewed. He was on Symbicort at home. FAMILY HISTORY: Noncontributory. PHYSICAL EXAMINATION: GENERAL: The patient appeared to be older than stated age. VITAL SIGNS: Stable. O2 saturation was greater than 92%, currently on 1 liter. HEENT: Eyes, the sclerae were nonicteric. NECK: Jugular venous distention was not elevated. No lymphadenopathy. CHEST: Full expansion. LUNGS: Adequate airway flow, no wheezes. CARDIOVASCULAR: Regular rate and rhythm with S1, S2. No S3. ABDOMEN: Soft, nontender, nondistended. EXTREMITIES: No clubbing, cyanosis or edema. IMPRESSION: 1. Atrial flutter with rapid ventricular response. 2. Nonischemic cardiomyopathy, 20-25%. 3. Mild acute exacerbation of chronic obstructive pulmonary disease. 4. Tobacco dependence, in remission, quit approximately a month ago. 5. Acute on chronic systolic, diastolic heart failure. 6. Secondary pulmonary hypertension. 7. Elevated D-dimer, nonspecific. V/Q scan was obtained revealing no evidence of unmatched perfusion defects. PLAN: 1. Outpatient PFTs. 2. Symbicort and p.r.n. albuterol with spacer. 3. Follow Cardiology input. 4. The patient instructed on the importance of avoiding tobacco. 5. Possible outpatient polysomnogram. I do appreciate the privilege in sharing in the patient's care. AMAN ASH MD DR: GERI/jacques JOB#: [id number] / [id number]
[2019-02-13] MEDS: BUDESONIDE 0.5 MG/2 ML NEBU. NEB SCH ×2 (06:17→20:24)
[2019-02-13] MEDS: LEVALBUTEROL 1.25 MG/0.5 ML NEBU. NEB SCH ×4 (06:17→20:24)
[2019-02-13 08:29] LABS: BASO # 0.1 x10^3/uL (0.0-0.2); BASO % 1 % (0-3); EOS # 0.2 x10^3/uL (0.0-0.7); EOS % 3 % (0-3); HEMATOCRIT 36.6 % (39.0-53.0); HEMOGLOBIN 11.5 g/dL (13.0-17.5); LYMPH # 1.2 x10^3/uL (1.0-4.8); LYMPH % 18 % (24-48); MEAN CORPUSCULAR HEMOGLOBIN 26 pg (25-35); MEAN CORPUSCULAR HGB CONC 32 g/dL (31-37); MEAN CORPUSCULAR VOLUME 83 fL (79-100); MONO # 0.6 x10^3/uL (0.0-1.1); MONO % 9 % (0-9); NEUT # 4.6 x10^3uL (1.8-7.7); NEUT % 70 % (31-73); PLATELET COUNT 325 x10^3/uL (140-400); RED CELL DISTRIBUTION WIDTH 21.3 % (11.5-14.5); WHITE BLOOD COUNT 6.6 x10^3/uL (4.0-11.0)
--- NOTE | 2019-02-13 09:48 | PDOC ---
PROGRESS NOTES Chief Complaint Chief Complaint A/P: Acute on chronic diastolic HF - diuresing, difficult with his NEVA AFIB with RVR - Cardioverted out of aflutter, but has been back in now. Will change from cardizem to metoprolol Nonischemic cardiomyopathy - cont BB, ASA, statin The left ventricular systolic function is severely impaired. The Ejection Fraction is 20-25%. Mild aortic regurgitation. Moderate mitral regurgitation. Moderate to severe tricuspid regurgitation. AK I on possibly CK D - vasomotor vs cardiorenal. Hold EBONIE/ARB. consult nephrology Accel hypertension POA AECOPD - will cont nebulizers, may be better for xopenex Elevated D-dimer. VQ negative - compliant with eliquis Severe pulmonary HTN with valvular insufficiency: mod TR, mild MR and mild to mod AI - needs good BP control HTN - Hydralazine IV PRN CKD STAGE 3-4 REMOTE TOBACCO ABUSE FEN - Cardiac diet PPX - Eliquis FULL CODE Inpatient for CHF exacerbation, NEVA, and Aflutter PULM CONSULT consider cardioversion 46 MIN PT EXAM, CHART REVIEW, > 50% OF TIME SPENT WITH EXAM, CHART REVIEW, PT CARE COORDINATION History of Present Illness History of Present Illness Patient is a 58 year old male who presents with shortness of breath and rapid heart beat. Patient states this evening he was laying in bed watching tv and became short of breath and started having a rapid heart beat. His shortness of breath is worsened by exertion. He has not tried anything at home to alleviate his shortness of breath. Patient is also reporting increased swelling in his legs bilaterally. He denies any chest pain, lightheadedness, dizziness, or diaphoresis. Patient is a 58 yo La[place] male w/ PMHx NICM, TIA, A Fib, HTN, CKD, fatty liver, anemia, COPD who p/w dyspnea on exertion for the past several days, orthopnea, paroxysmal nocturnal dyspnea and elevated blood pressure with palpitations. Patient states he's been compliant with his medications. He checked his blood pressure prior to ED arrival noted be 180/120, prompting him to come to the emergency department. Patient denies chest pain, palpitations. Denies increased leg pain or swelling. No other acute symptoms or complaints. Hospitalized in November for UGIB, found with duodenitis, taken off Eliquis at that time, placed on ASA only. He was seen by cardiology and despite 20mg cardizem GTT and metoprolol up to 200mg daily and 2 doses of digoxin as well as loading on amiodarone over the course of 3 days he did not convert and only slowed to the 90s to reveal underlying atrial flutter. He underwent DC cardioversion with SHAI resulted below, this was successful and he was sent home with eliquis, metoprolol, diltiazem and amio scripts and cardiology f/u instructions. Overnight he diuresed well on Bumex, breathing somewhat better on Xopenex. Metoprolol increased to 200mg XL. His swelling is better. HR still in the 110s, though and still very SOB on exertion and is still on O2. Plan: CONSULT PULMONARY Cont diuresis Consult nephrology for likely CKD Wean O2 as tolerated, may need 6 min walk testing metoprolol increased to 200mg daily. remains on atrial flutter with RVR rate consistent at 120 Vitals Vitals Vital Signs Date Time Temp Pulse Resp B/P (MAP) Pulse Ox O2 Delivery O2 Flow Rate FiO2 02/13/19 08:35 81 148/85 (106) 02/13/19 07:44 Room Air 02/13/19 07:00 97.4 18 97 2.0 97.4 Physical Exam General: Alert, Oriented X3, Cooperative, mild distress Heart: Other (Irregularly irregular) Lungs: Wheezing Abdomen: Normal bowel sounds, Soft Extremities: No clubbing, No cyanosis Skin: No rashes, No breakdown Labs LABS Laboratory Tests Test 02/13/19 08:20 White Blood Count 6.6 x10^3/uL (4.0-11.0) Red Blood Count 4.40 x10^6/uL (4.30-5.70) Hemoglobin 11.5 g/dL (13.0-17.5) Hematocrit 36.6 % (39.0-53.0) Mean Corpuscular Volume 83 fL (79-100) Mean Corpuscular Hemoglobin 26 pg (25-35) Mean Corpuscular Hemoglobin Concent 32 g/dL (31-37) Red Cell Distribution Width 21.3 % (11.5-14.5) Platelet Count 325 x10^3/uL (140-400) Neutrophils (%) (Auto) 70 % (31-73) Lymphocytes (%) (Auto) 18 % (24-48) Monocytes (%) (Auto) 9 % (0-9) Eosinophils (%) (Auto) 3 % (0-3) Basophils (%) (Auto) 1 % (0-3) Neutrophils # (Auto) 4.6 x10^3uL (1.8-7.7) Lymphocytes # (Auto) 1.2 x10^3/uL (1.0-4.8) Monocytes # (Auto) 0.6 x10^3/uL (0.0-1.1) Eosinophils # (Auto) 0.2 x10^3/uL (0.0-0.7) Basophils # (Auto) 0.1 x10^3/uL (0.0-0.2) Sodium Level 143 mmol/L (136-145) Potassium Level 3.9 mmol/L (3.5-5.1) Chloride Level 107 mmol/L (98-107) Carbon Dioxide Level 28 mmol/L (21-32) Anion Gap 8 (6-14) Blood Urea Nitrogen 23 mg/dL (8-26) Creatinine 2.1 mg/dL (0.7-1.3) Estimated GFR (Cockcroft-Gault) 39.4 Glucose Level 110 mg/dL (70-99) Calcium Level 9.0 mg/dL (8.5-10.1) Phosphorus Level 4.2 mg/dL (2.6-4.7) Albumin 3.0 g/dL (3.4-5.0) Comment Review of Relevant I have reviewed the following items emmanuel (where applicable) has been applied. Labs Laboratory Tests Test 02/12/19 03:25 02/13/19 08:20 Sodium Level 143 mmol/L (136-145) 143 mmol/L (136-145) Potassium Level 3.8 mmol/L (3.5-5.1) 3.9 mmol/L (3.5-5.1) Chloride Level 106 mmol/L (98-107) 107 mmol/L (98-107) Carbon Dioxide Level 25 mmol/L (21-32) 28 mmol/L (21-32) Anion Gap 12 (6-14) 8 (6-14) Blood Urea Nitrogen 26 mg/dL (8-26) 23 mg/dL (8-26) Creatinine 2.2 mg/dL (0.7-1.3) 2.1 mg/dL (0.7-1.3) Estimated GFR (Cockcroft-Gault) 37.4 39.4 Glucose Level 100 mg/dL (70-99) 110 mg/dL (70-99) Calcium Level 8.8 mg/dL (8.5-10.1) 9.0 mg/dL (8.5-10.1) Phosphorus Level 3.7 mg/dL (2.6-4.7) 4.2 mg/dL (2.6-4.7) Magnesium Level 2.0 mg/dL (1.8-2.4) Albumin 3.2 g/dL (3.4-5.0) 3.0 g/dL (3.4-5.0) White Blood Count 6.6 x10^3/uL (4.0-11.0) Red Blood Count 4.40 x10^6/uL (4.30-5.70) Hemoglobin 11.5 g/dL (13.0-17.5) Hematocrit 36.6 % (39.0-53.0) Mean Corpuscular Volume 83 fL (79-100) Mean Corpuscular Hemoglobin 26 pg (25-35) Mean Corpuscular Hemoglobin Concent 32 g/dL (31-37) Red Cell Distribution Width 21.3 % (11.5-14.5) Platelet Count 325 x10^3/uL (140-400) Neutrophils (%) (Auto) 70 % (31-73) Lymphocytes (%) (Auto) 18 % (24-48) Monocytes (%) (Auto) 9 % (0-9) Eosinophils (%) (Auto) 3 % (0-3) Basophils (%) (Auto) 1 % (0-3) Neutrophils # (Auto) 4.6 x10^3uL (1.8-7.7) Lymphocytes # (Auto) 1.2 x10^3/uL (1.0-4.8) Monocytes # (Auto) 0.6 x10^3/uL (0.0-1.1) Eosinophils # (Auto) 0.2 x10^3/uL (0.0-0.7) Basophils # (Auto) 0.1 x10^3/uL (0.0-0.2) Laboratory Tests Test 02/13/19 08:20 White Blood Count 6.6 x10^3/uL (4.0-11.0) Red Blood Count 4.40 x10^6/uL (4.30-5.70) Hemoglobin 11.5 g/dL (13.0-17.5) Hematocrit 36.6 % (39.0-53.0) Mean Corpuscular Volume 83 fL (79-100) Mean Corpuscular Hemoglobin 26 pg (25-35) Mean Corpuscular Hemoglobin Concent 32 g/dL (31-37) Red Cell Distribution Width 21.3 % (11.5-14.5) Platelet Count 325 x10^3/uL (140-400) Neutrophils (%) (Auto) 70 % (31-73) Lymphocytes (%) (Auto) 18 % (24-48) Monocytes (%) (Auto) 9 % (0-9) Eosinophils (%) (Auto) 3 % (0-3) Basophils (%) (Auto) 1 % (0-3) Neutrophils # (Auto) 4.6 x10^3uL (1.8-7.7) Lymphocytes # (Auto) 1.2 x10^3/uL (1.0-4.8) Monocytes # (Auto) 0.6 x10^3/uL (0.0-1.1) Eosinophils # (Auto) 0.2 x10^3/uL (0.0-0.7) Basophils # (Auto) 0.1 x10^3/uL (0.0-0.2) Sodium Level 143 mmol/L (136-145) Potassium Level 3.9 mmol/L (3.5-5.1) Chloride Level 107 mmol/L (98-107) Carbon Dioxide Level 28 mmol/L (21-32) Anion Gap 8 (6-14) Blood Urea Nitrogen 23 mg/dL (8-26) Creatinine 2.1 mg/dL (0.7-1.3) Estimated GFR (Cockcroft-Gault) 39.4 Glucose Level 110 mg/dL (70-99) Calcium Level 9.0 mg/dL (8.5-10.1) Phosphorus Level 4.2 mg/dL (2.6-4.7) Albumin 3.0 g/dL (3.4-5.0) Medications Current Medications Aspirin (KitCheck Aspirin) 325 mg 1X ONCE PO Last administered on 02/10/19at 01:37; Start 02/10/19 at 01:00; Stop 02/10/19 at 01:01; Status DC Sodium Chloride 1,000 ml @ 1,000 mls/hr 1X ONCE IV ; Start 02/10/19 at 01:00; Stop 02/10/19 at 01:59; Status DC Bumetanide (Bumex) 0.5 mg BID92 IV Last administered on 02/12/19at 13:41; Start 02/10/19 at 02:30; Stop 02/12/19 at 14:42; Status DC Enoxaparin Sodium (Lovenox 100mg Syringe) 100 mg 1X ONCE SQ ; Start 02/10/19 at 02:30; Stop 02/10/19 at 03:12; Status DC Ondansetron HCl (Zofran) 4 mg PRN Q8HRS PRN IV NAUSEA/VOMITING 1ST CHOICE; Start 02/10/19 at 02:00; Stop 02/11/19 at 01:59; Status DC Amiodarone HCl (Cordarone) 200 mg DAILY PO Last administered on 02/12/19at 08:40; Start 02/10/19 at 09:00 Apixaban (Eliquis) 5 mg BID PO Last administered on 02/12/19at 21:14; Start 02/10/19 at 09:00 Ferrous Sulfate (Feosol) 325 mg DAILY PO Last administered on 02/12/19at 08:40; Start 02/10/19 at 09:00 Furosemide (Lasix) 40 mg DAILY PO ; Start 02/10/19 at 09:00; Stop 02/10/19 at 10:19; Status DC Losartan Potassium (Cozaar) 50 mg DAILY PO Last administered on 02/10/19at 07:55; Start 02/10/19 at 09:00; Stop 02/10/19 at 09:12; Status DC Metoprolol Succinate (Toprol Xl) 100 mg DAILY PO Last administered on 02/10/19at 07:55; Start 02/10/19 at 09:00; Stop 02/10/19 at 12:00; Status DC Metoprolol Tartrate (Lopressor) 12 mg BID PO ; Start 02/10/19 at 09:00; Status UNV Acetaminophen (Tylenol) 1,000 mg PRN Q6HRS PRN PO MILD PAIN / TEMP; Start 02/10/19 at 07:15 Non-Formulary Medication (Budesonide/ Formoterol Fumarate (Symbicort 80-4.5 Mcg Inhaler)) 1 puff QID IH ; Start 02/10/19 at 09:00; Status UNV Diltiazem HCl (Cardizem 24hr Cd) 240 mg DAILY PO Last administered on 02/10/19at 07:56; Start 02/10/19 at 09:00; Stop 02/10/19 at 09:12; Status DC Multivitamins (Thera M Plus) 1 tab DAILY PO Last administered on 02/12/19 08:40; Start 02/10/19 at 09:00 Budesonide (Pulmicort) 0.5 mg RTBID NEB Last administered on 02/13/19 06:17; Start 02/10/19 at 08:00 Albuterol Sulfate (Ventolin Neb Soln) 2.5 mg RTQID NEB Last administered on 02/10/19at 11:42; Start 02/10/19 at 08:00; Stop 02/10/19 at 11:45; Status DC Hydralazine HCl (Apresoline Inj) 10 mg PRN Q4HRS PRN IVP ELEVATED BP, SEE COMMENTS Last administered on 02/12/19at 02:21; Start 02/10/19 at 09:15 Levalbuterol HCl (Xopenex) 1.25 mg RTQID NEB Last administered on 02/13/19 06:17; Start 02/10/19 at 12:00 Metoprolol Succinate (Toprol Xl) 150 mg DAILY PO Last administered on 02/11/19 08:51; Start 02/11/19 at 09:00; Stop 02/11/19 at 16:45; Status DC Metoprolol Succinate (Toprol Xl) 50 mg 1X ONCE PO Last administered on 02/10/19 12:26; Start 02/10/19 at 12:30; Stop 02/10/19 at 12:31; Status DC Info (Anti-Coagulation Monitoring By Pharmacy) 1 each PRN DAILY PRN MC SEE COMMENTS Last administered on 02/11/19at 13:44; Start 02/10/19 at 16:45 Digoxin (Lanoxin) 250 mcg 1X ONCE IV Last administered on 02/11/19at 18:23; Start 02/11/19 at 16:45; Stop 02/11/19 at 18:01; Status DC Metoprolol Succinate (Toprol Xl) 200 mg DAILY PO Last administered on 02/12/19at 08:40; Start 02/12/19 at 09:00 Digoxin (Lanoxin) 500 mcg 1X ONCE IV Last administered on 02/12/19at 10:31; Start 02/12/19 at 10:30; Stop 02/12/19 at 10:31; Status DC Amlodipine Besylate (Norvasc) 5 mg 1X ONCE PO Last administered on 02/12/19at 12:05; Start 02/12/19 at 12:00; Stop 02/12/19 at 12:01; Status DC Diltiazem HCl 125 mg/Dextrose 125 ml @ 5 mls/hr CONT PRN IV SEE I/O RECORD Last administered on 02/13/19at 00:51; Start 02/12/19 at 14:45 Furosemide (Lasix) 40 mg BID92 PO Last administered on 02/12/19at 15:10; Start 02/12/19 at 15:00 Albuterol Sulfate (Ventolin Neb Soln) 2.5 mg PRN Q4HRS PRN NEB SHORTNESS OF BREATH; Start 02/12/19 at 17:00 Active Scripts Active Metoprolol Succinate ( Xl ) (Metoprolol Succinate) 100 Mg Tab.er.24h 100 Mg PO DAILY 30 Days Amiodarone Hcl 200 Mg Tablet 200 Mg PO DAILY 30 Days Eliquis (Apixaban) 5 Mg Tablet 5 Mg PO BID 30 Days Ferrous Sulfate 325 Mg Tablet 1 Tab PO DAILY Reported Symbicort 80-4.5 Mcg Inhaler (Budesonide/Formoterol Fumarate) 10.2 Gm Hfa.aer.ad 1 Puff IH QID Multivitamins (Multivitamin) 1 Each Tablet 1 Each PO DAILY Metoprolol Tartrate 25 Mg Tablet 12 Mg PO BID Acetaminophen 500 Mg Tablet 1,000 Mg PO PRN Q6HRS PRN Cartia Xt (Diltiazem Hcl) 240 Mg Cap.er.24h 240 Mg PO DAILY Losartan Potassium (Losartan Potassium) 25 Mg Tablet 50 Mg PO DAILY Lasix (Furosemide) 40 Mg Tablet 40 Mg PO DAILY Vitals/I & O Vital Sign - Last 24 Hours 02/12/19 02/12/19 02/12/19 02/12/19 10:31 11:00 12:05 15:00 Temp 97.6 97.3 97.6 97.3 Pulse 117 116 116 117 Resp 20 20 B/P (MAP) 152/102 157/111 (126) 157/111 153/108 (123) Pulse Ox 96 95 O2 Delivery Nasal Cannula Nasal Cannula O2 Flow Rate 2.0 2.0 02/12/19 02/12/19 02/12/19 02/12/19 15:21 15:30 15:45 16:14 Pulse 116 116 109 B/P (MAP) 152/101 (118) 127/88 (101) 144/97 (113) Pulse Ox 97 O2 Delivery Room Air 02/12/19 02/12/19 02/12/19 02/12/19 16:15 16:45 17:45 18:45 Pulse 120 118 94 B/P (MAP) 149/105 (120) 155/90 (111) 146/99 (115) 136/80 (98) 02/12/19 02/12/19 02/12/19 02/12/19 19:22 19:30 20:00 20:07 Temp 97.5 97.5 Pulse 79 90 B/P (MAP) 125/70 (88) 127/88 (101) Pulse Ox 97 97 O2 Delivery Room Air Room Air Room Air Room Air 02/12/19 02/12/19 02/12/19 02/12/19 20:07 21:03 22:00 23:00 Pulse 122 80 74 B/P (MAP) 144/69 (94) 110/81 (91) 122/74 (90) Pulse Ox 97 O2 Delivery Room Air Room Air Room Air 02/13/19 02/13/19 02/13/19 02/13/19 00:00 00:33 01:07 02:04 Pulse 66 61 63 63 B/P (MAP) 114/58 (76) 101/59 (73) 100/63 (75) 118/81 (93) O2 Delivery Room Air Room Air Room Air Room Air 02/13/19 02/13/19 02/13/19 02/13/19 03:30 05:11 06:18 06:19 Pulse 68 58 B/P (MAP) 128/77 (94) 123/81 (95) Pulse Ox 97 97 O2 Delivery Room Air Nasal Cannula Nasal Cannula O2 Flow Rate 1.0 1.0 02/13/19 02/13/19 02/13/19 02/13/19 06:37 07:00 07:44 08:35 Temp 97.4 97.4 Pulse 81 99 81 Resp 18 B/P (MAP) 147/79 (101) 149/99 (116) 148/85 (106) Pulse Ox 97 O2 Delivery Room Air Nasal Cannula Room Air O2 Flow Rate 2.0 Intake and Output 02/12/19 02/12/19 02/13/19 14:59 22:59 06:59 Intake Total 880 ml 318.14 ml Output Total 250 ml 1830 ml 400 ml Balance -250 ml -950 ml -81.86 ml LAINA SPENCE MD February 13, 2019 09:48
[2019-02-13 10:34] LABS: CREATININE 2.1 mg/dL (0.7-1.3); GFR 39.4; POTASSIUM 3.9 mmol/L (3.5-5.1); TOTAL BILIRUBIN 0.7 mg/dL (0.2-1.0); TOTAL PROTEIN 6.3 g/dL (6.4-8.2)
[2019-02-13 10:38] LABS: ALBUMIN/GLOBULIN RATIO 0.9 (1.0-1.7)
[2019-02-13] MEDS: APIXABAN 5 MG TABLET. PO SCH ×2 (10:53→21:13)
[2019-02-13] MEDS: AMIODARONE HCL 200 MG TABLET. PO SCH (10:55)
[2019-02-13] MEDS: FUROSEMIDE 40 MG TABLET. PO SCH ×2 (10:55→15:48)
[2019-02-13] MEDS: METOPROLOL SUCC 24HR ER 100 MG TAB.ER.24H. PO SCH (10:55)
[2019-02-13] MEDS: FERROUS SULFATE 325 MG TABLET. PO SCH (10:55)
[2019-02-13] MEDS: MULTIVITAMIN with MINERAL TABLET. PO SCH (10:55)
--- NOTE | 2019-02-13 11:18 | PDOC ---
AARON WELCH CNC APPLICATIONS ENGINEER 02/13/19 1118: CARDIO Progress Notes Date and Time Date of Service 02/13/19 Time of Evaluation 1115 Subjective Subjective: No Chest Pain, No shortness of breath, No Palpitations Vitals Vitals Vital Signs Date Time Temp Pulse Resp B/P (MAP) Pulse Ox O2 Delivery O2 Flow Rate FiO2 02/13/19 10:55 81 152/82 02/13/19 07:44 Room Air 02/13/19 07:00 97.4 18 97 2.0 97.4 Weight Weight [ ] Input and Output Intake and Output Intake and Output 02/13/19 06:59 Intake Total 1198.14 ml Output Total 2480 ml Balance -1281.86 ml Intake Oral 1080 ml IV Total 118.14 ml Output Urine Total 2480 ml Laboratory Labs Laboratory Tests Test 02/13/19 08:20 White Blood Count 6.6 x10^3/uL (4.0-11.0) Red Blood Count 4.40 x10^6/uL (4.30-5.70) Hemoglobin 11.5 g/dL (13.0-17.5) Hematocrit 36.6 % (39.0-53.0) Mean Corpuscular Volume 83 fL (79-100) Mean Corpuscular Hemoglobin 26 pg (25-35) Mean Corpuscular Hemoglobin Concent 32 g/dL (31-37) Red Cell Distribution Width 21.3 % (11.5-14.5) Platelet Count 325 x10^3/uL (140-400) Neutrophils (%) (Auto) 70 % (31-73) Lymphocytes (%) (Auto) 18 % (24-48) Monocytes (%) (Auto) 9 % (0-9) Eosinophils (%) (Auto) 3 % (0-3) Basophils (%) (Auto) 1 % (0-3) Neutrophils # (Auto) 4.6 x10^3uL (1.8-7.7) Lymphocytes # (Auto) 1.2 x10^3/uL (1.0-4.8) Monocytes # (Auto) 0.6 x10^3/uL (0.0-1.1) Eosinophils # (Auto) 0.2 x10^3/uL (0.0-0.7) Basophils # (Auto) 0.1 x10^3/uL (0.0-0.2) Sodium Level 143 mmol/L (136-145) Potassium Level 3.9 mmol/L (3.5-5.1) Chloride Level 107 mmol/L (98-107) Carbon Dioxide Level 28 mmol/L (21-32) Anion Gap 8 (6-14) Blood Urea Nitrogen 23 mg/dL (8-26) Creatinine 2.1 mg/dL (0.7-1.3) Estimated GFR (Cockcroft-Gault) 39.4 BUN/Creatinine Ratio 11 (6-20) Glucose Level 110 mg/dL (70-99) Calcium Level 9.0 mg/dL (8.5-10.1) Total Bilirubin 0.7 mg/dL (0.2-1.0) Aspartate Amino Transf (AST/SGOT) 19 U/L (15-37) Alanine Aminotransferase (ALT/SGPT) 17 U/L (16-63) Alkaline Phosphatase 92 U/L (46-116) Total Protein 6.3 g/dL (6.4-8.2) Albumin 3.0 g/dL (3.4-5.0) Albumin/Globulin Ratio 0.9 (1.0-1.7) Physical Exam HEENT: Neck Supple W Full Motion Chest: Symmetric LUNGS: Clear to Auscultation Heart: irregularly irregular (Atrial flutter rate 120) Abdomen: Soft N/T Extremities: No Calf Tenderness Neurology: alert, oriented, follow commands Assessment Assessment 1. Acute on chronic diastolic/systolic CHF: appears compensated 2. NICM; LVEF 20-25% likely tachy induced. 3. PAFIB/flutter; s/p CV 01/29/19. Remains Aflutter. HR better controlled on IV Cardizem 4. AECOPD with h/o tobaccoism; recently quit 5. Elevated D-dimer. VQ not suggestive of PE 6. NEVA on CKD; Cr improving 7. Hypertension; controlled 8. Severe pulmonary HTN with valvular insufficiency: mod TR, mild MR and mild to mod AI. 8. Hypothyroidism; new. Replacement as per PCP Recommendations Continue with metoprolol and amiodarone. Convert Cardizem to oral and titrate off gtt. Eliquis for stroke prophylaxis. ARB on hold with NEVA. Follow renal recs Outpatient EP referral for ablation therapy DESMOND VINCENT MD 02/13/19 2135: CARDIO Progress Notes Assessment Assessment Patient seen and examined. Agree with REAL ESTATE OFFICE MANAGER's assessment and plan. Atrial flutter rate better controlled Change cardizem to PO Ac on chr systolic HF better compensated Continue current meds Plan outpatient EP eval for possible ablation AARON WELCH APRN February 13, 2019 11:18 DESMOND VINCENT MD February 13, 2019 21:35
--- NOTE | 2019-02-13 12:53 | PDOC ---
SUBJECTIVE ROS States feeling better OBJECTIVE Vital Signs Vital Signs Date Time Temp Pulse Resp B/P (MAP) Pulse Ox O2 Delivery O2 Flow Rate FiO2 02/13/19 11:00 98.1 81 20 152/82 (105) 95 Nasal Cannula 1.0 98.1 I & 0 Intake and Output 02/13/19 06:59 Intake Total 1198.14 ml Output Total 2480 ml Balance -1281.86 ml Intake Oral 1080 ml IV Total 118.14 ml Output Urine Total 2480 ml PHYSICAL EXAM Physical Exam GEN.: No apparent distress HEENT: OM moist NECK: Supple, no JVD LUNGS: Clear to auscultation , no use of acc muscles HEART: RRR, S1, S2 present. ABDOMEN: Soft, nontender. EXTREMITIES: Without any cyanosis, clubbing, or edema. NEUROLOGIC: Normal speech, normal tone. A&O x 3 SKIN: No ulcerations or rashes No claire DIAGNOSIS/ASSESSMENT Assessment & Plan NEVA- Intermittent, Cardiorenal In Nov 2018 Creat peaked at 2.9, in 2013 NEVA with Cr 3.3 Renal function improving E-lytes and acid base stable , Holding ARB CKD stage 3- Baseline Creat appears to be 2-2.5 on review of old records in [facility] Was seen as inpatient in Nov and Post Op follow up with Dr. Cuevas on 01/10 Renal function stable at 2.4 Has follow up appt on 03/24/2019 Acute on chronic diastolic HF - was on IV Bumex,switched to Lasix po cardiology managing AFIB with RVR - Cardioverted out of aflutter, but has been back in now. Cardiology monitoring Nonischemic cardiomyopathy - cont BB, ASA, statin left ventricular systolic function is severely impaired. Ejection Fraction is 20-25% Moderate mitral regurgitation. Moderate to severe tricuspid regurgitation COPD - stable Severe pulmonary HTN with valvular insufficiency: mod TR, mild MR and mild to mod AI - needs good BP control HTN - Holding ARB can restart if Renal function stays stable at baseline Anemia- Hg Improved post Transfusion GI was consulted \ COMMENT/RELEVANT DATA Meds Current Medications Medications (Trade) Dose Ordered Sig/Hari Start Time Stop Time Status Last Admin Dose Admin Acetaminophen (Tylenol) 1,000 mg PRN Q6HRS PRN 02/10/19 07:15 Albuterol Sulfate (Ventolin Neb Soln) 2.5 mg PRN Q4HRS PRN 02/12/19 17:00 Amiodarone HCl (Cordarone) 200 mg DAILY 02/10/19 09:00 02/13/19 10:55 200 MG Amlodipine Besylate (Norvasc) 5 mg 1X ONCE 02/12/19 12:00 02/12/19 12:01 DC 02/12/19 12:05 5 MG Apixaban (Eliquis) 5 mg BID 02/10/19 09:00 02/13/19 10:53 5 MG Aspirin (Dany Aspirin) 325 mg 1X ONCE 02/10/19 01:00 02/10/19 01:01 DC 02/10/19 01:37 325 MG Budesonide (Pulmicort) 0.5 mg RTBID 02/10/19 08:00 02/13/19 06:17 0.5 MG Bumetanide (Bumex) 0.5 mg BID92 02/10/19 02:30 02/12/19 14:42 DC 02/12/19 13:41 0.5 MG Digoxin (Lanoxin) 500 mcg 1X ONCE 02/12/19 10:30 02/12/19 10:31 DC 02/12/19 10:31 500 MCG Diltiazem HCl (Cardizem 24hr Cd) 180 mg DAILY 02/13/19 11:00 02/13/19 10:54 180 MG Diltiazem HCl 125 mg/Dextrose 125 ml @ 5 mls/hr CONT PRN 02/12/19 14:45 02/13/19 00:51 5 MLS/HR Enoxaparin Sodium (Lovenox 100mg Syringe) 100 mg 1X ONCE 02/10/19 02:30 02/10/19 03:12 DC Ferrous Sulfate (Feosol) 325 mg DAILY 02/10/19 09:00 02/13/19 10:55 325 MG Furosemide (Lasix) 40 mg BID92 02/12/19 15:00 02/13/19 10:55 40 MG Hydralazine HCl (Apresoline Inj) 10 mg PRN Q4HRS PRN 02/10/19 09:15 02/12/19 02:21 10 MG Info (Anti-Coagulation Monitoring By Pharmacy) 1 each PRN DAILY PRN 02/10/19 16:45 02/11/19 13:44 1 EACH Levalbuterol HCl (Xopenex) 1.25 mg RTQID 02/10/19 12:00 02/13/19 06:17 1.25 MG Losartan Potassium (Cozaar) 50 mg DAILY 02/10/19 09:00 02/10/19 09:12 DC 02/10/19 07:55 50 MG Metoprolol Succinate (Toprol Xl) 200 mg DAILY 02/12/19 09:00 02/13/19 10:55 200 MG Metoprolol Tartrate (Lopressor) 12 mg BID 02/10/19 09:00 UNV Multivitamins (Thera M Plus) 1 tab DAILY 02/10/19 09:00 02/13/19 10:55 1 TAB Non-Formulary Medication (Budesonide/ Formoterol Fumarate (Symbicort 80-4.5 Mcg Inhaler)) 1 puff QID 02/10/19 09:00 UNV Ondansetron HCl (Zofran) 4 mg PRN Q8HRS PRN 02/10/19 02:00 02/11/19 01:59 DC Sodium Chloride 1,000 ml @ 1,000 mls/hr 1X ONCE 02/10/19 01:00 02/10/19 01:59 DC Lab Laboratory Tests Test 02/13/19 08:20 White Blood Count 6.6 x10^3/uL (4.0-11.0) Red Blood Count 4.40 x10^6/uL (4.30-5.70) Hemoglobin 11.5 g/dL (13.0-17.5) Hematocrit 36.6 % (39.0-53.0) Mean Corpuscular Volume 83 fL (79-100) Mean Corpuscular Hemoglobin 26 pg (25-35) Mean Corpuscular Hemoglobin Concent 32 g/dL (31-37) Red Cell Distribution Width 21.3 % (11.5-14.5) Platelet Count 325 x10^3/uL (140-400) Neutrophils (%) (Auto) 70 % (31-73) Lymphocytes (%) (Auto) 18 % (24-48) Monocytes (%) (Auto) 9 % (0-9) Eosinophils (%) (Auto) 3 % (0-3) Basophils (%) (Auto) 1 % (0-3) Neutrophils # (Auto) 4.6 x10^3uL (1.8-7.7) Lymphocytes # (Auto) 1.2 x10^3/uL (1.0-4.8) Monocytes # (Auto) 0.6 x10^3/uL (0.0-1.1) Eosinophils # (Auto) 0.2 x10^3/uL (0.0-0.7) Basophils # (Auto) 0.1 x10^3/uL (0.0-0.2) Sodium Level 143 mmol/L (136-145) Potassium Level 3.9 mmol/L (3.5-5.1) Chloride Level 107 mmol/L (98-107) Carbon Dioxide Level 28 mmol/L (21-32) Anion Gap 8 (6-14) Blood Urea Nitrogen 23 mg/dL (8-26) Creatinine 2.1 mg/dL (0.7-1.3) Estimated GFR (Cockcroft-Gault) 39.4 BUN/Creatinine Ratio 11 (6-20) Glucose Level 110 mg/dL (70-99) Calcium Level 9.0 mg/dL (8.5-10.1) Total Bilirubin 0.7 mg/dL (0.2-1.0) Aspartate Amino Transf (AST/SGOT) 19 U/L (15-37) Alanine Aminotransferase (ALT/SGPT) 17 U/L (16-63) Alkaline Phosphatase 92 U/L (46-116) Total Protein 6.3 g/dL (6.4-8.2) Albumin 3.0 g/dL (3.4-5.0) Albumin/Globulin Ratio 0.9 (1.0-1.7) Results All relevant outside records, renal labs, imaging studies, telemetry/EKG's were reviewed. UNRULY HERR MD February 13, 2019 12:53
[2019-02-13] MEDS: ANTI-COAG MONITOR BY PHARMACY. MC PRN (14:38)
--- NOTE | 2019-02-13 14:51 | PDOC ---
PULMONARY PROGRESS NOTES Subjective NO SOA Vitals Vital Signs Date Time Temp Pulse Resp B/P (MAP) Pulse Ox O2 Delivery O2 Flow Rate FiO2 02/13/19 13:28 98 Room Air 02/13/19 11:00 98.1 81 20 152/82 (105) 1.0 98.1 ROS: No Chest Pain General: Alert, No acute distress Lungs: Clear Cardiovascular: S1, S2 Abdomen: Soft Neuro Exam: Alert Extremities: No Edema Skin: Warm Labs Laboratory Tests Test 02/12/19 03:25 02/13/19 08:20 Sodium Level 143 mmol/L (136-145) 143 mmol/L (136-145) Potassium Level 3.8 mmol/L (3.5-5.1) 3.9 mmol/L (3.5-5.1) Chloride Level 106 mmol/L (98-107) 107 mmol/L (98-107) Carbon Dioxide Level 25 mmol/L (21-32) 28 mmol/L (21-32) Anion Gap 12 (6-14) 8 (6-14) Blood Urea Nitrogen 26 mg/dL (8-26) 23 mg/dL (8-26) Creatinine 2.2 mg/dL (0.7-1.3) 2.1 mg/dL (0.7-1.3) Estimated GFR (Cockcroft-Gault) 37.4 39.4 Glucose Level 100 mg/dL (70-99) 110 mg/dL (70-99) Calcium Level 8.8 mg/dL (8.5-10.1) 9.0 mg/dL (8.5-10.1) Phosphorus Level 3.7 mg/dL (2.6-4.7) Magnesium Level 2.0 mg/dL (1.8-2.4) Albumin 3.2 g/dL (3.4-5.0) 3.0 g/dL (3.4-5.0) White Blood Count 6.6 x10^3/uL (4.0-11.0) Red Blood Count 4.40 x10^6/uL (4.30-5.70) Hemoglobin 11.5 g/dL (13.0-17.5) Hematocrit 36.6 % (39.0-53.0) Mean Corpuscular Volume 83 fL (79-100) Mean Corpuscular Hemoglobin 26 pg (25-35) Mean Corpuscular Hemoglobin Concent 32 g/dL (31-37) Red Cell Distribution Width 21.3 % (11.5-14.5) Platelet Count 325 x10^3/uL (140-400) Neutrophils (%) (Auto) 70 % (31-73) Lymphocytes (%) (Auto) 18 % (24-48) Monocytes (%) (Auto) 9 % (0-9) Eosinophils (%) (Auto) 3 % (0-3) Basophils (%) (Auto) 1 % (0-3) Neutrophils # (Auto) 4.6 x10^3uL (1.8-7.7) Lymphocytes # (Auto) 1.2 x10^3/uL (1.0-4.8) Monocytes # (Auto) 0.6 x10^3/uL (0.0-1.1) Eosinophils # (Auto) 0.2 x10^3/uL (0.0-0.7) Basophils # (Auto) 0.1 x10^3/uL (0.0-0.2) BUN/Creatinine Ratio 11 (6-20) Total Bilirubin 0.7 mg/dL (0.2-1.0) Aspartate Amino Transf (AST/SGOT) 19 U/L (15-37) Alanine Aminotransferase (ALT/SGPT) 17 U/L (16-63) Alkaline Phosphatase 92 U/L (46-116) Total Protein 6.3 g/dL (6.4-8.2) Albumin/Globulin Ratio 0.9 (1.0-1.7) Laboratory Tests Test 02/13/19 08:20 White Blood Count 6.6 x10^3/uL (4.0-11.0) Red Blood Count 4.40 x10^6/uL (4.30-5.70) Hemoglobin 11.5 g/dL (13.0-17.5) Hematocrit 36.6 % (39.0-53.0) Mean Corpuscular Volume 83 fL (79-100) Mean Corpuscular Hemoglobin 26 pg (25-35) Mean Corpuscular Hemoglobin Concent 32 g/dL (31-37) Red Cell Distribution Width 21.3 % (11.5-14.5) Platelet Count 325 x10^3/uL (140-400) Neutrophils (%) (Auto) 70 % (31-73) Lymphocytes (%) (Auto) 18 % (24-48) Monocytes (%) (Auto) 9 % (0-9) Eosinophils (%) (Auto) 3 % (0-3) Basophils (%) (Auto) 1 % (0-3) Neutrophils # (Auto) 4.6 x10^3uL (1.8-7.7) Lymphocytes # (Auto) 1.2 x10^3/uL (1.0-4.8) Monocytes # (Auto) 0.6 x10^3/uL (0.0-1.1) Eosinophils # (Auto) 0.2 x10^3/uL (0.0-0.7) Basophils # (Auto) 0.1 x10^3/uL (0.0-0.2) Sodium Level 143 mmol/L (136-145) Potassium Level 3.9 mmol/L (3.5-5.1) Chloride Level 107 mmol/L (98-107) Carbon Dioxide Level 28 mmol/L (21-32) Anion Gap 8 (6-14) Blood Urea Nitrogen 23 mg/dL (8-26) Creatinine 2.1 mg/dL (0.7-1.3) Estimated GFR (Cockcroft-Gault) 39.4 BUN/Creatinine Ratio 11 (6-20) Glucose Level 110 mg/dL (70-99) Calcium Level 9.0 mg/dL (8.5-10.1) Total Bilirubin 0.7 mg/dL (0.2-1.0) Aspartate Amino Transf (AST/SGOT) 19 U/L (15-37) Alanine Aminotransferase (ALT/SGPT) 17 U/L (16-63) Alkaline Phosphatase 92 U/L (46-116) Total Protein 6.3 g/dL (6.4-8.2) Albumin 3.0 g/dL (3.4-5.0) Albumin/Globulin Ratio 0.9 (1.0-1.7) Medications Active Scripts Medications Dose Route/Sig Max Daily Dose Days Date Category Metoprolol Succinate ( Xl ) (Metoprolol Succinate) 100 Mg Tab.er.24h 100 Mg PO DAILY 30 01/29/19 Rx Amiodarone Hcl 200 Mg Tablet 200 Mg PO DAILY 30 01/29/19 Rx Eliquis (Apixaban) 5 Mg Tablet 5 Mg PO BID 30 01/29/19 Rx Symbicort 80-4.5 Mcg Inhaler (Budesonide/Formoterol Fumarate) 10.2 Gm Hfa.aer.ad 1 Puff IH QID 01/27/19 Reported Multivitamins (Multivitamin) 1 Each Tablet 1 Each PO DAILY 01/27/19 Reported Metoprolol Tartrate 25 Mg Tablet 12 Mg PO BID 01/27/19 Reported Ferrous Sulfate 325 Mg Tablet 1 Tab PO DAILY 12/11/18 Rx Acetaminophen 500 Mg Tablet 1,000 Mg PO PRN Q6HRS PRN 12/09/18 Reported Cartia Xt (Diltiazem Hcl) 240 Mg Cap.er.24h 240 Mg PO DAILY 12/06/18 Reported Losartan Potassium (Losartan Potassium) 25 Mg Tablet 50 Mg PO DAILY 12/06/18 Reported Lasix (Furosemide) 40 Mg Tablet 40 Mg PO DAILY 09/03/14 Reported Impression . 1. Atrial flutter with rapid ventricular response. 2. Nonischemic cardiomyopathy, 20-25%. 3. Mild acute exacerbation of chronic obstructive pulmonary disease. 4. Tobacco dependence, in remission, quit approximately a month ago. 5. CLEAR CXR 6. Secondary pulmonary hypertension. 7. Elevated D-dimer, nonspecific. V/Q scan was obtained revealing no evidence of unmatched perfusion defects. Plan . 1. Outpatient PFTs. 2. Symbicort and p.r.n. albuterol with spacer. 3. Follow Cardiology input. 4. The patient instructed on the importance of avoiding tobacco. 5. Possible outpatient polysomnogram. 6. no further pulmonary rec PATIENCE VIGIL MD February 13, 2019 14:50
[2019-02-14 03:28] VITALS: BP 140/100
[2019-02-14] MEDS: hydrALAZINE 20 MG/ML VIAL. IVP PRN (03:41)
--- NOTE | 2019-02-14 03:48 | NUR ---
at 0255 pt had not been able to void, pt bladder scanned it showed 280cc in bladder. pt placed on bedpan, ice water given, at 0345 pt voided 200cc, call light in reach, will cont to monitor for changes Addendum: 02/14/19 at 0632 by LOUISA GOTTLIEB RN Above noted written on wrong pt. pmrn
[2019-02-14 04:46] LABS: BASO # 0.1 x10^3/uL (0.0-0.2); BASO % 1 % (0-3); EOS # 0.2 x10^3/uL (0.0-0.7); EOS % 3 % (0-3); HEMATOCRIT 36.6 % (39.0-53.0); HEMOGLOBIN 11.6 g/dL (13.0-17.5); LYMPH # 1.4 x10^3/uL (1.0-4.8); LYMPH % 21 % (24-48); MEAN CORPUSCULAR HEMOGLOBIN 26 pg (25-35); MEAN CORPUSCULAR HGB CONC 32 g/dL (31-37); MEAN CORPUSCULAR VOLUME 83 fL (79-100); MONO # 0.8 x10^3/uL (0.0-1.1); MONO % 11 % (0-9); NEUT # 4.3 x10^3uL (1.8-7.7); NEUT % 64 % (31-73); PLATELET COUNT 318 x10^3/uL (140-400); RED BLOOD COUNT 4.41 x10^6/uL (4.30-5.70); RED CELL DISTRIBUTION WIDTH 21.1 % (11.5-14.5); WHITE BLOOD COUNT 6.7 x10^3/uL (4.0-11.0)
[2019-02-14 07:00] VITALS: BP 131/97
--- NOTE | 2019-02-14 07:51 | PDOC ---
PROGRESS NOTES Chief Complaint Chief Complaint A/P: Acute on chronic diastolic HF - diuresing, difficult with his NEVA AFIB with RVR - Cardioverted out of aflutter, but has been back in now. Will change from cardizem to metoprolol Nonischemic cardiomyopathy - cont BB, ASA, statin The left ventricular systolic function is severely impaired. The Ejection Fraction is 20-25%. Mild aortic regurgitation. Moderate mitral regurgitation. Moderate to severe tricuspid regurgitation. AK I on possibly CK D - vasomotor vs cardiorenal. Hold EBONIE/ARB. consult nephrology Accel hypertension POA AECOPD - will cont nebulizers, may be better for xopenex Elevated D-dimer. VQ negative - compliant with eliquis Severe pulmonary HTN with valvular insufficiency: mod TR, mild MR and mild to mod AI - needs good BP control HTN - Hydralazine IV PRN CKD STAGE 3-4 REMOTE TOBACCO ABUSE FEN - Cardiac diet PPX - Eliquis FULL CODE Inpatient for CHF exacerbation, NEVA, and Aflutter PULM CONSULT consider cardioversion 46 MIN PT EXAM, CHART REVIEW, > 50% OF TIME SPENT WITH EXAM, CHART REVIEW, PT CARE COORDINATION History of Present Illness History of Present Illness Patient is a 58 year old male who presents with shortness of breath and rapid heart beat. Patient states this evening he was laying in bed watching tv and became short of breath and started having a rapid heart beat. His shortness of breath is worsened by exertion. He has not tried anything at home to alleviate his shortness of breath. Patient is also reporting increased swelling in his legs bilaterally. He denies any chest pain, lightheadedness, dizziness, or diaphoresis. Patient is a 58 yo [place] male w/ PMHx NICM, TIA, A Fib, HTN, CKD, fatty liver, anemia, COPD who p/w dyspnea on exertion for the past several days, orthopnea, paroxysmal nocturnal dyspnea and elevated blood pressure with palpitations. Patient states he's been compliant with his medications. He checked his blood pressure prior to ED arrival noted be 180/120, prompting him to come to the emergency department. Patient denies chest pain, palpitations. Denies increased leg pain or swelling. No other acute symptoms or complaints. Hospitalized in November for UGIB, found with duodenitis, taken off Eliquis at that time, placed on ASA only. He was seen by cardiology and despite 20mg cardizem GTT and metoprolol up to 200mg daily and 2 doses of digoxin as well as loading on amiodarone over the course of 3 days he did not convert and only slowed to the 90s to reveal underlying atrial flutter. He underwent DC cardioversion with SHAI resulted below, this was successful and he was sent home with eliquis, metoprolol, diltiazem and amio scripts and cardiology f/u instructions. Overnight he diuresed well on Bumex, breathing somewhat better on Xopenex. Metoprolol increased to 200mg XL. His swelling is better. HR still in the 110s, though and still very SOB on exertion and is still on O2. Plan: CONSULT PULMONARY Cont diuresis Consult nephrology for likely CKD Wean O2 as tolerated, may need 6 min walk testing metoprolol increased to 200mg daily. remains on atrial flutter with RVR rate consistent at 120 Vitals Vitals Vital Signs Date Time Temp Pulse Resp B/P (MAP) Pulse Ox O2 Delivery O2 Flow Rate FiO2 02/14/19 07:00 97.6 116 16 131/97 (108) 95 Room Air 97.6 02/14/19 03:28 2.0 Physical Exam General: Alert, Oriented X3, Cooperative, mild distress Heart: Other (Irregularly irregular) Lungs: Clear Abdomen: Normal bowel sounds, Soft Extremities: No clubbing, No cyanosis Skin: No rashes, No breakdown Labs LABS Laboratory Tests Test 02/13/19 08:20 02/14/19 04:15 White Blood Count 6.6 x10^3/uL (4.0-11.0) 6.7 x10^3/uL (4.0-11.0) Red Blood Count 4.40 x10^6/uL (4.30-5.70) 4.41 x10^6/uL (4.30-5.70) Hemoglobin 11.5 g/dL (13.0-17.5) 11.6 g/dL (13.0-17.5) Hematocrit 36.6 % (39.0-53.0) 36.6 % (39.0-53.0) Mean Corpuscular Volume 83 fL (79-100) 83 fL (79-100) Mean Corpuscular Hemoglobin 26 pg (25-35) 26 pg (25-35) Mean Corpuscular Hemoglobin Concent 32 g/dL (31-37) 32 g/dL (31-37) Red Cell Distribution Width 21.3 % (11.5-14.5) 21.1 % (11.5-14.5) Platelet Count 325 x10^3/uL (140-400) 318 x10^3/uL (140-400) Neutrophils (%) (Auto) 70 % (31-73) 64 % (31-73) Lymphocytes (%) (Auto) 18 % (24-48) 21 % (24-48) Monocytes (%) (Auto) 9 % (0-9) 11 % (0-9) Eosinophils (%) (Auto) 3 % (0-3) 3 % (0-3) Basophils (%) (Auto) 1 % (0-3) 1 % (0-3) Neutrophils # (Auto) 4.6 x10^3uL (1.8-7.7) 4.3 x10^3uL (1.8-7.7) Lymphocytes # (Auto) 1.2 x10^3/uL (1.0-4.8) 1.4 x10^3/uL (1.0-4.8) Monocytes # (Auto) 0.6 x10^3/uL (0.0-1.1) 0.8 x10^3/uL (0.0-1.1) Eosinophils # (Auto) 0.2 x10^3/uL (0.0-0.7) 0.2 x10^3/uL (0.0-0.7) Basophils # (Auto) 0.1 x10^3/uL (0.0-0.2) 0.1 x10^3/uL (0.0-0.2) Sodium Level 143 mmol/L (136-145) Potassium Level 3.9 mmol/L (3.5-5.1) Chloride Level 107 mmol/L (98-107) Carbon Dioxide Level 28 mmol/L (21-32) Anion Gap 8 (6-14) Blood Urea Nitrogen 23 mg/dL (8-26) Creatinine 2.1 mg/dL (0.7-1.3) Estimated GFR (Cockcroft-Gault) 39.4 BUN/Creatinine Ratio 11 (6-20) Glucose Level 110 mg/dL (70-99) Calcium Level 9.0 mg/dL (8.5-10.1) Total Bilirubin 0.7 mg/dL (0.2-1.0) Aspartate Amino Transf (AST/SGOT) 19 U/L (15-37) Alanine Aminotransferase (ALT/SGPT) 17 U/L (16-63) Alkaline Phosphatase 92 U/L (46-116) Total Protein 6.3 g/dL (6.4-8.2) Albumin 3.0 g/dL (3.4-5.0) Albumin/Globulin Ratio 0.9 (1.0-1.7) Comment Review of Relevant I have reviewed the following items emmanuel (where applicable) has been applied. Labs Laboratory Tests Test 02/13/19 08:20 02/14/19 04:15 White Blood Count 6.6 x10^3/uL (4.0-11.0) 6.7 x10^3/uL (4.0-11.0) Red Blood Count 4.40 x10^6/uL (4.30-5.70) 4.41 x10^6/uL (4.30-5.70) Hemoglobin 11.5 g/dL (13.0-17.5) 11.6 g/dL (13.0-17.5) Hematocrit 36.6 % (39.0-53.0) 36.6 % (39.0-53.0) Mean Corpuscular Volume 83 fL (79-100) 83 fL (79-100) Mean Corpuscular Hemoglobin 26 pg (25-35) 26 pg (25-35) Mean Corpuscular Hemoglobin Concent 32 g/dL (31-37) 32 g/dL (31-37) Red Cell Distribution Width 21.3 % (11.5-14.5) 21.1 % (11.5-14.5) Platelet Count 325 x10^3/uL (140-400) 318 x10^3/uL (140-400) Neutrophils (%) (Auto) 70 % (31-73) 64 % (31-73) Lymphocytes (%) (Auto) 18 % (24-48) 21 % (24-48) Monocytes (%) (Auto) 9 % (0-9) 11 % (0-9) Eosinophils (%) (Auto) 3 % (0-3) 3 % (0-3) Basophils (%) (Auto) 1 % (0-3) 1 % (0-3) Neutrophils # (Auto) 4.6 x10^3uL (1.8-7.7) 4.3 x10^3uL (1.8-7.7) Lymphocytes # (Auto) 1.2 x10^3/uL (1.0-4.8) 1.4 x10^3/uL (1.0-4.8) Monocytes # (Auto) 0.6 x10^3/uL (0.0-1.1) 0.8 x10^3/uL (0.0-1.1) Eosinophils # (Auto) 0.2 x10^3/uL (0.0-0.7) 0.2 x10^3/uL (0.0-0.7) Basophils # (Auto) 0.1 x10^3/uL (0.0-0.2) 0.1 x10^3/uL (0.0-0.2) Sodium Level 143 mmol/L (136-145) Potassium Level 3.9 mmol/L (3.5-5.1) Chloride Level 107 mmol/L (98-107) Carbon Dioxide Level 28 mmol/L (21-32) Anion Gap 8 (6-14) Blood Urea Nitrogen 23 mg/dL (8-26) Creatinine 2.1 mg/dL (0.7-1.3) Estimated GFR (Cockcroft-Gault) 39.4 BUN/Creatinine Ratio 11 (6-20) Glucose Level 110 mg/dL (70-99) Calcium Level 9.0 mg/dL (8.5-10.1) Total Bilirubin 0.7 mg/dL (0.2-1.0) Aspartate Amino Transf (AST/SGOT) 19 U/L (15-37) Alanine Aminotransferase (ALT/SGPT) 17 U/L (16-63) Alkaline Phosphatase 92 U/L (46-116) Total Protein 6.3 g/dL (6.4-8.2) Albumin 3.0 g/dL (3.4-5.0) Albumin/Globulin Ratio 0.9 (1.0-1.7) Laboratory Tests Test 02/13/19 08:20 02/14/19 04:15 White Blood Count 6.6 x10^3/uL (4.0-11.0) 6.7 x10^3/uL (4.0-11.0) Red Blood Count 4.40 x10^6/uL (4.30-5.70) 4.41 x10^6/uL (4.30-5.70) Hemoglobin 11.5 g/dL (13.0-17.5) 11.6 g/dL (13.0-17.5) Hematocrit 36.6 % (39.0-53.0) 36.6 % (39.0-53.0) Mean Corpuscular Volume 83 fL (79-100) 83 fL (79-100) Mean Corpuscular Hemoglobin 26 pg (25-35) 26 pg (25-35) Mean Corpuscular Hemoglobin Concent 32 g/dL (31-37) 32 g/dL (31-37) Red Cell Distribution Width 21.3 % (11.5-14.5) 21.1 % (11.5-14.5) Platelet Count 325 x10^3/uL (140-400) 318 x10^3/uL (140-400) Neutrophils (%) (Auto) 70 % (31-73) 64 % (31-73) Lymphocytes (%) (Auto) 18 % (24-48) 21 % (24-48) Monocytes (%) (Auto) 9 % (0-9) 11 % (0-9) Eosinophils (%) (Auto) 3 % (0-3) 3 % (0-3) Basophils (%) (Auto) 1 % (0-3) 1 % (0-3) Neutrophils # (Auto) 4.6 x10^3uL (1.8-7.7) 4.3 x10^3uL (1.8-7.7) Lymphocytes # (Auto) 1.2 x10^3/uL (1.0-4.8) 1.4 x10^3/uL (1.0-4.8) Monocytes # (Auto) 0.6 x10^3/uL (0.0-1.1) 0.8 x10^3/uL (0.0-1.1) Eosinophils # (Auto) 0.2 x10^3/uL (0.0-0.7) 0.2 x10^3/uL (0.0-0.7) Basophils # (Auto) 0.1 x10^3/uL (0.0-0.2) 0.1 x10^3/uL (0.0-0.2) Sodium Level 143 mmol/L (136-145) Potassium Level 3.9 mmol/L (3.5-5.1) Chloride Level 107 mmol/L (98-107) Carbon Dioxide Level 28 mmol/L (21-32) Anion Gap 8 (6-14) Blood Urea Nitrogen 23 mg/dL (8-26) Creatinine 2.1 mg/dL (0.7-1.3) Estimated GFR (Cockcroft-Gault) 39.4 BUN/Creatinine Ratio 11 (6-20) Glucose Level 110 mg/dL (70-99) Calcium Level 9.0 mg/dL (8.5-10.1) Total Bilirubin 0.7 mg/dL (0.2-1.0) Aspartate Amino Transf (AST/SGOT) 19 U/L (15-37) Alanine Aminotransferase (ALT/SGPT) 17 U/L (16-63) Alkaline Phosphatase 92 U/L (46-116) Total Protein 6.3 g/dL (6.4-8.2) Albumin 3.0 g/dL (3.4-5.0) Albumin/Globulin Ratio 0.9 (1.0-1.7) Medications Current Medications Aspirin (Dany Aspirin) 325 mg 1X ONCE PO Last administered on 02/10/19at 01:37; Start 02/10/19 at 01:00; Stop 02/10/19 at 01:01; Status DC Sodium Chloride 1,000 ml @ 1,000 mls/hr 1X ONCE IV ; Start 02/10/19 at 01:00; Stop 02/10/19 at 01:59; Status DC Bumetanide (Bumex) 0.5 mg BID92 IV Last administered on 02/12/19at 13:41; Start 02/10/19 at 02:30; Stop 02/12/19 at 14:42; Status DC Enoxaparin Sodium (Lovenox 100mg Syringe) 100 mg 1X ONCE SQ ; Start 02/10/19 at 02:30; Stop 02/10/19 at 03:12; Status DC Ondansetron HCl (Zofran) 4 mg PRN Q8HRS PRN IV NAUSEA/VOMITING 1ST CHOICE; Start 02/10/19 at 02:00; Stop 02/11/19 at 01:59; Status DC Amiodarone HCl (Cordarone) 200 mg DAILY PO Last administered on 02/13/19 10:55; Start 02/10/19 at 09:00 Apixaban (Eliquis) 5 mg BID PO Last administered on 02/13/19at 21:13; Start 02/10/19 at 09:00 Ferrous Sulfate (Feosol) 325 mg DAILY PO Last administered on 02/13/19 10:55; Start 02/10/19 at 09:00 Furosemide (Lasix) 40 mg DAILY PO ; Start 02/10/19 at 09:00; Stop 02/10/19 at 10:19; Status DC Losartan Potassium (Cozaar) 50 mg DAILY PO Last administered on 02/10/19at 07:55; Start 02/10/19 at 09:00; Stop 02/10/19 at 09:12; Status DC Metoprolol Succinate (Toprol Xl) 100 mg DAILY PO Last administered on 02/10/19at 07:55; Start 02/10/19 at 09:00; Stop 02/10/19 at 12:00; Status DC Metoprolol Tartrate (Lopressor) 12 mg BID PO ; Start 02/10/19 at 09:00; Status UNV Acetaminophen (Tylenol) 1,000 mg PRN Q6HRS PRN PO MILD PAIN / TEMP; Start 02/10/19 at 07:15 Non-Formulary Medication (Budesonide/ Formoterol Fumarate (Symbicort 80-4.5 Mcg Inhaler)) 1 puff QID IH ; Start 02/10/19 at 09:00; Status UNV Diltiazem HCl (Cardizem 24hr Cd) 240 mg DAILY PO Last administered on 02/10/19at 07:56; Start 02/10/19 at 09:00; Stop 02/10/19 at 09:12; Status DC Multivitamins (Thera M Plus) 1 tab DAILY PO Last administered on 02/13/19at 10:55; Start 02/10/19 at 09:00 Budesonide (Pulmicort) 0.5 mg RTBID NEB Last administered on 02/13/19 20:24; Start 02/10/19 at 08:00 Albuterol Sulfate (Ventolin Neb Soln) 2.5 mg RTQID NEB Last administered on 02/10/19 11:42; Start 02/10/19 at 08:00; Stop 02/10/19 at 11:45; Status DC Hydralazine HCl (Apresoline Inj) 10 mg PRN Q4HRS PRN IVP ELEVATED BP, SEE COMMENTS Last administered on 02/14/19 03:41; Start 02/10/19 at 09:15 Levalbuterol HCl (Xopenex) 1.25 mg RTQID NEB Last administered on 02/13/19 20:24; Start 02/10/19 at 12:00 Metoprolol Succinate (Toprol Xl) 150 mg DAILY PO Last administered on 02/11/19 08:51; Start 02/11/19 at 09:00; Stop 02/11/19 at 16:45; Status DC Metoprolol Succinate (Toprol Xl) 50 mg 1X ONCE PO Last administered on 02/10/19 12:26; Start 02/10/19 at 12:30; Stop 02/10/19 at 12:31; Status DC Info (Anti-Coagulation Monitoring By Pharmacy) 1 each PRN DAILY PRN MC SEE COMMENTS Last administered on 02/13/19 14:38; Start 02/10/19 at 16:45 Digoxin (Lanoxin) 250 mcg 1X ONCE IV Last administered on 02/11/19 18:23; Start 02/11/19 at 16:45; Stop 02/11/19 at 18:01; Status DC Metoprolol Succinate (Toprol Xl) 200 mg DAILY PO Last administered on 02/13/19 10:55; Start 02/12/19 at 09:00 Digoxin (Lanoxin) 500 mcg 1X ONCE IV Last administered on 02/12/19 10:31; Start 02/12/19 at 10:30; Stop 02/12/19 at 10:31; Status DC Amlodipine Besylate (Norvasc) 5 mg 1X ONCE PO Last administered on 02/12/19 12:05; Start 02/12/19 at 12:00; Stop 02/12/19 at 12:01; Status DC Diltiazem HCl 125 mg/Dextrose 125 ml @ 5 mls/hr CONT PRN IV SEE I/O RECORD Last administered on 02/13/19at 00:51; Start 02/12/19 at 14:45; Stop 02/13/19 at 13:52; Status DC Furosemide (Lasix) 40 mg BID92 PO Last administered on 02/13/19at 15:48; Start 02/12/19 at 15:00 Albuterol Sulfate (Ventolin Neb Soln) 2.5 mg PRN Q4HRS PRN NEB SHORTNESS OF BREATH; Start 02/12/19 at 17:00 Diltiazem HCl (Cardizem 24hr Cd) 180 mg DAILY PO Last administered on 02/13/19at 10:54; Start 02/13/19 at 11:00 Active Scripts Active Metoprolol Succinate ( Xl ) (Metoprolol Succinate) 100 Mg Tab.er.24h 100 Mg PO DAILY 30 Days Amiodarone Hcl 200 Mg Tablet 200 Mg PO DAILY 30 Days Eliquis (Apixaban) 5 Mg Tablet 5 Mg PO BID 30 Days Ferrous Sulfate 325 Mg Tablet 1 Tab PO DAILY Reported Symbicort 80-4.5 Mcg Inhaler (Budesonide/Formoterol Fumarate) 10.2 Gm Hfa.aer.ad 1 Puff IH QID Multivitamins (Multivitamin) 1 Each Tablet 1 Each PO DAILY Metoprolol Tartrate 25 Mg Tablet 12 Mg PO BID Acetaminophen 500 Mg Tablet 1,000 Mg PO PRN Q6HRS PRN Cartia Xt (Diltiazem Hcl) 240 Mg Cap.er.24h 240 Mg PO DAILY Losartan Potassium (Losartan Potassium) 25 Mg Tablet 50 Mg PO DAILY Lasix (Furosemide) 40 Mg Tablet 40 Mg PO DAILY Vitals/I & O Vital Sign - Last 24 Hours 02/13/19 02/13/19 02/13/19 02/13/19 08:35 09:35 10:54 10:55 Pulse 81 80 81 81 B/P (MAP) 148/85 (106) 114/85 (95) 152/82 152/82 02/13/19 02/13/19 02/13/19 02/13/19 10:55 11:00 13:28 15:00 Temp 98.1 97.6 98.1 97.6 Pulse 81 81 78 Resp 20 18 B/P (MAP) 152/82 152/82 (105) 139/73 (95) Pulse Ox 95 98 91 O2 Delivery Nasal Cannula Room Air Room Air O2 Flow Rate 1.0 02/13/19 02/13/19 02/13/19 02/13/19 16:13 19:00 19:30 20:25 Temp 98.0 98.0 Pulse 92 Resp 18 B/P (MAP) 140/90 (107) Pulse Ox 96 95 96 O2 Delivery Room Air Room Air Room Air Room Air 02/13/19 02/13/19 02/14/19 02/14/19 20:26 23:51 03:28 03:41 Temp 97.7 98.2 97.7 98.2 Pulse 103 85 85 Resp 18 17 B/P (MAP) 134/101 (112) 140/100 (113) 140/100 Pulse Ox 97 97 98 O2 Delivery Room Air Nasal Cannula Nasal Cannula O2 Flow Rate 2.0 2.0 02/14/19 07:00 Temp 97.6 97.6 Pulse 116 Resp 16 B/P (MAP) 131/97 (108) Pulse Ox 95 O2 Delivery Room Air Intake and Output 02/13/19 02/13/19 02/14/19 15:00 23:00 07:00 Intake Total 240 ml 890 ml 720 ml Output Total 275 ml 1025 ml Balance -35 ml -135 ml 720 ml RENETTA CADET MD February 14, 2019 07:51
[2019-02-14] MEDS: METOPROLOL SUCC 24HR ER 100 MG TAB.ER.24H. PO SCH (08:33)
[2019-02-14] MEDS: APIXABAN 5 MG TABLET. PO SCH (08:33)
[2019-02-14] MEDS: FERROUS SULFATE 325 MG TABLET. PO SCH (08:33)
[2019-02-14] MEDS: AMIODARONE HCL 200 MG TABLET. PO SCH (08:33)
[2019-02-14] MEDS: MULTIVITAMIN with MINERAL TABLET. PO SCH (08:33)
[2019-02-14] MEDS: FUROSEMIDE 40 MG TABLET. PO SCH ×2 (08:34→14:07)
[2019-02-14] MEDS: BUDESONIDE 0.5 MG/2 ML NEBU. NEB SCH (08:43)
[2019-02-14] MEDS: LEVALBUTEROL 1.25 MG/0.5 ML NEBU. NEB SCH ×2 (08:43→12:06)
--- NOTE | 2019-02-14 10:30 | PDOC ---
PULMONARY PROGRESS NOTES Subjective NO SOA Vitals Vital Signs Date Time Temp Pulse Resp B/P (MAP) Pulse Ox O2 Delivery O2 Flow Rate FiO2 02/14/19 08:45 95 Room Air 02/14/19 08:33 116 131/97 02/14/19 07:00 97.6 16 97.6 02/14/19 03:28 2.0 ROS: No Chest Pain General: Alert, No acute distress Lungs: Clear Cardiovascular: S1, S2 Abdomen: Soft Neuro Exam: Alert Extremities: No Edema Skin: Warm Labs Laboratory Tests Test 02/13/19 08:20 02/14/19 04:15 White Blood Count 6.6 x10^3/uL (4.0-11.0) 6.7 x10^3/uL (4.0-11.0) Red Blood Count 4.40 x10^6/uL (4.30-5.70) 4.41 x10^6/uL (4.30-5.70) Hemoglobin 11.5 g/dL (13.0-17.5) 11.6 g/dL (13.0-17.5) Hematocrit 36.6 % (39.0-53.0) 36.6 % (39.0-53.0) Mean Corpuscular Volume 83 fL (79-100) 83 fL (79-100) Mean Corpuscular Hemoglobin 26 pg (25-35) 26 pg (25-35) Mean Corpuscular Hemoglobin Concent 32 g/dL (31-37) 32 g/dL (31-37) Red Cell Distribution Width 21.3 % (11.5-14.5) 21.1 % (11.5-14.5) Platelet Count 325 x10^3/uL (140-400) 318 x10^3/uL (140-400) Neutrophils (%) (Auto) 70 % (31-73) 64 % (31-73) Lymphocytes (%) (Auto) 18 % (24-48) 21 % (24-48) Monocytes (%) (Auto) 9 % (0-9) 11 % (0-9) Eosinophils (%) (Auto) 3 % (0-3) 3 % (0-3) Basophils (%) (Auto) 1 % (0-3) 1 % (0-3) Neutrophils # (Auto) 4.6 x10^3uL (1.8-7.7) 4.3 x10^3uL (1.8-7.7) Lymphocytes # (Auto) 1.2 x10^3/uL (1.0-4.8) 1.4 x10^3/uL (1.0-4.8) Monocytes # (Auto) 0.6 x10^3/uL (0.0-1.1) 0.8 x10^3/uL (0.0-1.1) Eosinophils # (Auto) 0.2 x10^3/uL (0.0-0.7) 0.2 x10^3/uL (0.0-0.7) Basophils # (Auto) 0.1 x10^3/uL (0.0-0.2) 0.1 x10^3/uL (0.0-0.2) Sodium Level 143 mmol/L (136-145) Potassium Level 3.9 mmol/L (3.5-5.1) Chloride Level 107 mmol/L (98-107) Carbon Dioxide Level 28 mmol/L (21-32) Anion Gap 8 (6-14) Blood Urea Nitrogen 23 mg/dL (8-26) Creatinine 2.1 mg/dL (0.7-1.3) Estimated GFR (Cockcroft-Gault) 39.4 BUN/Creatinine Ratio 11 (6-20) Glucose Level 110 mg/dL (70-99) Calcium Level 9.0 mg/dL (8.5-10.1) Total Bilirubin 0.7 mg/dL (0.2-1.0) Aspartate Amino Transf (AST/SGOT) 19 U/L (15-37) Alanine Aminotransferase (ALT/SGPT) 17 U/L (16-63) Alkaline Phosphatase 92 U/L (46-116) Total Protein 6.3 g/dL (6.4-8.2) Albumin 3.0 g/dL (3.4-5.0) Albumin/Globulin Ratio 0.9 (1.0-1.7) Laboratory Tests Test 02/14/19 04:15 White Blood Count 6.7 x10^3/uL (4.0-11.0) Red Blood Count 4.41 x10^6/uL (4.30-5.70) Hemoglobin 11.6 g/dL (13.0-17.5) Hematocrit 36.6 % (39.0-53.0) Mean Corpuscular Volume 83 fL (79-100) Mean Corpuscular Hemoglobin 26 pg (25-35) Mean Corpuscular Hemoglobin Concent 32 g/dL (31-37) Red Cell Distribution Width 21.1 % (11.5-14.5) Platelet Count 318 x10^3/uL (140-400) Neutrophils (%) (Auto) 64 % (31-73) Lymphocytes (%) (Auto) 21 % (24-48) Monocytes (%) (Auto) 11 % (0-9) Eosinophils (%) (Auto) 3 % (0-3) Basophils (%) (Auto) 1 % (0-3) Neutrophils # (Auto) 4.3 x10^3uL (1.8-7.7) Lymphocytes # (Auto) 1.4 x10^3/uL (1.0-4.8) Monocytes # (Auto) 0.8 x10^3/uL (0.0-1.1) Eosinophils # (Auto) 0.2 x10^3/uL (0.0-0.7) Basophils # (Auto) 0.1 x10^3/uL (0.0-0.2) Medications Active Scripts Medications Dose Route/Sig Max Daily Dose Days Date Category Metoprolol Succinate ( Xl ) (Metoprolol Succinate) 100 Mg Tab.er.24h 100 Mg PO DAILY 30 01/29/19 Rx Amiodarone Hcl 200 Mg Tablet 200 Mg PO DAILY 30 01/29/19 Rx Eliquis (Apixaban) 5 Mg Tablet 5 Mg PO BID 30 01/29/19 Rx Symbicort 80-4.5 Mcg Inhaler (Budesonide/Formoterol Fumarate) 10.2 Gm Hfa.aer.ad 1 Puff IH QID 01/27/19 Reported Multivitamins (Multivitamin) 1 Each Tablet 1 Each PO DAILY 01/27/19 Reported Metoprolol Tartrate 25 Mg Tablet 12 Mg PO BID 01/27/19 Reported Ferrous Sulfate 325 Mg Tablet 1 Tab PO DAILY 12/11/18 Rx Acetaminophen 500 Mg Tablet 1,000 Mg PO PRN Q6HRS PRN 12/09/18 Reported Cartia Xt (Diltiazem Hcl) 240 Mg Cap.er.24h 240 Mg PO DAILY 12/06/18 Reported Losartan Potassium (Losartan Potassium) 25 Mg Tablet 50 Mg PO DAILY 12/06/18 Reported Lasix (Furosemide) 40 Mg Tablet 40 Mg PO DAILY 09/03/14 Reported Impression . 1. Atrial flutter with rapid ventricular response. 2. Nonischemic cardiomyopathy, 20-25%. 3. Mild acute exacerbation of chronic obstructive pulmonary disease. 4. Tobacco dependence, in remission, quit approximately a month ago. 5. CLEAR CXR 6. Secondary pulmonary hypertension. 7. Elevated D-dimer, nonspecific. V/Q scan was obtained revealing no evidence of unmatched perfusion defects. Plan . 1. Outpatient PFTs. 2. Symbicort and p.r.n. albuterol with spacer. 3. Follow Cardiology input. 4. The patient instructed on the importance of avoiding tobacco. 5. Possible outpatient polysomnogram. 6. no further pulmonary rec OK WITH DC HOME/ F/U WITH DR ASH IN OFFICE PATIENCE VIGIL MD February 14, 2019 10:30
[2019-02-14 11:04] VITALS: BP 138/94
--- NOTE | 2019-02-14 12:30 | PDOC ---
SUBJECTIVE ROS States feeling better , wants to go home OBJECTIVE Vital Signs Vital Signs Date Time Temp Pulse Resp B/P (MAP) Pulse Ox O2 Delivery O2 Flow Rate FiO2 02/14/19 12:06 96 Room Air 02/14/19 11:04 97.8 91 16 138/94 (109) 97.8 02/14/19 03:28 2.0 I & 0 Intake and Output 02/14/19 07:00 Intake Total 1850 ml Output Total 1300 ml Balance 550 ml Intake Oral 1850 ml Output Urine Total 1300 ml PHYSICAL EXAM Physical Exam GEN.: No apparent distress HEENT: OM moist NECK: Supple, no JVD LUNGS: Clear to auscultation , no use of acc muscles HEART: RRR, S1, S2 present. ABDOMEN: Soft, nontender. EXTREMITIES: Without any cyanosis, clubbing, or edema. NEUROLOGIC: Normal speech, normal tone. A&O x 3 SKIN: No ulcerations or rashes No claire DIAGNOSIS/ASSESSMENT Assessment & Plan NEVA- Intermittent, Cardiorenal In Nov 2018 Creat peaked at 2.9, in 2013 NEVA with Cr 3.3 Renal function improving, no labs today E-lytes and acid base stable , Holding ARB CKD stage 3- Baseline Creat appears to be 2-2.5 on review of old records in [facility] Was seen as inpatient in Nov and Post Op follow up with Dr. Cuevas on 01/10 Renal function stable at 2.4 Has follow up appt on 03/24/2019 , advised to keep his appt Acute on chronic diastolic HF - was on IV Bumex,switched to Lasix po cardiology managing AFIB with RVR - Cardioverted out of aflutter, but has been back in now. Cardiology monitoring Nonischemic cardiomyopathy - cont BB, ASA, statin left ventricular systolic function is severely impaired. Ejection Fraction is 20-25% Moderate mitral regurgitation. Moderate to severe tricuspid regurgitation COPD - stable Severe pulmonary HTN with valvular insufficiency: mod TR, mild MR and mild to mod AI - needs good BP control HTN - Holding ARB can restart if Renal function stays stable at baseline Anemia- Hg Improved post Transfusion GI was consulted \ COMMENT/RELEVANT DATA Meds Current Medications Medications (Trade) Dose Ordered Sig/Hari Start Time Stop Time Status Last Admin Dose Admin Acetaminophen (Tylenol) 1,000 mg PRN Q6HRS PRN 02/10/19 07:15 Albuterol Sulfate (Ventolin Neb Soln) 2.5 mg PRN Q4HRS PRN 02/12/19 17:00 Amiodarone HCl (Cordarone) 200 mg DAILY 02/10/19 09:00 02/14/19 08:33 200 MG Amlodipine Besylate (Norvasc) 5 mg 1X ONCE 02/12/19 12:00 02/12/19 12:01 DC 02/12/19 12:05 5 MG Apixaban (Eliquis) 5 mg BID 02/10/19 09:00 02/14/19 08:33 5 MG Aspirin (Dany Aspirin) 325 mg 1X ONCE 02/10/19 01:00 02/10/19 01:01 DC 02/10/19 01:37 325 MG Budesonide (Pulmicort) 0.5 mg RTBID 02/10/19 08:00 02/14/19 08:43 0.5 MG Bumetanide (Bumex) 0.5 mg BID92 02/10/19 02:30 02/12/19 14:42 DC 02/12/19 13:41 0.5 MG Digoxin (Lanoxin) 500 mcg 1X ONCE 02/12/19 10:30 02/12/19 10:31 DC 02/12/19 10:31 500 MCG Diltiazem HCl (Cardizem 24hr Cd) 180 mg DAILY 02/13/19 11:00 02/14/19 08:33 180 MG Diltiazem HCl 125 mg/Dextrose 125 ml @ 5 mls/hr CONT PRN 02/12/19 14:45 02/13/19 13:52 DC 02/13/19 00:51 5 MLS/HR Enoxaparin Sodium (Lovenox 100mg Syringe) 100 mg 1X ONCE 02/10/19 02:30 02/10/19 03:12 DC Ferrous Sulfate (Feosol) 325 mg DAILY 02/10/19 09:00 02/14/19 08:33 325 MG Furosemide (Lasix) 40 mg BID92 02/12/19 15:00 02/14/19 08:34 40 MG Hydralazine HCl (Apresoline Inj) 10 mg PRN Q4HRS PRN 02/10/19 09:15 02/14/19 03:41 10 MG Info (Anti-Coagulation Monitoring By Pharmacy) 1 each PRN DAILY PRN 02/10/19 16:45 02/13/19 14:38 1 EACH Levalbuterol HCl (Xopenex) 1.25 mg RTQID 02/10/19 12:00 02/14/19 12:06 1.25 MG Losartan Potassium (Cozaar) 50 mg DAILY 02/10/19 09:00 02/10/19 09:12 DC 02/10/19 07:55 50 MG Metoprolol Succinate (Toprol Xl) 200 mg DAILY 02/12/19 09:00 02/14/19 08:33 200 MG Metoprolol Tartrate (Lopressor) 12 mg BID 02/10/19 09:00 UNV Multivitamins (Thera M Plus) 1 tab DAILY 02/10/19 09:00 02/14/19 08:33 1 TAB Non-Formulary Medication (Budesonide/ Formoterol Fumarate (Symbicort 80-4.5 Mcg Inhaler)) 1 puff QID 02/10/19 09:00 UNV Ondansetron HCl (Zofran) 4 mg PRN Q8HRS PRN 02/10/19 02:00 02/11/19 01:59 DC Sodium Chloride 1,000 ml @ 1,000 mls/hr 1X ONCE 02/10/19 01:00 02/10/19 01:59 DC Lab Laboratory Tests Test 02/14/19 04:15 White Blood Count 6.7 x10^3/uL (4.0-11.0) Red Blood Count 4.41 x10^6/uL (4.30-5.70) Hemoglobin 11.6 g/dL (13.0-17.5) Hematocrit 36.6 % (39.0-53.0) Mean Corpuscular Volume 83 fL (79-100) Mean Corpuscular Hemoglobin 26 pg (25-35) Mean Corpuscular Hemoglobin Concent 32 g/dL (31-37) Red Cell Distribution Width 21.1 % (11.5-14.5) Platelet Count 318 x10^3/uL (140-400) Neutrophils (%) (Auto) 64 % (31-73) Lymphocytes (%) (Auto) 21 % (24-48) Monocytes (%) (Auto) 11 % (0-9) Eosinophils (%) (Auto) 3 % (0-3) Basophils (%) (Auto) 1 % (0-3) Neutrophils # (Auto) 4.3 x10^3uL (1.8-7.7) Lymphocytes # (Auto) 1.4 x10^3/uL (1.0-4.8) Monocytes # (Auto) 0.8 x10^3/uL (0.0-1.1) Eosinophils # (Auto) 0.2 x10^3/uL (0.0-0.7) Basophils # (Auto) 0.1 x10^3/uL (0.0-0.2) Results All relevant outside records, renal labs, imaging studies, telemetry/EKG's were reviewed. UNRULY HERR MD February 14, 2019 12:30
[2019-02-14] MEDS ORDERED: XOPENEX HFA15 GM IH (13:18)
[2019-02-14] MEDS ORDERED: INHA-9 MC (13:18)
[2019-02-14] MEDS ORDERED: BUDE10.22 IH (13:18)
[2019-02-14] MEDS ORDERED: DILT180C29 PO (13:22)
[2019-02-14] MEDS ORDERED: METO-247 PO (13:22)
--- NOTE | 2019-02-14 13:35 | PDOC3 ---
Discharge Summary Visit Information Date of Admission: Feb 10, 2019 Date of Discharge: February 14, 2019 Admitting Diagnosis: CHF exacerbation, aflutter with RVR Final Diagnosis CHF exacerbation, aflutter with RVR, COPD exacerbation Brief Hospital Course Allergies Allergies Coded Allergies Type Severity Reaction Last Updated Verified No Known Drug Allergies 12/20/18 No Vital Signs Vital Signs Date Time Temp Pulse Resp B/P (MAP) Pulse Ox O2 Delivery O2 Flow Rate FiO2 02/14/19 12:06 96 Room Air 02/14/19 11:04 97.8 91 16 138/94 (109) 97.8 02/14/19 03:28 2.0 Lab Results Laboratory Tests Test 02/13/19 08:20 02/14/19 04:15 White Blood Count 6.6 x10^3/uL (4.0-11.0) 6.7 x10^3/uL (4.0-11.0) Red Blood Count 4.40 x10^6/uL (4.30-5.70) 4.41 x10^6/uL (4.30-5.70) Hemoglobin 11.5 g/dL (13.0-17.5) 11.6 g/dL (13.0-17.5) Hematocrit 36.6 % (39.0-53.0) 36.6 % (39.0-53.0) Mean Corpuscular Volume 83 fL (79-100) 83 fL (79-100) Mean Corpuscular Hemoglobin 26 pg (25-35) 26 pg (25-35) Mean Corpuscular Hemoglobin Concent 32 g/dL (31-37) 32 g/dL (31-37) Red Cell Distribution Width 21.3 % (11.5-14.5) 21.1 % (11.5-14.5) Platelet Count 325 x10^3/uL (140-400) 318 x10^3/uL (140-400) Neutrophils (%) (Auto) 70 % (31-73) 64 % (31-73) Lymphocytes (%) (Auto) 18 % (24-48) 21 % (24-48) Monocytes (%) (Auto) 9 % (0-9) 11 % (0-9) Eosinophils (%) (Auto) 3 % (0-3) 3 % (0-3) Basophils (%) (Auto) 1 % (0-3) 1 % (0-3) Neutrophils # (Auto) 4.6 x10^3uL (1.8-7.7) 4.3 x10^3uL (1.8-7.7) Lymphocytes # (Auto) 1.2 x10^3/uL (1.0-4.8) 1.4 x10^3/uL (1.0-4.8) Monocytes # (Auto) 0.6 x10^3/uL (0.0-1.1) 0.8 x10^3/uL (0.0-1.1) Eosinophils # (Auto) 0.2 x10^3/uL (0.0-0.7) 0.2 x10^3/uL (0.0-0.7) Basophils # (Auto) 0.1 x10^3/uL (0.0-0.2) 0.1 x10^3/uL (0.0-0.2) Sodium Level 143 mmol/L (136-145) Potassium Level 3.9 mmol/L (3.5-5.1) Chloride Level 107 mmol/L (98-107) Carbon Dioxide Level 28 mmol/L (21-32) Anion Gap 8 (6-14) Blood Urea Nitrogen 23 mg/dL (8-26) Creatinine 2.1 mg/dL (0.7-1.3) Estimated GFR (Cockcroft-Gault) 39.4 BUN/Creatinine Ratio 11 (6-20) Glucose Level 110 mg/dL (70-99) Calcium Level 9.0 mg/dL (8.5-10.1) Total Bilirubin 0.7 mg/dL (0.2-1.0) Aspartate Amino Transf (AST/SGOT) 19 U/L (15-37) Alanine Aminotransferase (ALT/SGPT) 17 U/L (16-63) Alkaline Phosphatase 92 U/L (46-116) Total Protein 6.3 g/dL (6.4-8.2) Albumin 3.0 g/dL (3.4-5.0) Albumin/Globulin Ratio 0.9 (1.0-1.7) Laboratory Tests Test 02/14/19 04:15 White Blood Count 6.7 x10^3/uL (4.0-11.0) Red Blood Count 4.41 x10^6/uL (4.30-5.70) Hemoglobin 11.6 g/dL (13.0-17.5) Hematocrit 36.6 % (39.0-53.0) Mean Corpuscular Volume 83 fL (79-100) Mean Corpuscular Hemoglobin 26 pg (25-35) Mean Corpuscular Hemoglobin Concent 32 g/dL (31-37) Red Cell Distribution Width 21.1 % (11.5-14.5) Platelet Count 318 x10^3/uL (140-400) Neutrophils (%) (Auto) 64 % (31-73) Lymphocytes (%) (Auto) 21 % (24-48) Monocytes (%) (Auto) 11 % (0-9) Eosinophils (%) (Auto) 3 % (0-3) Basophils (%) (Auto) 1 % (0-3) Neutrophils # (Auto) 4.3 x10^3uL (1.8-7.7) Lymphocytes # (Auto) 1.4 x10^3/uL (1.0-4.8) Monocytes # (Auto) 0.8 x10^3/uL (0.0-1.1) Eosinophils # (Auto) 0.2 x10^3/uL (0.0-0.7) Basophils # (Auto) 0.1 x10^3/uL (0.0-0.2) Brief Hospital Course Patient is a 58 yo Citizen [place] male w/ PMHx NICM, TIA, A Fib, HTN, CKD, fatty liver, anemia, COPD who p/w dyspnea on exertion for the past several days, orthopnea, paroxysmal nocturnal dyspnea and elevated blood pressure with palpitations. Patient states he's been compliant with his medications. He checke d his blood pressure prior to ED arrival noted be 180/120, prompting him to come to the emergency department. Patient denies chest pain, palpitations. Denies increased leg pain or swelling. No other acute symptoms or complaints. Hospitalized in November for UGIB, found with duodenitis, taken off Eliquis at that time, placed on ASA only. He was seen by cardiology and despite 20mg cardizem GTT and metoprolol up to 200mg daily and 2 doses of digoxin as well as loading on amiodarone over the course of 3 days he did not convert and only slowed to the 90s to reveal underlying atrial flutter. He underwent DC cardioversion with SHAI resulted below, this was successful and he was sent home with eliquis, metoprolol, diltiazem and amio scripts and cardiology f/u instructions. Diuresed well on Bumex, breathing somewhat better on Xopenex. Metoprolol increased to 200mg XL and cardizem decreased to 180mg. His swelling is better. HR still in the low 100s, but feeling much better, has outpatient cardiology and pulmonology f/u A/P: Acute on chronic diastolic HF - diuresing, difficult with his NEVA AFIB with RVR - Cardioverted out of aflutter, but has been back in now. on both cardizem to metoprolol Nonischemic cardiomyopathy - cont BB, ASA, statin The left ventricular systolic function is severely impaired. The Ejection Fraction is 20-25%. Mild aortic regurgitation. Moderate mitral regurgitation. Moderate to severe tricuspid regurgitation. AK I on possibly CK D - vasomotor vs cardiorenal. Hold EBONIE/ARB. consulted nephrology Accel hypertension POA AECOPD - will cont nebulizers, may be better for xopenex on d/c, needs spacer and symbicort scripts Elevated D-dimer. VQ negative - compliant with eliquis Severe pulmonary HTN with valvular insufficiency: mod TR, mild MR and mild to mod AI - needs good BP control HTN - Hydralazine IV PRN CKD STAGE 3-4 REMOTE TOBACCO ABUSE 46 MIN SPENT ON DISCHARGE, CHART REVIEW, > 50% OF TIME SPENT WITH EXAM, CHART REVIEW, PT CARE COORDINATION Discharge Information Condition at Discharge: Improved Follow Up: Weeks (2) Disposition/Orders: D/C to Home Scheduled Amiodarone Hcl (Amiodarone Hcl) 200 Mg Tablet, 200 MG PO DAILY for afib for 30 Days, #30 Prescribed by: RENETTA CADET MD on 01/29/191446 Last Action: Continued on 02/10/19652 by MICHAEL CRUZ Apixaban (Eliquis) 5 Mg Tablet, 5 MG PO BID for afib for 30 Days, #60 Prescribed by: RENETTA CADET MD on 01/29/191446 Last Action: Continued on 02/10/19652 by MICHAEL CRUZ Budesonide/Formoterol Fumarate (Symbicort 80-4.5 Mcg Inhaler) 10.2 Gm Hfa.aer.ad, 1 PUFF IH QID for SOA for 30 Days, #1 Ref 5 Prescribed by: RENETTA CADET MD on 02/14/19 1318 Diltiazem Hcl (Diltiazem 24HR Cd) 180 Mg Cap.er.24h, 180 MG PO DAILY for Aflutter for 30 Days, #30 Ref 5 To replace 240mg diltiazem Prescribed by: RENETTA CADET MD on 02/14/19 1322 Ferrous Sulfate (Ferrous Sulfate) 325 Mg Tablet, 1 TAB PO DAILY for anemia, #30 Ref 3 Prescribed by: ISAIAH SNYDER MD on 12/11/18 1616 Last Action: Continued on 02/10/19652 by MICHAEL CRUZ Furosemide (Lasix) 40 Mg Tablet, 40 MG PO DAILY, #30 (Reported) Entered as Reported by: Monique Edwards on 09/03/14 1653 Last Action: Continued on 02/10/19652 by MICHAEL CRUZ Levalbuterol Tartrate (Xopenex Hfa) 15 Gm Hfa.aer.ad, 2 PUFF IH PRN Q4-6HRS for Asthma/COPD for 30 Days, #15 Ref 5 Prescribed by: RENETTA CADET MD on 02/14/19 1318 Losartan Potassium (Losartan Potassium ) 25 Mg Tablet, 50 MG PO DAILY for HYPERTENSION, (Reported) Entered as Reported by: VASU CARPENTER on 12/06/18 0831 Last Action: Continued on 02/10/19652 by MICHAEL CRUZ Metoprolol Succinate (Metoprolol Succinate ( Xl )) 100 Mg Tab.er.24h, 200 MG PO DAILY for Aflutter for 30 Days, #60 Ref 5 DOSE INCREASE TO 200mg Daily Prescribed by: RENETTA CADET MD on 02/14/19 1322 Multivitamin (Multivitamins) 1 Each Tablet, 1 EACH PO DAILY for supplement, (Reported) Entered as Reported by: BJ METCALF on 01/27/19 0847 Last Action: Converted on 02/10/19652 by MICHAEL CRUZ Scheduled PRN Acetaminophen (Acetaminophen) 500 Mg Tablet, 1,000 MG PO PRN Q6HRS PRN for PAIN, (Reported) Entered as Reported by: Lauren Garcia on 12/09/18 2316 Last Action: Converted on 02/10/19652 by MICHAEL CRUZ Discontinued Medications Metoprolol Tartrate (Metoprolol Tartrate) 25 Mg Tablet, 12 MG PO BID for FOR HYPERTENSION, #60 Ref 0 (Reported) Entered as Reported by: BJ METCALF on 01/27/19 0847 Last Action: Continued on 02/10/19652 by MICHAEL CRUZ Durable Medical Equipment Inhaler,Assist Device,Lg Mask (Pro Comfort Spacer with Mask) 1 Each Spacer, EACH MC QID for Asthma/COPD, #1, (DME) QID prn for asthma Xoepenex and BID for Asthma/copd for symbicort Prescribed by: RENETTA CADET MD on 02/14/19 1318 RENETTA CADET MD February 14, 2019 13:35
[2019-02-14] MEDS: ANTI-COAG MONITOR BY PHARMACY. MC PRN (14:32)
--- NOTE | 2019-02-14 14:38 | PDOC ---
[facility] VISUAL LEAD 02/14/19 1438: CARDIO Progress Notes Date and Time Date of Service 02/14/2019 Time of Evaluation 1400 Subjective Subjective: No Chest Pain, No shortness of breath, No Palpitations Vitals Vitals Vital Signs Date Time Temp Pulse Resp B/P (MAP) Pulse Ox O2 Delivery O2 Flow Rate FiO2 02/14/19 12:06 96 Room Air 02/14/19 11:04 97.8 91 16 138/94 (109) 97.8 02/14/19 03:28 2.0 Weight Weight [ ] Input and Output Intake and Output Intake and Output 02/14/19 06:59 Intake Total 1850 ml Output Total 1300 ml Balance 550 ml Intake Oral 1850 ml Output Urine Total 1300 ml Laboratory Labs Laboratory Tests Test 02/14/19 04:15 White Blood Count 6.7 x10^3/uL (4.0-11.0) Red Blood Count 4.41 x10^6/uL (4.30-5.70) Hemoglobin 11.6 g/dL (13.0-17.5) Hematocrit 36.6 % (39.0-53.0) Mean Corpuscular Volume 83 fL (79-100) Mean Corpuscular Hemoglobin 26 pg (25-35) Mean Corpuscular Hemoglobin Concent 32 g/dL (31-37) Red Cell Distribution Width 21.1 % (11.5-14.5) Platelet Count 318 x10^3/uL (140-400) Neutrophils (%) (Auto) 64 % (31-73) Lymphocytes (%) (Auto) 21 % (24-48) Monocytes (%) (Auto) 11 % (0-9) Eosinophils (%) (Auto) 3 % (0-3) Basophils (%) (Auto) 1 % (0-3) Neutrophils # (Auto) 4.3 x10^3uL (1.8-7.7) Lymphocytes # (Auto) 1.4 x10^3/uL (1.0-4.8) Monocytes # (Auto) 0.8 x10^3/uL (0.0-1.1) Eosinophils # (Auto) 0.2 x10^3/uL (0.0-0.7) Basophils # (Auto) 0.1 x10^3/uL (0.0-0.2) Physical Exam HEENT: Neck Supple W Full Motion Chest: Symmetric LUNGS: Clear to Auscultation Heart: irregularly irregular (AFIB) Abdomen: Soft N/T Extremities: No Calf Tenderness Neurology: alert, oriented, follow commands Assessment Assessment 1. Acute on chronic diastolic/systolic CHF: compensated 2. NICM; LVEF 20-25% likely tachy induced. 3. PAFIB/flutter; s/p CV 01/29/19. remains on atrial flutter controlled with cardizem addition 4. AECOPD with h/o tobaccoism; recently quit 5. Elevated D-dimer. VQ not suggestive of PE 6. NEVA on CKD 7. Hypertension; controlled 8. Severe pulmonary HTN with valvular insufficiency: mod TR, mild MR and mild to mod AI. Recommendations 1. Continue amiodarone, BB, cardizem 2. Eliquis for stroke prophylaxis. Lasix therapy 3. Hold ARB for now 4. Outpatient EP referral. Follow up as scheduled DESMOND VINCENT MD 02/15/19 1650: CARDIO Progress Notes Assessment Assessment Patient seen and examined 02/14/19. Agree with JIG MILL OPERATOR's assessment and plan. Acute on chronic systolic heart failure better compensated Atrial flutter rate better controlled Continue current meds Plan outpatient referral to EP for ablation therapy LANE KHAN APRN February 14, 2019 14:38 DESMOND VINCENT MD February 15, 2019 16:50
--- NOTE | 2019-02-14 15:27 | NUR ---
IV OUT AND TELE MONITOR OFF. PATIENT DISCHARGE INSTRUCTIONS AND FOLLOW UP WITH [id number], RENAL, AND LUNG DR DISCUSSED WITH PATIENT. PRESCRIPTIONS GIVEN TO PATIENT. PATIENT HAS NO FURTHER QUESTIONS AT TIME OF DISCHARGE. PATIENT ESCORTED TO MOTHERS PERSONAL VEHICLE BY THIS RN. PATIENT STABLE AT TIME OF DISCHARGE.
== END 2019-02-14 15:29 | disposition home or self-care (01) | DRG 682 ==
LOC: ER 02-10 00:21 → 2 SOUTH 02-10 01:50
PROVIDERS: ADMIT Internal Medicine; ATTEND Internal Medicine
PROC: 5A2204Z Restoration of Cardiac Rhythm, Single (ICD-10-PCS; principal; 2019-02-10)
DX: N17.0 Acute kidney failure with tubular necrosis (principal); I50.43 Acute on chronic combined systolic (congestive) and diastolic (congestive) heart failure; I13.0 Hypertensive heart and chronic kidney disease with heart failure and stage 1 through stage 4 chronic kidney disease, or unspecified chronic kidney disease; I48.92 Unspecified atrial flutter; J44.1 Chronic obstructive pulmonary disease with (acute) exacerbation; I42.9 Cardiomyopathy, unspecified; N18.4 Chronic kidney disease, stage 4 (severe); I48.91 Unspecified atrial fibrillation; B34.9 Viral infection, unspecified; E03.9 Hypothyroidism, unspecified; M19.90 Unspecified osteoarthritis, unspecified site; I08.1 Rheumatic disorders of both mitral and tricuspid valves; I27.29 Other secondary pulmonary hypertension; K76.0 Fatty (change of) liver, not elsewhere classified; R09.02 Hypoxemia; R79.1 Abnormal coagulation profile; Z79.01 Long term (current) use of anticoagulants; Z82.49 Family history of ischemic heart disease and other diseases of the circulatory system; Z86.73 Personal history of transient ischemic attack (TIA), and cerebral infarction without residual deficits; Z87.891 Personal history of nicotine dependence
CPT/HCPCS: 36415; 71046; 78582; 80053; 80069; 83690; 83735; 83880; 84439; 84443; 84481; 84484; 85025; 85379; 85610; 93005; 93970; 94618; 94640; 94760; 96374; A9540; A9558; J0360; J1160; J3490; J7613; J7626; 99285-25

== ENCOUNTER 2019-03-13 16:21 | Inpatient (IN) | payer OTHER ==
[~2019-03-13] VITALS: Ht 185.4 cm; Wt 94.0 kg
[~2019-03-13 16:21] MED LIST changes: +DILT180C29 PO; +INHA-9 MC; +XOPENEX HFA15 GM IH
[2019-03-13 16:56] LABS: BASO # 0.1 x10^3/uL (0.0-0.2); BASO % 1 % (0-3); EOS # 0.1 x10^3/uL (0.0-0.7); EOS % 1 % (0-3); HEMATOCRIT 43.8 % (39.0-53.0); HEMOGLOBIN 13.6 g/dL (13.0-17.5); LYMPH # 1.2 x10^3/uL (1.0-4.8); LYMPH % 18 % (24-48); MEAN CORPUSCULAR HEMOGLOBIN 27 pg (25-35); MEAN CORPUSCULAR HGB CONC 31 g/dL (31-37); MEAN CORPUSCULAR VOLUME 85 fL (79-100); MONO # 0.5 x10^3/uL (0.0-1.1); MONO % 8 % (0-9); NEUT # 5.1 x10^3uL (1.8-7.7); NEUT % 73 % (31-73); PLATELET COUNT 309 x10^3/uL (140-400); RED BLOOD COUNT 5.13 x10^6/uL (4.30-5.70); RED CELL DISTRIBUTION WIDTH 17.2 % (11.5-14.5)
--- NOTE | 2019-03-13 16:57 | PHYS DOC ---
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 Patient reports today he was walking and noticed he would get short of breath even taking just a few steps. States he is normally able to walk without any issues. Reports he was admitted to the hospital earlier this month for similar symptoms, reports he fell agreement with hospital, and for the next 2 weeks. Reports following that he started to have little increased of shortness of breath. Also had noticed some increased swelling to his legs. Reports his abdomen normal is not as swollen as it is today. Also reports a swelling in his legs is not as much as it has been last 2 or 3 days. Reports he was unable to sleep in bed last night and had to sit up in recliner. Does report he has been taking his Lasix as prescribed and has not missed his medicines. Also reports he is supposed to have a follow-up sometime in March for his kidney and liver issues. Review of Systems Review of Systems Constitutional: Denies fever or chills [] Eyes: Denies change in visual acuity, redness, or eye pain [] HENT: Denies nasal congestion or sore throat [] Respiratory: Denies cough does report some shortness of breath worse today than normal [] Cardiovascular: No additional information not addressed in HPI [] GI: Denies abdominal pain, nausea, vomiting, bloody stools or diarrhea reports l ast bowel movement was today. Does state his abdomen seems a little more distended today than normal.[] : Denies dysuria or hematuria [] Musculoskeletal: Denies back pain or joint pain [] Integument: Denies rash or skin lesions [] Neurologic: Denies headache, focal weakness or sensory changes [] Endocrine: Denies polyuria or polydipsia [] All other systems were reviewed and found to be within normal limits, except as documented in this note. Current Medications Current Medications Current Medications Medications (Trade) Dose Ordered Sig/Hari Start Time Stop Time Status Last Admin Dose Admin Bumetanide (Bumex) 1 mg 1X ONCE 03/13/19 18:15 03/13/19 18:16 DC 03/13/19 17:53 1 MG Allergies Allergies Allergies Coded Allergies Type Severity Reaction Last Updated Verified No Known Drug Allergies 12/20/18 No Physical Exam Physical Exam Constitutional: Well developed, well nourished, no acute distress, non-toxic appearance. [] HENT: Normocephalic, atraumatic, bilateral external ears normal, oropharynx moist, no oral exudates, nose normal. [] Eyes: PERRLA, EOMI,, conjunctiva normal, no discharge. sclera jaundiced [] Neck: Normal range of motion, no tenderness, supple, no stridor. [] Cardiovascular:Heart rate regular rhythm, no murmur [] Lungs & Thorax: Bilateral breath with faint crackles. Patient able to speak in multiple word sentences without noted air hunger while resting. Did have some decreased SPO2 while ambulating per RN. [] Abdomen: Bowel sounds normal, soft, no tenderness, no masses, no pulsatile masses, distended. [] Skin: Warm, dry, no erythema, no rash. [] Back: No tenderness, no CVA tenderness. [] Extremities: No tenderness, no cyanosis, no clubbing, ROM intact, 3+ pitting edema noted to bilateral lower legs to level of knees.. [] Neurologic: Alert and oriented X 3, normal motor function, normal sensory function, no focal deficits noted. [] Psychologic: Affect normal, judgement normal, mood normal. [] Current Patient Data Vital Signs Vital Signs Date Time Temp Pulse Resp B/P (MAP) Pulse Ox O2 Delivery O2 Flow Rate FiO2 03/13/19 16:46 98.6 110 24 131/99 (110) 100 Nasal Cannula 2.0 98.6 Lab Values Laboratory Tests Test 03/13/19 16:22 03/13/19 16:40 Urine Collection Type Unknown Urine Color Yellow Urine Clarity Clear Urine pH 6.0 Urine Specific [place] 1.010 Urine Protein Negative mg/dL (NEG-TRACE) Urine Glucose (UA) Negative mg/dL (NEG) Urine Ketones (Stick) Negative mg/dL (NEG) Urine Blood Negative (NEG) Urine Nitrite Negative (NEG) Urine Bilirubin Negative (NEG) Urine Urobilinogen Dipstick 0.2 mg/dL (0.2 mg/dL) Urine Leukocyte Esterase Negative (NEG) Urine RBC 0 /HPF (0-2) Urine WBC 0 /HPF (0-4) Urine Squamous Epithelial Cells Few /LPF Urine Bacteria 0 /HPF (0-FEW) White Blood Count 7.0 x10^3/uL (4.0-11.0) Red Blood Count 5.13 x10^6/uL (4.30-5.70) Hemoglobin 13.6 g/dL (13.0-17.5) Hematocrit 43.8 % (39.0-53.0) Mean Corpuscular Volume 85 fL (79-100) Mean Corpuscular Hemoglobin 27 pg (25-35) Mean Corpuscular Hemoglobin Concent 31 g/dL (31-37) Red Cell Distribution Width 17.2 % (11.5-14.5) H Platelet Count 309 x10^3/uL (140-400) Neutrophils (%) (Auto) 73 % (31-73) Lymphocytes (%) (Auto) 18 % (24-48) L Monocytes (%) (Auto) 8 % (0-9) Eosinophils (%) (Auto) 1 % (0-3) Basophils (%) (Auto) 1 % (0-3) Neutrophils # (Auto) 5.1 x10^3uL (1.8-7.7) Lymphocytes # (Auto) 1.2 x10^3/uL (1.0-4.8) Monocytes # (Auto) 0.5 x10^3/uL (0.0-1.1) Eosinophils # (Auto) 0.1 x10^3/uL (0.0-0.7) Basophils # (Auto) 0.1 x10^3/uL (0.0-0.2) Prothrombin Time 20.4 SEC (11.7-14.0) H Prothrombin Time INR 1.8 (0.8-1.1) H PTT 36 SEC (24-38) Sodium Level 144 mmol/L (136-145) Potassium Level 4.7 mmol/L (3.5-5.1) Chloride Level 106 mmol/L (98-107) Carbon Dioxide Level 23 mmol/L (21-32) Anion Gap 15 (6-14) H Blood Urea Nitrogen 27 mg/dL (8-26) H Creatinine 2.6 mg/dL (0.7-1.3) H Estimated GFR (Cockcroft-Gault) 30.8 BUN/Creatinine Ratio 10 (6-20) Glucose Level 89 mg/dL (70-99) Calcium Level 9.3 mg/dL (8.5-10.1) Total Bilirubin 1.0 mg/dL (0.2-1.0) Aspartate Amino Transferase (AST) 38 U/L (15-37) H Alanine Aminotransferase (ALT) 26 U/L (16-63) Alkaline Phosphatase 97 U/L (46-116) Troponin I Quantitative 0.019 ng/mL (0.000-0.055) KU-[id number]-R-Type Natriuretic Peptide 28676 pg/mL (0-124) H Total Protein 7.6 g/dL (6.4-8.2) Albumin 3.5 g/dL (3.4-5.0) Albumin/Globulin Ratio 0.9 (1.0-1.7) L Laboratory Tests 03/13/19 16:40 Laboratory Tests 03/13/19 16:40 EKG EKG Sinus tachycardia, noted ST depression to V6 different compared to prior EKG, no STEMI. Evaluted by Dr Torres @ 1640[] Radiology/Procedures Radiology/Procedures Cardiomegaly. No additional cardiopulmonary findings noted, per Dr Torres[] Course & Med Decision Making Course & Med Decision Making Pertinent Labs and Imaging studies reviewed. (See chart for details) [[address] Larose consult, agrees to Admission, Cardiology consult. Patient in agreement with plan, reports he feels good as long as he is not ambulating. ] Dragon Disclaimer Dragon Disclaimer This electronic medical record was generated, in whole or in part, using a voice recognition dictation system. Departure Departure Impression: Primary Impression: CHF exacerbation Additional Impression: Shortness of breath Disposition: ADMITTED INPATIENT Condition: STABLE Referrals: NO PCP (PCP) Problem Qualifiers MATEO HAYES SENIOR ADMINISTRATIVE ASSOCIATE March 13, 2019 16:57
[2019-03-13 16:58] LABS: BILIRUBIN,URINE NEGATIVE (NEG); CLARITY,URINE CLEAR; COLOR,URINE YELLOW; NITRITE,URINE NEGATIVE (NEG); PROTEIN,URINE NEGATIVE (NEG-TRACE); UROBILINOGEN,URINE 0.2 mg/dL (0.2 mg/dL)
[2019-03-13 17:11] LABS: BACTERIA,URINE 0 /HPF (0-FEW); RBC,URINE 0 /HPF (0-2); SQUAMOUS EPITHELIAL CELL,UR FEW /LPF; WBC,URINE 0 /HPF (0-4)
[2019-03-13 17:28] LABS: CALCIUM 9.3 mg/dL (8.5-10.1); CREATININE 2.6 mg/dL (0.7-1.3); GFR 30.8; POTASSIUM 4.7 mmol/L (3.5-5.1)
[2019-03-13 17:34] LABS: PROTHROMBIN TIME PATIENT 20.4 SEC (11.7-14.0)
[2019-03-13 17:40] LABS: ALBUMIN 3.5 g/dL (3.4-5.0); ALBUMIN/GLOBULIN RATIO 0.9 (1.0-1.7); TOTAL PROTEIN 7.6 g/dL (6.4-8.2)
[2019-03-13] MEDS ORDERED: BUMETANIDE 1 MG/4 ML VIAL. IV ONE (18:15)
[2019-03-13] MEDS ORDERED: ACETAMINOPHEN 325 MG TABLET. PO PRN (18:30)
--- NOTE | 2019-03-13 19:13 | PDOC1 ---
History and Physical Date of Admission: Date of Admission DATE: 03/13/19 TIME: 19:09 Chief Complaint: Problems: (1) Anemia (2) Hypoxia (3) Atrial tachycardia (4) Chest pain (5) CHF exacerbation (6) Elevated d-dimer Chief Complain: Shortness of breath and edema History of Present Illness: HPI: This is a middle-aged -[place] male who has obvious heart failure He states he also has liver disease his last drink was a year ago but used to be a heavy drinker He also has chronic renal failure was scheduled to see Dr. 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 CHF Chronic renal insufficiency Noncompliance Allergies: Allergies: Coded Allergies: No Known Drug Allergies (Unverified , 12/20/18) Family History: Family History: Alcoholism Social History: Social Hisoty: He quit drinking a year ago not a current smoker no drugs retired Current Medications: Current Medications Current Medications Bumetanide (Bumex) 1 mg 1X ONCE IV Last administered on 03/13/19at 17:53; Start 03/13/19 at 18:15; Stop 03/13/19 at 18:16; Status DC Acetaminophen (Tylenol) 650 mg PRN Q4HRS PRN PO FEVER; Start 03/13/19 at 18:30; Stop 03/14/19 at 18:29 Active Scripts Active Metoprolol Succinate ( Xl ) (Metoprolol Succinate) 100 Mg Tab.er.24h 200 Mg PO DAILY 30 Days DOSE INCREASE TO 200mg Daily Diltiazem 24HR Cd (Diltiazem Hcl) 180 Mg Cap.er.24h 180 Mg PO DAILY 30 Days To replace 240mg diltiazem Pro Comfort Spacer with Mask (Inhaler,Assist Device,Lg Mask) 1 Each Spacer Each MC QID QID prn for asthma Xoepenex and BID for Asthma/copd for symbicort Xopenex Hfa (Levalbuterol Tartrate) 15 Gm Hfa.aer.ad 2 Puff IH PRN Q4-6HRS 30 Days Symbicort 80-4.5 Mcg Inhaler (Budesonide/Formoterol Fumarate) 10.2 Gm Hfa.aer.ad 1 Puff IH QID 30 Days Amiodarone Hcl 200 Mg Tablet 200 Mg PO DAILY 30 Days Eliquis (Apixaban) 5 Mg Tablet 5 Mg PO BID 30 Days Ferrous Sulfate 325 Mg Tablet 1 Tab PO DAILY Reported Multivitamins (Multivitamin) 1 Each Tablet 1 Each PO DAILY Acetaminophen 500 Mg Tablet 1,000 Mg PO PRN Q6HRS PRN Losartan Potassium (Losartan Potassium) 25 Mg Tablet 50 Mg PO DAILY Lasix (Furosemide) 40 Mg Tablet 40 Mg PO DAILY ROS: Review of Systems Review of System REVIEW OF SYSTEMS: GENERAL: Denies weakness SKIN: He complains of easy bruising and swelling EYES: No blurred, double or loss of vision. NOSE AND THROAT: No history of nosebleeds, hoarseness or sore throat. HEART: Complains of palpitations LUNGS: Complains of shortness of breath. GASTROINTESTINAL: Complains of abdominal distention GENITOURINARY: No history of frequency, urgency, hesitancy or nocturia. NEUROLOGIC: Complains of weakness PSYCHIATRIC: Complains of depression ENDOCRINE: No history of heat or cold intolerance, polyuria or polydipsia. EXTREMITIES: Complains of edema Physical Exam: Vital Signs: Vital Signs Date Time Temp Pulse Resp B/P (MAP) Pulse Ox O2 Delivery O2 Flow Rate FiO2 03/13/19 18:22 112 22 139/81 (100) 100 Nasal Cannula 2.0 03/13/19 16:46 98.6 98.6 Physcial Exam: GEN.: Frail short of breath HEENT: Head is normocephalic, atraumatic NECK: Positive JVD LUNGS: Bilateral crackles HEART: RRR, S1, S2 S3 gallop present. Peripheral pulses intact ABDOMEN: Distended with hepatomegaly and ascites EXTREMITIES: 3+ edema NEUROLOGIC: Normal speech, normal tone. A&O x 3 PSYCHIATRIC: He is depressed SKIN: No ulcerations or rashes VASCULAR: Poor capillary refill Labs: Labs: Laboratory Tests Test 03/13/19 16:22 03/13/19 16:40 Urine Collection Type Unknown Urine Color Yellow Urine Clarity Clear Urine pH 6.0 Urine Specific [place] 1.010 Urine Protein Negative mg/dL (NEG-TRACE) Urine Glucose (UA) Negative mg/dL (NEG) Urine Ketones (Stick) Negative mg/dL (NEG) Urine Blood Negative (NEG) Urine Nitrite Negative (NEG) Urine Bilirubin Negative (NEG) Urine Urobilinogen Dipstick 0.2 mg/dL (0.2 mg/dL) Urine Leukocyte Esterase Negative (NEG) Urine RBC 0 /HPF (0-2) Urine WBC 0 /HPF (0-4) Urine Squamous Epithelial Cells Few /LPF Urine Bacteria 0 /HPF (0-FEW) White Blood Count 7.0 x10^3/uL (4.0-11.0) Red Blood Count 5.13 x10^6/uL (4.30-5.70) Hemoglobin 13.6 g/dL (13.0-17.5) Hematocrit 43.8 % (39.0-53.0) Mean Corpuscular Volume 85 fL (79-100) Mean Corpuscular Hemoglobin 27 pg (25-35) Mean Corpuscular Hemoglobin Concent 31 g/dL (31-37) Red Cell Distribution Width 17.2 % (11.5-14.5) Platelet Count 309 x10^3/uL (140-400) Neutrophils (%) (Auto) 73 % (31-73) Lymphocytes (%) (Auto) 18 % (24-48) Monocytes (%) (Auto) 8 % (0-9) Eosinophils (%) (Auto) 1 % (0-3) Basophils (%) (Auto) 1 % (0-3) Neutrophils # (Auto) 5.1 x10^3uL (1.8-7.7) Lymphocytes # (Auto) 1.2 x10^3/uL (1.0-4.8) Monocytes # (Auto) 0.5 x10^3/uL (0.0-1.1) Eosinophils # (Auto) 0.1 x10^3/uL (0.0-0.7) Basophils # (Auto) 0.1 x10^3/uL (0.0-0.2) Prothrombin Time 20.4 SEC (11.7-14.0) Prothromb Time International Ratio 1.8 (0.8-1.1) Activated Partial Thromboplast Time 36 SEC (24-38) Sodium Level 144 mmol/L (136-145) Potassium Level 4.7 mmol/L (3.5-5.1) Chloride Level 106 mmol/L (98-107) Carbon Dioxide Level 23 mmol/L (21-32) Anion Gap 15 (6-14) Blood Urea Nitrogen 27 mg/dL (8-26) Creatinine 2.6 mg/dL (0.7-1.3) Estimated GFR (Cockcroft-Gault) 30.8 BUN/Creatinine Ratio 10 (6-20) Glucose Level 89 mg/dL (70-99) Calcium Level 9.3 mg/dL (8.5-10.1) Total Bilirubin 1.0 mg/dL (0.2-1.0) Aspartate Amino Transf (AST/SGOT) 38 U/L (15-37) Alanine Aminotransferase (ALT/SGPT) 26 U/L (16-63) Alkaline Phosphatase 97 U/L (46-116) Troponin I Quantitative 0.019 ng/mL (0.000-0.055) RS-Heg-G-Type Natriuretic Peptide 25748 pg/mL (0-124) Total Protein 7.6 g/dL (6.4-8.2) Albumin 3.5 g/dL (3.4-5.0) Albumin/Globulin Ratio 0.9 (1.0-1.7) Laboratory Tests Test 03/13/19 16:22 03/13/19 16:40 Urine Collection Type Unknown Urine Color Yellow Urine Clarity Clear Urine pH 6.0 Urine Specific [place] 1.010 Urine Protein Negative mg/dL (NEG-TRACE) Urine Glucose (UA) Negative mg/dL (NEG) Urine Ketones (Stick) Negative mg/dL (NEG) Urine Blood Negative (NEG) Urine Nitrite Negative (NEG) Urine Bilirubin Negative (NEG) Urine Urobilinogen Dipstick 0.2 mg/dL (0.2 mg/dL) Urine Leukocyte Esterase Negative (NEG) Urine RBC 0 /HPF (0-2) Urine WBC 0 /HPF (0-4) Urine Squamous Epithelial Cells Few /LPF Urine Bacteria 0 /HPF (0-FEW) White Blood Count 7.0 x10^3/uL (4.0-11.0) Red Blood Count 5.13 x10^6/uL (4.30-5.70) Hemoglobin 13.6 g/dL (13.0-17.5) Hematocrit 43.8 % (39.0-53.0) Mean Corpuscular Volume 85 fL (79-100) Mean Corpuscular Hemoglobin 27 pg (25-35) Mean Corpuscular Hemoglobin Concent 31 g/dL (31-37) Red Cell Distribution Width 17.2 % (11.5-14.5) Platelet Count 309 x10^3/uL (140-400) Neutrophils (%) (Auto) 73 % (31-73) Lymphocytes (%) (Auto) 18 % (24-48) Monocytes (%) (Auto) 8 % (0-9) Eosinophils (%) (Auto) 1 % (0-3) Basophils (%) (Auto) 1 % (0-3) Neutrophils # (Auto) 5.1 x10^3uL (1.8-7.7) Lymphocytes # (Auto) 1.2 x10^3/uL (1.0-4.8) Monocytes # (Auto) 0.5 x10^3/uL (0.0-1.1) Eosinophils # (Auto) 0.1 x10^3/uL (0.0-0.7) Basophils # (Auto) 0.1 x10^3/uL (0.0-0.2) Prothrombin Time 20.4 SEC (11.7-14.0) Prothromb Time International Ratio 1.8 (0.8-1.1) Activated Partial Thromboplast Time 36 SEC (24-38) Sodium Level 144 mmol/L (136-145) Potassium Level 4.7 mmol/L (3.5-5.1) Chloride Level 106 mmol/L (98-107) Carbon Dioxide Level 23 mmol/L (21-32) Anion Gap 15 (6-14) Blood Urea Nitrogen 27 mg/dL (8-26) Creatinine 2.6 mg/dL (0.7-1.3) Estimated GFR (Cockcroft-Gault) 30.8 BUN/Creatinine Ratio 10 (6-20) Glucose Level 89 mg/dL (70-99) Calcium Level 9.3 mg/dL (8.5-10.1) Total Bilirubin 1.0 mg/dL (0.2-1.0) Aspartate Amino Transf (AST/SGOT) 38 U/L (15-37) Alanine Aminotransferase (ALT/SGPT) 26 U/L (16-63) Alkaline Phosphatase 97 U/L (46-116) Troponin I Quantitative 0.019 ng/mL (0.000-0.055) IJ-Fra-N-Type Natriuretic Peptide 98348 pg/mL (0-124) Total Protein 7.6 g/dL (6.4-8.2) Albumin 3.5 g/dL (3.4-5.0) Albumin/Globulin Ratio 0.9 (1.0-1.7) Images: Images Chest x-ray shows vascular congestion Assessment/Plan Assessment/Plan Acute on chronic systolic and diastolic heart failure renal insufficiency and history of liver disease and history of alcohol is morbidly quit a year ago Plan IV Lasix Cardiac monitoring Home meds Serial enzymes still EKGs Echocardiogram Consult nephrology cardiology and GI DVT prophylaxis Full code Frequent labs Prognosis guarded This is a very sick patient is long-term prognosis may be less than 6 months? Total time 33 minutes DARELL VARELA III DO March 13, 2019 19:13
--- NOTE | 2019-03-13 19:19 | RAD ---
AP portable chest radiograph 03/13/2019 Clinical History: Shortness of breath. An AP erect portable digital radiograph of the chest was obtained. Comparison study is dated 02/10/2019. The cardiac silhouette is mild to moderately enlarged. The thoracic aorta is tortuous. Atherosclerotic calcification thoracic aorta is seen. Improving congestive changes are seen involving both lungs. No area of consolidation is seen. No pneumothorax or pleural effusion is noted. The osseous structures are unchanged. Impression: Improving congestive changes. No area of consolidation is seen. Electronically signed by: Anthony Gill MD (03/13/2019 7:16 PM) [facility]
[2019-03-13 19:30] VITALS: BP 138/108
[2019-03-13 23:49] VITALS: BP 153/71
[2019-03-14 03:51] VITALS: BP 120/91
[2019-03-14] MEDS ORDERED: NON FORMULARY ITEM (Levalbuterol Tartrate (Xopenex Hfa) 2 PUFF) IH SCH (04:45)
[2019-03-14] MEDS ORDERED: LEVALBUTEROL 1.25 MG/0.5 ML NEBU. NEB PRN (05:30)
[2019-03-14 05:49] LABS: BASO % 1 % (0-3); EOS # 0.1 x10^3/uL (0.0-0.7); EOS % 1 % (0-3); HEMOGLOBIN 13.7 g/dL (13.0-17.5); LYMPH # 1.8 x10^3/uL (1.0-4.8); LYMPH % 27 % (24-48); MEAN CORPUSCULAR HEMOGLOBIN 26 pg (25-35); MEAN CORPUSCULAR HGB CONC 31 g/dL (31-37); MEAN CORPUSCULAR VOLUME 84 fL (79-100); MONO # 0.7 x10^3/uL (0.0-1.1); MONO % 11 % (0-9); NEUT # 4.1 x10^3uL (1.8-7.7); NEUT % 61 % (31-73); PLATELET COUNT 314 x10^3/uL (140-400); RED BLOOD COUNT 5.21 x10^6/uL (4.30-5.70); RED CELL DISTRIBUTION WIDTH 16.9 % (11.5-14.5); WHITE BLOOD COUNT 6.7 x10^3/uL (4.0-11.0)
[2019-03-14 05:59] LABS: ALBUMIN 3.3 g/dL (3.4-5.0); ALBUMIN/GLOBULIN RATIO 0.8 (1.0-1.7); CALCIUM 9.4 mg/dL (8.5-10.1); CREATININE 2.8 mg/dL (0.7-1.3); GFR 28.3; POTASSIUM 4.6 mmol/L (3.5-5.1); TOTAL BILIRUBIN 0.8 mg/dL (0.2-1.0); TOTAL PROTEIN 7.3 g/dL (6.4-8.2)
--- NOTE | 2019-03-14 06:10 | EKG ---
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
[2019-03-14 07:00] VITALS: BP 131/98
[2019-03-14] MEDS: BUDESONIDE 0.5 MG/2 ML NEBU. NEB SCH ×2 (07:40→20:56)
[2019-03-14] MEDS: ALBUTEROL SULFATE 2.5 MG/3 ML NEBU. NEB SCH ×4 (07:40→20:56)
[2019-03-14] MEDS: METOPROLOL SUCC 24HR ER 100 MG TAB.ER.24H. PO SCH (08:53)
[2019-03-14] MEDS: APIXABAN 5 MG TABLET. PO SCH ×2 (08:54→21:20)
[2019-03-14] MEDS: FERROUS SULFATE 325 MG TABLET. PO SCH (08:54)
[2019-03-14] MEDS: MULTIVITAMIN with MINERAL TABLET. PO SCH (08:55)
[2019-03-14] MEDS: AMIODARONE HCL 200 MG TABLET. PO SCH (08:56)
[2019-03-14] MEDS ORDERED: NON FORMULARY ITEM (Budesonide/Formoterol Fumarate (Symbicort 80-4.5 Mcg Inhaler) 1 PUFF) IH SCH (09:00)
[2019-03-14] MEDS ORDERED: LOSARTAN POTASSIUM 50 MG TABLET. PO SCH (09:00)
[2019-03-14] MEDS ORDERED: FUROSEMIDE 40 MG TABLET. PO SCH (09:00)
--- NOTE | 2019-03-14 09:31 | PDOC2 ---
GI CONSULT Reason For Consult: Liver disease HPI: HPI: 58 y/o male admitted through ER w/ increasing SOA w/ exertion and swelling in legs and abdomen. Tells me "this has been happening for years." We are asked to see for liver disease - pt denies h/o this, also denies previous paracentesis. H/o GERD, takes "something that starts with a Z" (?Zegerid on past notes). No dysphagia, n/v, abd pain, change in appetite, diarrhea, constipation, or bleeding. Abdomen feels tight. H/o NICOLETTE (Hgb currently WNL), CKD, and NICM. ?compliance w/ low salt diet an issue No GB or pancreas history. EGD 11/2018: duodenitis. Colonoscopy 12/2018: cannot view procedure report, but pathology report indicates two hyperplastic polyps. Had +Hep B Core Total Ab w/ surface Ab 278 in 2013 - quant neg. Hep A and C neg at that time. Fatty liver on past imaging. On iron, Lasix, amiodarone, and Eliquis here. He might take ASA at home too. 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), sober for 1.5 years) Drugs: None ROS: GEN: Denies fevers, chills, sweats HEENT: Denies blurred vision, sore throat CV: Denies chest pain RESP: +shortness of air, cough GI: Per HPI : Denies hematuria, dysuria ENDO: Denies weight changes NEURO: Denies confusion, dizziness MSK: +swelling SKIN: Denies jaundice, pruritus Vitals: Vitals: Vital Signs Date Time Temp Pulse Resp B/P (MAP) Pulse Ox O2 Delivery O2 Flow Rate FiO2 03/14/19 08:56 108 131/98 03/14/19 07:40 100 Nasal Cannula 4.0 03/14/19 07:00 98.0 17 98.0 Labs: Labs: Laboratory Tests Test 03/13/19 16:22 03/13/19 16:40 03/13/19 21:30 03/14/19 00:25 Urine Collection Type Unknown Urine Color Yellow Urine Clarity Clear Urine pH 6.0 Urine Specific [place] 1.010 Urine Protein Negative mg/dL (NEG-TRACE) Urine Glucose (UA) Negative mg/dL (NEG) Urine Ketones (Stick) Negative mg/dL (NEG) Urine Blood Negative (NEG) Urine Nitrite Negative (NEG) Urine Bilirubin Negative (NEG) Urine Urobilinogen Dipstick 0.2 mg/dL (0.2 mg/dL) Urine Leukocyte Esterase Negative (NEG) Urine RBC 0 /HPF (0-2) Urine WBC 0 /HPF (0-4) Urine Squamous Epithelial Cells Few /LPF Urine Bacteria 0 /HPF (0-FEW) White Blood Count 7.0 x10^3/uL (4.0-11.0) Red Blood Count 5.13 x10^6/uL (4.30-5.70) Hemoglobin 13.6 g/dL (13.0-17.5) Hematocrit 43.8 % (39.0-53.0) Mean Corpuscular Volume 85 fL (79-100) Mean Corpuscular Hemoglobin 27 pg (25-35) Mean Corpuscular Hemoglobin Concent 31 g/dL (31-37) Red Cell Distribution Width 17.2 % (11.5-14.5) Platelet Count 309 x10^3/uL (140-400) Neutrophils (%) (Auto) 73 % (31-73) Lymphocytes (%) (Auto) 18 % (24-48) Monocytes (%) (Auto) 8 % (0-9) Eosinophils (%) (Auto) 1 % (0-3) Basophils (%) (Auto) 1 % (0-3) Neutrophils # (Auto) 5.1 x10^3uL (1.8-7.7) Lymphocytes # (Auto) 1.2 x10^3/uL (1.0-4.8) Monocytes # (Auto) 0.5 x10^3/uL (0.0-1.1) Eosinophils # (Auto) 0.1 x10^3/uL (0.0-0.7) Basophils # (Auto) 0.1 x10^3/uL (0.0-0.2) Prothrombin Time 20.4 SEC (11.7-14.0) Prothromb Time International Ratio 1.8 (0.8-1.1) Activated Partial Thromboplast Time 36 SEC (24-38) Sodium Level 144 mmol/L (136-145) Potassium Level 4.7 mmol/L (3.5-5.1) Chloride Level 106 mmol/L (98-107) Carbon Dioxide Level 23 mmol/L (21-32) Anion Gap 15 (6-14) Blood Urea Nitrogen 27 mg/dL (8-26) Creatinine 2.6 mg/dL (0.7-1.3) Estimated GFR (Cockcroft-Gault) 30.8 BUN/Creatinine Ratio 10 (6-20) Glucose Level 89 mg/dL (70-99) Calcium Level 9.3 mg/dL (8.5-10.1) Total Bilirubin 1.0 mg/dL (0.2-1.0) Aspartate Amino Transf (AST/SGOT) 38 U/L (15-37) Alanine Aminotransferase (ALT/SGPT) 26 U/L (16-63) Alkaline Phosphatase 97 U/L (46-116) Troponin I Quantitative 0.019 ng/mL (0.000-0.055) 0.020 ng/mL (0.000-0.055) 0.029 ng/mL (0.000-0.055) BH-Txn-R-Type Natriuretic Peptide 40923 pg/mL (0-124) Total Protein 7.6 g/dL (6.4-8.2) Albumin 3.5 g/dL (3.4-5.0) Albumin/Globulin Ratio 0.9 (1.0-1.7) Test 03/14/19 04:45 White Blood Count 6.7 x10^3/uL (4.0-11.0) Red Blood Count 5.21 x10^6/uL (4.30-5.70) Hemoglobin 13.7 g/dL (13.0-17.5) Hematocrit 44.0 % (39.0-53.0) Mean Corpuscular Volume 84 fL (79-100) Mean Corpuscular Hemoglobin 26 pg (25-35) Mean Corpuscular Hemoglobin Concent 31 g/dL (31-37) Red Cell Distribution Width 16.9 % (11.5-14.5) Platelet Count 314 x10^3/uL (140-400) Neutrophils (%) (Auto) 61 % (31-73) Lymphocytes (%) (Auto) 27 % (24-48) Monocytes (%) (Auto) 11 % (0-9) Eosinophils (%) (Auto) 1 % (0-3) Basophils (%) (Auto) 1 % (0-3) Neutrophils # (Auto) 4.1 x10^3uL (1.8-7.7) Lymphocytes # (Auto) 1.8 x10^3/uL (1.0-4.8) Monocytes # (Auto) 0.7 x10^3/uL (0.0-1.1) Eosinophils # (Auto) 0.1 x10^3/uL (0.0-0.7) Basophils # (Auto) 0.0 x10^3/uL (0.0-0.2) Sodium Level 145 mmol/L (136-145) Potassium Level 4.6 mmol/L (3.5-5.1) Chloride Level 108 mmol/L (98-107) Carbon Dioxide Level 23 mmol/L (21-32) Anion Gap 14 (6-14) Blood Urea Nitrogen 31 mg/dL (8-26) Creatinine 2.8 mg/dL (0.7-1.3) Estimated GFR (Cockcroft-Gault) 28.3 BUN/Creatinine Ratio 11 (6-20) Glucose Level 94 mg/dL (70-99) Calcium Level 9.4 mg/dL (8.5-10.1) Total Bilirubin 0.8 mg/dL (0.2-1.0) Aspartate Amino Transf (AST/SGOT) 24 U/L (15-37) Alanine Aminotransferase (ALT/SGPT) 25 U/L (16-63) Alkaline Phosphatase 97 U/L (46-116) Total Protein 7.3 g/dL (6.4-8.2) Albumin 3.3 g/dL (3.4-5.0) Albumin/Globulin Ratio 0.8 (1.0-1.7) Allergies: Coded Allergies: No Known Drug Allergies (Unverified , 12/20/18) Medications: Current Medications Medications (Trade) Dose Ordered Sig/Hari Route PRN Reason Start Time Stop Time Status Last Admin Dose Admin Bumetanide (Bumex) 1 mg 1X ONCE IV 03/13/19 18:15 03/13/19 18:16 DC 03/13/19 17:53 Amiodarone HCl (Cordarone) 200 mg DAILY PO 03/14/19 09:00 03/14/19 08:56 Apixaban (Eliquis) 5 mg BID PO 03/14/19 09:00 03/14/19 08:54 Ferrous Sulfate (Feosol) 325 mg DAILY PO 03/14/19 09:00 03/14/19 08:54 Furosemide (Lasix) 40 mg DAILY PO 03/14/19 09:00 03/14/19 08:56 Losartan Potassium (Cozaar) 50 mg DAILY PO 03/14/19 09:00 03/14/19 08:55 Metoprolol Succinate (Toprol Xl) 200 mg DAILY PO 03/14/19 09:00 03/14/19 08:53 Diltiazem HCl (Cardizem 24hr Cd) 180 mg DAILY PO 03/14/19 09:00 03/14/19 08:55 Multivitamins (Thera M Plus) 1 tab DAILY PO 03/14/19 09:00 03/14/19 08:55 Budesonide (Pulmicort) 0.5 mg RTBID NEB 03/14/19 08:00 03/14/19 07:40 Albuterol Sulfate (Ventolin Neb Soln) 2.5 mg RTQID NEB 03/14/19 08:00 03/14/19 07:40 Imaging: Imaging: CXR 03/13 Impression: Improving congestive changes. No area of consolidation is seen. PE: GEN: NAD - breakfast tray empty when I saw HEENT: Atraumatic, PERRL LUNGS: NC, cough, wheezing, coarseness HEART: RRR ABD: NABS, some distention and tightness EXTREMITY: BLE pitting edema SKIN: No rashes, no jaundice NEURO/PSYCH: A & O 3 A/P: A/P: SOA, BLE edema, abd distention ?h/o Hep B, alcohol use (sober), fatty liver GERD CRC screen - UTD (2018) NICM, CHF, A Fib, COPD, CKD -- Check US re: ?ascites. LFTs normal. Renal and cardio consults pending. Reviewed w/ Dr. Cohen - will ask pulm to see as well. ?adjust diuretic CASEY HOYOS March 14, 2019 09:31
--- NOTE | 2019-03-14 10:33 | PDOC ---
[employer] PROGRESS NOTE Chief Complaint Chief Complaint CHF Hep B GERD COPD A. fib Acute on chronic systolic and diastolic heart failure renal insufficiency and history of liver disease and history of alcohol is morbidly quit a year ago History of Present Illness History of Present Illness Patient seen and examined Reviewed notes Discussed with RN Vitals Vitals Vital Signs Date Time Temp Pulse Resp B/P (MAP) Pulse Ox O2 Delivery O2 Flow Rate FiO2 03/14/19 08:56 108 131/98 03/14/19 07:40 100 Nasal Cannula 4.0 03/14/19 07:00 98.0 17 98.0 Physical Exam General: Alert, Oriented X3, Cooperative Heart: Regular rate, Normal S1, Normal S2 Lungs: Crackles Abdomen: Other (distended with mild ascites) Labs Labs: Laboratory Tests Test 03/13/19 16:22 03/13/19 16:40 03/13/19 21:30 03/14/19 00:25 Urine Collection Type Unknown Urine Color Yellow Urine Clarity Clear Urine pH 6.0 Urine Specific [place] 1.010 Urine Protein Negative mg/dL (NEG-TRACE) Urine Glucose (UA) Negative mg/dL (NEG) Urine Ketones (Stick) Negative mg/dL (NEG) Urine Blood Negative (NEG) Urine Nitrite Negative (NEG) Urine Bilirubin Negative (NEG) Urine Urobilinogen Dipstick 0.2 mg/dL (0.2 mg/dL) Urine Leukocyte Esterase Negative (NEG) Urine RBC 0 /HPF (0-2) Urine WBC 0 /HPF (0-4) Urine Squamous Epithelial Cells Few /LPF Urine Bacteria 0 /HPF (0-FEW) White Blood Count 7.0 x10^3/uL (4.0-11.0) Red Blood Count 5.13 x10^6/uL (4.30-5.70) Hemoglobin 13.6 g/dL (13.0-17.5) Hematocrit 43.8 % (39.0-53.0) Mean Corpuscular Volume 85 fL (79-100) Mean Corpuscular Hemoglobin 27 pg (25-35) Mean Corpuscular Hemoglobin Concent 31 g/dL (31-37) Red Cell Distribution Width 17.2 % (11.5-14.5) Platelet Count 309 x10^3/uL (140-400) Neutrophils (%) (Auto) 73 % (31-73) Lymphocytes (%) (Auto) 18 % (24-48) Monocytes (%) (Auto) 8 % (0-9) Eosinophils (%) (Auto) 1 % (0-3) Basophils (%) (Auto) 1 % (0-3) Neutrophils # (Auto) 5.1 x10^3uL (1.8-7.7) Lymphocytes # (Auto) 1.2 x10^3/uL (1.0-4.8) Monocytes # (Auto) 0.5 x10^3/uL (0.0-1.1) Eosinophils # (Auto) 0.1 x10^3/uL (0.0-0.7) Basophils # (Auto) 0.1 x10^3/uL (0.0-0.2) Prothrombin Time 20.4 SEC (11.7-14.0) Prothromb Time International Ratio 1.8 (0.8-1.1) Activated Partial Thromboplast Time 36 SEC (24-38) Sodium Level 144 mmol/L (136-145) Potassium Level 4.7 mmol/L (3.5-5.1) Chloride Level 106 mmol/L (98-107) Carbon Dioxide Level 23 mmol/L (21-32) Anion Gap 15 (6-14) Blood Urea Nitrogen 27 mg/dL (8-26) Creatinine 2.6 mg/dL (0.7-1.3) Estimated GFR (Cockcroft-Gault) 30.8 BUN/Creatinine Ratio 10 (6-20) Glucose Level 89 mg/dL (70-99) Calcium Level 9.3 mg/dL (8.5-10.1) Total Bilirubin 1.0 mg/dL (0.2-1.0) Aspartate Amino Transf (AST/SGOT) 38 U/L (15-37) Alanine Aminotransferase (ALT/SGPT) 26 U/L (16-63) Alkaline Phosphatase 97 U/L (46-116) Troponin I Quantitative 0.019 ng/mL (0.000-0.055) 0.020 ng/mL (0.000-0.055) 0.029 ng/mL (0.000-0.055) FJ-Ruy-I-Type Natriuretic Peptide 15786 pg/mL (0-124) Total Protein 7.6 g/dL (6.4-8.2) Albumin 3.5 g/dL (3.4-5.0) Albumin/Globulin Ratio 0.9 (1.0-1.7) Test 03/14/19 04:45 White Blood Count 6.7 x10^3/uL (4.0-11.0) Red Blood Count 5.21 x10^6/uL (4.30-5.70) Hemoglobin 13.7 g/dL (13.0-17.5) Hematocrit 44.0 % (39.0-53.0) Mean Corpuscular Volume 84 fL (79-100) Mean Corpuscular Hemoglobin 26 pg (25-35) Mean Corpuscular Hemoglobin Concent 31 g/dL (31-37) Red Cell Distribution Width 16.9 % (11.5-14.5) Platelet Count 314 x10^3/uL (140-400) Neutrophils (%) (Auto) 61 % (31-73) Lymphocytes (%) (Auto) 27 % (24-48) Monocytes (%) (Auto) 11 % (0-9) Eosinophils (%) (Auto) 1 % (0-3) Basophils (%) (Auto) 1 % (0-3) Neutrophils # (Auto) 4.1 x10^3uL (1.8-7.7) Lymphocytes # (Auto) 1.8 x10^3/uL (1.0-4.8) Monocytes # (Auto) 0.7 x10^3/uL (0.0-1.1) Eosinophils # (Auto) 0.1 x10^3/uL (0.0-0.7) Basophils # (Auto) 0.0 x10^3/uL (0.0-0.2) Sodium Level 145 mmol/L (136-145) Potassium Level 4.6 mmol/L (3.5-5.1) Chloride Level 108 mmol/L (98-107) Carbon Dioxide Level 23 mmol/L (21-32) Anion Gap 14 (6-14) Blood Urea Nitrogen 31 mg/dL (8-26) Creatinine 2.8 mg/dL (0.7-1.3) Estimated GFR (Cockcroft-Gault) 28.3 BUN/Creatinine Ratio 11 (6-20) Glucose Level 94 mg/dL (70-99) Calcium Level 9.4 mg/dL (8.5-10.1) Total Bilirubin 0.8 mg/dL (0.2-1.0) Aspartate Amino Transf (AST/SGOT) 24 U/L (15-37) Alanine Aminotransferase (ALT/SGPT) 25 U/L (16-63) Alkaline Phosphatase 97 U/L (46-116) Total Protein 7.3 g/dL (6.4-8.2) Albumin 3.3 g/dL (3.4-5.0) Albumin/Globulin Ratio 0.8 (1.0-1.7) Review of Systems Review of Systems Complains of shortness of breath and weakness Assessment and Plan Assessmemt and Plan Problems Medical Problems: (1) Shortness of breath Status: Acute CHF Hep B GERD COPD A. fib Acute on chronic systolic and diastolic heart failure renal insufficiency and history of liver disease and history of alcohol is morbidly quit a year ago Plan IV Lasix Consult GI and cardiology Home meds DVT prophylaxis Full code Frequent labs Comment Review of Relevant I have reviewed the following items emmanuel (where applicable) has been applied. Labs Laboratory Tests Test 03/13/19 16:22 03/13/19 16:40 03/13/19 21:30 03/14/19 00:25 Urine Collection Type Unknown Urine Color Yellow Urine Clarity Clear Urine pH 6.0 Urine Specific [place] 1.010 Urine Protein Negative mg/dL (NEG-TRACE) Urine Glucose (UA) Negative mg/dL (NEG) Urine Ketones (Stick) Negative mg/dL (NEG) Urine Blood Negative (NEG) Urine Nitrite Negative (NEG) Urine Bilirubin Negative (NEG) Urine Urobilinogen Dipstick 0.2 mg/dL (0.2 mg/dL) Urine Leukocyte Esterase Negative (NEG) Urine RBC 0 /HPF (0-2) Urine WBC 0 /HPF (0-4) Urine Squamous Epithelial Cells Few /LPF Urine Bacteria 0 /HPF (0-FEW) White Blood Count 7.0 x10^3/uL (4.0-11.0) Red Blood Count 5.13 x10^6/uL (4.30-5.70) Hemoglobin 13.6 g/dL (13.0-17.5) Hematocrit 43.8 % (39.0-53.0) Mean Corpuscular Volume 85 fL (79-100) Mean Corpuscular Hemoglobin 27 pg (25-35) Mean Corpuscular Hemoglobin Concent 31 g/dL (31-37) Red Cell Distribution Width 17.2 % (11.5-14.5) Platelet Count 309 x10^3/uL (140-400) Neutrophils (%) (Auto) 73 % (31-73) Lymphocytes (%) (Auto) 18 % (24-48) Monocytes (%) (Auto) 8 % (0-9) Eosinophils (%) (Auto) 1 % (0-3) Basophils (%) (Auto) 1 % (0-3) Neutrophils # (Auto) 5.1 x10^3uL (1.8-7.7) Lymphocytes # (Auto) 1.2 x10^3/uL (1.0-4.8) Monocytes # (Auto) 0.5 x10^3/uL (0.0-1.1) Eosinophils # (Auto) 0.1 x10^3/uL (0.0-0.7) Basophils # (Auto) 0.1 x10^3/uL (0.0-0.2) Prothrombin Time 20.4 SEC (11.7-14.0) Prothromb Time International Ratio 1.8 (0.8-1.1) Activated Partial Thromboplast Time 36 SEC (24-38) Sodium Level 144 mmol/L (136-145) Potassium Level 4.7 mmol/L (3.5-5.1) Chloride Level 106 mmol/L (98-107) Carbon Dioxide Level 23 mmol/L (21-32) Anion Gap 15 (6-14) Blood Urea Nitrogen 27 mg/dL (8-26) Creatinine 2.6 mg/dL (0.7-1.3) Estimated GFR (Cockcroft-Gault) 30.8 BUN/Creatinine Ratio 10 (6-20) Glucose Level 89 mg/dL (70-99) Calcium Level 9.3 mg/dL (8.5-10.1) Total Bilirubin 1.0 mg/dL (0.2-1.0) Aspartate Amino Transf (AST/SGOT) 38 U/L (15-37) Alanine Aminotransferase (ALT/SGPT) 26 U/L (16-63) Alkaline Phosphatase 97 U/L (46-116) Troponin I Quantitative 0.019 ng/mL (0.000-0.055) 0.020 ng/mL (0.000-0.055) 0.029 ng/mL (0.000-0.055) ET-Fud-N-Type Natriuretic Peptide 70939 pg/mL (0-124) Total Protein 7.6 g/dL (6.4-8.2) Albumin 3.5 g/dL (3.4-5.0) Albumin/Globulin Ratio 0.9 (1.0-1.7) Test 03/14/19 04:45 White Blood Count 6.7 x10^3/uL (4.0-11.0) Red Blood Count 5.21 x10^6/uL (4.30-5.70) Hemoglobin 13.7 g/dL (13.0-17.5) Hematocrit 44.0 % (39.0-53.0) Mean Corpuscular Volume 84 fL (79-100) Mean Corpuscular Hemoglobin 26 pg (25-35) Mean Corpuscular Hemoglobin Concent 31 g/dL (31-37) Red Cell Distribution Width 16.9 % (11.5-14.5) Platelet Count 314 x10^3/uL (140-400) Neutrophils (%) (Auto) 61 % (31-73) Lymphocytes (%) (Auto) 27 % (24-48) Monocytes (%) (Auto) 11 % (0-9) Eosinophils (%) (Auto) 1 % (0-3) Basophils (%) (Auto) 1 % (0-3) Neutrophils # (Auto) 4.1 x10^3uL (1.8-7.7) Lymphocytes # (Auto) 1.8 x10^3/uL (1.0-4.8) Monocytes # (Auto) 0.7 x10^3/uL (0.0-1.1) Eosinophils # (Auto) 0.1 x10^3/uL (0.0-0.7) Basophils # (Auto) 0.0 x10^3/uL (0.0-0.2) Sodium Level 145 mmol/L (136-145) Potassium Level 4.6 mmol/L (3.5-5.1) Chloride Level 108 mmol/L (98-107) Carbon Dioxide Level 23 mmol/L (21-32) Anion Gap 14 (6-14) Blood Urea Nitrogen 31 mg/dL (8-26) Creatinine 2.8 mg/dL (0.7-1.3) Estimated GFR (Cockcroft-Gault) 28.3 BUN/Creatinine Ratio 11 (6-20) Glucose Level 94 mg/dL (70-99) Calcium Level 9.4 mg/dL (8.5-10.1) Total Bilirubin 0.8 mg/dL (0.2-1.0) Aspartate Amino Transf (AST/SGOT) 24 U/L (15-37) Alanine Aminotransferase (ALT/SGPT) 25 U/L (16-63) Alkaline Phosphatase 97 U/L (46-116) Total Protein 7.3 g/dL (6.4-8.2) Albumin 3.3 g/dL (3.4-5.0) Albumin/Globulin Ratio 0.8 (1.0-1.7) Laboratory Tests Test 03/13/19 16:22 03/13/19 16:40 03/13/19 21:30 03/14/19 00:25 Urine Collection Type Unknown Urine Color Yellow Urine Clarity Clear Urine pH 6.0 Urine Specific [place] 1.010 Urine Protein Negative mg/dL (NEG-TRACE) Urine Glucose (UA) Negative mg/dL (NEG) Urine Ketones (Stick) Negative mg/dL (NEG) Urine Blood Negative (NEG) Urine Nitrite Negative (NEG) Urine Bilirubin Negative (NEG) Urine Urobilinogen Dipstick 0.2 mg/dL (0.2 mg/dL) Urine Leukocyte Esterase Negative (NEG) Urine RBC 0 /HPF (0-2) Urine WBC 0 /HPF (0-4) Urine Squamous Epithelial Cells Few /LPF Urine Bacteria 0 /HPF (0-FEW) White Blood Count 7.0 x10^3/uL (4.0-11.0) Red Blood Count 5.13 x10^6/uL (4.30-5.70) Hemoglobin 13.6 g/dL (13.0-17.5) Hematocrit 43.8 % (39.0-53.0) Mean Corpuscular Volume 85 fL (79-100) Mean Corpuscular Hemoglobin 27 pg (25-35) Mean Corpuscular Hemoglobin Concent 31 g/dL (31-37) Red Cell Distribution Width 17.2 % (11.5-14.5) Platelet Count 309 x10^3/uL (140-400) Neutrophils (%) (Auto) 73 % (31-73) Lymphocytes (%) (Auto) 18 % (24-48) Monocytes (%) (Auto) 8 % (0-9) Eosinophils (%) (Auto) 1 % (0-3) Basophils (%) (Auto) 1 % (0-3) Neutrophils # (Auto) 5.1 x10^3uL (1.8-7.7) Lymphocytes # (Auto) 1.2 x10^3/uL (1.0-4.8) Monocytes # (Auto) 0.5 x10^3/uL (0.0-1.1) Eosinophils # (Auto) 0.1 x10^3/uL (0.0-0.7) Basophils # (Auto) 0.1 x10^3/uL (0.0-0.2) Prothrombin Time 20.4 SEC (11.7-14.0) Prothromb Time International Ratio 1.8 (0.8-1.1) Activated Partial Thromboplast Time 36 SEC (24-38) Sodium Level 144 mmol/L (136-145) Potassium Level 4.7 mmol/L (3.5-5.1) Chloride Level 106 mmol/L (98-107) Carbon Dioxide Level 23 mmol/L (21-32) Anion Gap 15 (6-14) Blood Urea Nitrogen 27 mg/dL (8-26) Creatinine 2.6 mg/dL (0.7-1.3) Estimated GFR (Cockcroft-Gault) 30.8 BUN/Creatinine Ratio 10 (6-20) Glucose Level 89 mg/dL (70-99) Calcium Level 9.3 mg/dL (8.5-10.1) Total Bilirubin 1.0 mg/dL (0.2-1.0) Aspartate Amino Transf (AST/SGOT) 38 U/L (15-37) Alanine Aminotransferase (ALT/SGPT) 26 U/L (16-63) Alkaline Phosphatase 97 U/L (46-116) Troponin I Quantitative 0.019 ng/mL (0.000-0.055) 0.020 ng/mL (0.000-0.055) 0.029 ng/mL (0.000-0.055) PJ-Cli-G-Type Natriuretic Peptide 42078 pg/mL (0-124) Total Protein 7.6 g/dL (6.4-8.2) Albumin 3.5 g/dL (3.4-5.0) Albumin/Globulin Ratio 0.9 (1.0-1.7) Test 03/14/19 04:45 White Blood Count 6.7 x10^3/uL (4.0-11.0) Red Blood Count 5.21 x10^6/uL (4.30-5.70) Hemoglobin 13.7 g/dL (13.0-17.5) Hematocrit 44.0 % (39.0-53.0) Mean Corpuscular Volume 84 fL (79-100) Mean Corpuscular Hemoglobin 26 pg (25-35) Mean Corpuscular Hemoglobin Concent 31 g/dL (31-37) Red Cell Distribution Width 16.9 % (11.5-14.5) Platelet Count 314 x10^3/uL (140-400) Neutrophils (%) (Auto) 61 % (31-73) Lymphocytes (%) (Auto) 27 % (24-48) Monocytes (%) (Auto) 11 % (0-9) Eosinophils (%) (Auto) 1 % (0-3) Basophils (%) (Auto) 1 % (0-3) Neutrophils # (Auto) 4.1 x10^3uL (1.8-7.7) Lymphocytes # (Auto) 1.8 x10^3/uL (1.0-4.8) Monocytes # (Auto) 0.7 x10^3/uL (0.0-1.1) Eosinophils # (Auto) 0.1 x10^3/uL (0.0-0.7) Basophils # (Auto) 0.0 x10^3/uL (0.0-0.2) Sodium Level 145 mmol/L (136-145) Potassium Level 4.6 mmol/L (3.5-5.1) Chloride Level 108 mmol/L (98-107) Carbon Dioxide Level 23 mmol/L (21-32) Anion Gap 14 (6-14) Blood Urea Nitrogen 31 mg/dL (8-26) Creatinine 2.8 mg/dL (0.7-1.3) Estimated GFR (Cockcroft-Gault) 28.3 BUN/Creatinine Ratio 11 (6-20) Glucose Level 94 mg/dL (70-99) Calcium Level 9.4 mg/dL (8.5-10.1) Total Bilirubin 0.8 mg/dL (0.2-1.0) Aspartate Amino Transf (AST/SGOT) 24 U/L (15-37) Alanine Aminotransferase (ALT/SGPT) 25 U/L (16-63) Alkaline Phosphatase 97 U/L (46-116) Total Protein 7.3 g/dL (6.4-8.2) Albumin 3.3 g/dL (3.4-5.0) Albumin/Globulin Ratio 0.8 (1.0-1.7) Medications Current Medications Bumetanide (Bumex) 1 mg 1X ONCE IV Last administered on 03/13/19 17:53; Start 03/13/19 at 18:15; Stop 03/13/19 at 18:16; Status DC Acetaminophen (Tylenol) 650 mg PRN Q4HRS PRN PO FEVER; Start 03/13/19 at 18:30; Stop 03/14/19 at 18:29 Amiodarone HCl (Cordarone) 200 mg DAILY PO Last administered on 03/14/19 08:56; Start 03/14/19 at 09:00 Apixaban (Eliquis) 5 mg BID PO Last administered on 03/14/19 08:54; Start 03/14/19 at 09:00 Ferrous Sulfate (Feosol) 325 mg DAILY PO Last administered on 03/14/19 08:54; Start 03/14/19 at 09:00 Furosemide (Lasix) 40 mg DAILY PO Last administered on 03/14/19 08:56; Start 03/14/19 at 09:00 Losartan Potassium (Cozaar) 50 mg DAILY PO Last administered on 03/14/19 08:55; Start 03/14/19 at 09:00 Metoprolol Succinate (Toprol Xl) 200 mg DAILY PO Last administered on 03/14/19at 08:53; Start 03/14/19 at 09:00 Non-Formulary Medication (Budesonide/ Formoterol Fumarate (Symbicort 80-4.5 Mcg Inhaler)) 1 puff QID IH ; Start 03/14/19 at 09:00; Status UNV Diltiazem HCl (Cardizem 24hr Cd) 180 mg DAILY PO Last administered on 03/14/19at 08:55; Start 03/14/19 at 09:00 Non-Formulary Medication (Levalbuterol Tartrate (Xopenex Hfa)) 2 puff PRN Q4- 6HRS IH ; Start 03/14/19 at 04:45; Status UNV Multivitamins (Thera M Plus) 1 tab DAILY PO Last administered on 03/14/19at 08:55; Start 03/14/19 at 09:00 Budesonide (Pulmicort) 0.5 mg RTBID NEB Last administered on 03/14/19at 07:40; Start 03/14/19 at 08:00 Albuterol Sulfate (Ventolin Neb Soln) 2.5 mg RTQID NEB Last administered on 03/14/19at 07:40; Start 03/14/19 at 08:00 Levalbuterol HCl (Xopenex) 2.5 mg PRN Q4HRS PRN NEB SHORTNESS OF BREATH; Start 03/14/19 at 05:30 Pantoprazole Sodium (Protonix) 40 mg DAILYAC PO ; Start 03/14/19 at 11:00 Active Scripts Active Metoprolol Succinate ( Xl ) (Metoprolol Succinate) 100 Mg Tab.er.24h 200 Mg PO DAILY 30 Days DOSE INCREASE TO 200mg Daily Diltiazem 24HR Cd (Diltiazem Hcl) 180 Mg Cap.er.24h 180 Mg PO DAILY 30 Days To replace 240mg diltiazem Pro Comfort Spacer with Mask (Inhaler,Assist Device,Lg Mask) 1 Each Spacer Each MC QID QID prn for asthma Xoepenex and BID for Asthma/copd for symbicort Xopenex Hfa (Levalbuterol Tartrate) 15 Gm Hfa.aer.ad 2 Puff IH PRN Q4-6HRS 30 Days Symbicort 80-4.5 Mcg Inhaler (Budesonide/Formoterol Fumarate) 10.2 Gm Hfa.aer.ad 1 Puff IH QID 30 Days Amiodarone Hcl 200 Mg Tablet 200 Mg PO DAILY 30 Days Eliquis (Apixaban) 5 Mg Tablet 5 Mg PO BID 30 Days Ferrous Sulfate 325 Mg Tablet 1 Tab PO DAILY Reported Multivitamins (Multivitamin) 1 Each Tablet 1 Each PO DAILY Acetaminophen 500 Mg Tablet 1,000 Mg PO PRN Q6HRS PRN Losartan Potassium (Losartan Potassium) 25 Mg Tablet 50 Mg PO DAILY Lasix (Furosemide) 40 Mg Tablet 40 Mg PO DAILY Vitals/I & O Vital Sign - Last 24 Hours 03/13/19 03/13/19 03/13/19 03/13/19 16:46 18:22 19:30 19:49 Temp 98.6 97.6 98.6 97.6 Pulse 110 112 112 Resp 24 22 B/P (MAP) 131/99 (110) 139/81 (100) 138/108 (118) Pulse Ox 100 100 100 O2 Delivery Nasal Cannula Nasal Cannula Nasal Cannula Nasal Cannula O2 Flow Rate 2.0 2.0 2.5 4.0 03/13/19 03/14/19 03/14/19 03/14/19 23:49 03:51 07:00 07:40 Temp 98.1 97.6 98.0 98.1 97.6 98.0 Pulse 112 54 108 Resp 22 18 17 B/P (MAP) 153/71 (98) 120/91 (101) 131/98 (109) Pulse Ox 99 100 96 100 O2 Delivery Nasal Cannula Nasal Cannula Nasal Cannula Nasal Cannula O2 Flow Rate 2.5 2.5 4.0 4.0 03/14/19 03/14/19 03/14/19 03/14/19 08:53 08:55 08:55 08:56 Pulse 108 108 108 108 B/P (MAP) 131/98 131/98 131/98 131/98 Intake and Output0 03/13/19 03/13/19 03/14/19 14:59 22:59 06:59 Output Total 1525 ml Balance -1525 ml CASTLE,NIAL K III DO March 14, 2019 10:33
--- NOTE | 2019-03-14 10:37 | NUR ---
SW following for discharge planning. Chart reviewed. Pt is from home and GI following. No discharge needs or recommendations noted at this time. SW will continue to follow for pending discharge needs.
[2019-03-14 11:00] VITALS: BP 138/103
[2019-03-14] MEDS: PANTOPRAZOLE 40 MG TABLET.DR. PO SCH (12:04)
--- NOTE | 2019-03-14 12:04 | PDOC2 ---
CONSULT Date of Consult Date of Consult DATE: 03/14/19 TIME: 11:57 Reason for Consult Reason for Consult: RENAL FAILURE Referring Physician Referring Physician: NICHOLE Identification/Chief Complaint Chief Complaint SOB Source Source: Chart review, Patient History of Present Illness Reason for Visit: THIS IS A 58 YR OLD WITH SOB. NOTED TO HAVE CHF AND LE EDEMA. HAS SOME NON COMPLIANCE WITH HIS MEDS. NOTED TO HAVE A CR OF 2.8 AND THIS IS ABOUT WHERE HIS BASELINE IS. HAS BEEN UNABLE TO LAY FLAT TO SLEEP. HAS CKD DUE TO HTN. NO OTHER HX NOTED. 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), sober for 1.5 years) Drugs: None Lives: with Family Current Problem List Problem List Problems Medical Problems: (1) Shortness of breath Status: Acute Current Medications Current Medications Current Medications Bumetanide (Bumex) 1 mg 1X ONCE IV Last administered on 03/13/19at 17:53; Start 03/13/19 at 18:15; Stop 03/13/19 at 18:16; Status DC Acetaminophen (Tylenol) 650 mg PRN Q4HRS PRN PO FEVER; Start 03/13/19 at 18:30; Stop 03/14/19 at 18:29 Amiodarone HCl (Cordarone) 200 mg DAILY PO Last administered on 03/14/19at 08:56; Start 03/14/19 at 09:00 Apixaban (Eliquis) 5 mg BID PO Last administered on 03/14/19at 08:54; Start 03/14/19 at 09:00 Ferrous Sulfate (Feosol) 325 mg DAILY PO Last administered on 03/14/19at 08:54; Start 03/14/19 at 09:00 Furosemide (Lasix) 40 mg DAILY PO Last administered on 03/14/19at 08:56; Start 03/14/19 at 09:00 Losartan Potassium (Cozaar) 50 mg DAILY PO Last administered on 03/14/19at 08:55; Start 03/14/19 at 09:00 Metoprolol Succinate (Toprol Xl) 200 mg DAILY PO Last administered on 03/14/19at 08:53; Start 03/14/19 at 09:00 Non-Formulary Medication (Budesonide/ Formoterol Fumarate (Symbicort 80-4.5 Mcg Inhaler)) 1 puff QID IH ; Start 03/14/19 at 09:00; Status UNV Diltiazem HCl (Cardizem 24hr Cd) 180 mg DAILY PO Last administered on 03/14/19at 08:55; Start 03/14/19 at 09:00 Non-Formulary Medication (Levalbuterol Tartrate (Xopenex Hfa)) 2 puff PRN Q4- 6HRS IH ; Start 03/14/19 at 04:45; Status UNV Multivitamins (Thera M Plus) 1 tab DAILY PO Last administered on 03/14/19at 08:55; Start 03/14/19 at 09:00 Budesonide (Pulmicort) 0.5 mg RTBID NEB Last administered on 03/14/19at 07:40; Start 03/14/19 at 08:00 Albuterol Sulfate (Ventolin Neb Soln) 2.5 mg RTQID NEB Last administered on 03/14/19at 07:40; Start 03/14/19 at 08:00 Levalbuterol HCl (Xopenex) 2.5 mg PRN Q4HRS PRN NEB SHORTNESS OF BREATH; Start 03/14/19 at 05:30 Pantoprazole Sodium (Protonix) 40 mg DAILYAC PO ; Start 03/14/19 at 11:00 Furosemide (Lasix) 60 mg 1X ONCE IVP ; Start 03/14/19 at 12:30; Stop 03/14/19 at 12:31 Active Scripts Active Metoprolol Succinate ( Xl ) (Metoprolol Succinate) 100 Mg Tab.er.24h 200 Mg PO DAILY 30 Days DOSE INCREASE TO 200mg Daily Diltiazem 24HR Cd (Diltiazem Hcl) 180 Mg Cap.er.24h 180 Mg PO DAILY 30 Days To replace 240mg diltiazem Pro Comfort Spacer with Mask (Inhaler,Assist Device,Lg Mask) 1 Each Spacer Each MC QID QID prn for asthma Xoepenex and BID for Asthma/copd for symbicort Xopenex Hfa (Levalbuterol Tartrate) 15 Gm Hfa.aer.ad 2 Puff IH PRN Q4-6HRS 30 Days Symbicort 80-4.5 Mcg Inhaler (Budesonide/Formoterol Fumarate) 10.2 Gm Hfa.aer.ad 1 Puff IH QID 30 Days Amiodarone Hcl 200 Mg Tablet 200 Mg PO DAILY 30 Days Eliquis (Apixaban) 5 Mg Tablet 5 Mg PO BID 30 Days Ferrous Sulfate 325 Mg Tablet 1 Tab PO DAILY Reported Multivitamins (Multivitamin) 1 Each Tablet 1 Each PO DAILY Acetaminophen 500 Mg Tablet 1,000 Mg PO PRN Q6HRS PRN Losartan Potassium (Losartan Potassium) 25 Mg Tablet 50 Mg PO DAILY Lasix (Furosemide) 40 Mg Tablet 40 Mg PO DAILY Allergies Allergies: Coded Allergies: No Known Drug Allergies (Unverified , 12/20/18) ROS General: YES: Fatigue, Malaise PSYCHOLOGICAL ROS: YES: Anxiety, Depression Eyes: Yes Decreased vision [facility]: YES[facility] ALLERGY AND IMMUNOLOGY: YES: Seasonal Allergies Respiratory: YES: Cough, Orthopnea, Shortness of breath, SOB with excertion Cardiovascular: yes Orthopnea, yes Paroxysmal Noc. Dyspnea, yes Edema Gastrointestinal: Yes Constipation Genitourinary: YES Other (NOCTURIA) Musculoskeletal: Yes Muscular Weakness Neurological: Yes Weakness Skin: Yes Dry Skin Physical Exam General: Alert, Oriented X3, Cooperative, mild distress HEENT: Atraumatic, PERRLA, EOMI Lungs: Other (BASILAR RALES) Heart: Regular rate Abdomen: Normal bowel sounds, Soft Extremities: No cyanosis Skin: No breakdown Neuro: Normal speech, Sensation intact Psych/Mental Status: Mental status NL, Mood NL MUSCULOSKELETAL: No deformity, Other (3+ EDEMA) Vitals VITALS Vital Signs Date Time Temp Pulse Resp B/P (MAP) Pulse Ox O2 Delivery O2 Flow Rate FiO2 03/14/19 11:00 98.2 111 16 138/103 (115) 97 Nasal Cannula 4.0 98.2 Labs Labs Laboratory Tests Test 03/13/19 16:22 03/13/19 16:40 03/13/19 21:30 03/14/19 00:25 Urine Collection Type Unknown Urine Color Yellow Urine Clarity Clear Urine pH 6.0 Urine Specific [employer] 1.010 Urine Protein Negative mg/dL (NEG-TRACE) Urine Glucose (UA) Negative mg/dL (NEG) Urine Ketones (Stick) Negative mg/dL (NEG) Urine Blood Negative (NEG) Urine Nitrite Negative (NEG) Urine Bilirubin Negative (NEG) Urine Urobilinogen Dipstick 0.2 mg/dL (0.2 mg/dL) Urine Leukocyte Esterase Negative (NEG) Urine RBC 0 /HPF (0-2) Urine WBC 0 /HPF (0-4) Urine Squamous Epithelial Cells Few /LPF Urine Bacteria 0 /HPF (0-FEW) White Blood Count 7.0 x10^3/uL (4.0-11.0) Red Blood Count 5.13 x10^6/uL (4.30-5.70) Hemoglobin 13.6 g/dL (13.0-17.5) Hematocrit 43.8 % (39.0-53.0) Mean Corpuscular Volume 85 fL (79-100) Mean Corpuscular Hemoglobin 27 pg (25-35) Mean Corpuscular Hemoglobin Concent 31 g/dL (31-37) Red Cell Distribution Width 17.2 % (11.5-14.5) Platelet Count 309 x10^3/uL (140-400) Neutrophils (%) (Auto) 73 % (31-73) Lymphocytes (%) (Auto) 18 % (24-48) Monocytes (%) (Auto) 8 % (0-9) Eosinophils (%) (Auto) 1 % (0-3) Basophils (%) (Auto) 1 % (0-3) Neutrophils # (Auto) 5.1 x10^3uL (1.8-7.7) Lymphocytes # (Auto) 1.2 x10^3/uL (1.0-4.8) Monocytes # (Auto) 0.5 x10^3/uL (0.0-1.1) Eosinophils # (Auto) 0.1 x10^3/uL (0.0-0.7) Basophils # (Auto) 0.1 x10^3/uL (0.0-0.2) Prothrombin Time 20.4 SEC (11.7-14.0) Prothromb Time International Ratio 1.8 (0.8-1.1) Activated Partial Thromboplast Time 36 SEC (24-38) Sodium Level 144 mmol/L (136-145) Potassium Level 4.7 mmol/L (3.5-5.1) Chloride Level 106 mmol/L (98-107) Carbon Dioxide Level 23 mmol/L (21-32) Anion Gap 15 (6-14) Blood Urea Nitrogen 27 mg/dL (8-26) Creatinine 2.6 mg/dL (0.7-1.3) Estimated GFR (Cockcroft-Gault) 30.8 BUN/Creatinine Ratio 10 (6-20) Glucose Level 89 mg/dL (70-99) Calcium Level 9.3 mg/dL (8.5-10.1) Total Bilirubin 1.0 mg/dL (0.2-1.0) Aspartate Amino Transf (AST/SGOT) 38 U/L (15-37) Alanine Aminotransferase (ALT/SGPT) 26 U/L (16-63) Alkaline Phosphatase 97 U/L (46-116) Troponin I Quantitative 0.019 ng/mL (0.000-0.055) 0.020 ng/mL (0.000-0.055) 0.029 ng/mL (0.000-0.055) OU-Gvb-L-Type Natriuretic Peptide 74979 pg/mL (0-124) Total Protein 7.6 g/dL (6.4-8.2) Albumin 3.5 g/dL (3.4-5.0) Albumin/Globulin Ratio 0.9 (1.0-1.7) Test 03/14/19 04:45 White Blood Count 6.7 x10^3/uL (4.0-11.0) Red Blood Count 5.21 x10^6/uL (4.30-5.70) Hemoglobin 13.7 g/dL (13.0-17.5) Hematocrit 44.0 % (39.0-53.0) Mean Corpuscular Volume 84 fL (79-100) Mean Corpuscular Hemoglobin 26 pg (25-35) Mean Corpuscular Hemoglobin Concent 31 g/dL (31-37) Red Cell Distribution Width 16.9 % (11.5-14.5) Platelet Count 314 x10^3/uL (140-400) Neutrophils (%) (Auto) 61 % (31-73) Lymphocytes (%) (Auto) 27 % (24-48) Monocytes (%) (Auto) 11 % (0-9) Eosinophils (%) (Auto) 1 % (0-3) Basophils (%) (Auto) 1 % (0-3) Neutrophils # (Auto) 4.1 x10^3uL (1.8-7.7) Lymphocytes # (Auto) 1.8 x10^3/uL (1.0-4.8) Monocytes # (Auto) 0.7 x10^3/uL (0.0-1.1) Eosinophils # (Auto) 0.1 x10^3/uL (0.0-0.7) Basophils # (Auto) 0.0 x10^3/uL (0.0-0.2) Sodium Level 145 mmol/L (136-145) Potassium Level 4.6 mmol/L (3.5-5.1) Chloride Level 108 mmol/L (98-107) Carbon Dioxide Level 23 mmol/L (21-32) Anion Gap 14 (6-14) Blood Urea Nitrogen 31 mg/dL (8-26) Creatinine 2.8 mg/dL (0.7-1.3) Estimated GFR (Cockcroft-Gault) 28.3 BUN/Creatinine Ratio 11 (6-20) Glucose Level 94 mg/dL (70-99) Calcium Level 9.4 mg/dL (8.5-10.1) Total Bilirubin 0.8 mg/dL (0.2-1.0) Aspartate Amino Transf (AST/SGOT) 24 U/L (15-37) Alanine Aminotransferase (ALT/SGPT) 25 U/L (16-63) Alkaline Phosphatase 97 U/L (46-116) Total Protein 7.3 g/dL (6.4-8.2) Albumin 3.3 g/dL (3.4-5.0) Albumin/Globulin Ratio 0.8 (1.0-1.7) Laboratory Tests Test 03/13/19 16:22 03/13/19 16:40 03/13/19 21:30 03/14/19 00:25 Urine Collection Type Unknown Urine Color Yellow Urine Clarity Clear Urine pH 6.0 Urine Specific [employer] 1.010 Urine Protein Negative mg/dL (NEG-TRACE) Urine Glucose (UA) Negative mg/dL (NEG) Urine Ketones (Stick) Negative mg/dL (NEG) Urine Blood Negative (NEG) Urine Nitrite Negative (NEG) Urine Bilirubin Negative (NEG) Urine Urobilinogen Dipstick 0.2 mg/dL (0.2 mg/dL) Urine Leukocyte Esterase Negative (NEG) Urine RBC 0 /HPF (0-2) Urine WBC 0 /HPF (0-4) Urine Squamous Epithelial Cells Few /LPF Urine Bacteria 0 /HPF (0-FEW) White Blood Count 7.0 x10^3/uL (4.0-11.0) Red Blood Count 5.13 x10^6/uL (4.30-5.70) Hemoglobin 13.6 g/dL (13.0-17.5) Hematocrit 43.8 % (39.0-53.0) Mean Corpuscular Volume 85 fL (79-100) Mean Corpuscular Hemoglobin 27 pg (25-35) Mean Corpuscular Hemoglobin Concent 31 g/dL (31-37) Red Cell Distribution Width 17.2 % (11.5-14.5) Platelet Count 309 x10^3/uL (140-400) Neutrophils (%) (Auto) 73 % (31-73) Lymphocytes (%) (Auto) 18 % (24-48) Monocytes (%) (Auto) 8 % (0-9) Eosinophils (%) (Auto) 1 % (0-3) Basophils (%) (Auto) 1 % (0-3) Neutrophils # (Auto) 5.1 x10^3uL (1.8-7.7) Lymphocytes # (Auto) 1.2 x10^3/uL (1.0-4.8) Monocytes # (Auto) 0.5 x10^3/uL (0.0-1.1) Eosinophils # (Auto) 0.1 x10^3/uL (0.0-0.7) Basophils # (Auto) 0.1 x10^3/uL (0.0-0.2) Prothrombin Time 20.4 SEC (11.7-14.0) Prothromb Time International Ratio 1.8 (0.8-1.1) Activated Partial Thromboplast Time 36 SEC (24-38) Sodium Level 144 mmol/L (136-145) Potassium Level 4.7 mmol/L (3.5-5.1) Chloride Level 106 mmol/L (98-107) Carbon Dioxide Level 23 mmol/L (21-32) Anion Gap 15 (6-14) Blood Urea Nitrogen 27 mg/dL (8-26) Creatinine 2.6 mg/dL (0.7-1.3) Estimated GFR (Cockcroft-Gault) 30.8 BUN/Creatinine Ratio 10 (6-20) Glucose Level 89 mg/dL (70-99) Calcium Level 9.3 mg/dL (8.5-10.1) Total Bilirubin 1.0 mg/dL (0.2-1.0) Aspartate Amino Transf (AST/SGOT) 38 U/L (15-37) Alanine Aminotransferase (ALT/SGPT) 26 U/L (16-63) Alkaline Phosphatase 97 U/L (46-116) Troponin I Quantitative 0.019 ng/mL (0.000-0.055) 0.020 ng/mL (0.000-0.055) 0.029 ng/mL (0.000-0.055) QB-Pgp-J-Type Natriuretic Peptide 83508 pg/mL (0-124) Total Protein 7.6 g/dL (6.4-8.2) Albumin 3.5 g/dL (3.4-5.0) Albumin/Globulin Ratio 0.9 (1.0-1.7) Test 03/14/19 04:45 White Blood Count 6.7 x10^3/uL (4.0-11.0) Red Blood Count 5.21 x10^6/uL (4.30-5.70) Hemoglobin 13.7 g/dL (13.0-17.5) Hematocrit 44.0 % (39.0-53.0) Mean Corpuscular Volume 84 fL (79-100) Mean Corpuscular Hemoglobin 26 pg (25-35) Mean Corpuscular Hemoglobin Concent 31 g/dL (31-37) Red Cell Distribution Width 16.9 % (11.5-14.5) Platelet Count 314 x10^3/uL (140-400) Neutrophils (%) (Auto) 61 % (31-73) Lymphocytes (%) (Auto) 27 % (24-48) Monocytes (%) (Auto) 11 % (0-9) Eosinophils (%) (Auto) 1 % (0-3) Basophils (%) (Auto) 1 % (0-3) Neutrophils # (Auto) 4.1 x10^3uL (1.8-7.7) Lymphocytes # (Auto) 1.8 x10^3/uL (1.0-4.8) Monocytes # (Auto) 0.7 x10^3/uL (0.0-1.1) Eosinophils # (Auto) 0.1 x10^3/uL (0.0-0.7) Basophils # (Auto) 0.0 x10^3/uL (0.0-0.2) Sodium Level 145 mmol/L (136-145) Potassium Level 4.6 mmol/L (3.5-5.1) Chloride Level 108 mmol/L (98-107) Carbon Dioxide Level 23 mmol/L (21-32) Anion Gap 14 (6-14) Blood Urea Nitrogen 31 mg/dL (8-26) Creatinine 2.8 mg/dL (0.7-1.3) Estimated GFR (Cockcroft-Gault) 28.3 BUN/Creatinine Ratio 11 (6-20) Glucose Level 94 mg/dL (70-99) Calcium Level 9.4 mg/dL (8.5-10.1) Total Bilirubin 0.8 mg/dL (0.2-1.0) Aspartate Amino Transf (AST/SGOT) 24 U/L (15-37) Alanine Aminotransferase (ALT/SGPT) 25 U/L (16-63) Alkaline Phosphatase 97 U/L (46-116) Total Protein 7.3 g/dL (6.4-8.2) Albumin 3.3 g/dL (3.4-5.0) Albumin/Globulin Ratio 0.8 (1.0-1.7) Images Images AP portable chest radiograph 03/13/2019 Clinical History: Shortness of breath. An AP erect portable digital radiograph of the chest was obtained. Comparison study is dated 02/10/2019. The cardiac silhouette is mild to moderately enlarged. The thoracic aorta is tortuous. Atherosclerotic calcification thoracic aorta is seen. Improving congestive changes are seen involving both lungs. No area of consolidation is seen. No pneumothorax or pleural effusion is noted. The osseous structures are unchanged. Impression: Improving congestive changes. No area of consolidation is seen. Assessment/Plan Assessment/Plan IMP CKD STAGE 3-4 SEVERE VALVULAR HEART DISEASE CM WITH EF OF ABOUT 20-25% ACUTE ON CHRONIC SYSTOLIC CHF NON COMPLIANCE HX HTN HX PLAN IV LASIX INCREASE ARB TO FURTHER REDUCE AFTER LOAD MAY END UP NEEDING HD IF UNABLE TO OFF LOAD WITH DIURETICS WILL FOLLOW SCOT CASSIDY MD March 14, 2019 12:04
--- NOTE | 2019-03-14 12:27 | PDOC2 ---
REBEKAHGISSELLAARONRAVINDER BURRELL 03/14/19 1227: CARDIAC CONSULT DATE OF CONSULT Date of Consult DATE: 03/14/19 TIME: 12:18 REASON FOR CONSULT Reason for Consult: CHF REFERRING PHYSICIAN Referring Physician: Jonathan Griffith APRN SOURCE Source: Chart review, Patient HISTORY OF PRESENT ILLNESS HISTORY OF PRESENT ILLNESS This is a 58 yo male who presented secondary to shortness of breath. Patient reports shortness of breath has been present for the last 2-3 days. Much worse the day of arrival. Lower extremities have been swollen for the last week or so. Reports compliance with medications including diuretic therapy. Has had cold/congestion and non-productive cough for the last week. No dizziness, diaphoresis, palpitations, or chest pain. PAST MEDICAL HISTORY Past Medical History Cardiovascular: AFIB, HTN, CHF, Other (NICM) Pulmonary: COPD CENTRAL NERVOUS SYSTEM: TIA GI: No pertinent hx Heme/Onc: Anemia NOS Hepatobiliary: Other (chronic anticoagulation) Psych: No pertinent hx Musculoskeletal: Osteoarthritis Renal/: Chronic renal insuff Endocrine: No pertinent hx PAST SURGICAL HISTORY Past Surgical History LHC, CV FAMILY HISTORY Family History: Heart Disease, Hypertension SOCIAL HISTORY Social History Smoke: Quit (11/2018) ALCOHOL: none Drugs: None Lives: Alone CURRENT MEDICATIONS CURRENT MEDICATIONS Current Medications Medications (Trade) Dose Ordered Sig/Hari Route PRN Reason Start Time Stop Time Status Last Admin Dose Admin Bumetanide (Bumex) 1 mg 1X ONCE IV 03/13/19 18:15 03/13/19 18:16 DC 03/13/19 17:53 Amiodarone HCl (Cordarone) 200 mg DAILY PO 03/14/19 09:00 03/14/19 08:56 Apixaban (Eliquis) 5 mg BID PO 03/14/19 09:00 03/14/19 08:54 Ferrous Sulfate (Feosol) 325 mg DAILY PO 03/14/19 09:00 03/14/19 08:54 Furosemide (Lasix) 40 mg DAILY PO 03/14/19 09:00 03/14/19 12:05 DC 03/14/19 08:56 Losartan Potassium (Cozaar) 50 mg DAILY PO 03/14/19 09:00 03/14/19 12:05 DC 03/14/19 08:55 Metoprolol Succinate (Toprol Xl) 200 mg DAILY PO 03/14/19 09:00 03/14/19 08:53 Diltiazem HCl (Cardizem 24hr Cd) 180 mg DAILY PO 03/14/19 09:00 03/14/19 08:55 Multivitamins (Thera M Plus) 1 tab DAILY PO 03/14/19 09:00 03/14/19 08:55 Budesonide (Pulmicort) 0.5 mg RTBID NEB 03/14/19 08:00 03/14/19 07:40 Albuterol Sulfate (Ventolin Neb Soln) 2.5 mg RTQID NEB 03/14/19 08:00 03/14/19 07:40 Pantoprazole Sodium (Protonix) 40 mg DAILYAC PO 03/14/19 11:00 03/14/19 12:04 Furosemide (Lasix) 60 mg 1X ONCE IVP 03/14/19 12:30 03/14/19 12:31 03/14/19 12:05 ALLERGIES ALLERGIES: Coded Allergies: No Known Drug Allergies (Unverified , 12/20/18) ROS Review of System 14 point ROS conducted with pertinent positives noted above in HPI. PHYSICAL EXAM PHYSICAL EXAM General: Alert, Oriented X3, Cooperative, No acute distress HEENT: Atraumatic, Mucous membr. moist/pink Lungs: Other (bibasilar crackles) Heart: Normal S1, Normal S2 Abdomen: Soft, No tenderness Extremities: No cyanosis, 2+ bilateral LE edema Skin: No breakdown, No significant lesion Neuro: Normal speech, Sensation intact Psych/Mental Status: Mental status NL, Mood NL MUSCULOSKELETAL: Osteoarthritic changes both hands VITALS VITALS Vital Signs Date Time Temp Pulse Resp B/P (MAP) Pulse Ox O2 Delivery O2 Flow Rate FiO2 03/14/19 11:00 98.2 111 16 138/103 (115) 97 Nasal Cannula 4.0 98.2 LABS Lab: Laboratory Tests Test 03/13/19 16:22 03/13/19 16:40 03/13/19 21:30 03/14/19 00:25 Urine Collection Type Unknown Urine Color Yellow Urine Clarity Clear Urine pH 6.0 Urine Specific [employer] 1.010 Urine Protein Negative mg/dL (NEG-TRACE) Urine Glucose (UA) Negative mg/dL (NEG) Urine Ketones (Stick) Negative mg/dL (NEG) Urine Blood Negative (NEG) Urine Nitrite Negative (NEG) Urine Bilirubin Negative (NEG) Urine Urobilinogen Dipstick 0.2 mg/dL (0.2 mg/dL) Urine Leukocyte Esterase Negative (NEG) Urine RBC 0 /HPF (0-2) Urine WBC 0 /HPF (0-4) Urine Squamous Epithelial Cells Few /LPF Urine Bacteria 0 /HPF (0-FEW) White Blood Count 7.0 x10^3/uL (4.0-11.0) Red Blood Count 5.13 x10^6/uL (4.30-5.70) Hemoglobin 13.6 g/dL (13.0-17.5) Hematocrit 43.8 % (39.0-53.0) Mean Corpuscular Volume 85 fL (79-100) Mean Corpuscular Hemoglobin 27 pg (25-35) Mean Corpuscular Hemoglobin Concent 31 g/dL (31-37) Red Cell Distribution Width 17.2 % (11.5-14.5) Platelet Count 309 x10^3/uL (140-400) Neutrophils (%) (Auto) 73 % (31-73) Lymphocytes (%) (Auto) 18 % (24-48) Monocytes (%) (Auto) 8 % (0-9) Eosinophils (%) (Auto) 1 % (0-3) Basophils (%) (Auto) 1 % (0-3) Neutrophils # (Auto) 5.1 x10^3uL (1.8-7.7) Lymphocytes # (Auto) 1.2 x10^3/uL (1.0-4.8) Monocytes # (Auto) 0.5 x10^3/uL (0.0-1.1) Eosinophils # (Auto) 0.1 x10^3/uL (0.0-0.7) Basophils # (Auto) 0.1 x10^3/uL (0.0-0.2) Prothrombin Time 20.4 SEC (11.7-14.0) Prothromb Time International Ratio 1.8 (0.8-1.1) Activated Partial Thromboplast Time 36 SEC (24-38) Sodium Level 144 mmol/L (136-145) Potassium Level 4.7 mmol/L (3.5-5.1) Chloride Level 106 mmol/L (98-107) Carbon Dioxide Level 23 mmol/L (21-32) Anion Gap 15 (6-14) Blood Urea Nitrogen 27 mg/dL (8-26) Creatinine 2.6 mg/dL (0.7-1.3) Estimated GFR (Cockcroft-Gault) 30.8 BUN/Creatinine Ratio 10 (6-20) Glucose Level 89 mg/dL (70-99) Calcium Level 9.3 mg/dL (8.5-10.1) Total Bilirubin 1.0 mg/dL (0.2-1.0) Aspartate Amino Transf (AST/SGOT) 38 U/L (15-37) Alanine Aminotransferase (ALT/SGPT) 26 U/L (16-63) Alkaline Phosphatase 97 U/L (46-116) Troponin I Quantitative 0.019 ng/mL (0.000-0.055) 0.020 ng/mL (0.000-0.055) 0.029 ng/mL (0.000-0.055) ML-Tkw-Z-Type Natriuretic Peptide 80940 pg/mL (0-124) Total Protein 7.6 g/dL (6.4-8.2) Albumin 3.5 g/dL (3.4-5.0) Albumin/Globulin Ratio 0.9 (1.0-1.7) Test 03/14/19 04:45 White Blood Count 6.7 x10^3/uL (4.0-11.0) Red Blood Count 5.21 x10^6/uL (4.30-5.70) Hemoglobin 13.7 g/dL (13.0-17.5) Hematocrit 44.0 % (39.0-53.0) Mean Corpuscular Volume 84 fL (79-100) Mean Corpuscular Hemoglobin 26 pg (25-35) Mean Corpuscular Hemoglobin Concent 31 g/dL (31-37) Red Cell Distribution Width 16.9 % (11.5-14.5) Platelet Count 314 x10^3/uL (140-400) Neutrophils (%) (Auto) 61 % (31-73) Lymphocytes (%) (Auto) 27 % (24-48) Monocytes (%) (Auto) 11 % (0-9) Eosinophils (%) (Auto) 1 % (0-3) Basophils (%) (Auto) 1 % (0-3) Neutrophils # (Auto) 4.1 x10^3uL (1.8-7.7) Lymphocytes # (Auto) 1.8 x10^3/uL (1.0-4.8) Monocytes # (Auto) 0.7 x10^3/uL (0.0-1.1) Eosinophils # (Auto) 0.1 x10^3/uL (0.0-0.7) Basophils # (Auto) 0.0 x10^3/uL (0.0-0.2) Sodium Level 145 mmol/L (136-145) Potassium Level 4.6 mmol/L (3.5-5.1) Chloride Level 108 mmol/L (98-107) Carbon Dioxide Level 23 mmol/L (21-32) Anion Gap 14 (6-14) Blood Urea Nitrogen 31 mg/dL (8-26) Creatinine 2.8 mg/dL (0.7-1.3) Estimated GFR (Cockcroft-Gault) 28.3 BUN/Creatinine Ratio 11 (6-20) Glucose Level 94 mg/dL (70-99) Calcium Level 9.4 mg/dL (8.5-10.1) Total Bilirubin 0.8 mg/dL (0.2-1.0) Aspartate Amino Transf (AST/SGOT) 24 U/L (15-37) Alanine Aminotransferase (ALT/SGPT) 25 U/L (16-63) Alkaline Phosphatase 97 U/L (46-116) Total Protein 7.3 g/dL (6.4-8.2) Albumin 3.3 g/dL (3.4-5.0) Albumin/Globulin Ratio 0.8 (1.0-1.7) ECHOCARDIOGRAM ECHOCARDIOGRAM <Conclusion> The Left Ventricle is borderline dilated. Left ventricle systolic function is low normal. The Ejection Fraction is 50-55%. There is moderate concentric left ventricular hypertrophy. There is no significant aortic valvular stenosis. Doppler and Color Flow revealed mild to moderate aortic regurgitation. Doppler and Color-flow revealed trace to mild mitral regurgitation. Doppler and Color Flow revealed mild tricuspid regurgitation. The PA pressure was estimated at 42 mmHg. DATE: 07/08/18 1347 Limited Echo <Conclusion> Left ventricle systolic function is low normal. The Ejection Fraction is 50-55%. There is normal LV segmental wall motion. The left atrium is mildly dilated. Mild to moderate aortic regurgitation. Mild mitral regurgitation. Moderate tricuspid regurgitation. There is severe pulmonary hypertension. The PA pressure was estimated at 86 mmHg. There is no evidence of significant pericardial effusion. DATE: 12/10/18 163 SHAI <Conclusion> The left ventricular systolic function is severely impaired. The Ejection Fraction is 20-25%. Mild aortic regurgitation. Moderate mitral regurgitation. Moderate to severe tricuspid regurgitation. There is no evidence of significant pericardial effusion. No intracardiac vegetations or thrombi. Patient successfully underwent DC cardioversion, reported separately. DATE: 01/29/19 1249 ASSESSMENT/PLAN ASSESSMENT/PLAN 1. Acute respiratory failure secondary to a/c HF 2. Acute on chronic diastolic/systolic CHF. CXR with pulmonary edema. 3. NICM; LVEF 20-25%. Cath 2013 without significant CAD. Stress test earlier this year without ischemic or infarct 4. PAFIB/flutter 5. AECOPD with h/o tobaccoism 6. NEVA on CKD 7. Hypertension 8. Severe pulmonary HTN with valvular insufficiency: mod TR, mild MR and mild to mod AI. Recommendations Diuresis as renal function allows. Continue Metoprolol/Cardizem for rate control. Difficulty controlling rate with metoprolol and PRN dig. Cardizem added recently Eliquis for stroke prophylaxis Outpatient EP referral to EP has been made, but office has been unable to contact him. Will provide patient with EP contact to schedule appt. Will start Entresto for HF optimization. Hold ARB ad start tomorrow evening Consider inotropic support Supportive care MIROSLAVA DAVALOS MD 03/14/19 6107: CARDIAC CONSULT ASSESSMENT/PLAN ASSESSMENT/PLAN Patient seen and examined. Agree with above nurse practitioner note. 50-year-old man with nonischemic cardio myopathy and severe pulmonary hypertension now with massive tricuspid regurgitation and lower extremity edema. Continue aggressive diuresis. Initiate Entresto tomorrow. Emailed many need vasodilator support with milrinone. May need right heart catheterization on Sunday for further optimization. We'll follow along closely. AARON WELCH APRN March 14, 2019 12:27 MIROSLAVA DAVALOS MD March 14, 2019 16:37
[2019-03-14] MEDS ORDERED: FUROSEMIDE 40 MG/4 ML VIAL. IVP ONE (12:30)
--- NOTE | 2019-03-14 13:11 | CONS ---
DATE OF CONSULTATION: PULMONARY CONSULTATION ATTENDING PHYSICIAN: Dr. Larose. REASON FOR CONSULTATION: Respiratory failure. HISTORY OF PRESENT ILLNESS: The patient is a 58-year-old who has a history of nonischemic cardiomyopathy with an ejection fraction of 20-25% based on an echo from January. He was hospitalized around the same time for CHF. He now comes in with increasing dyspnea and hypoxia. He has no cough, no fever, no chills. He no longer smokes cigarettes. He has lower extremity edema. The patient's chest x-ray was consistent with congestive heart failure. He said he is mildly improved. No nausea or vomiting, no diarrhea, no chest pains. No focal weakness. No rash. PAST MEDICAL HISTORY: Significant for nonischemic cardiomyopathy with an EF of 20-25%; history of tobacco use, likely COPD; history of hypertension; atrial fibrillation; history of TIA; osteoarthritis and chronic renal insufficiency. PAST SURGICAL HISTORY: Left heart catheterization. FAMILY HISTORY: Heart disease and hypertension. SOCIAL HISTORY: Quit tobacco in January. Before that, smoked for 30+ years. ALLERGIES: None. MEDICATIONS: Reviewed as listed in the MRAD, including IV Lasix and amiodarone. REVIEW OF SYSTEMS: Twelve-point systems obtained. Pertinent positives discussed in my history of present illness, otherwise noncontributory. All systems that were negative were reviewed as well. PHYSICAL EXAMINATION: VITAL SIGNS: Reviewed. Blood pressure diastolic was 108. Pulse ox 100% on 4 liters. NECK: Supple. LUNGS: With crackles at the bases. CARDIOVASCULAR: Regular rate. ABDOMEN: Soft. EXTREMITIES: With 2+ pitting edema bilaterally. LABORATORY DATA: Reviewed. White cell count 6.7, hemoglobin 13.7, platelets 314. BUN and creatinine 31 and 2.8. INR 1.8. IMPRESSION: 1. Acute hypoxic respiratory failure secondary to acute on chronic systolic heart failure. 2. Chronic atrial fibrillation, on chronic anticoagulation with Coumadin. 3. Nonischemic cardiomyopathy with an ejection fraction of 20-25%. 4. Tobacco use for 30+ years, likely underlying chronic obstructive pulmonary disease. 5. Chronic renal insufficiency. RECOMMENDATIONS: 1. Continue with present diuresis. 2. Continue with present oxygen and wean FiO2 to keep saturation 92% and above. 3. Monitor renal function. 4. May need inotropic agents. 5. Eliquis per PCP. 6. Continue bronchodilators. 7. Follow up chest x-ray and if there is no improvement, then we will do a noncontrast CT chest to make sure there is no amiodarone-induced interstitial lung disease. 8. Discussed with RN. We will follow along with you. PATIENCE VIGIL MD DR: NAVEEN/jacques JOB#: [id number] / [id number]
[2019-03-14] MEDS: FUROSEMIDE 40 MG/4 ML VIAL. IVP SCH (14:00)
--- NOTE | 2019-03-14 14:42 | RAD ---
Abdominal ultrasound, 03/14/2019: HISTORY: Fatty liver, possible ascites The gallbladder is contracted. Its kilgore are thickened, probably accentuated by its nondistended state. No definite gallstones are seen. The liver is enlarged measuring 22 cm in craniocaudad extent. There is no evidence of a hepatic mass. The spleen is within normal limits in size measuring 9.5 cm in length. The pancreas was poorly defined due to overlying bowel. The upper abdominal aorta and inferior vena cava are unremarkable. Those vessels were obscured inferiorly by overlying bowel. The kidneys show no evidence of obstruction or mass. A small amount of ascites is present. IMPRESSION: 1. Contracted gallbladder with mild diffuse wall thickening. This is a nonspecific finding which can be due to liver disease, renal disease or hypoproteinemia. 2. Hepatomegaly. 3. Small volume of ascites Electronically signed by: Salvador Ngo MD (03/14/2019 2:39 PM) [facility]
[2019-03-14] MEDS ORDERED: hydrALAZINE 20 MG/ML VIAL. IVP PRN (15:15)
--- NOTE | 2019-03-14 16:17 | CARD ---
MR#: [id number] Date of Study: 03/14/2019 Ordering Physician: AARON WELCH, Referring Physician: DARELL VARELA Tech: Nicole Orta APPROVED REPORT EXAM: Two-dimensional and M-mode echocardiogram with Doppler and color Doppler. Other Information Quality : GoodHR: 111bpm INDICATION Congestive Heart Failure 2D DIMENSIONS RVDd4.1 (2.9-3.5cm)Left Atrium(2D)5.2 (1.6-4.0cm) IVSd1.4 (0.7-1.1cm)Aortic Root(2D)3.2 (2.0-3.7cm) LVDd6.1 (3.9-5.9cm)LVOT Diameter2.2 (1.8-2.4cm) PWd1.4 (0.7-1.1cm)LVDs5.0 (2.5-4.0cm) FS (%) 18.1 %SV68.0 ml LVEF(%)36.9 (>50%) Aortic Valve AoV Peak Luis.108.8cm/sAoV VTI10.3cm AO Peak GR.4.7mmHgLVOT Peak Luis.70.1cm/s LVOT VTI 8.29cmAO Mean GR.3mmHg COCO (VMAX)1.65jv9CZL (VTI)2.95cm2 AI P 1/2 Prdt946dy Mitral Valve MV E Pvvesago343.8cm/sMV E Peak Gr.98mmHg TDI E/Lateral E'17.7E/Medial E'21.0 Pulmonary Valve PV Peak Saglgykn27.8cm/sPV Peak Grad.2mmHg Tricuspid Valve TR P. Shbdjmqd898cl/sRAP [id number] TR Peak Gr.95jgJxNBGI38fsGe Pulmonary Vein S1 Xapaejss09.7cm/sD2 Xzojhiyg58.7cm/s PVa [id number] LEFT VENTRICLE The Left Ventricle is mildly dilated. There is moderate concentric left ventricular hypertrophy. The systolic function is severely impaired. EF 20%. There is global hypokinesis of the left ventricle. Ti ssue Doppler imaging reveals severe left ventricular diastolic dysfunction. RIGHT VENTRICLE The right ventricle is severely dilated. The right ventricle is borderline hypertrophied. RV Systolic function is mildly reduced. ATRIA The left atrium is mildly dilated. The right atrium is severely dilated. Interatrial septum bowed tow yanira the left, consistent with elevated right atrial pressures. AORTIC VALVE The aortic valve is normal in structure and function. Doppler and Color Flow revealed moderate aortic regurgitation. There is no significant aortic valvular stenosis. MITRAL VALVE The mitral valve is normal in structure and function. There is no evidence of mitral valve prolapse. There is no mitral valve stenosis. Doppler and Color-flow revealed moderate to severe mitral regurgit ation. TRICUSPID VALVE The tricuspid valve is normal in structure and function. Doppler and Color Flow revealed massive tric uspid regurgitation with an estimated PAP of 42 mmHg. There is no tricuspid valve stenosis. PULMONIC VALVE Doppler and Color Flow revealed mild pulmonic valvular regurgitation. There is no pulmonic valvular s tenosis. GREAT VESSELS The aortic root is normal in size. The ascending aorta is normal in size. The IVC is dilated and yuliet apses <50% with inspiration. PERICARDIAL EFFUSION There is small left pleural effusion. There is no evidence of significant pericardial effusion. Critical Notification Critical Value: No <Conclusion> The systolic function is severely impaired. EF 20%. There is global hypokinesis of the left ventricle. The right ventricle is severely dilated. Doppler and Color Flow revealed moderate aortic regurgitation. Doppler and Color-flow revealed moderate to severe mitral regurgitation. Doppler and Color Flow revealed massive tricuspid regurgitation with an estimated PAP of 42 mmHg. The IVC is dilated and collapses <50% with inspiration. Signed by : Jordi Brewer, Electronically Approved : 03/14/2019 16:16:51
[2019-03-14 19:35] VITALS: BP 139/102
[2019-03-14 23:39] VITALS: BP 137/96
[2019-03-15 03:32] VITALS: BP 116/96
[2019-03-15 05:41] LABS: CALCIUM 8.9 mg/dL (8.5-10.1); CREATININE 2.6 mg/dL (0.7-1.3); GFR 30.8; POTASSIUM 3.8 mmol/L (3.5-5.1)
[2019-03-15] MEDS: PANTOPRAZOLE 40 MG TABLET.DR. PO SCH (06:32)
[2019-03-15] MEDS: BUDESONIDE 0.5 MG/2 ML NEBU. NEB SCH ×2 (07:21→20:06)
[2019-03-15] MEDS: ALBUTEROL SULFATE 2.5 MG/3 ML NEBU. NEB SCH ×4 (07:22→20:06)
[2019-03-15] MEDS: MULTIVITAMIN with MINERAL TABLET. PO SCH (08:39)
[2019-03-15] MEDS: FERROUS SULFATE 325 MG TABLET. PO SCH (08:39)
[2019-03-15] MEDS: APIXABAN 5 MG TABLET. PO SCH ×2 (08:39→20:25)
[2019-03-15] MEDS: AMIODARONE HCL 200 MG TABLET. PO SCH (08:40)
[2019-03-15] MEDS: FUROSEMIDE 40 MG/4 ML VIAL. IVP SCH ×2 (08:40→13:55)
[2019-03-15] MEDS: METOPROLOL SUCC 24HR ER 100 MG TAB.ER.24H. PO SCH (08:40)
[2019-03-15] MEDS ORDERED: LOSARTAN POTASSIUM 50 MG TABLET. PO SCH (09:00)
[2019-03-15 11:03] VITALS: BP 137/103
--- NOTE | 2019-03-15 11:15 | PDOC ---
PULMONARY PROGRESS NOTES Subjective LESS SOA Vitals Vital Signs Date Time Temp Pulse Resp B/P (MAP) Pulse Ox O2 Delivery O2 Flow Rate FiO2 03/15/19 11:03 96.5 112 20 137/103 (114) 98 Nasal Cannula 1.0 96.5 General: Alert, No acute distress Lungs: Crackles (bases) Cardiovascular: S1, S2 Abdomen: Soft Extremities: Other (2+edema) Labs Laboratory Tests Test 03/13/19 16:22 03/13/19 16:40 03/13/19 21:30 03/14/19 00:25 Urine Collection Type Unknown Urine Color Yellow Urine Clarity Clear Urine pH 6.0 Urine Specific Umbarger 1.010 Urine Protein Negative mg/dL (NEG-TRACE) Urine Glucose (UA) Negative mg/dL (NEG) Urine Ketones (Stick) Negative mg/dL (NEG) Urine Blood Negative (NEG) Urine Nitrite Negative (NEG) Urine Bilirubin Negative (NEG) Urine Urobilinogen Dipstick 0.2 mg/dL (0.2 mg/dL) Urine Leukocyte Esterase Negative (NEG) Urine RBC 0 /HPF (0-2) Urine WBC 0 /HPF (0-4) Urine Squamous Epithelial Cells Few /LPF Urine Bacteria 0 /HPF (0-FEW) White Blood Count 7.0 x10^3/uL (4.0-11.0) Red Blood Count 5.13 x10^6/uL (4.30-5.70) Hemoglobin 13.6 g/dL (13.0-17.5) Hematocrit 43.8 % (39.0-53.0) Mean Corpuscular Volume 85 fL (79-100) Mean Corpuscular Hemoglobin 27 pg (25-35) Mean Corpuscular Hemoglobin Concent 31 g/dL (31-37) Red Cell Distribution Width 17.2 % (11.5-14.5) Platelet Count 309 x10^3/uL (140-400) Neutrophils (%) (Auto) 73 % (31-73) Lymphocytes (%) (Auto) 18 % (24-48) Monocytes (%) (Auto) 8 % (0-9) Eosinophils (%) (Auto) 1 % (0-3) Basophils (%) (Auto) 1 % (0-3) Neutrophils # (Auto) 5.1 x10^3uL (1.8-7.7) Lymphocytes # (Auto) 1.2 x10^3/uL (1.0-4.8) Monocytes # (Auto) 0.5 x10^3/uL (0.0-1.1) Eosinophils # (Auto) 0.1 x10^3/uL (0.0-0.7) Basophils # (Auto) 0.1 x10^3/uL (0.0-0.2) Prothrombin Time 20.4 SEC (11.7-14.0) Prothromb Time International Ratio 1.8 (0.8-1.1) Activated Partial Thromboplast Time 36 SEC (24-38) Sodium Level 144 mmol/L (136-145) Potassium Level 4.7 mmol/L (3.5-5.1) Chloride Level 106 mmol/L (98-107) Carbon Dioxide Level 23 mmol/L (21-32) Anion Gap 15 (6-14) Blood Urea Nitrogen 27 mg/dL (8-26) Creatinine 2.6 mg/dL (0.7-1.3) Estimated GFR (Cockcroft-Gault) 30.8 BUN/Creatinine Ratio 10 (6-20) Glucose Level 89 mg/dL (70-99) Calcium Level 9.3 mg/dL (8.5-10.1) Total Bilirubin 1.0 mg/dL (0.2-1.0) Aspartate Amino Transf (AST/SGOT) 38 U/L (15-37) Alanine Aminotransferase (ALT/SGPT) 26 U/L (16-63) Alkaline Phosphatase 97 U/L (46-116) Troponin I Quantitative 0.019 ng/mL (0.000-0.055) 0.020 ng/mL (0.000-0.055) 0.029 ng/mL (0.000-0.055) YJ-Hpn-V-Type Natriuretic Peptide 45480 pg/mL (0-124) Total Protein 7.6 g/dL (6.4-8.2) Albumin 3.5 g/dL (3.4-5.0) Albumin/Globulin Ratio 0.9 (1.0-1.7) Test 03/14/19 04:45 03/15/19 04:15 White Blood Count 6.7 x10^3/uL (4.0-11.0) Red Blood Count 5.21 x10^6/uL (4.30-5.70) Hemoglobin 13.7 g/dL (13.0-17.5) Hematocrit 44.0 % (39.0-53.0) Mean Corpuscular Volume 84 fL (79-100) Mean Corpuscular Hemoglobin 26 pg (25-35) Mean Corpuscular Hemoglobin Concent 31 g/dL (31-37) Red Cell Distribution Width 16.9 % (11.5-14.5) Platelet Count 314 x10^3/uL (140-400) Neutrophils (%) (Auto) 61 % (31-73) Lymphocytes (%) (Auto) 27 % (24-48) Monocytes (%) (Auto) 11 % (0-9) Eosinophils (%) (Auto) 1 % (0-3) Basophils (%) (Auto) 1 % (0-3) Neutrophils # (Auto) 4.1 x10^3uL (1.8-7.7) Lymphocytes # (Auto) 1.8 x10^3/uL (1.0-4.8) Monocytes # (Auto) 0.7 x10^3/uL (0.0-1.1) Eosinophils # (Auto) 0.1 x10^3/uL (0.0-0.7) Basophils # (Auto) 0.0 x10^3/uL (0.0-0.2) Sodium Level 145 mmol/L (136-145) 146 mmol/L (136-145) Potassium Level 4.6 mmol/L (3.5-5.1) 3.8 mmol/L (3.5-5.1) Chloride Level 108 mmol/L (98-107) 108 mmol/L (98-107) Carbon Dioxide Level 23 mmol/L (21-32) 26 mmol/L (21-32) Anion Gap 14 (6-14) 12 (6-14) Blood Urea Nitrogen 31 mg/dL (8-26) 37 mg/dL (8-26) Creatinine 2.8 mg/dL (0.7-1.3) 2.6 mg/dL (0.7-1.3) Estimated GFR (Cockcroft-Gault) 28.3 30.8 BUN/Creatinine Ratio 11 (6-20) Glucose Level 94 mg/dL (70-99) 85 mg/dL (70-99) Calcium Level 9.4 mg/dL (8.5-10.1) 8.9 mg/dL (8.5-10.1) Total Bilirubin 0.8 mg/dL (0.2-1.0) Aspartate Amino Transf (AST/SGOT) 24 U/L (15-37) Alanine Aminotransferase (ALT/SGPT) 25 U/L (16-63) Alkaline Phosphatase 97 U/L (46-116) Total Protein 7.3 g/dL (6.4-8.2) Albumin 3.3 g/dL (3.4-5.0) Albumin/Globulin Ratio 0.8 (1.0-1.7) Magnesium Level 2.0 mg/dL (1.8-2.4) Laboratory Tests Test 03/15/19 04:15 Sodium Level 146 mmol/L (136-145) Potassium Level 3.8 mmol/L (3.5-5.1) Chloride Level 108 mmol/L (98-107) Carbon Dioxide Level 26 mmol/L (21-32) Anion Gap 12 (6-14) Blood Urea Nitrogen 37 mg/dL (8-26) Creatinine 2.6 mg/dL (0.7-1.3) Estimated GFR (Cockcroft-Gault) 30.8 Glucose Level 85 mg/dL (70-99) Calcium Level 8.9 mg/dL (8.5-10.1) Magnesium Level 2.0 mg/dL (1.8-2.4) Medications Active Scripts Medications Dose Route/Sig Max Daily Dose Days Date Category Dose Instructions Metoprolol Succinate ( Xl ) (Metoprolol Succinate) 100 Mg Tab.er.24h 200 Mg PO DAILY 30 02/14/19 Rx DOSE INCREASE TO 200mg Daily Diltiazem 24HR Cd (Diltiazem Hcl) 180 Mg Cap.er.24h 180 Mg PO DAILY 30 02/14/19 Rx To replace 240mg diltiazem Pro Comfort Spacer with Mask (Inhaler,Assist Device,Lg Mask) 1 Each Spacer Each MC QID 02/14/19 Rx QID prn for asthma Xoepenex and BID for Asthma/copd for symbicort Xopenex Hfa (Levalbuterol Tartrate) 15 Gm Hfa.aer.ad 2 Puff IH PRN Q4-6HRS 30 02/14/19 Rx Symbicort 80-4.5 Mcg Inhaler (Budesonide/Formoterol Fumarate) 10.2 Gm Hfa.aer.ad 1 Puff IH QID 30 02/14/19 Rx Amiodarone Hcl 200 Mg Tablet 200 Mg PO DAILY 30 01/29/19 Rx Eliquis (Apixaban) 5 Mg Tablet 5 Mg PO BID 30 01/29/19 Rx Multivitamins (Multivitamin) 1 Each Tablet 1 Each PO DAILY 01/27/19 Reported Ferrous Sulfate 325 Mg Tablet 1 Tab PO DAILY 12/11/18 Rx Acetaminophen 500 Mg Tablet 1,000 Mg PO PRN Q6HRS PRN 12/09/18 Reported Losartan Potassium (Losartan Potassium) 25 Mg Tablet 50 Mg PO DAILY 12/06/18 Reported Lasix (Furosemide) 40 Mg Tablet 40 Mg PO DAILY 09/03/14 Reported Impression . 1. Acute hypoxic respiratory failure secondary to acute on chronic systolic heart failure. 2. Chronic atrial fibrillation, on chronic anticoagulation 3. Nonischemic cardiomyopathy with an ejection fraction of 20-25%. 4. Tobacco use for 30+ years, likely underlying chronic obstructive pulmonary disease. 5. Chronic renal insufficiency. Plan . 1. Continue with present diuresis. 2. Continue with present oxygen and wean FiO2 to keep saturation 92% and above. 3. Monitor renal function. 4. May need inotropic agents. 5. Eliquis per PCP. 6. Continue bronchodilators. 7. Follow up chest x-ray and if there is no improvement, then we will do a noncontrast CT chest to make sure there is no amiodarone-induced interstitial lung disease. 8. Discussed with RN. We will follow along with you. PATIENCE VIGIL MD Mar 15, 2019 11:15
[2019-03-15] MEDS: ANTI-COAG MONITOR BY PHARMACY. MC PRN (12:23)
--- NOTE | 2019-03-15 13:23 | PDOC ---
PROGRESS NOTES Chief Complaint Chief Complaint A/P: Enlarge liver - Hep B - with negative titers historically, hepatomegaly, GI consulted GERD - PPI COPD - acute exacerbation, cont nebs, xopenex may be preferred Acute on chronic systolic (EF 20-25%) and diastolic HF - diuresing, difficult with his NEVA AFIB with RVR - Cardioverted out of aflutter, but has been back in now. Will change from cardizem to metoprolol Nonischemic cardiomyopathy EF 20-25% - cont BB, ASA, statin AK I on possibly CK D - vasomotor vs cardiorenal. Hold EBONIE/ARB Accel hypertension POA AECOPD - will cont nebulizers, may be better for xopenex Severe pulmonary HTN with valvular insufficiency: mod TR, mild MR and mild to mod AI - needs good BP control HTN - Hydralazine IV PRN Acute hypoxic respiratory failure secondary to acute on chronic systolic heart failure. Tobacco use for 30+ years, likely underlying chronic obstructive pulmonary disease FEN - Cardiac diet PPX - Eliquis FULL CODE Inpatient for CHF exacerbation, NEVA, and Afib History of Present Illness History of Present Illness Mr Fleming is a 58 yo M w/ PMHx TIA, Afib, CKD, Anemia, COPD who was admitted through ER w/ increasing SOA w/ exertion and swelling in legs and abdomen. Seen by nephrology for NEVA on CKD, GI for hepatomegaly, Pulm for acute COPD exacerbation, and Cardiology for afib with RVR. C/o abdominal swelling today, US showed very little ascites, I have shared this with him that paracentesis would not be possible or give him relief. Still tachycardiac near 115bpm. He feels weak and short of breath overall, just tired. Vitals Vitals Vital Signs Date Time Temp Pulse Resp B/P (MAP) Pulse Ox O2 Delivery O2 Flow Rate FiO2 03/15/19 12:00 Room Air 03/15/19 11:03 96.5 112 20 137/103 (114) 98 1.0 96.5 Physical Exam General: Alert, Oriented X3, Cooperative, mild distress Heart: Regular rate Lungs: Crackles (bases) Abdomen: Normal bowel sounds, Soft Extremities: No cyanosis Skin: No breakdown Labs LABS Laboratory Tests Test 03/15/19 04:15 Sodium Level 146 mmol/L (136-145) Potassium Level 3.8 mmol/L (3.5-5.1) Chloride Level 108 mmol/L (98-107) Carbon Dioxide Level 26 mmol/L (21-32) Anion Gap 12 (6-14) Blood Urea Nitrogen 37 mg/dL (8-26) Creatinine 2.6 mg/dL (0.7-1.3) Estimated GFR (Cockcroft-Gault) 30.8 Glucose Level 85 mg/dL (70-99) Calcium Level 8.9 mg/dL (8.5-10.1) Magnesium Level 2.0 mg/dL (1.8-2.4) Assessment and Plan Assessmemt and Plan Problems Medical Problems: (1) Shortness of breath Status: Acute Comment Review of Relevant I have reviewed the following items emmanuel (where applicable) has been applied. Labs Laboratory Tests Test 03/13/19 16:22 03/13/19 16:40 03/13/19 21:30 03/14/19 00:25 Urine Collection Type Unknown Urine Color Yellow Urine Clarity Clear Urine pH 6.0 Urine Specific [place] 1.010 Urine Protein Negative mg/dL (NEG-TRACE) Urine Glucose (UA) Negative mg/dL (NEG) Urine Ketones (Stick) Negative mg/dL (NEG) Urine Blood Negative (NEG) Urine Nitrite Negative (NEG) Urine Bilirubin Negative (NEG) Urine Urobilinogen Dipstick 0.2 mg/dL (0.2 mg/dL) Urine Leukocyte Esterase Negative (NEG) Urine RBC 0 /HPF (0-2) Urine WBC 0 /HPF (0-4) Urine Squamous Epithelial Cells Few /LPF Urine Bacteria 0 /HPF (0-FEW) White Blood Count 7.0 x10^3/uL (4.0-11.0) Red Blood Count 5.13 x10^6/uL (4.30-5.70) Hemoglobin 13.6 g/dL (13.0-17.5) Hematocrit 43.8 % (39.0-53.0) Mean Corpuscular Volume 85 fL (79-100) Mean Corpuscular Hemoglobin 27 pg (25-35) Mean Corpuscular Hemoglobin Concent 31 g/dL (31-37) Red Cell Distribution Width 17.2 % (11.5-14.5) Platelet Count 309 x10^3/uL (140-400) Neutrophils (%) (Auto) 73 % (31-73) Lymphocytes (%) (Auto) 18 % (24-48) Monocytes (%) (Auto) 8 % (0-9) Eosinophils (%) (Auto) 1 % (0-3) Basophils (%) (Auto) 1 % (0-3) Neutrophils # (Auto) 5.1 x10^3uL (1.8-7.7) Lymphocytes # (Auto) 1.2 x10^3/uL (1.0-4.8) Monocytes # (Auto) 0.5 x10^3/uL (0.0-1.1) Eosinophils # (Auto) 0.1 x10^3/uL (0.0-0.7) Basophils # (Auto) 0.1 x10^3/uL (0.0-0.2) Prothrombin Time 20.4 SEC (11.7-14.0) Prothromb Time International Ratio 1.8 (0.8-1.1) Activated Partial Thromboplast Time 36 SEC (24-38) Sodium Level 144 mmol/L (136-145) Potassium Level 4.7 mmol/L (3.5-5.1) Chloride Level 106 mmol/L (98-107) Carbon Dioxide Level 23 mmol/L (21-32) Anion Gap 15 (6-14) Blood Urea Nitrogen 27 mg/dL (8-26) Creatinine 2.6 mg/dL (0.7-1.3) Estimated GFR (Cockcroft-Gault) 30.8 BUN/Creatinine Ratio 10 (6-20) Glucose Level 89 mg/dL (70-99) Calcium Level 9.3 mg/dL (8.5-10.1) Total Bilirubin 1.0 mg/dL (0.2-1.0) Aspartate Amino Transf (AST/SGOT) 38 U/L (15-37) Alanine Aminotransferase (ALT/SGPT) 26 U/L (16-63) Alkaline Phosphatase 97 U/L (46-116) Troponin I Quantitative 0.019 ng/mL (0.000-0.055) 0.020 ng/mL (0.000-0.055) 0.029 ng/mL (0.000-0.055) MN-Vja-G-Type Natriuretic Peptide 74530 pg/mL (0-124) Total Protein 7.6 g/dL (6.4-8.2) Albumin 3.5 g/dL (3.4-5.0) Albumin/Globulin Ratio 0.9 (1.0-1.7) Test 03/14/19 04:45 03/15/19 04:15 White Blood Count 6.7 x10^3/uL (4.0-11.0) Red Blood Count 5.21 x10^6/uL (4.30-5.70) Hemoglobin 13.7 g/dL (13.0-17.5) Hematocrit 44.0 % (39.0-53.0) Mean Corpuscular Volume 84 fL (79-100) Mean Corpuscular Hemoglobin 26 pg (25-35) Mean Corpuscular Hemoglobin Concent 31 g/dL (31-37) Red Cell Distribution Width 16.9 % (11.5-14.5) Platelet Count 314 x10^3/uL (140-400) Neutrophils (%) (Auto) 61 % (31-73) Lymphocytes (%) (Auto) 27 % (24-48) Monocytes (%) (Auto) 11 % (0-9) Eosinophils (%) (Auto) 1 % (0-3) Basophils (%) (Auto) 1 % (0-3) Neutrophils # (Auto) 4.1 x10^3uL (1.8-7.7) Lymphocytes # (Auto) 1.8 x10^3/uL (1.0-4.8) Monocytes # (Auto) 0.7 x10^3/uL (0.0-1.1) Eosinophils # (Auto) 0.1 x10^3/uL (0.0-0.7) Basophils # (Auto) 0.0 x10^3/uL (0.0-0.2) Sodium Level 145 mmol/L (136-145) 146 mmol/L (136-145) Potassium Level 4.6 mmol/L (3.5-5.1) 3.8 mmol/L (3.5-5.1) Chloride Level 108 mmol/L (98-107) 108 mmol/L (98-107) Carbon Dioxide Level 23 mmol/L (21-32) 26 mmol/L (21-32) Anion Gap 14 (6-14) 12 (6-14) Blood Urea Nitrogen 31 mg/dL (8-26) 37 mg/dL (8-26) Creatinine 2.8 mg/dL (0.7-1.3) 2.6 mg/dL (0.7-1.3) Estimated GFR (Cockcroft-Gault) 28.3 30.8 BUN/Creatinine Ratio 11 (6-20) Glucose Level 94 mg/dL (70-99) 85 mg/dL (70-99) Calcium Level 9.4 mg/dL (8.5-10.1) 8.9 mg/dL (8.5-10.1) Total Bilirubin 0.8 mg/dL (0.2-1.0) Aspartate Amino Transf (AST/SGOT) 24 U/L (15-37) Alanine Aminotransferase (ALT/SGPT) 25 U/L (16-63) Alkaline Phosphatase 97 U/L (46-116) Total Protein 7.3 g/dL (6.4-8.2) Albumin 3.3 g/dL (3.4-5.0) Albumin/Globulin Ratio 0.8 (1.0-1.7) Magnesium Level 2.0 mg/dL (1.8-2.4) Laboratory Tests Test 03/15/19 04:15 Sodium Level 146 mmol/L (136-145) Potassium Level 3.8 mmol/L (3.5-5.1) Chloride Level 108 mmol/L (98-107) Carbon Dioxide Level 26 mmol/L (21-32) Anion Gap 12 (6-14) Blood Urea Nitrogen 37 mg/dL (8-26) Creatinine 2.6 mg/dL (0.7-1.3) Estimated GFR (Cockcroft-Gault) 30.8 Glucose Level 85 mg/dL (70-99) Calcium Level 8.9 mg/dL (8.5-10.1) Magnesium Level 2.0 mg/dL (1.8-2.4) Medications Current Medications Bumetanide (Bumex) 1 mg 1X ONCE IV Last administered on 03/13/19at 17:53; Start 03/13/19 at 18:15; Stop 03/13/19 at 18:16; Status DC Acetaminophen (Tylenol) 650 mg PRN Q4HRS PRN PO FEVER; Start 03/13/19 at 18:30; Stop 03/14/19 at 18:29; Status DC Amiodarone HCl (Cordarone) 200 mg DAILY PO Last administered on 03/15/19 08:40; Start 03/14/19 at 09:00 Apixaban (Eliquis) 5 mg BID PO Last administered on 03/15/19 08:39; Start 03/14/19 at 09:00 Ferrous Sulfate (Feosol) 325 mg DAILY PO Last administered on 03/15/19 08:39; Start 03/14/19 at 09:00 Furosemide (Lasix) 40 mg DAILY PO Last administered on 03/14/19 08:56; Start 03/14/19 at 09:00; Stop 03/14/19 at 12:05; Status DC Losartan Potassium (Cozaar) 50 mg DAILY PO Last administered on 03/14/19 08 :55; Start 03/14/19 at 09:00; Stop 03/14/19 at 12:05; Status DC Metoprolol Succinate (Toprol Xl) 200 mg DAILY PO Last administered on 03/15/19 08:40; Start 03/14/19 at 09:00 Non-Formulary Medication (Budesonide/ Formoterol Fumarate (Symbicort 80-4.5 Mcg Inhaler)) 1 puff QID IH ; Start 03/14/19 at 09:00; Status UNV Diltiazem HCl (Cardizem 24hr Cd) 180 mg DAILY PO Last administered on 03/15/19 08:39; Start 03/14/19 at 09:00 Non-Formulary Medication (Levalbuterol Tartrate (Xopenex Hfa)) 2 puff PRN Q4- 6HRS IH ; Start 03/14/19 at 04:45; Status UNV Multivitamins (Thera M Plus) 1 tab DAILY PO Last administered on 03/15/19 08:39; Start 03/14/19 at 09:00 Budesonide (Pulmicort) 0.5 mg RTBID NEB Last administered on 03/15/19 07:21; Start 03/14/19 at 08:00 Albuterol Sulfate (Ventolin Neb Soln) 2.5 mg RTQID NEB Last administered on 03/15/19 11:58; Start 03/14/19 at 08:00 Levalbuterol HCl (Xopenex) 2.5 mg PRN Q4HRS PRN NEB SHORTNESS OF BREATH; Start 03/14/19 at 05:30 Pantoprazole Sodium (Protonix) 40 mg DAILYAC PO Last administered on 03/15/19at 06:32; Start 03/14/19 at 11:00 Furosemide (Lasix) 60 mg 1X ONCE IVP Last administered on 03/14/19at 12:05; Start 03/14/19 at 12:30; Stop 03/14/19 at 12:31; Status DC Losartan Potassium (Cozaar) 100 mg DAILY PO ; Start 03/15/19 at 09:00; Stop 03/15/19 at 09:00; Status DC Furosemide (Lasix) 40 mg BID92 IVP Last administered on 03/15/19at 08:40; Start 03/14/19 at 14:00 Sacubitril/ Valsartan (Entresto 24 Mg-26 Mg) 1 tab BID PO ; Start 03/15/19 at 21:00 Hydralazine HCl (Apresoline Inj) 10 mg PRN Q4HRS PRN IVP ELEVATED BP, SEE COMMENTS; Start 03/14/19 at 15:15 Info (Anti-Coagulation Monitoring By Pharmacy) 1 each PRN DAILY PRN MC SEE COMMENTS Last administered on 03/15/19at 12:23; Start 03/15/19 at 12:30 Active Scripts Active Metoprolol Succinate ( Xl ) (Metoprolol Succinate) 100 Mg Tab.er.24h 200 Mg PO DAILY 30 Days DOSE INCREASE TO 200mg Daily Diltiazem 24HR Cd (Diltiazem Hcl) 180 Mg Cap.er.24h 180 Mg PO DAILY 30 Days To replace 240mg diltiazem Pro Comfort Spacer with Mask (Inhaler,Assist Device,Lg Mask) 1 Each Spacer Each MC QID QID prn for asthma Xoepenex and BID for Asthma/copd for symbicort Xopenex Hfa (Levalbuterol Tartrate) 15 Gm Hfa.aer.ad 2 Puff IH PRN Q4-6HRS 30 Days Symbicort 80-4.5 Mcg Inhaler (Budesonide/Formoterol Fumarate) 10.2 Gm Hfa.aer.ad 1 Puff IH QID 30 Days Amiodarone Hcl 200 Mg Tablet 200 Mg PO DAILY 30 Days Eliquis (Apixaban) 5 Mg Tablet 5 Mg PO BID 30 Days Ferrous Sulfate 325 Mg Tablet 1 Tab PO DAILY Reported Multivitamins (Multivitamin) 1 Each Tablet 1 Each PO DAILY Acetaminophen 500 Mg Tablet 1,000 Mg PO PRN Q6HRS PRN Losartan Potassium (Losartan Potassium) 25 Mg Tablet 50 Mg PO DAILY Lasix (Furosemide) 40 Mg Tablet 40 Mg PO DAILY Vitals/I & O Vital Sign - Last 24 Hours 03/14/19 03/14/19 03/14/19 03/14/19 15:58 19:35 19:37 20:58 Temp 97.6 97.6 Pulse 110 Resp 18 B/P (MAP) 139/102 (114) Pulse Ox 100 100 100 O2 Delivery Nasal Cannula Nasal Cannula Nasal Cannula Nasal Cannula O2 Flow Rate 3.0 2.0 3.0 2.0 03/14/19 03/15/19 03/15/19 03/15/19 23:39 03:32 07:00 07:00 Temp 97.6 97.7 97.6 97.7 Pulse 110 81 Resp 18 20 B/P (MAP) 137/96 (110) 116/96 (103) Pulse Ox 100 99 O2 Delivery Nasal Cannula Nasal Cannula Nasal Cannula Nasal Cannula O2 Flow Rate 2.0 2.0 1.0 1.0 03/15/19 03/15/19 03/15/19 03/15/19 07:22 08:00 08:39 08:40 Pulse 112 112 B/P (MAP) 142/109 142/109 Pulse Ox 100 O2 Delivery Nasal Cannula Nasal Cannula O2 Flow Rate 2.0 3.0 03/15/19 03/15/19 03/15/19 08:40 11:03 12:00 Temp 96.5 96.5 Pulse 112 112 Resp 20 B/P (MAP) 142/109 137/103 (114) Pulse Ox 98 O2 Delivery Nasal Cannula Room Air O2 Flow Rate 1.0 Intake and Output 03/14/19 03/14/19 03/15/19 15:00 23:00 07:00 Intake Total 772 ml Balance 772 ml Images ABD US - 1. Contracted gallbladder with mild diffuse wall thickening. This is a nonspecific finding which can be due to liver disease, renal disease or hypoproteinemia. 2. Hepatomegaly. 3. Small volume of ascites RENETTA CADET MD Mar 15, 2019 13:23
--- NOTE | 2019-03-15 13:58 | PDOC ---
PROGRESS NOTES Subjective Subjective Patient seen and examined He is less short of breath today. Objective Objective Vital Signs Date Time Temp Pulse Resp B/P (MAP) Pulse Ox O2 Delivery O2 Flow Rate FiO2 03/15/19 12:00 Room Air 03/15/19 11:03 96.5 112 20 137/103 (114) 98 1.0 96.5 Intake and Output 03/15/19 07:00 Intake Total 772 ml Balance 772 ml Intake Oral 772 ml # Voids 1 Physical Exam Abdomen: Normal bowel sounds Heart: Other (irregular rhythm) General: mild distress Lungs: Other (decreased breath sounds) Assessment Assessment Problems Medical Problems: (1) Shortness of breath Status: Acute 1. Acute respiratory failure secondary to a/c HF. Mildly improved today. Continuing present treatment. 2. Acute on chronic diastolic/systolic CHF. CXR with pulmonary edema. 3. NICM; LVEF 20-25%. Cath 2013 without significant CAD. Stress test earlier this year without ischemic or infarct. Updated echo also shows moderate to severe mitral regurgitation. 4. PAFIB/flutter. Continue with rate control. 5. AECOPD with h/o tobaccoism 6. NEVA on CKD. Monitoring lab. 7. Hypertension. Improved on present treatment. 8. Pulmonary HTN Comment Review of Relevant I have reviewed the following items emmanuel (where applicable) has been applied. Labs Laboratory Tests Test 03/13/19 16:22 03/13/19 16:40 03/13/19 21:30 03/14/19 00:25 Urine Collection Type Unknown Urine Color Yellow Urine Clarity Clear Urine pH 6.0 Urine Specific [place] 1.010 Urine Protein Negative mg/dL (NEG-TRACE) Urine Glucose (UA) Negative mg/dL (NEG) Urine Ketones (Stick) Negative mg/dL (NEG) Urine Blood Negative (NEG) Urine Nitrite Negative (NEG) Urine Bilirubin Negative (NEG) Urine Urobilinogen Dipstick 0.2 mg/dL (0.2 mg/dL) Urine Leukocyte Esterase Negative (NEG) Urine RBC 0 /HPF (0-2) Urine WBC 0 /HPF (0-4) Urine Squamous Epithelial Cells Few /LPF Urine Bacteria 0 /HPF (0-FEW) White Blood Count 7.0 x10^3/uL (4.0-11.0) Red Blood Count 5.13 x10^6/uL (4.30-5.70) Hemoglobin 13.6 g/dL (13.0-17.5) Hematocrit 43.8 % (39.0-53.0) Mean Corpuscular Volume 85 fL (79-100) Mean Corpuscular Hemoglobin 27 pg (25-35) Mean Corpuscular Hemoglobin Concent 31 g/dL (31-37) Red Cell Distribution Width 17.2 % (11.5-14.5) Platelet Count 309 x10^3/uL (140-400) Neutrophils (%) (Auto) 73 % (31-73) Lymphocytes (%) (Auto) 18 % (24-48) Monocytes (%) (Auto) 8 % (0-9) Eosinophils (%) (Auto) 1 % (0-3) Basophils (%) (Auto) 1 % (0-3) Neutrophils # (Auto) 5.1 x10^3uL (1.8-7.7) Lymphocytes # (Auto) 1.2 x10^3/uL (1.0-4.8) Monocytes # (Auto) 0.5 x10^3/uL (0.0-1.1) Eosinophils # (Auto) 0.1 x10^3/uL (0.0-0.7) Basophils # (Auto) 0.1 x10^3/uL (0.0-0.2) Prothrombin Time 20.4 SEC (11.7-14.0) Prothromb Time International Ratio 1.8 (0.8-1.1) Activated Partial Thromboplast Time 36 SEC (24-38) Sodium Level 144 mmol/L (136-145) Potassium Level 4.7 mmol/L (3.5-5.1) Chloride Level 106 mmol/L (98-107) Carbon Dioxide Level 23 mmol/L (21-32) Anion Gap 15 (6-14) Blood Urea Nitrogen 27 mg/dL (8-26) Creatinine 2.6 mg/dL (0.7-1.3) Estimated GFR (Cockcroft-Gault) 30.8 BUN/Creatinine Ratio 10 (6-20) Glucose Level 89 mg/dL (70-99) Calcium Level 9.3 mg/dL (8.5-10.1) Total Bilirubin 1.0 mg/dL (0.2-1.0) Aspartate Amino Transf (AST/SGOT) 38 U/L (15-37) Alanine Aminotransferase (ALT/SGPT) 26 U/L (16-63) Alkaline Phosphatase 97 U/L (46-116) Troponin I Quantitative 0.019 ng/mL (0.000-0.055) 0.020 ng/mL (0.000-0.055) 0.029 ng/mL (0.000-0.055) QM-Ssq-N-Type Natriuretic Peptide 30978 pg/mL (0-124) Total Protein 7.6 g/dL (6.4-8.2) Albumin 3.5 g/dL (3.4-5.0) Albumin/Globulin Ratio 0.9 (1.0-1.7) Test 03/14/19 04:45 03/15/19 04:15 White Blood Count 6.7 x10^3/uL (4.0-11.0) Red Blood Count 5.21 x10^6/uL (4.30-5.70) Hemoglobin 13.7 g/dL (13.0-17.5) Hematocrit 44.0 % (39.0-53.0) Mean Corpuscular Volume 84 fL (79-100) Mean Corpuscular Hemoglobin 26 pg (25-35) Mean Corpuscular Hemoglobin Concent 31 g/dL (31-37) Red Cell Distribution Width 16.9 % (11.5-14.5) Platelet Count 314 x10^3/uL (140-400) Neutrophils (%) (Auto) 61 % (31-73) Lymphocytes (%) (Auto) 27 % (24-48) Monocytes (%) (Auto) 11 % (0-9) Eosinophils (%) (Auto) 1 % (0-3) Basophils (%) (Auto) 1 % (0-3) Neutrophils # (Auto) 4.1 x10^3uL (1.8-7.7) Lymphocytes # (Auto) 1.8 x10^3/uL (1.0-4.8) Monocytes # (Auto) 0.7 x10^3/uL (0.0-1.1) Eosinophils # (Auto) 0.1 x10^3/uL (0.0-0.7) Basophils # (Auto) 0.0 x10^3/uL (0.0-0.2) Sodium Level 145 mmol/L (136-145) 146 mmol/L (136-145) Potassium Level 4.6 mmol/L (3.5-5.1) 3.8 mmol/L (3.5-5.1) Chloride Level 108 mmol/L (98-107) 108 mmol/L (98-107) Carbon Dioxide Level 23 mmol/L (21-32) 26 mmol/L (21-32) Anion Gap 14 (6-14) 12 (6-14) Blood Urea Nitrogen 31 mg/dL (8-26) 37 mg/dL (8-26) Creatinine 2.8 mg/dL (0.7-1.3) 2.6 mg/dL (0.7-1.3) Estimated GFR (Cockcroft-Gault) 28.3 30.8 BUN/Creatinine Ratio 11 (6-20) Glucose Level 94 mg/dL (70-99) 85 mg/dL (70-99) Calcium Level 9.4 mg/dL (8.5-10.1) 8.9 mg/dL (8.5-10.1) Total Bilirubin 0.8 mg/dL (0.2-1.0) Aspartate Amino Transf (AST/SGOT) 24 U/L (15-37) Alanine Aminotransferase (ALT/SGPT) 25 U/L (16-63) Alkaline Phosphatase 97 U/L (46-116) Total Protein 7.3 g/dL (6.4-8.2) Albumin 3.3 g/dL (3.4-5.0) Albumin/Globulin Ratio 0.8 (1.0-1.7) Magnesium Level 2.0 mg/dL (1.8-2.4) Laboratory Tests Test 03/15/19 04:15 Sodium Level 146 mmol/L (136-145) Potassium Level 3.8 mmol/L (3.5-5.1) Chloride Level 108 mmol/L (98-107) Carbon Dioxide Level 26 mmol/L (21-32) Anion Gap 12 (6-14) Blood Urea Nitrogen 37 mg/dL (8-26) Creatinine 2.6 mg/dL (0.7-1.3) Estimated GFR (Cockcroft-Gault) 30.8 Glucose Level 85 mg/dL (70-99) Calcium Level 8.9 mg/dL (8.5-10.1) Magnesium Level 2.0 mg/dL (1.8-2.4) Medications Current Medications Bumetanide (Bumex) 1 mg 1X ONCE IV Last administered on 03/13/19at 17:53; Start 03/13/19 at 18:15; Stop 03/13/19 at 18:16; Status DC Acetaminophen (Tylenol) 650 mg PRN Q4HRS PRN PO FEVER; Start 03/13/19 at 18:30; Stop 03/14/19 at 18:29; Status DC Amiodarone HCl (Cordarone) 200 mg DAILY PO Last administered on 03/15/19 08:40; Start 03/14/19 at 09:00 Apixaban (Eliquis) 5 mg BID PO Last administered on 03/15/19at 08:39; Start at 09:00 Ferrous Sulfate (Feosol) 325 mg DAILY PO Last administered on 03/15/19at 08:39; Start 03/14/19 at 09:00 Furosemide (Lasix) 40 mg DAILY PO Last administered on 03/14/19at 08:56; Start 03/14/19 at 09:00; Stop 03/14/19 at 12:05; Status DC Losartan Potassium (Cozaar) 50 mg DAILY PO Last administered on 03/14/19at 08:55; Start 03/14/19 at 09:00; Stop 03/14/19 at 12:05; Status DC Metoprolol Succinate (Toprol Xl) 200 mg DAILY PO Last administered on 03/15/19at 08:40; Start 03/14/19 at 09:00 Non-Formulary Medication (Budesonide/ Formoterol Fumarate (Symbicort 80-4.5 Mcg Inhaler)) 1 puff QID IH ; Start 03/14/19 at 09:00; Status UNV Diltiazem HCl (Cardizem 24hr Cd) 180 mg DAILY PO Last administered on 03/15/19at 08:39; Start 03/14/19 at 09:00 Non-Formulary Medication (Levalbuterol Tartrate (Xopenex Hfa)) 2 puff PRN Q4- 6HRS IH ; Start 03/14/19 at 04:45; Status UNV Multivitamins (Thera M Plus) 1 tab DAILY PO Last administered on 03/15/19at 08:39; Start 03/14/19 at 09:00 Budesonide (Pulmicort) 0.5 mg RTBID NEB Last administered on 03/15/19at 07:21; Start 03/14/19 at 08:00 Albuterol Sulfate (Ventolin Neb Soln) 2.5 mg RTQID NEB Last administered on 03/15/19at 11:58; Start 03/14/19 at 08:00 Levalbuterol HCl (Xopenex) 2.5 mg PRN Q4HRS PRN NEB SHORTNESS OF BREATH; Start 03/14/19 at 05:30 Pantoprazole Sodium (Protonix) 40 mg DAILYAC PO Last administered on 03/15/19at 06:32; Start 03/14/19 at 11:00 Furosemide (Lasix) 60 mg 1X ONCE IVP Last administered on 03/14/19at 12:05; Start 03/14/19 at 12:30; Stop 03/14/19 at 12:31; Status DC Losartan Potassium (Cozaar) 100 mg DAILY PO ; Start 03/15/19 at 09:00; Stop 03/15/19 at 09:00; Status DC Furosemide (Lasix) 40 mg BID92 IVP Last administered on 03/15/19at 08:40; Start 03/14/19 at 14:00 Sacubitril/ Valsartan (Entresto 24 Mg-26 Mg) 1 tab BID PO ; Start 03/15/19 at 21:00 Hydralazine HCl (Apresoline Inj) 10 mg PRN Q4HRS PRN IVP ELEVATED BP, SEE COMMENTS; Start 03/14/19 at 15:15 Info (Anti-Coagulation Monitoring By Pharmacy) 1 each PRN DAILY PRN MC SEE COMMENTS Last administered on 03/15/19at 12:23; Start 03/15/19 at 12:30 Active Scripts Active Metoprolol Succinate ( Xl ) (Metoprolol Succinate) 100 Mg Tab.er.24h 200 Mg PO DAILY 30 Days DOSE INCREASE TO 200mg Daily Diltiazem 24HR Cd (Diltiazem Hcl) 180 Mg Cap.er.24h 180 Mg PO DAILY 30 Days To replace 240mg diltiazem Pro Comfort Spacer with Mask (Inhaler,Assist Device,Lg Mask) 1 Each Spacer Each MC QID QID prn for asthma Xoepenex and BID for Asthma/copd for symbicort Xopenex Hfa (Levalbuterol Tartrate) 15 Gm Hfa.aer.ad 2 Puff IH PRN Q4-6HRS 30 Days Symbicort 80-4.5 Mcg Inhaler (Budesonide/Formoterol Fumarate) 10.2 Gm Hfa.aer.ad 1 Puff IH QID 30 Days Amiodarone Hcl 200 Mg Tablet 200 Mg PO DAILY 30 Days Eliquis (Apixaban) 5 Mg Tablet 5 Mg PO BID 30 Days Ferrous Sulfate 325 Mg Tablet 1 Tab PO DAILY Reported Multivitamins (Multivitamin) 1 Each Tablet 1 Each PO DAILY Acetaminophen 500 Mg Tablet 1,000 Mg PO PRN Q6HRS PRN Losartan Potassium (Losartan Potassium) 25 Mg Tablet 50 Mg PO DAILY Lasix (Furosemide) 40 Mg Tablet 40 Mg PO DAILY Vitals/I & O Vital Sign - Last 24 Hours 03/14/19 03/14/19 03/14/19 03/14/19 15:58 19:35 19:37 20:58 Temp 97.6 97.6 Pulse 110 Resp 18 B/P (MAP) 139/102 (114) Pulse Ox 100 100 100 O2 Delivery Nasal Cannula Nasal Cannula Nasal Cannula Nasal Cannula O2 Flow Rate 3.0 2.0 3.0 2.0 03/14/19 03/15/19 03/15/19 03/15/19 23:39 03:32 07:00 07:00 Temp 97.6 97.7 97.6 97.7 Pulse 110 81 Resp 18 20 B/P (MAP) 137/96 (110) 116/96 (103) Pulse Ox 100 99 O2 Delivery Nasal Cannula Nasal Cannula Nasal Cannula Nasal Cannula O2 Flow Rate 2.0 2.0 1.0 1.0 03/15/19 03/15/19 03/15/19 03/15/19 07:22 08:00 08:39 08:40 Pulse 112 112 B/P (MAP) 142/109 142/109 Pulse Ox 100 O2 Delivery Nasal Cannula Nasal Cannula O2 Flow Rate 2.0 3.0 03/15/19 03/15/19 03/15/19 08:40 11:03 12:00 Temp 96.5 96.5 Pulse 112 112 Resp 20 B/P (MAP) 142/109 137/103 (114) Pulse Ox 98 O2 Delivery Nasal Cannula Room Air O2 Flow Rate 1.0 Intake and Output 03/14/19 03/14/19 03/15/19 15:00 23:00 07:00 Intake Total 772 ml Balance 772 ml CAITLIN GLEZ MD Mar 15, 2019 13:58
[2019-03-15 15:00] VITALS: BP 116/91
--- NOTE | 2019-03-15 15:41 | PDOC ---
SUBJECTIVE ROS Breathing better, sleeping comfortably on side, OBJECTIVE Vital Signs Vital Signs Date Time Temp Pulse Resp B/P (MAP) Pulse Ox O2 Delivery O2 Flow Rate FiO2 03/15/19 15:00 97.3 90 18 116/91 (99) 96 Room Air 97.3 03/15/19 11:03 1.0 I & 0 Intake and Output 03/15/19 06:59 Intake Total 772 ml Balance 772 ml Intake Oral 772 ml # Voids 1 PHYSICAL EXAM Physical Exam General: Alert, No acute distress Lungs: Crackles (bases) Cardiovascular: S1, S2 Abdomen: Soft Extremities: Other (2+edema) DIAGNOSIS/ASSESSMENT Assessment & Plan CKD stage 3-4 Stable renal function , E-Lytes stable Acute respiratory failure secondary to a/c HF Mildly improved today. Acute on chronic diastolic/systolic CHF. CXR with pulmonary edema. On Lasix and Entresto Hypernatremia- Mild Monitor NICM; LVEF 20-25%. Cath 2013 without significant CAD. Moderate to severe mitral regurgitation. PAFIB/flutter. AECOPD with h/o tobaccoism Hypertension. Improved Pulmonary HTN COMMENT/RELEVANT DATA Meds Current Medications Medications (Trade) Dose Ordered Sig/Hari Start Time Stop Time Status Last Admin Dose Admin Acetaminophen (Tylenol) 650 mg PRN Q4HRS PRN 03/13/19 18:30 03/14/19 18:29 DC Albuterol Sulfate (Ventolin Neb Soln) 2.5 mg RTQID 03/14/19 08:00 03/15/19 11:58 2.5 MG Amiodarone HCl (Cordarone) 200 mg DAILY 03/14/19 09:00 03/15/19 08:40 200 MG Apixaban (Eliquis) 5 mg BID 03/14/19 09:00 03/15/19 08:39 5 MG Budesonide (Pulmicort) 0.5 mg RTBID 03/14/19 08:00 03/15/19 07:21 0.5 MG Bumetanide (Bumex) 1 mg 1X ONCE 03/13/19 18:15 03/13/19 18:16 DC 03/13/19 17:53 1 MG Diltiazem HCl (Cardizem 24hr Cd) 180 mg DAILY 03/14/19 09:00 03/15/19 08:39 180 MG Ferrous Sulfate (Feosol) 325 mg DAILY 03/14/19 09:00 03/15/19 08:39 325 MG Furosemide (Lasix) 40 mg BID92 03/14/19 14:00 03/15/19 13:55 40 MG Hydralazine HCl (Apresoline Inj) 10 mg PRN Q4HRS PRN 03/14/19 15:15 Info (Anti-Coagulation Monitoring By Pharmacy) 1 each PRN DAILY PRN 03/15/19 12:30 03/15/19 12:23 1 EACH Levalbuterol HCl (Xopenex) 2.5 mg PRN Q4HRS PRN 03/14/19 05:30 Losartan Potassium (Cozaar) 100 mg DAILY 03/15/19 09:00 03/15/19 09:00 DC Metoprolol Succinate (Toprol Xl) 200 mg DAILY 03/14/19 09:00 03/15/19 08:40 200 MG Multivitamins (Thera M Plus) 1 tab DAILY 03/14/19 09:00 03/15/19 08:39 1 TAB Non-Formulary Medication (Budesonide/ Formoterol Fumarate (Symbicort 80-4.5 Mcg Inhaler)) 1 puff QID 03/14/19 09:00 UNV Non-Formulary Medication (Levalbuterol Tartrate (Xopenex Hfa)) 2 puff PRN Q4-6HRS 03/14/19 04:45 UNV Pantoprazole Sodium (Protonix) 40 mg DAILYAC 03/14/19 11:00 03/15/19 06:32 40 MG Sacubitril/ Valsartan (Entresto 24 Mg-26 Mg) 1 tab BID 03/15/19 21:00 Lab Laboratory Tests Test 03/15/19 04:15 Sodium Level 146 mmol/L (136-145) Potassium Level 3.8 mmol/L (3.5-5.1) Chloride Level 108 mmol/L (98-107) Carbon Dioxide Level 26 mmol/L (21-32) Anion Gap 12 (6-14) Blood Urea Nitrogen 37 mg/dL (8-26) Creatinine 2.6 mg/dL (0.7-1.3) Estimated GFR (Cockcroft-Gault) 30.8 Glucose Level 85 mg/dL (70-99) Calcium Level 8.9 mg/dL (8.5-10.1) Magnesium Level 2.0 mg/dL (1.8-2.4) Results All relevant outside records, renal labs, imaging studies, telemetry/EKG's were reviewed. UNRULY HERR MD Mar 15, 2019 15:41
[2019-03-15 18:51] VITALS: BP 118/92
[2019-03-15] MEDS: SACUBITRIL/VALSARTAN 24/26MG TABLET. PO SCH (20:27)
[2019-03-15 22:58] VITALS: BP 109/86
[2019-03-16 02:54] VITALS: BP 146/113
[2019-03-16] MEDS: PANTOPRAZOLE 40 MG TABLET.DR. PO SCH (06:32)
[2019-03-16 07:00] VITALS: BP 135/108
[2019-03-16] MEDS: BUDESONIDE 0.5 MG/2 ML NEBU. NEB SCH ×2 (07:54→20:08)
[2019-03-16] MEDS: ALBUTEROL SULFATE 2.5 MG/3 ML NEBU. NEB SCH ×4 (07:54→20:08)
--- NOTE | 2019-03-16 08:03 | PDOC ---
PROGRESS NOTES Chief Complaint Chief Complaint A/P: Enlarge liver - Hep B - with negative titers historically, hepatomegaly, GI consulted GERD - PPI COPD - acute exacerbation, cont nebs, xopenex may be preferred Acute on chronic systolic (EF 20-25%) and diastolic HF - diuresing, difficult with his NEVA AFIB with RVR - Cardioverted out of aflutter, but has been back in now. Will change from cardizem to metoprolol Nonischemic cardiomyopathy EF 20-25% - cont BB, ASA, statin AK I on possibly CK D - vasomotor vs cardiorenal. Hold EBONIE/ARB Accel hypertension POA AECOPD - will cont nebulizers, may be better for xopenex Severe pulmonary HTN with valvular insufficiency: mod TR, mild MR and mild to mod AI - needs good BP control HTN - Hydralazine IV PRN Acute hypoxic respiratory failure secondary to acute on chronic systolic heart failure. Tobacco use for 30+ years, likely underlying chronic obstructive pulmonary disease FEN - Cardiac diet PPX - Eliquis FULL CODE Inpatient for CHF exacerbation, NEVA, and Afib History of Present Illness History of Present Illness Mr Fleming is a 58 yo M w/ PMHx TIA, Afib, CKD, Anemia, COPD who was admitted through ER w/ increasing SOA w/ exertion and swelling in legs and abdomen. Seen by nephrology for NEVA on CKD, GI for hepatomegaly, Pulm for acute COPD exacerbation, and Cardiology for afib with RVR. C/o abdominal swelling better today, US showed very little ascites, I have shared this with him that paracentesis would not be possible or give him relief. Still tachycardiac near 115bpm. He feels weak and short of breath overall, just tired, but notes his swelling is better. Vitals Vitals Vital Signs Date Time Temp Pulse Resp B/P (MAP) Pulse Ox O2 Delivery O2 Flow Rate FiO2 03/16/19 02:54 98.1 111 19 146/113 (124) 98 Nasal Cannula 3.0 98.1 Physical Exam General: mild distress Heart: Other (irregular rhythm) Lungs: Crackles (bases) Abdomen: Normal bowel sounds Extremities: No cyanosis Skin: No breakdown Assessment and Plan Assessmemt and Plan Problems Medical Problems: (1) Shortness of breath Status: Acute Comment Review of Relevant I have reviewed the following items emmanuel (where applicable) has been applied. Labs Laboratory Tests Test 03/15/19 04:15 Sodium Level 146 mmol/L (136-145) Potassium Level 3.8 mmol/L (3.5-5.1) Chloride Level 108 mmol/L (98-107) Carbon Dioxide Level 26 mmol/L (21-32) Anion Gap 12 (6-14) Blood Urea Nitrogen 37 mg/dL (8-26) Creatinine 2.6 mg/dL (0.7-1.3) Estimated GFR (Cockcroft-Gault) 30.8 Glucose Level 85 mg/dL (70-99) Calcium Level 8.9 mg/dL (8.5-10.1) Magnesium Level 2.0 mg/dL (1.8-2.4) Medications Current Medications Bumetanide (Bumex) 1 mg 1X ONCE IV Last administered on 03/13/19at 17:53; Start 03/13/19 at 18:15; Stop 03/13/19 at 18:16; Status DC Acetaminophen (Tylenol) 650 mg PRN Q4HRS PRN PO FEVER; Start 03/13/19 at 18:30; Stop 03/14/19 at 18:29; Status DC Amiodarone HCl (Cordarone) 200 mg DAILY PO Last administered on 03/15/19at 08:40; Start 03/14/19 at 09:00 Apixaban (Eliquis) 5 mg BID PO Last administered on 03/15/19at 20:25; Start 03/14/19 at 09:00 Ferrous Sulfate (Feosol) 325 mg DAILY PO Last administered on 03/15/19at 08:39; Start 03/14/19 at 09:00 Furosemide (Lasix) 40 mg DAILY PO Last administered on 03/14/19at 08:56; Start 03/14/19 at 09:00; Stop 03/14/19 at 12:05; Status DC Losartan Potassium (Cozaar) 50 mg DAILY PO Last administered on 03/14/19at 08:55; Start 03/14/19 at 09:00; Stop 03/14/19 at 12:05; Status DC Metoprolol Succinate (Toprol Xl) 200 mg DAILY PO Last administered on 03/15/19at 08:40; Start 03/14/19 at 09:00 Non-Formulary Medication (Budesonide/ Formoterol Fumarate (Symbicort 80-4.5 Mcg Inhaler)) 1 puff QID IH ; Start 03/14/19 at 09:00; Status UNV Diltiazem HCl (Cardizem 24hr Cd) 180 mg DAILY PO Last administered on 03/15/19at 08:39; Start 03/14/19 at 09:00 Non-Formulary Medication (Levalbuterol Tartrate (Xopenex Hfa)) 2 puff PRN Q4- 6HRS IH ; Start 03/14/19 at 04:45; Status UNV Multivitamins (Thera M Plus) 1 tab DAILY PO Last administered on 03/15/19at 08:39; Start 03/14/19 at 09:00 Budesonide (Pulmicort) 0.5 mg RTBID NEB Last administered on 03/16/19at 07:54; Start 03/14/19 at 08:00 Albuterol Sulfate (Ventolin Neb Soln) 2.5 mg RTQID NEB Last administered on 03/16/19at 07:54; Start 03/14/19 at 08:00 Levalbuterol HCl (Xopenex) 2.5 mg PRN Q4HRS PRN NEB SHORTNESS OF BREATH; Start 03/14/19 at 05:30 Pantoprazole Sodium (Protonix) 40 mg DAILYAC PO Last administered on 03/16/19at 06:32; Start 03/14/19 at 11:00 Furosemide (Lasix) 60 mg 1X ONCE IVP Last administered on 03/14/19at 12:05; Start 03/14/19 at 12:30; Stop 03/14/19 at 12:31; Status DC Losartan Potassium (Cozaar) 100 mg DAILY PO ; Start 03/15/19 at 09:00; Stop 03/15/19 at 09:00; Status DC Furosemide (Lasix) 40 mg BID92 IVP Last administered on 03/15/19at 13:55; Start 03/14/19 at 14:00 Sacubitril/ Valsartan (Entresto 24 Mg-26 Mg) 1 tab BID PO Last administered on 03/15/19at 20:27; Start 03/15/19 at 21:00 Hydralazine HCl (Apresoline Inj) 10 mg PRN Q4HRS PRN IVP ELEVATED BP, SEE COMMENTS; Start 03/14/19 at 15:15 Info (Anti-Coagulation Monitoring By Pharmacy) 1 each PRN DAILY PRN MC SEE COMMENTS Last administered on 03/15/19at 12:23; Start 03/15/19 at 12:30 Active Scripts Active Metoprolol Succinate ( Xl ) (Metoprolol Succinate) 100 Mg Tab.er.24h 200 Mg PO DAILY 30 Days DOSE INCREASE TO 200mg Daily Diltiazem 24HR Cd (Diltiazem Hcl) 180 Mg Cap.er.24h 180 Mg PO DAILY 30 Days To replace 240mg diltiazem Pro Comfort Spacer with Mask (Inhaler,Assist Device,Lg Mask) 1 Each Spacer Each MC QID QID prn for asthma Xoepenex and BID for Asthma/copd for symbicort Xopenex Hfa (Levalbuterol Tartrate) 15 Gm Hfa.aer.ad 2 Puff IH PRN Q4-6HRS 30 Days Symbicort 80-4.5 Mcg Inhaler (Budesonide/Formoterol Fumarate) 10.2 Gm Hfa.aer.ad 1 Puff IH QID 30 Days Amiodarone Hcl 200 Mg Tablet 200 Mg PO DAILY 30 Days Eliquis (Apixaban) 5 Mg Tablet 5 Mg PO BID 30 Days Ferrous Sulfate 325 Mg Tablet 1 Tab PO DAILY Reported Multivitamins (Multivitamin) 1 Each Tablet 1 Each PO DAILY Acetaminophen 500 Mg Tablet 1,000 Mg PO PRN Q6HRS PRN Losartan Potassium (Losartan Potassium) 25 Mg Tablet 50 Mg PO DAILY Lasix (Furosemide) 40 Mg Tablet 40 Mg PO DAILY Vitals/I & O Vital Sign - Last 24 Hours 03/15/19 03/15/19 03/15/19 03/15/19 08:39 08:40 08:40 11:03 Temp 96.5 96.5 Pulse 112 112 112 112 Resp 20 B/P (MAP) 142/109 142/109 142/109 137/103 (114) Pulse Ox 98 O2 Delivery Nasal Cannula O2 Flow Rate 1.0 03/15/19 03/15/19 03/15/19 03/15/19 12:00 15:00 15:39 18:51 Temp 97.3 97.6 97.3 97.6 Pulse 90 98 Resp 18 14 B/P (MAP) 116/91 (99) 118/92 (101) Pulse Ox 96 100 O2 Delivery Room Air Room Air Nasal Cannula Nasal Cannula O2 Flow Rate 2.0 1.0 03/15/19 03/15/19 03/15/19 03/15/19 19:45 20:08 20:27 22:58 Temp 97.7 97.7 Pulse 109 87 Resp 18 B/P (MAP) 131/95 109/86 (94) Pulse Ox 99 97 O2 Delivery Nasal Cannula Nasal Cannula Nasal Cannula O2 Flow Rate 3.0 1.0 3.0 03/16/19 02:54 Temp 98.1 98.1 Pulse 111 Resp 19 B/P (MAP) 146/113 (124) Pulse Ox 98 O2 Delivery Nasal Cannula O2 Flow Rate 3.0 Intake and Output 03/15/19 03/15/19 03/16/19 14:59 22:59 06:59 Intake Total 420 ml 180 ml 240 ml Output Total 650 ml 2150 ml 1600 ml Balance -230 ml -1970 ml -1360 ml RENETTA CADET MD Mar 16, 2019 08:03
--- NOTE | 2019-03-16 08:06 | RAD ---
EXAM: CHEST 1 VIEW History: Congestive heart failure COMPARISON: 03/13/2019 TECHNIQUE: Single portable radiograph of the chest FINDINGS: Mild cardiomegaly. Unchanged mild prominent bilateral interstitial lung markings. The costophrenic sulci are clear and well demarcated. IMPRESSION: Unchanged mild congestion.
[2019-03-16] MEDS: METOPROLOL SUCC 24HR ER 100 MG TAB.ER.24H. PO SCH (09:05)
[2019-03-16] MEDS: APIXABAN 5 MG TABLET. PO SCH ×2 (09:05→21:18)
[2019-03-16] MEDS: SACUBITRIL/VALSARTAN 24/26MG TABLET. PO SCH ×2 (09:05→21:18)
[2019-03-16] MEDS: MULTIVITAMIN with MINERAL TABLET. PO SCH (09:05)
[2019-03-16] MEDS: FERROUS SULFATE 325 MG TABLET. PO SCH (09:06)
[2019-03-16] MEDS: FUROSEMIDE 40 MG/4 ML VIAL. IVP SCH ×2 (09:06→13:44)
[2019-03-16] MEDS: AMIODARONE HCL 200 MG TABLET. PO SCH (09:06)
[2019-03-16 10:34] LABS: CREATININE 2.3 mg/dL (0.7-1.3); GFR 35.5; POTASSIUM 3.6 mmol/L (3.5-5.1)
[2019-03-16 11:00] VITALS: BP 139/107
[2019-03-16] MEDS: ANTI-COAG MONITOR BY PHARMACY. MC PRN (12:04)
--- NOTE | 2019-03-16 12:37 | PDOC ---
PROGRESS NOTES Subjective Subjective Patient seen and examined He is feeling better today. Objective Objective Vital Signs Date Time Temp Pulse Resp B/P (MAP) Pulse Ox O2 Delivery O2 Flow Rate FiO2 03/16/19 12:00 99 Room Air 03/16/19 11:00 97.7 114 18 139/107 (118) 3.0 97.7 Intake and Output 03/16/19 07:00 Intake Total 840 ml Output Total 4400 ml Balance -3560 ml Intake Oral 840 ml Output Urine Total 4400 ml Physical Exam Abdomen: Normal bowel sounds Heart: Other (rate of 114.) General: mild distress Lungs: Other (mildly decreased breath sounds) Assessment Assessment Problems Medical Problems: (1) Shortness of breath Status: Acute 1. Acute respiratory failure secondary to a/c HF. The patient continues to improve. We'll continue present treatment. 2. Acute on chronic diastolic/systolic CHF. CXR with pulmonary edema. 3. NICM; LVEF 20-25%. Cath 2013 without significant CAD. Stress test earlier this year without ischemic or infarct. Updated echo also shows moderate to severe mitral regurgitation. 4. PAFIB/flutter. Continue with rate control. 5. AECOPD with h/o tobaccoism 6. NEVA on CKD. Monitoring lab. 7. Hypertension. Improved on present treatment. 8. Pulmonary HTN Comment Review of Relevant I have reviewed the following items emmanuel (where applicable) has been applied. Labs Laboratory Tests Test 03/15/19 04:15 03/16/19 09:25 Sodium Level 146 mmol/L (136-145) 144 mmol/L (136-145) Potassium Level 3.8 mmol/L (3.5-5.1) 3.6 mmol/L (3.5-5.1) Chloride Level 108 mmol/L (98-107) 106 mmol/L (98-107) Carbon Dioxide Level 26 mmol/L (21-32) 28 mmol/L (21-32) Anion Gap 12 (6-14) 10 (6-14) Blood Urea Nitrogen 37 mg/dL (8-26) 29 mg/dL (8-26) Creatinine 2.6 mg/dL (0.7-1.3) 2.3 mg/dL (0.7-1.3) Estimated GFR (Cockcroft-Gault) 30.8 35.5 Glucose Level 85 mg/dL (70-99) 161 mg/dL (70-99) Calcium Level 8.9 mg/dL (8.5-10.1) 9.0 mg/dL (8.5-10.1) Magnesium Level 2.0 mg/dL (1.8-2.4) Laboratory Tests Test 03/16/19 09:25 Sodium Level 144 mmol/L (136-145) Potassium Level 3.6 mmol/L (3.5-5.1) Chloride Level 106 mmol/L (98-107) Carbon Dioxide Level 28 mmol/L (21-32) Anion Gap 10 (6-14) Blood Urea Nitrogen 29 mg/dL (8-26) Creatinine 2.3 mg/dL (0.7-1.3) Estimated GFR (Cockcroft-Gault) 35.5 Glucose Level 161 mg/dL (70-99) Calcium Level 9.0 mg/dL (8.5-10.1) Medications Current Medications Bumetanide (Bumex) 1 mg 1X ONCE IV Last administered on 03/13/19at 17:53; Start 03/13/19 at 18:15; Stop 03/13/19 at 18:16; Status DC Acetaminophen (Tylenol) 650 mg PRN Q4HRS PRN PO FEVER; Start 03/13/19 at 18:30; Stop 03/14/19 at 18:29; Status DC Amiodarone HCl (Cordarone) 200 mg DAILY PO Last administered on 03/16/19at 09:06; Start 03/14/19 at 09:00 Apixaban (Eliquis) 5 mg BID PO Last administered on 03/16/19at 09:05; Start 03/14/19 at 09:00 Ferrous Sulfate (Feosol) 325 mg DAILY PO Last administered on 03/16/19at 09:06; Start 03/14/19 at 09:00 Furosemide (Lasix) 40 mg DAILY PO Last administered on 03/14/19at 08:56; Start 03/14/19 at 09:00; Stop 03/14/19 at 12:05; Status DC Losartan Potassium (Cozaar) 50 mg DAILY PO Last administered on 03/14/19at 08:55; Start 03/14/19 at 09:00; Stop 03/14/19 at 12:05; Status DC Metoprolol Succinate (Toprol Xl) 200 mg DAILY PO Last administered on 03/16/19at 09:05; Start 03/14/19 at 09:00 Non-Formulary Medication (Budesonide/ Formoterol Fumarate (Symbicort 80-4.5 Mcg Inhaler)) 1 puff QID IH ; Start 03/14/19 at 09:00; Status UNV Diltiazem HCl (Cardizem 24hr Cd) 180 mg DAILY PO Last administered on 03/16/19at 09:05; Start 03/14/19 at 09:00 Non-Formulary Medication (Levalbuterol Tartrate (Xopenex Hfa)) 2 puff PRN Q4- 6HRS IH ; Start 03/14/19 at 04:45; Status UNV Multivitamins (Thera M Plus) 1 tab DAILY PO Last administered on 03/16/19at 09:05; Start 03/14/19 at 09:00 Budesonide (Pulmicort) 0.5 mg RTBID NEB Last administered on 03/16/19at 07:54; Start 03/14/19 at 08:00 Albuterol Sulfate (Ventolin Neb Soln) 2.5 mg RTQID NEB Last administered on 03/16/19at 12:00; Start 03/14/19 at 08:00 Levalbuterol HCl (Xopenex) 2.5 mg PRN Q4HRS PRN NEB SHORTNESS OF BREATH; Start 03/14/19 at 05:30 Pantoprazole Sodium (Protonix) 40 mg DAILYAC PO Last administered on 03/16/19at 06:32; Start 03/14/19 at 11:00 Furosemide (Lasix) 60 mg 1X ONCE IVP Last administered on 03/14/19at 12:05; Start 03/14/19 at 12:30; Stop 03/14/19 at 12:31; Status DC Losartan Potassium (Cozaar) 100 mg DAILY PO ; Start 03/15/19 at 09:00; Stop 03/15/19 at 09:00; Status DC Furosemide (Lasix) 40 mg BID92 IVP Last administered on 03/16/19at 09:06; Start 03/14/19 at 14:00 Sacubitril/ Valsartan (Entresto 24 Mg-26 Mg) 1 tab BID PO Last administered on 03/16/19at 09:05; Start 03/15/19 at 21:00 Hydralazine HCl (Apresoline Inj) 10 mg PRN Q4HRS PRN IVP ELEVATED BP, SEE COMMENTS; Start 03/14/19 at 15:15 Info (Anti-Coagulation Monitoring By Pharmacy) 1 each PRN DAILY PRN MC SEE COMMENTS Last administered on 03/16/19at 12:04; Start 03/15/19 at 12:30 Active Scripts Active Metoprolol Succinate ( Xl ) (Metoprolol Succinate) 100 Mg Tab.er.24h 200 Mg PO DAILY 30 Days DOSE INCREASE TO 200mg Daily Diltiazem 24HR Cd (Diltiazem Hcl) 180 Mg Cap.er.24h 180 Mg PO DAILY 30 Days To replace 240mg diltiazem Pro Comfort Spacer with Mask (Inhaler,Assist Device,Lg Mask) 1 Each Spacer Each MC QID QID prn for asthma Xoepenex and BID for Asthma/copd for symbicort Xopenex Hfa (Levalbuterol Tartrate) 15 Gm Hfa.aer.ad 2 Puff IH PRN Q4-6HRS 30 Days Symbicort 80-4.5 Mcg Inhaler (Budesonide/Formoterol Fumarate) 10.2 Gm Hfa.aer.ad 1 Puff IH QID 30 Days Amiodarone Hcl 200 Mg Tablet 200 Mg PO DAILY 30 Days Eliquis (Apixaban) 5 Mg Tablet 5 Mg PO BID 30 Days Ferrous Sulfate 325 Mg Tablet 1 Tab PO DAILY Reported Multivitamins (Multivitamin) 1 Each Tablet 1 Each PO DAILY Acetaminophen 500 Mg Tablet 1,000 Mg PO PRN Q6HRS PRN Losartan Potassium (Losartan Potassium) 25 Mg Tablet 50 Mg PO DAILY Lasix (Furosemide) 40 Mg Tablet 40 Mg PO DAILY Vitals/I & O Vital Sign - Last 24 Hours 03/15/19 03/15/19 03/15/19 03/15/19 15:00 15:39 18:51 19:45 Temp 97.3 97.6 97.3 97.6 Pulse 90 98 Resp 18 14 B/P (MAP) 116/91 (99) 118/92 (101) Pulse Ox 96 100 O2 Delivery Room Air Nasal Cannula Nasal Cannula Nasal Cannula O2 Flow Rate 2.0 1.0 3.0 03/15/19 03/15/19 03/15/19 03/16/19 20:08 20:27 22:58 02:54 Temp 97.7 98.1 97.7 98.1 Pulse 109 87 111 Resp 18 19 B/P (MAP) 131/95 109/86 (94) 146/113 (124) Pulse Ox 99 97 98 O2 Delivery Nasal Cannula Nasal Cannula Nasal Cannula O2 Flow Rate 1.0 3.0 3.0 03/16/19 03/16/19 03/16/19 03/16/19 07:00 07:55 08:00 09:05 Temp 98.8 98.8 Pulse 113 113 Resp 18 B/P (MAP) 135/108 (117) 135/108 Pulse Ox 98 99 O2 Delivery Nasal Cannula Room Air Nasal Cannula O2 Flow Rate 3.0 3.0 03/16/19 03/16/19 03/16/19 03/16/19 09:05 09:05 09:06 11:00 Temp 97.7 97.7 Pulse 113 113 113 114 Resp 18 B/P (MAP) 135/108 135/108 135/108 139/107 (118) Pulse Ox 96 O2 Delivery Nasal Cannula O2 Flow Rate 3.0 03/16/19 12:00 Pulse Ox 99 O2 Delivery Room Air Intake and Output 03/15/19 03/15/19 03/16/19 15:00 23:00 07:00 Intake Total 420 ml 180 ml 240 ml Output Total 650 ml 2150 ml 1600 ml Balance -230 ml -1970 ml -1360 ml CAITLIN GLEZ MD Mar 16, 2019 12:37
--- NOTE | 2019-03-16 13:04 | PDOC ---
PULMONARY PROGRESS NOTES Subjective LESS SOA Vitals Vital Signs Date Time Temp Pulse Resp B/P (MAP) Pulse Ox O2 Delivery O2 Flow Rate FiO2 03/16/19 12:00 99 Room Air 03/16/19 11:00 97.7 114 18 139/107 (118) 3.0 97.7 General: Alert, No acute distress Lungs: Crackles (bases) Cardiovascular: S1, S2 Abdomen: Soft Extremities: Other (2+edema) Labs Laboratory Tests Test 03/15/19 04:15 03/16/19 09:25 Sodium Level 146 mmol/L (136-145) 144 mmol/L (136-145) Potassium Level 3.8 mmol/L (3.5-5.1) 3.6 mmol/L (3.5-5.1) Chloride Level 108 mmol/L (98-107) 106 mmol/L (98-107) Carbon Dioxide Level 26 mmol/L (21-32) 28 mmol/L (21-32) Anion Gap 12 (6-14) 10 (6-14) Blood Urea Nitrogen 37 mg/dL (8-26) 29 mg/dL (8-26) Creatinine 2.6 mg/dL (0.7-1.3) 2.3 mg/dL (0.7-1.3) Estimated GFR (Cockcroft-Gault) 30.8 35.5 Glucose Level 85 mg/dL (70-99) 161 mg/dL (70-99) Calcium Level 8.9 mg/dL (8.5-10.1) 9.0 mg/dL (8.5-10.1) Magnesium Level 2.0 mg/dL (1.8-2.4) Laboratory Tests Test 03/16/19 09:25 Sodium Level 144 mmol/L (136-145) Potassium Level 3.6 mmol/L (3.5-5.1) Chloride Level 106 mmol/L (98-107) Carbon Dioxide Level 28 mmol/L (21-32) Anion Gap 10 (6-14) Blood Urea Nitrogen 29 mg/dL (8-26) Creatinine 2.3 mg/dL (0.7-1.3) Estimated GFR (Cockcroft-Gault) 35.5 Glucose Level 161 mg/dL (70-99) Calcium Level 9.0 mg/dL (8.5-10.1) Medications Active Scripts Medications Dose Route/Sig Max Daily Dose Days Date Category Dose Instructions Metoprolol Succinate ( Xl ) (Metoprolol Succinate) 100 Mg Tab.er.24h 200 Mg PO DAILY 30 02/14/19 Rx DOSE INCREASE TO 200mg Daily Diltiazem 24HR Cd (Diltiazem Hcl) 180 Mg Cap.er.24h 180 Mg PO DAILY 30 02/14/19 Rx To replace 240mg diltiazem Pro Comfort Spacer with Mask (Inhaler,Assist Device,Lg Mask) 1 Each Spacer Each MC QID 02/14/19 Rx QID prn for asthma Xoepenex and BID for Asthma/copd for symbicort Xopenex Hfa (Levalbuterol Tartrate) 15 Gm Hfa.aer.ad 2 Puff IH PRN Q4-6HRS 30 02/14/19 Rx Symbicort 80-4.5 Mcg Inhaler (Budesonide/Formoterol Fumarate) 10.2 Gm Hfa.aer.ad 1 Puff IH QID 30 02/14/19 Rx Amiodarone Hcl 200 Mg Tablet 200 Mg PO DAILY 30 01/29/19 Rx Eliquis (Apixaban) 5 Mg Tablet 5 Mg PO BID 30 01/29/19 Rx Multivitamins (Multivitamin) 1 Each Tablet 1 Each PO DAILY 01/27/19 Reported Ferrous Sulfate 325 Mg Tablet 1 Tab PO DAILY 12/11/18 Rx Acetaminophen 500 Mg Tablet 1,000 Mg PO PRN Q6HRS PRN 12/09/18 Reported Losartan Potassium (Losartan Potassium) 25 Mg Tablet 50 Mg PO DAILY 12/06/18 Reported Lasix (Furosemide) 40 Mg Tablet 40 Mg PO DAILY 09/03/14 Reported Impression . 1. Acute hypoxic respiratory failure secondary to acute on chronic systolic heart failure. 2. Chronic atrial fibrillation, on chronic anticoagulation 3. Nonischemic cardiomyopathy with an ejection fraction of 20-25%. 4. Tobacco use for 30+ years, likely underlying chronic obstructive pulmonary disease. 5. Chronic renal insufficiency. Plan . 1. Continue with present diuresis. 2. Continue with present oxygen and wean FiO2 to keep saturation 92% and above. 3. Monitor renal function. 4. May need inotropic agents. 5. Eliquis per PCP. 6. Continue bronchodilators. 7. Follow up chest x-ray 03/16, mild interstitial infiltrates, chest ct chest to r/o any Amiodarone ILD 8. We will follow along with you. PATIENCE VIGIL MD Mar 16, 2019 13:04
--- NOTE | 2019-03-16 14:06 | PDOC ---
G I PROGRESS NOTE Reason for Follow-up Abd pain/ascites Subjective No new complaints Physical Exam Lungs decreased BS CV S1 S2 ABD +BS, soft, mildly distended Review of Relevant I have reviewed the following items emmanuel (where applicable) has been applied. Labs Laboratory Tests Test 03/15/19 04:15 03/16/19 09:25 Sodium Level 146 mmol/L (136-145) 144 mmol/L (136-145) Potassium Level 3.8 mmol/L (3.5-5.1) 3.6 mmol/L (3.5-5.1) Chloride Level 108 mmol/L (98-107) 106 mmol/L (98-107) Carbon Dioxide Level 26 mmol/L (21-32) 28 mmol/L (21-32) Anion Gap 12 (6-14) 10 (6-14) Blood Urea Nitrogen 37 mg/dL (8-26) 29 mg/dL (8-26) Creatinine 2.6 mg/dL (0.7-1.3) 2.3 mg/dL (0.7-1.3) Estimated GFR (Cockcroft-Gault) 30.8 35.5 Glucose Level 85 mg/dL (70-99) 161 mg/dL (70-99) Calcium Level 8.9 mg/dL (8.5-10.1) 9.0 mg/dL (8.5-10.1) Magnesium Level 2.0 mg/dL (1.8-2.4) Laboratory Tests Test 03/16/19 09:25 Sodium Level 144 mmol/L (136-145) Potassium Level 3.6 mmol/L (3.5-5.1) Chloride Level 106 mmol/L (98-107) Carbon Dioxide Level 28 mmol/L (21-32) Anion Gap 10 (6-14) Blood Urea Nitrogen 29 mg/dL (8-26) Creatinine 2.3 mg/dL (0.7-1.3) Estimated GFR (Cockcroft-Gault) 35.5 Glucose Level 161 mg/dL (70-99) Calcium Level 9.0 mg/dL (8.5-10.1) Medications Current Medications Bumetanide (Bumex) 1 mg 1X ONCE IV Last administered on 03/13/19at 17:53; Start 03/13/19 at 18:15; Stop 03/13/19 at 18:16; Status DC Acetaminophen (Tylenol) 650 mg PRN Q4HRS PRN PO FEVER; Start 03/13/19 at 18:30; Stop 03/14/19 at 18:29; Status DC Amiodarone HCl (Cordarone) 200 mg DAILY PO Last administered on 03/16/19 09:06; Start 03/14/19 at 09:00 Apixaban (Eliquis) 5 mg BID PO Last administered on 03/16/19 09:05; Start 03/14/19 at 09:00 Ferrous Sulfate (Feosol) 325 mg DAILY PO Last administered on 03/16/19 09:06; Start 03/14/19 at 09:00 Furosemide (Lasix) 40 mg DAILY PO Last administered on 03/14/19 08:56; Start 03/14/19 at 09:00; Stop 03/14/19 at 12:05; Status DC Losartan Potassium (Cozaar) 50 mg DAILY PO Last administered on 03/14/19 08:55; Start 03/14/19 at 09:00; Stop 03/14/19 at 12:05; Status DC Metoprolol Succinate (Toprol Xl) 200 mg DAILY PO Last administered on 03/16/19 09:05; Start 03/14/19 at 09:00 Non-Formulary Medication (Budesonide/ Formoterol Fumarate (Symbicort 80-4.5 Mcg Inhaler)) 1 puff QID IH ; Start 03/14/19 at 09:00; Status UNV Diltiazem HCl (Cardizem 24hr Cd) 180 mg DAILY PO Last administered on 03/16/19at 09:05; Start 03/14/19 at 09:00 Non-Formulary Medication (Levalbuterol Tartrate (Xopenex Hfa)) 2 puff PRN Q4- 6HRS IH ; Start 03/14/19 at 04:45; Status UNV Multivitamins (Thera M Plus) 1 tab DAILY PO Last administered on 03/16/19 09:05; Start 03/14/19 at 09:00 Budesonide (Pulmicort) 0.5 mg RTBID NEB Last administered on 03/16/19 07:54; Start 03/14/19 at 08:00 Albuterol Sulfate (Ventolin Neb Soln) 2.5 mg RTQID NEB Last administered on 03/16/19at 12:00; Start 03/14/19 at 08:00 Levalbuterol HCl (Xopenex) 2.5 mg PRN Q4HRS PRN NEB SHORTNESS OF BREATH; Start 03/14/19 at 05:30 Pantoprazole Sodium (Protonix) 40 mg DAILYAC PO Last administered on 03/16/19at 06:32; Start 03/14/19 at 11:00 Furosemide (Lasix) 60 mg 1X ONCE IVP Last administered on 03/14/19at 12:05; Start 03/14/19 at 12:30; Stop 03/14/19 at 12:31; Status DC Losartan Potassium (Cozaar) 100 mg DAILY PO ; Start 03/15/19 at 09:00; Stop 03/15/19 at 09:00; Status DC Furosemide (Lasix) 40 mg BID92 IVP Last administered on 03/16/19at 13:44; Start 03/14/19 at 14:00 Sacubitril/ Valsartan (Entresto 24 Mg-26 Mg) 1 tab BID PO Last administered on 03/16/19at 09:05; Start 03/15/19 at 21:00 Hydralazine HCl (Apresoline Inj) 10 mg PRN Q4HRS PRN IVP ELEVATED BP, SEE COMMENTS; Start 03/14/19 at 15:15 Info (Anti-Coagulation Monitoring By Pharmacy) 1 each PRN DAILY PRN MC SEE COMMENTS Last administered on 03/16/19at 12:04; Start 03/15/19 at 12:30 Active Scripts Active Metoprolol Succinate ( Xl ) (Metoprolol Succinate) 100 Mg Tab.er.24h 200 Mg PO DAILY 30 Days DOSE INCREASE TO 200mg Daily Diltiazem 24HR Cd (Diltiazem Hcl) 180 Mg Cap.er.24h 180 Mg PO DAILY 30 Days To replace 240mg diltiazem Pro Comfort Spacer with Mask (Inhaler,Assist Device,Lg Mask) 1 Each Spacer Each MC QID QID prn for asthma Xoepenex and BID for Asthma/copd for symbicort Xopenex Hfa (Levalbuterol Tartrate) 15 Gm Hfa.aer.ad 2 Puff IH PRN Q4-6HRS 30 Days Symbicort 80-4.5 Mcg Inhaler (Budesonide/Formoterol Fumarate) 10.2 Gm Hfa.aer.ad 1 Puff IH QID 30 Days Amiodarone Hcl 200 Mg Tablet 200 Mg PO DAILY 30 Days Eliquis (Apixaban) 5 Mg Tablet 5 Mg PO BID 30 Days Ferrous Sulfate 325 Mg Tablet 1 Tab PO DAILY Reported Multivitamins (Multivitamin) 1 Each Tablet 1 Each PO DAILY Acetaminophen 500 Mg Tablet 1,000 Mg PO PRN Q6HRS PRN Losartan Potassium (Losartan Potassium) 25 Mg Tablet 50 Mg PO DAILY Lasix (Furosemide) 40 Mg Tablet 40 Mg PO DAILY Vitals/I & O Vital Sign - Last 24 Hours 03/15/19 03/15/19 03/15/19 03/15/19 15:00 15:39 18:51 19:45 Temp 97.3 97.6 97.3 97.6 Pulse 90 98 Resp 18 14 B/P (MAP) 116/91 (99) 118/92 (101) Pulse Ox 96 100 O2 Delivery Room Air Nasal Cannula Nasal Cannula Nasal Cannula O2 Flow Rate 2.0 1.0 3.0 03/15/19 03/15/19 03/15/19 03/16/19 20:08 20:27 22:58 02:54 Temp 97.7 98.1 97.7 98.1 Pulse 109 87 111 Resp 18 19 B/P (MAP) 131/95 109/86 (94) 146/113 (124) Pulse Ox 99 97 98 O2 Delivery Nasal Cannula Nasal Cannula Nasal Cannula O2 Flow Rate 1.0 3.0 3.0 03/16/19 03/16/19 03/16/19 03/16/19 07:00 07:55 08:00 09:05 Temp 98.8 98.8 Pulse 113 113 Resp 18 B/P (MAP) 135/108 (117) 135/108 Pulse Ox 98 99 O2 Delivery Nasal Cannula Room Air Nasal Cannula O2 Flow Rate 3.0 3.0 03/16/19 03/16/19 03/16/19 03/16/19 09:05 09:05 09:06 11:00 Temp 97.7 97.7 Pulse 113 113 113 114 Resp 18 B/P (MAP) 135/108 135/108 135/108 139/107 (118) Pulse Ox 96 O2 Delivery Nasal Cannula O2 Flow Rate 3.0 03/16/19 12:00 Pulse Ox 99 O2 Delivery Room Air Intake and Output 03/15/19 03/15/19 03/16/19 14:59 22:59 06:59 Intake Total 420 ml 180 ml 240 ml Output Total 650 ml 2150 ml 1600 ml Balance -230 ml -1970 ml -1360 ml Problem List Problems Medical Problems: (1) Shortness of breath Status: Acute Assessment Cirrhosis- with ascites small amount, diuretic therapy as needed with renal insufficiency, await pulmonary work-up for amiodarone toxicity CHRISTOPHER PRICE MD Mar 16, 2019 14:06
--- NOTE | 2019-03-16 14:58 | RAD ---
Examination: CT chest without contrast History: History of congestive heart failure, Comparison: None available Technique: Axial CT images of the chest were performed with contrast. Coronal and sagittal reformats were performed PQRS Compliance Statement: One or more of the following individualized dose reduction techniques were utilized for this examination: 1. Automated exposure control 2. Adjustment of the mA and/or kV according to patient size 3. Use of iterative reconstruction technique Findings: Moderate emphysematous changes identified in the bilateral lungs. There is a 1.1 cm nodule or mass identified in the right upper lobe of the lung posteriorly abutting the pleura. Mild bibasal lung airspace opacities. Moderate cardiomegaly. Trace bilateral pleural effusions. The visualized noncontrasted liver, adrenals grossly appears unremarkable. Minimal perihepatic, perisplenic fluid identified. No evidence of lytic bony destructive lesion. Impression: 1. A 1.1 cm nodule or mass identified in the right upper lobe of the lung abutting the pleura. Recommend PET/CT scan for further evaluation. 2. Bilateral lung emphysematous changes.
[2019-03-16 15:00] VITALS: BP 128/87
[2019-03-16 19:15] VITALS: BP 128/99
[2019-03-16 22:40] VITALS: BP 129/93
[2019-03-17 03:00] VITALS: BP 135/94
[2019-03-17 07:00] VITALS: BP 134/100
[2019-03-17] MEDS: ALBUTEROL SULFATE 2.5 MG/3 ML NEBU. NEB SCH ×4 (07:51→20:47)
[2019-03-17] MEDS: BUDESONIDE 0.5 MG/2 ML NEBU. NEB SCH ×2 (07:52→20:47)
[2019-03-17] MEDS: APIXABAN 5 MG TABLET. PO SCH ×2 (08:10→20:36)
[2019-03-17] MEDS: PANTOPRAZOLE 40 MG TABLET.DR. PO SCH (08:11)
[2019-03-17] MEDS: FERROUS SULFATE 325 MG TABLET. PO SCH (08:11)
[2019-03-17] MEDS: AMIODARONE HCL 200 MG TABLET. PO SCH (08:11)
[2019-03-17] MEDS: MULTIVITAMIN with MINERAL TABLET. PO SCH (08:11)
[2019-03-17] MEDS: SACUBITRIL/VALSARTAN 24/26MG TABLET. PO SCH ×2 (08:11→20:36)
[2019-03-17] MEDS: FUROSEMIDE 40 MG/4 ML VIAL. IVP SCH ×2 (08:12→14:23)
[2019-03-17] MEDS: METOPROLOL SUCC 24HR ER 100 MG TAB.ER.24H. PO SCH (08:12)
--- NOTE | 2019-03-17 08:16 | PDOC ---
PROGRESS NOTES Chief Complaint Chief Complaint A/P: Enlarge liver - Hep B - with negative titers historically, hepatomegaly, GI consulted GERD - PPI COPD - acute exacerbation, cont nebs, xopenex may be preferred Acute on chronic systolic (EF 20-25%) and diastolic HF - diuresing, difficult with his NEVA AFIB with RVR - Cardioverted out of aflutter, but has been back in now. Will change from cardizem to metoprolol Nonischemic cardiomyopathy EF 20-25% - cont BB, ASA, statin AK I on possibly CK D - vasomotor vs cardiorenal. Hold EBONIE/ARB Accel hypertension POA AECOPD - will cont nebulizers, may be better for xopenex Severe pulmonary HTN with valvular insufficiency: mod TR, mild MR and mild to mod AI - needs good BP control HTN - Hydralazine IV PRN Acute hypoxic respiratory failure secondary to acute on chronic systolic heart failure. Tobacco use for 30+ years, likely underlying chronic obstructive pulmonary disease FEN - Cardiac diet PPX - Eliquis FULL CODE Inpatient for CHF exacerbation, NEVA, and Afib History of Present Illness History of Present Illness Mr Fleming is a 58 yo M w/ PMHx TIA, Afib, CKD, Anemia, COPD who was admitted through ER w/ increasing SOA w/ exertion and swelling in legs and abdomen. Seen by nephrology for NEVA on CKD, GI for hepatomegaly, Pulm for acute COPD exacerbation, and Cardiology for afib with RVR. 03/16: C/o abdominal swelling better today, US showed very little ascites, I have shared this with him that paracentesis would not be possible or give him relief. Still tachycardiac near 115bpm. He feels weak and short of breath overall, just tired, still very swollen. Have d/w cardiology he likely still needs up to 4L diuresis. Vitals Vitals Vital Signs Date Time Temp Pulse Resp B/P (MAP) Pulse Ox O2 Delivery O2 Flow Rate FiO2 03/17/19 08:12 112 134/100 03/17/19 07:52 Room Air 03/17/19 07:00 98.0 18 96 98.0 03/16/19 15:00 3.0 Physical Exam General: mild distress Heart: Other (rate of 114.) Lungs: Crackles (bases) Abdomen: Normal bowel sounds Extremities: No cyanosis Skin: No breakdown Labs LABS Laboratory Tests Test 03/16/19 09:25 Sodium Level 144 mmol/L (136-145) Potassium Level 3.6 mmol/L (3.5-5.1) Chloride Level 106 mmol/L (98-107) Carbon Dioxide Level 28 mmol/L (21-32) Anion Gap 10 (6-14) Blood Urea Nitrogen 29 mg/dL (8-26) Creatinine 2.3 mg/dL (0.7-1.3) Estimated GFR (Cockcroft-Gault) 35.5 Glucose Level 161 mg/dL (70-99) Calcium Level 9.0 mg/dL (8.5-10.1) Assessment and Plan Assessmemt and Plan Problems Medical Problems: (1) Shortness of breath Status: Acute Comment Review of Relevant I have reviewed the following items emmanuel (where applicable) has been applied. Labs Laboratory Tests Test 03/16/19 09:25 Sodium Level 144 mmol/L (136-145) Potassium Level 3.6 mmol/L (3.5-5.1) Chloride Level 106 mmol/L (98-107) Carbon Dioxide Level 28 mmol/L (21-32) Anion Gap 10 (6-14) Blood Urea Nitrogen 29 mg/dL (8-26) Creatinine 2.3 mg/dL (0.7-1.3) Estimated GFR (Cockcroft-Gault) 35.5 Glucose Level 161 mg/dL (70-99) Calcium Level 9.0 mg/dL (8.5-10.1) Laboratory Tests Test 03/16/19 09:25 Sodium Level 144 mmol/L (136-145) Potassium Level 3.6 mmol/L (3.5-5.1) Chloride Level 106 mmol/L (98-107) Carbon Dioxide Level 28 mmol/L (21-32) Anion Gap 10 (6-14) Blood Urea Nitrogen 29 mg/dL (8-26) Creatinine 2.3 mg/dL (0.7-1.3) Estimated GFR (Cockcroft-Gault) 35.5 Glucose Level 161 mg/dL (70-99) Calcium Level 9.0 mg/dL (8.5-10.1) Medications Current Medications Bumetanide (Bumex) 1 mg 1X ONCE IV Last administered on 03/13/19at 17:53; Start 03/13/19 at 18:15; Stop 03/13/19 at 18:16; Status DC Acetaminophen (Tylenol) 650 mg PRN Q4HRS PRN PO FEVER; Start 03/13/19 at 18:30; Stop 03/14/19 at 18:29; Status DC Amiodarone HCl (Cordarone) 200 mg DAILY PO Last administered on 03/17/19 08:11; Start 03/14/19 at 09:00 Apixaban (Eliquis) 5 mg BID PO Last administered on 03/17/19 08:10; Start 03/14/19 at 09:00 Ferrous Sulfate (Feosol) 325 mg DAILY PO Last administered on 03/17/19 08:11; Start 03/14/19 at 09:00 Furosemide (Lasix) 40 mg DAILY PO Last administered on 03/14/19 08:56; Start 03/14/19 at 09:00; Stop 03/14/19 at 12:05; Status DC Losartan Potassium (Cozaar) 50 mg DAILY PO Last administered on 03/14/19 08:55; Start 03/14/19 at 09:00; Stop 03/14/19 at 12:05; Status DC Metoprolol Succinate (Toprol Xl) 200 mg DAILY PO Last administered on 03/17/19 08:12; Start 03/14/19 at 09:00 Non-Formulary Medication (Budesonide/ Formoterol Fumarate (Symbicort 80-4.5 Mcg Inhaler)) 1 puff QID IH ; Start 03/14/19 at 09:00; Status UNV Diltiazem HCl (Cardizem 24hr Cd) 180 mg DAILY PO Last administered on 03/17/19 08:11; Start 03/14/19 at 09:00 Non-Formulary Medication (Levalbuterol Tartrate (Xopenex Hfa)) 2 puff PRN Q4- 6HRS IH ; Start 03/14/19 at 04:45; Status UNV Multivitamins (Thera M Plus) 1 tab DAILY PO Last administered on 03/17/19 08:11; Start 03/14/19 at 09:00 Budesonide (Pulmicort) 0.5 mg RTBID NEB Last administered on 03/17/19 07:52; Start 03/14/19 at 08:00 Albuterol Sulfate (Ventolin Neb Soln) 2.5 mg RTQID NEB Last administered on 03/17/19at 07:51; Start 03/14/19 at 08:00 Levalbuterol HCl (Xopenex) 2.5 mg PRN Q4HRS PRN NEB SHORTNESS OF BREATH; Start 03/14/19 at 05:30 Pantoprazole Sodium (Protonix) 40 mg DAILYAC PO Last administered on 03/17/19at 08:11; Start 03/14/19 at 11:00 Furosemide (Lasix) 60 mg 1X ONCE IVP Last administered on 03/14/19at 12:05; Start 03/14/19 at 12:30; Stop 03/14/19 at 12:31; Status DC Losartan Potassium (Cozaar) 100 mg DAILY PO ; Start 03/15/19 at 09:00; Stop 03/15 at 09:00; Status DC Furosemide (Lasix) 40 mg BID92 IVP Last administered on 03/17/19at 08:12; Start 03/14/19 at 14:00 Sacubitril/ Valsartan (Entresto 24 Mg-26 Mg) 1 tab BID PO Last administered on 03/17/19at 08:11; Start 03/15/19 at 21:00 Hydralazine HCl (Apresoline Inj) 10 mg PRN Q4HRS PRN IVP ELEVATED BP, SEE COMMENTS; Start 03/14/19 at 15:15 Info (Anti-Coagulation Monitoring By Pharmacy) 1 each PRN DAILY PRN MC SEE COMMENTS Last administered on 03/16/19at 12:04; Start 03/15/19 at 12:30 Active Scripts Active Metoprolol Succinate ( Xl ) (Metoprolol Succinate) 100 Mg Tab.er.24h 200 Mg PO DAILY 30 Days DOSE INCREASE TO 200mg Daily Diltiazem 24HR Cd (Diltiazem Hcl) 180 Mg Cap.er.24h 180 Mg PO DAILY 30 Days To replace 240mg diltiazem Pro Comfort Spacer with Mask (Inhaler,Assist Device,Lg Mask) 1 Each Spacer Each MC QID QID prn for asthma Xoepenex and BID for Asthma/copd for symbicort Xopenex Hfa (Levalbuterol Tartrate) 15 Gm Hfa.aer.ad 2 Puff IH PRN Q4-6HRS 30 Days Symbicort 80-4.5 Mcg Inhaler (Budesonide/Formoterol Fumarate) 10.2 Gm Hfa.aer.ad 1 Puff IH QID 30 Days Amiodarone Hcl 200 Mg Tablet 200 Mg PO DAILY 30 Days Eliquis (Apixaban) 5 Mg Tablet 5 Mg PO BID 30 Days Ferrous Sulfate 325 Mg Tablet 1 Tab PO DAILY Reported Multivitamins (Multivitamin) 1 Each Tablet 1 Each PO DAILY Acetaminophen 500 Mg Tablet 1,000 Mg PO PRN Q6HRS PRN Losartan Potassium (Losartan Potassium) 25 Mg Tablet 50 Mg PO DAILY Lasix (Furosemide) 40 Mg Tablet 40 Mg PO DAILY Vitals/I & O Vital Sign - Last 24 Hours 03/16/19 03/16/19 03/16/19 03/16/19 09:05 09:05 09:05 09:06 Pulse 113 113 113 113 B/P (MAP) 135/108 135/108 135/108 135/108 03/16/19 03/16/19 03/16/19 03/16/19 11:00 12:00 15:00 15:43 Temp 97.7 97.8 97.7 97.8 Pulse 114 112 Resp 18 18 B/P (MAP) 139/107 (118) 128/87 (101) Pulse Ox 96 99 96 99 O2 Delivery Nasal Cannula Room Air Nasal Cannula Room Air O2 Flow Rate 3.0 3.0 03/16/19 03/16/19 03/16/19 03/16/19 19:15 19:35 20:09 20:10 Temp 97.7 97.7 Pulse 111 Resp 20 B/P (MAP) 128/99 (109) Pulse Ox 94 98 98 O2 Delivery Room Air Room Air Room Air Room Air 03/16/19 03/16/19 03/17/19 03/17/19 21:18 22:40 03:00 07:00 Temp 97.7 97.8 98.0 97.7 97.8 98.0 Pulse 111 113 113 112 Resp 20 20 18 B/P (MAP) 128/99 129/93 (105) 135/94 (108) 134/100 (111) Pulse Ox 98 96 96 O2 Delivery Room Air Room Air Room Air 03/17/19 03/17/19 03/17/19 03/17/19 07:52 08:11 08:11 08:11 Pulse 112 112 112 B/P (MAP) 134/100 134/100 134/100 O2 Delivery Room Air 03/17/19 08:12 Pulse 112 B/P (MAP) 134/100 Intake and Output 03/16/19 03/16/19 03/17/19 14:59 22:59 06:59 Intake Total 652 ml 680 ml 600 ml Output Total 800 ml 600 ml 200 ml Balance -148 ml 80 ml 400 ml RENETTA CADET MD Mar 17, 2019 08:16
--- NOTE | 2019-03-17 09:27 | PDOC ---
PULMONARY PROGRESS NOTES Subjective NOT MORE SOA Vitals Vital Signs Date Time Temp Pulse Resp B/P (MAP) Pulse Ox O2 Delivery O2 Flow Rate FiO2 03/17/19 08:12 112 134/100 03/17/19 08:00 Room Air 03/17/19 07:00 98.0 18 96 98.0 03/16/19 15:00 3.0 ROS: No Nausea, No Chest Pain, No Abdominal Pain, No Increase Cough General: Alert, No acute distress Lungs: Crackles (bases) Cardiovascular: S1, S2 Abdomen: Soft Extremities: Other (2+edema) Labs Laboratory Tests Test 03/16/19 09:25 Sodium Level 144 mmol/L (136-145) Potassium Level 3.6 mmol/L (3.5-5.1) Chloride Level 106 mmol/L (98-107) Carbon Dioxide Level 28 mmol/L (21-32) Anion Gap 10 (6-14) Blood Urea Nitrogen 29 mg/dL (8-26) Creatinine 2.3 mg/dL (0.7-1.3) Estimated GFR (Cockcroft-Gault) 35.5 Glucose Level 161 mg/dL (70-99) Calcium Level 9.0 mg/dL (8.5-10.1) Medications Active Scripts Medications Dose Route/Sig Max Daily Dose Days Date Category Dose Instructions Metoprolol Succinate ( Xl ) (Metoprolol Succinate) 100 Mg Tab.er.24h 200 Mg PO DAILY 30 02/14/19 Rx DOSE INCREASE TO 200mg Daily Diltiazem 24HR Cd (Diltiazem Hcl) 180 Mg Cap.er.24h 180 Mg PO DAILY 30 02/14/19 Rx To replace 240mg diltiazem Pro Comfort Spacer with Mask (Inhaler,Assist Device,Lg Mask) 1 Each Spacer Each MC QID 02/14/19 Rx QID prn for asthma Xoepenex and BID for Asthma/copd for symbicort Xopenex Hfa (Levalbuterol Tartrate) 15 Gm Hfa.aer.ad 2 Puff IH PRN Q4-6HRS 30 02/14/19 Rx Symbicort 80-4.5 Mcg Inhaler (Budesonide/Formoterol Fumarate) 10.2 Gm Hfa.aer.ad 1 Puff IH QID 30 02/14/19 Rx Amiodarone Hcl 200 Mg Tablet 200 Mg PO DAILY 30 01/29/19 Rx Eliquis (Apixaban) 5 Mg Tablet 5 Mg PO BID 30 01/29/19 Rx Multivitamins (Multivitamin) 1 Each Tablet 1 Each PO DAILY 01/27/19 Reported Ferrous Sulfate 325 Mg Tablet 1 Tab PO DAILY 12/11/18 Rx Acetaminophen 500 Mg Tablet 1,000 Mg PO PRN Q6HRS PRN 12/09/18 Reported Losartan Potassium (Losartan Potassium) 25 Mg Tablet 50 Mg PO DAILY 12/06/18 Reported Lasix (Furosemide) 40 Mg Tablet 40 Mg PO DAILY 09/03/14 Reported Impression . 1. Acute hypoxic respiratory failure secondary to acute on chronic systolic heart failure. 2. Chronic atrial fibrillation, on chronic anticoagulation 3. Nonischemic cardiomyopathy with an ejection fraction of 20-25%. 4. Tobacco use for 30+ years, likely underlying chronic obstructive pulmonary disease. 5. Chronic renal insufficiency. CT 03/16 Impression: 1. A 1.1 cm nodule or mass identified in the right upper lobe of the lung abutting the pleura. Recommend PET/CT scan for further evaluation. Plan . NO SIGN OF DRUG INDUCED LUNG INJURY ON CT CHEST WILL NEED WORK UP FOR LUNG NODULE OUT PT WILL CONTINUE THE SAME FOR NOW 1. Continue with present diuresis. 2. Continue with present oxygen and wean FiO2 to keep saturation 92% and above. 3. Monitor renal function. 4. May need inotropic agents. 5. Eliquis per PCP. 6. Continue bronchodilators. AMAN ASH MD Mar 17, 2019 09:27
[2019-03-17 09:42] LABS: ALBUMIN 3.2 g/dL (3.4-5.0); CALCIUM 8.5 mg/dL (8.5-10.1); CREATININE 2.3 mg/dL (0.7-1.3); GFR 35.5; PHOSPHORUS 3.3 mg/dL (2.6-4.7); POTASSIUM 3.8 mmol/L (3.5-5.1)
[2019-03-17 10:42] VITALS: BP 129/99
--- NOTE | 2019-03-17 10:49 | PDOC ---
SUBJECTIVE ROS Stable OBJECTIVE Vital Signs Vital Signs Date Time Temp Pulse Resp B/P (MAP) Pulse Ox O2 Delivery O2 Flow Rate FiO2 03/17/19 10:42 98.0 113 16 129/99 (109) 94 Room Air 98.0 03/16/19 15:00 3.0 I & 0 Intake and Output 03/17/19 07:00 Intake Total 1932 ml Output Total 1600 ml Balance 332 ml Intake Oral 1932 ml Output Urine Total 1600 ml PHYSICAL EXAM Physical Exam General: Alert, No acute distress Lungs: Crackles (bases) Cardiovascular: S1, S2 Abdomen: Soft Extremities: Trace to 1+ edema DIAGNOSIS/ASSESSMENT Assessment & Plan CKD stage 3-4 Stable renal function , E-Lytes stable Acute respiratory failure secondary to a/c HF Acute on chronic diastolic/systolic CHF. On IV Lasix and Entresto Wt down , Hypernatremia- Mild Monitor NICM; LVEF 20-25%. Cath 2013 without significant CAD. Moderate to severe mitral regurgitation. PAFIB/flutter. AECOPD with h/o tobaccoism Hypertension. Improved Pulmonary HTN COMMENT/RELEVANT DATA Meds Current Medications Medications (Trade) Dose Ordered Sig/Hari Start Time Stop Time Status Last Admin Dose Admin Acetaminophen (Tylenol) 650 mg PRN Q4HRS PRN 03/13/19 18:30 03/14/19 18:29 DC Albuterol Sulfate (Ventolin Neb Soln) 2.5 mg RTQID 03/14/19 08:00 03/17/19 07:51 2.5 MG Amiodarone HCl (Cordarone) 200 mg DAILY 03/14/19 09:00 03/17/19 08:11 200 MG Apixaban (Eliquis) 5 mg BID 03/14/19 09:00 03/17/19 08:10 5 MG Budesonide (Pulmicort) 0.5 mg RTBID 03/14/19 08:00 03/17/19 07:52 0.5 MG Bumetanide (Bumex) 1 mg 1X ONCE 03/13/19 18:15 03/13/19 18:16 DC 03/13/19 17:53 1 MG Diltiazem HCl (Cardizem 24hr Cd) 180 mg DAILY 03/14/19 09:00 03/17/19 08:11 180 MG Ferrous Sulfate (Feosol) 325 mg DAILY 03/14/19 09:00 03/17/19 08:11 325 MG Furosemide (Lasix) 40 mg BID92 03/14/19 14:00 03/17/19 08:12 40 MG Hydralazine HCl (Apresoline Inj) 10 mg PRN Q4HRS PRN 03/14/19 15:15 Info (Anti-Coagulation Monitoring By Pharmacy) 1 each PRN DAILY PRN 03/15/19 12:30 03/16/19 12:04 1 EACH Levalbuterol HCl (Xopenex) 2.5 mg PRN Q4HRS PRN 03/14/19 05:30 Losartan Potassium (Cozaar) 100 mg DAILY 03/15/19 09:00 03/15/19 09:00 DC Metoprolol Succinate (Toprol Xl) 200 mg DAILY 03/14/19 09:00 03/17/19 08:12 200 MG Multivitamins (Thera M Plus) 1 tab DAILY 03/14/19 09:00 03/17/19 08:11 1 TAB Non-Formulary Medication (Budesonide/ Formoterol Fumarate (Symbicort 80-4.5 Mcg Inhaler)) 1 puff QID 03/14/19 09:00 UNV Non-Formulary Medication (Levalbuterol Tartrate (Xopenex Hfa)) 2 puff PRN Q4-6HRS 03/14/19 04:45 UNV Pantoprazole Sodium (Protonix) 40 mg DAILYAC 03/14/19 11:00 03/17/19 08:11 40 MG Sacubitril/ Valsartan (Entresto 24 Mg-26 Mg) 1 tab BID 03/15/19 21:00 03/17/19 08:11 1 TAB Lab Laboratory Tests Test 03/17/19 08:37 Sodium Level 146 mmol/L (136-145) Potassium Level 3.8 mmol/L (3.5-5.1) Chloride Level 107 mmol/L (98-107) Carbon Dioxide Level 30 mmol/L (21-32) Anion Gap 9 (6-14) Blood Urea Nitrogen 27 mg/dL (8-26) Creatinine 2.3 mg/dL (0.7-1.3) Estimated GFR (Cockcroft-Gault) 35.5 Glucose Level 146 mg/dL (70-99) Calcium Level 8.5 mg/dL (8.5-10.1) Phosphorus Level 3.3 mg/dL (2.6-4.7) Albumin 3.2 g/dL (3.4-5.0) Results All relevant outside records, renal labs, imaging studies, telemetry/EKG's were reviewed. URNULY HERR MD Mar 17, 2019 10:49
--- NOTE | 2019-03-17 12:02 | PDOC ---
Subjective: Subjective: Breathing better. I asked if he's eating okay - he shrugged. Stooling. Thinks RLE edema remains the same but LLE improved. Objective: Objective: On IV Lasix, PO Cardizem, PO amiodarone. Vital Signs: Vital Signs Date Time Temp Pulse Resp B/P (MAP) Pulse Ox O2 Delivery O2 Flow Rate FiO2 03/17/19 10:42 98.0 113 16 129/99 (109) 94 Room Air 98.0 03/16/19 15:00 3.0 Labs: Laboratory Tests Test 03/17/19 08:37 Sodium Level 146 mmol/L Potassium Level 3.8 mmol/L Chloride Level 107 mmol/L Carbon Dioxide Level 30 mmol/L Anion Gap 9 Blood Urea Nitrogen 27 mg/dL Creatinine 2.3 mg/dL Estimated GFR (Cockcroft-Gault) 35.5 Glucose Level 146 mg/dL Calcium Level 8.5 mg/dL Phosphorus Level 3.3 mg/dL Albumin 3.2 g/dL Imaging: Chest CT 03/16 Impression: 1. A 1.1 cm nodule or mass identified in the right upper lobe of the lung abutting the pleura. Recommend PET/CT scan for further evaluation. 2. Bilateral lung emphysematous changes. PE: GEN: NAD LUNGS: room air HEART: irregularly irregular ABD: some distention (stable), soft, NABS, non-tender EXTREMITY: BLE edema NEURO/PSYCH: A & O 3 A/P: NICM, CHF, A Fib, COPD, CKD, BLE edema H/o Hep B, hepatomegaly, small amount of ascites -- Chest CT as above, continue per pulm and renal. CASEY HOYOS Mar 17, 2019 12:02
--- NOTE | 2019-03-17 13:19 | PDOC ---
AARON WELCH MOSAIC TILE MAKER 03/17/19 1319: CARDIO Progress Notes Date and Time Date of Service 03/17/19 Time of Evaluation 1310 Subjective Subjective: No Chest Pain, No Palpitations, Other (better overall) Vitals Vitals Vital Signs Date Time Temp Pulse Resp B/P (MAP) Pulse Ox O2 Delivery O2 Flow Rate FiO2 03/17/19 11:59 99 Room Air 03/17/19 10:42 98.0 113 16 129/99 (109) 98.0 03/16/19 15:00 3.0 Weight Weight [ ] Input and Output Intake and Output Intake and Output 03/17/19 06:59 Intake Total 1932 ml Output Total 1600 ml Balance 332 ml Intake Oral 1932 ml Output Urine Total 1600 ml Laboratory Labs Laboratory Tests Test 03/17/19 08:37 Sodium Level 146 mmol/L (136-145) Potassium Level 3.8 mmol/L (3.5-5.1) Chloride Level 107 mmol/L (98-107) Carbon Dioxide Level 30 mmol/L (21-32) Anion Gap 9 (6-14) Blood Urea Nitrogen 27 mg/dL (8-26) Creatinine 2.3 mg/dL (0.7-1.3) Estimated GFR (Cockcroft-Gault) 35.5 Glucose Level 146 mg/dL (70-99) Calcium Level 8.5 mg/dL (8.5-10.1) Phosphorus Level 3.3 mg/dL (2.6-4.7) Albumin 3.2 g/dL (3.4-5.0) Physical Exam HEENT: Neck Supple W Full Motion Chest: Symmetric LUNGS: Clear to Auscultation Heart: S1S2, RRR Abdomen: Soft N/T Extremities: Other (1+ bilateral LE edema ) Neurology: alert, oriented, follow commands Assessment Assessment 1. Acute respiratory failure secondary to a/c HF. 2. Acute on chronic diastolic/systolic CHF; improved 3. NICM; LVEF 20%. 4. PAFIB/flutter. a-flutter. rate relatively cotrolled 5. AECOPD with h/o tobaccoism 6. NEVA on CKD. Cr stable 7. Hypertension; controlled Recommendations Ongoing diuresis Entresto Will need f/u with HF clinic Supportive care MIROSLAVA DAVALOS MD 03/17/19 1726: CARDIO Progress Notes Plan Plan Pt. seen and examined. Agree with above STEREOTYPER APPRENTICE note. Still needs more diuresis. Plan likely for DC on sunday depending diuresis, HR. Thanks. Eventually, referral to advanced center for consideration of triclip and mitraclip. thanks AARON WELCH APRN Mar 17, 2019 13:19 MIROSLAVA DAVALOS MD Mar 17, 2019 17:26
--- NOTE | 2019-03-17 14:46 | NUR ---
SS following up with discharge planning. PT/OT evaluated pt and recommended no needs evaluation only. SS will continue to follow for discharge planning.
[2019-03-17 15:00] VITALS: BP 129/95
[2019-03-17 19:49] VITALS: BP 140/102
[2019-03-17 23:30] VITALS: BP 142/92
[2019-03-18 03:20] VITALS: BP 147/109
[2019-03-18 06:28] LABS: ALBUMIN 3.1 g/dL (3.4-5.0); CALCIUM 8.8 mg/dL (8.5-10.1); CREATININE 2.1 mg/dL (0.7-1.3); GFR 39.4; PHOSPHORUS 3.4 mg/dL (2.6-4.7); POTASSIUM 3.6 mmol/L (3.5-5.1)
[2019-03-18] MEDS: BUDESONIDE 0.5 MG/2 ML NEBU. NEB SCH (07:07)
[2019-03-18] MEDS: ALBUTEROL SULFATE 2.5 MG/3 ML NEBU. NEB SCH ×2 (07:07→11:28)
[2019-03-18 07:41] VITALS: BP 138/102
[2019-03-18] MEDS: FERROUS SULFATE 325 MG TABLET. PO SCH (08:44)
[2019-03-18] MEDS: PANTOPRAZOLE 40 MG TABLET.DR. PO SCH (08:44)
[2019-03-18] MEDS: AMIODARONE HCL 200 MG TABLET. PO SCH (08:44)
[2019-03-18] MEDS: MULTIVITAMIN with MINERAL TABLET. PO SCH (08:44)
[2019-03-18] MEDS: APIXABAN 5 MG TABLET. PO SCH (08:44)
[2019-03-18] MEDS: METOPROLOL SUCC 24HR ER 100 MG TAB.ER.24H. PO SCH (08:44)
[2019-03-18] MEDS: SACUBITRIL/VALSARTAN 24/26MG TABLET. PO SCH (08:44)
--- NOTE | 2019-03-18 08:44 | PDOC ---
PULMONARY PROGRESS NOTES Subjective NOT MORE SOA Vitals Vital Signs Date Time Temp Pulse Resp B/P (MAP) Pulse Ox O2 Delivery O2 Flow Rate FiO2 03/18/19 07:41 98.6 114 16 138/102 (114) 95 Room Air 98.6 ROS: No Nausea, No Chest Pain, No Abdominal Pain, No Increase Cough General: Alert, No acute distress Lungs: Crackles (bases) Cardiovascular: S1, S2 Abdomen: Soft Extremities: Other (2+edema) Labs Laboratory Tests Test 03/16/19 09:25 03/17/19 08:37 03/18/19 05:25 Sodium Level 144 mmol/L (136-145) 146 mmol/L (136-145) 147 mmol/L (136-145) Potassium Level 3.6 mmol/L (3.5-5.1) 3.8 mmol/L (3.5-5.1) 3.6 mmol/L (3.5-5.1) Chloride Level 106 mmol/L (98-107) 107 mmol/L (98-107) 107 mmol/L (98-107) Carbon Dioxide Level 28 mmol/L (21-32) 30 mmol/L (21-32) 30 mmol/L (21-32) Anion Gap 10 (6-14) 9 (6-14) 10 (6-14) Blood Urea Nitrogen 29 mg/dL (8-26) 27 mg/dL (8-26) 28 mg/dL (8-26) Creatinine 2.3 mg/dL (0.7-1.3) 2.3 mg/dL (0.7-1.3) 2.1 mg/dL (0.7-1.3) Estimated GFR (Cockcroft-Gault) 35.5 35.5 39.4 Glucose Level 161 mg/dL (70-99) 146 mg/dL (70-99) 97 mg/dL (70-99) Calcium Level 9.0 mg/dL (8.5-10.1) 8.5 mg/dL (8.5-10.1) 8.8 mg/dL (8.5-10.1) Phosphorus Level 3.3 mg/dL (2.6-4.7) 3.4 mg/dL (2.6-4.7) Albumin 3.2 g/dL (3.4-5.0) 3.1 g/dL (3.4-5.0) Laboratory Tests Test 03/18/19 05:25 Sodium Level 147 mmol/L (136-145) Potassium Level 3.6 mmol/L (3.5-5.1) Chloride Level 107 mmol/L (98-107) Carbon Dioxide Level 30 mmol/L (21-32) Anion Gap 10 (6-14) Blood Urea Nitrogen 28 mg/dL (8-26) Creatinine 2.1 mg/dL (0.7-1.3) Estimated GFR (Cockcroft-Gault) 39.4 Glucose Level 97 mg/dL (70-99) Calcium Level 8.8 mg/dL (8.5-10.1) Phosphorus Level 3.4 mg/dL (2.6-4.7) Albumin 3.1 g/dL (3.4-5.0) Medications Active Scripts Medications Dose Route/Sig Max Daily Dose Days Date Category Dose Instructions Metoprolol Succinate ( Xl ) (Metoprolol Succinate) 100 Mg Tab.er.24h 200 Mg PO DAILY 30 02/14/19 Rx DOSE INCREASE TO 200mg Daily Diltiazem 24HR Cd (Diltiazem Hcl) 180 Mg Cap.er.24h 180 Mg PO DAILY 30 02/14/19 Rx To replace 240mg diltiazem Pro Comfort Spacer with Mask (Inhaler,Assist Device,Lg Mask) 1 Each Spacer Each MC QID 02/14/19 Rx QID prn for asthma Xoepenex and BID for Asthma/copd for symbicort Xopenex Hfa (Levalbuterol Tartrate) 15 Gm Hfa.aer.ad 2 Puff IH PRN Q4-6HRS 30 02/14/19 Rx Symbicort 80-4.5 Mcg Inhaler (Budesonide/Formoterol Fumarate) 10.2 Gm Hfa.aer.ad 1 Puff IH QID 30 02/14/19 Rx Amiodarone Hcl 200 Mg Tablet 200 Mg PO DAILY 30 01/29/19 Rx Eliquis (Apixaban) 5 Mg Tablet 5 Mg PO BID 30 01/29/19 Rx Multivitamins (Multivitamin) 1 Each Tablet 1 Each PO DAILY 01/27/19 Reported Ferrous Sulfate 325 Mg Tablet 1 Tab PO DAILY 12/11/18 Rx Acetaminophen 500 Mg Tablet 1,000 Mg PO PRN Q6HRS PRN 12/09/18 Reported Losartan Potassium (Losartan Potassium) 25 Mg Tablet 50 Mg PO DAILY 12/06/18 Reported Lasix (Furosemide) 40 Mg Tablet 40 Mg PO DAILY 09/03/14 Reported Impression . 1. Acute hypoxic respiratory failure secondary to acute on chronic systolic heart failure. 2. Chronic atrial fibrillation, on chronic anticoagulation 3. Nonischemic cardiomyopathy with an ejection fraction of 20-25%. 4. Tobacco use for 30+ years, likely underlying chronic obstructive pulmonary disease. 5. Chronic renal insufficiency. CT 03/16 Impression: 1. A 1.1 cm nodule or mass identified in the right upper lobe of the lung abutting the pleura. Recommend PET/CT scan for further evaluation. Plan . HOME OK BY ME FOLLOW UP IN OFFICE IN MAY NO SIGN OF DRUG INDUCED LUNG INJURY ON CT CHEST WILL NEED WORK UP FOR LUNG NODULE OUT PT WILL CONTINUE THE SAME FOR NOW AMAN ASH MD Mar 18, 2019 08:44
[2019-03-18] MEDS: FUROSEMIDE 40 MG/4 ML VIAL. IVP SCH ×2 (08:45→14:00)
--- NOTE | 2019-03-18 10:08 | PDOC ---
SUBJECTIVE ROS Stable OBJECTIVE Vital Signs Vital Signs Date Time Temp Pulse Resp B/P (MAP) Pulse Ox O2 Delivery O2 Flow Rate FiO2 03/18/19 08:44 114 138/102 03/18/19 08:00 Room Air 03/18/19 07:41 98.6 16 95 98.6 I & 0 Intake and Output 03/18/19 07:00 Intake Total 120 ml Output Total 150 ml Balance -30 ml Intake Oral 120 ml Output Urine Total 150 ml # Voids 1 # Bowel Movements 1 PHYSICAL EXAM Physical Exam General: Alert, No acute distress Lungs: Crackles (bases) Cardiovascular: S1, S2 Abdomen: Soft Extremities: Trace to 1+ edema DIAGNOSIS/ASSESSMENT Assessment & Plan CKD stage 3-4 Stable renal function , E-Lytes stable Follow up with us as OP after dc(Routine follow up) Acute respiratory failure secondary to a/c HF Acute on chronic diastolic/systolic CHF. On IV Lasix and Entresto Wt down, switch to o diuretics , follow up with cardiology / CHF clinic Hypernatremia- Mild ,? Over diuresed Monitor NICM; LVEF 20-25%. Cath 2013 without significant CAD. Moderate to severe mitral regurgitation. PAFIB/flutter. AECOPD with h/o tobaccoism Hypertension. Improved Pulmonary HTN COMMENT/RELEVANT DATA Meds Current Medications Medications (Trade) Dose Ordered Sig/Hari Start Time Stop Time Status Last Admin Dose Admin Acetaminophen (Tylenol) 650 mg PRN Q4HRS PRN 03/13/19 18:30 03/14/19 18:29 DC Albuterol Sulfate (Ventolin Neb Soln) 2.5 mg RTQID 03/14/19 08:00 03/18/19 07:07 2.5 MG Amiodarone HCl (Cordarone) 200 mg DAILY 03/14/19 09:00 03/18/19 08:44 200 MG Apixaban (Eliquis) 5 mg BID 03/14/19 09:00 03/18/19 08:44 5 MG Budesonide (Pulmicort) 0.5 mg RTBID 03/14/19 08:00 03/18/19 07:07 0.5 MG Bumetanide (Bumex) 1 mg 1X ONCE 03/13/19 18:15 03/13/19 18:16 DC 03/13/19 17:53 1 MG Diltiazem HCl (Cardizem 24hr Cd) 180 mg DAILY 03/14/19 09:00 03/18/19 08:44 180 MG Ferrous Sulfate (Feosol) 325 mg DAILY 03/14/19 09:00 03/18/19 08:44 325 MG Furosemide (Lasix) 40 mg [id number] 03/14/19 14:00 03/18/19 08:45 40 MG Hydralazine HCl (Apresoline Inj) 10 mg PRN Q4HRS PRN 03/14/19 15:15 Info (Anti-Coagulation Monitoring By Pharmacy) 1 each PRN DAILY PRN 03/15/19 12:30 03/16/19 12:04 1 EACH Levalbuterol HCl (Xopenex) 2.5 mg PRN Q4HRS PRN 03/14/19 05:30 Losartan Potassium (Cozaar) 100 mg DAILY 03/15/19 09:00 03/15/19 09:00 DC Metoprolol Succinate (Toprol Xl) 200 mg DAILY 03/14/19 09:00 03/18/19 08:44 200 MG Multivitamins (Thera M Plus) 1 tab DAILY 03/14/19 09:00 03/18/19 08:44 1 TAB Non-Formulary Medication (Budesonide/ Formoterol Fumarate (Symbicort 80-4.5 Mcg Inhaler)) 1 puff QID 03/14/19 09:00 UNV Non-Formulary Medication (Levalbuterol Tartrate (Xopenex Hfa)) 2 puff PRN Q4-6HRS 03/14/19 04:45 UNV Pantoprazole Sodium (Protonix) 40 mg DAILYAC 03/14/19 11:00 03/18/19 08:44 40 MG Sacubitril/ Valsartan (Entresto 24 Mg-26 Mg) 1 tab BID 03/15/19 21:00 03/18/19 08:44 1 TAB Lab Laboratory Tests Test 03/18/19 05:25 Sodium Level 147 mmol/L (136-145) Potassium Level 3.6 mmol/L (3.5-5.1) Chloride Level 107 mmol/L (98-107) Carbon Dioxide Level 30 mmol/L (21-32) Anion Gap 10 (6-14) Blood Urea Nitrogen 28 mg/dL (8-26) Creatinine 2.1 mg/dL (0.7-1.3) Estimated GFR (Cockcroft-Gault) 39.4 Glucose Level 97 mg/dL (70-99) Calcium Level 8.8 mg/dL (8.5-10.1) Phosphorus Level 3.4 mg/dL (2.6-4.7) Albumin 3.1 g/dL (3.4-5.0) Results All relevant outside records, renal labs, imaging studies, telemetry/EKG's were reviewed. UNRULY HERR MD Mar 18, 2019 10:08
--- NOTE | 2019-03-18 10:34 | PDOC ---
AARON WELCH SLITTER OPERATOR 03/18/19 1034: CARDIO Progress Notes Date and Time Date of Service 03/18/19 Time of Evaluation 1015 Subjective Subjective: No Chest Pain, No Palpitations, Other (c/o pain in his belly) Vitals Vitals Vital Signs Date Time Temp Pulse Resp B/P (MAP) Pulse Ox O2 Delivery O2 Flow Rate FiO2 03/18/19 08:44 114 138/102 03/18/19 08:00 Room Air 03/18/19 07:41 98.6 16 95 98.6 Weight Weight [ ] Input and Output Intake and Output Intake and Output 03/18/19 07:00 Intake Total 120 ml Output Total 150 ml Balance -30 ml Intake Oral 120 ml Output Urine Total 150 ml # Voids 1 # Bowel Movements 1 Laboratory Labs Laboratory Tests Test 03/18/19 05:25 Sodium Level 147 mmol/L (136-145) Potassium Level 3.6 mmol/L (3.5-5.1) Chloride Level 107 mmol/L (98-107) Carbon Dioxide Level 30 mmol/L (21-32) Anion Gap 10 (6-14) Blood Urea Nitrogen 28 mg/dL (8-26) Creatinine 2.1 mg/dL (0.7-1.3) Estimated GFR (Cockcroft-Gault) 39.4 Glucose Level 97 mg/dL (70-99) Calcium Level 8.8 mg/dL (8.5-10.1) Phosphorus Level 3.4 mg/dL (2.6-4.7) Albumin 3.1 g/dL (3.4-5.0) Physical Exam HEENT: Neck Supple W Full Motion Chest: Symmetric LUNGS: Clear to Auscultation Heart: S1S2, RRR, murmurs (3/6 systolic murmur ) Abdomen: Soft N/T Extremities: Other (1+ bilateral LE edema ) Neurology: alert, oriented, follow commands Assessment Assessment 1. Acute respiratory failure secondary to a/c HF 2. Acute on chronic diastolic/systolic CHF; improving. 3. NICM; LVEF 20%. 4. PAFIB/flutter. a-flutter. rate relatively cotrolled 5. AECOPD with h/o tobaccoism 6. NEVA on CKD. Cr stable 7. Hypertension; controlled Recommendations Diuresis Discussed importance on 2Gm Na diet. Patient denies high salt intake, but when asked about specific foods he eats reports Pork and [place], chips, and hotdogs. Will have lagging machine operator to see Home weight monitoring discussed/encourage. To call our office for 2-3 # weight gain overnight or 5# in 1 week. Supportive care MIROSLAVA DAVALOS MD 03/18/19 1159: CARDIO Progress Notes Plan Plan Will have patient ambulate today and if HR stays less than 120-130, then ok to DC with outpt cvn. Otherwise, stay in house and plan for CVN tomorrow. If discharging, then home on lasix 40mg bid or bumex 1 mg bid with close f/u in 1 week and labs. Thanks. AARON WELCH APRN Mar 18, 2019 10:34 MIROSLAVA DAVALOS MD Mar 18, 2019 11:59
[2019-03-18 10:45] VITALS: BP 122/85
[2019-03-18] MEDS ORDERED: POTASSIUM CHLORIDE 20 MEQ TABLET.ER. PO ONE (11:00)
[2019-03-18] MEDS ORDERED: SACU1TAB PO (12:22)
[2019-03-18] MEDS ORDERED: Pantoprazole PO (12:22)
--- NOTE | 2019-03-18 12:29 | PDOC3 ---
Discharge Summary Visit Information Date of Admission: March 13, 2019 Date of Discharge: Mar 18, 2019 Admitting Diagnosis: Acute systolic CHF exacerbation, atrial tachycardia Final Diagnosis Problems Medical Problems: (1) Shortness of breath Status: Acute Brief Hospital Course Allergies Allergies Coded Allergies Type Severity Reaction Last Updated Verified No Known Drug Allergies 12/20/18 No Vital Signs Vital Signs Date Time Temp Pulse Resp B/P (MAP) Pulse Ox O2 Delivery O2 Flow Rate FiO2 03/18/19 11:28 97 Room Air 03/18/19 10:45 99.1 113 16 122/85 (97) 99.1 Lab Results Laboratory Tests Test 03/17/19 08:37 03/18/19 05:25 Sodium Level 146 mmol/L (136-145) 147 mmol/L (136-145) Potassium Level 3.8 mmol/L (3.5-5.1) 3.6 mmol/L (3.5-5.1) Chloride Level 107 mmol/L (98-107) 107 mmol/L (98-107) Carbon Dioxide Level 30 mmol/L (21-32) 30 mmol/L (21-32) Anion Gap 9 (6-14) 10 (6-14) Blood Urea Nitrogen 27 mg/dL (8-26) 28 mg/dL (8-26) Creatinine 2.3 mg/dL (0.7-1.3) 2.1 mg/dL (0.7-1.3) Estimated GFR (Cockcroft-Gault) 35.5 39.4 Glucose Level 146 mg/dL (70-99) 97 mg/dL (70-99) Calcium Level 8.5 mg/dL (8.5-10.1) 8.8 mg/dL (8.5-10.1) Phosphorus Level 3.3 mg/dL (2.6-4.7) 3.4 mg/dL (2.6-4.7) Albumin 3.2 g/dL (3.4-5.0) 3.1 g/dL (3.4-5.0) Laboratory Tests Test 03/18/19 05:25 Sodium Level 147 mmol/L (136-145) Potassium Level 3.6 mmol/L (3.5-5.1) Chloride Level 107 mmol/L (98-107) Carbon Dioxide Level 30 mmol/L (21-32) Anion Gap 10 (6-14) Blood Urea Nitrogen 28 mg/dL (8-26) Creatinine 2.1 mg/dL (0.7-1.3) Estimated GFR (Cockcroft-Gault) 39.4 Glucose Level 97 mg/dL (70-99) Calcium Level 8.8 mg/dL (8.5-10.1) Phosphorus Level 3.4 mg/dL (2.6-4.7) Albumin 3.1 g/dL (3.4-5.0) Brief Hospital Course Mr Fleming is a 58 yo M w/ PMHx TIA, Afib, CKD, Anemia, COPD who was admitted through ER w/ increasing SOA w/ exertion and swelling in legs and abdomen. Seen by nephrology for NEVA on CKD, GI for hepatomegaly, Pulm for acute COPD exacerbation, and Cardiology for afib with RVR. 03/16: C/o abdominal swelling better today, US showed very little ascites, I have shared this with him that paracentesis would not be possible or give him relief. Underwent Echocardiogram, showed EF of 20%, started on entresto per cardiology and after adequate diuresis for approximately 8.6L with dry weight approximately 94kg. He has plans for outpatient cardioversion with cardiology follow up in the next week. General: no distress Heart: Other (rate of 114.) Lungs: Crackles (bases) Abdomen: Normal bowel sounds Extremities: No cyanosis Skin: No breakdown Greater than 30 minutes spent on discharge. Discharge Information Condition at Discharge: Improved Follow Up: Weeks (2) Disposition/Orders: D/C to Home Scheduled Amiodarone Hcl (Amiodarone Hcl) 200 Mg Tablet, 200 MG PO DAILY for afib for 30 Days, #30 Prescribed by: RENETTA CADET MD on 01/29/191446 Last Taken: Unknown Dose on 03/13/19 Last Action: Continued on 03/14/19507 by ALBA CARTAGENA RN Apixaban (Eliquis) 5 Mg Tablet, 5 MG PO BID for afib for 30 Days, #60 Prescribed by: RENETTA CADET MD on 01/29/191446 Last Taken: Unknown Dose on 03/13/19 0800 Last Action: Continued on 03/14/19507 by ALBA CARTAGENA, RN Budesonide/Formoterol Fumarate (Symbicort 80-4.5 Mcg Inhaler) 10.2 Gm Hfa.aer.ad, 1 PUFF IH QID for SOA for 30 Days, #1 Ref 5 Prescribed by: RENETTA CADET MD on 02/14/191317 Last Taken: Unknown Dose on 03/13/19 0800 Last Action: Converted on 03/14/19507 by ALBA CARTAGENA RN Diltiazem Hcl (Diltiazem 24HR Cd) 180 Mg Cap.er.24h, 180 MG PO DAILY for Aflutter for 30 Days, #30 Ref 5 To replace 240mg diltiazem Prescribed by: RENETTA CADET MD on 02/14/191321 Last Taken: Unknown Dose on 03/13/19 Last Action: Converted on 03/14/19507 by ALBA CARTAGENA RN Ferrous Sulfate (Ferrous Sulfate) 325 Mg Tablet, 1 TAB PO DAILY for anemia, #30 Ref 3 Prescribed by: ISAIAH SNYDER MD on 12/11/18 1616 Last Taken: Unknown Dose on 03/13/19 Last Action: Continued on 03/14/19507 by ALBA CARTAGENA RN Furosemide (Lasix) 40 Mg Tablet, 40 MG PO DAILY, #30 (Reported) Entered as Reported by: Monique Edwards on 09/03/14 1653 Last Taken: Unknown Dose on 03/13/19 Last Action: Continued on 03/14/19507 by ALBA CARTAGENA RN Levalbuterol Tartrate (Xopenex Hfa) 15 Gm Hfa.aer.ad, 2 PUFF IH PRN Q4-6HRS for Asthma/COPD for 30 Days, #15 Ref 5 Prescribed by: RENETTA CADET MD on 02/14/191317 Last Taken: Unknown Dose on 03/13/19 Last Action: Converted on 03/14/19 0 508 by ALBA CARTAGENA RN Metoprolol Succinate (Metoprolol Succinate ( Xl )) 100 Mg Tab.er.24h, 200 MG PO DAILY for Aflutter for 30 Days, #60 Ref 5 DOSE INCREASE TO 200mg Daily Prescribed by: RENETTA CADET MD on 02/14/191321 Last Taken: Unknown Dose on 03/13/19 Last Action: Continued on 03/14/19507 by ALBA CARTAGENA RN Multivitamin (Multivitamins) 1 Each Tablet, 1 EACH PO DAILY for supplement, (Reported) Entered as Reported by: BJ METCALF on 01/27/19 0847 Last Taken: Unknown Dose on 03/13/19 Last Action: Converted on 03/14/19507 by ALBA CARTAGENA RN Sacubitril/Valsartan (Entresto 24 mg-26 mg Tablet) 1 Each Tablet, 1 TAB PO BID for CHF for 30 Days, #60 Ref 5 Prescribed by: RENETTA CADET MD on 03/18/19 1222 [Pantoprazole] 40 MG TABLET.DR, 40 MG PO DAILYAC for GERD for 30 Days, #30 Ref 2 Prescribed by: RENETTA CADET MD on 03/18/19 1222 Scheduled PRN Acetaminophen (Acetaminophen) 500 Mg Tablet, 1,000 MG PO PRN Q6HRS PRN for PAIN, (Reported) Entered as Reported by: Lauren Garcia on 12/09/18 2313 Last Taken: Unknown Dose on Unknown Date & Time Last Action: Last Taken Edited on 03/13/192223 by ALBA CARTAGENA RN Discontinued Medications Losartan Potassium (Losartan Potassium ) 25 Mg Tablet, 50 MG PO DAILY for HYPERTENSION, (Reported) Entered as Reported by: VASU CARPENTER on 12/06/18 0831 Last Taken: Unknown Dose on 03/13/19 Last Action: Continued on 03/14/19507 by ALBA CARTAGENA RN Durable Medical Equipment Inhaler,Assist Device,Lg Mask (Pro Comfort Spacer with Mask) 1 Each Spacer, EACH MC QID for Asthma/COPD, #1, (DME) QID prn for asthma Xoepenex and BID for Asthma/copd for symbicort Prescribed by: RENETTA CADET MD on 02/14/19 1318 RENETTA CADET MD Mar 18, 2019 12:29
[2019-03-18] MEDS ORDERED: BUME1TAB3 PO ×2 (12:34→12:36)
--- NOTE | 2019-03-18 12:59 | PDOC ---
Subjective: Subjective: Had some LUQ discomfort this morning - "feels like a bruise." Sometimes feels "something there." Eating and stooling without issue. Objective: Objective: Reviewed w/ RN - c/o LUQ pain this morning "and a lump." Vital Signs: Vital Signs Date Time Temp Pulse Resp B/P (MAP) Pulse Ox O2 Delivery O2 Flow Rate FiO2 03/18/19 11:28 97 Room Air 03/18/19 10:45 99.1 113 16 122/85 (97) 99.1 Labs: Laboratory Tests Test 03/18/19 05:25 Sodium Level 147 mmol/L Potassium Level 3.6 mmol/L Chloride Level 107 mmol/L Carbon Dioxide Level 30 mmol/L Anion Gap 10 Blood Urea Nitrogen 28 mg/dL Creatinine 2.1 mg/dL Estimated GFR (Cockcroft-Gault) 39.4 Glucose Level 97 mg/dL Calcium Level 8.8 mg/dL Phosphorus Level 3.4 mg/dL Albumin 3.1 g/dL PE: GEN: NAD LUNGS: CTAB HEART: tachycardic ABD: NABS, soft, non-tender, stable distention - I did not appreciate any lumps NEURO/PSYCH: A & O 3 A/P: Resp failure/CHF, NICM, A Fib H/o Hep B, hepatomegaly, small ascites LUQ discomfort -- DC per primary, follow-up if LUQ pain persists - exam benign today. CASEY HOYOS Mar 18, 2019 12:59
--- NOTE | 2019-03-18 15:30 | NUR ---
Discharge instructions reviewed with patient, all follow ups addressed, CHF booklet given, patient verbalizes understanding.
== END 2019-03-18 15:20 | disposition home or self-care (01) | DRG 682 ==
LOC: ER 16:21 → 6 SOUTH 18:15 → 2 NORTH 03-14 19:37
PROVIDERS: ADMIT Internal Medicine; ATTEND Internal Medicine
DX: N17.9 Acute kidney failure, unspecified (principal); I50.43 Acute on chronic combined systolic (congestive) and diastolic (congestive) heart failure; J96.01 Acute respiratory failure with hypoxia; I47.1 Supraventricular tachycardia; I42.9 Cardiomyopathy, unspecified; I13.0 Hypertensive heart and chronic kidney disease with heart failure and stage 1 through stage 4 chronic kidney disease, or unspecified chronic kidney disease; K76.6 Portal hypertension; J44.1 Chronic obstructive pulmonary disease with (acute) exacerbation; I48.92 Unspecified atrial flutter; R18.8 Other ascites; I48.91 Unspecified atrial fibrillation; K21.9 Gastro-esophageal reflux disease without esophagitis; K76.0 Fatty (change of) liver, not elsewhere classified; M19.90 Unspecified osteoarthritis, unspecified site; N18.4 Chronic kidney disease, stage 4 (severe); I27.20 Pulmonary hypertension, unspecified; I08.1 Rheumatic disorders of both mitral and tricuspid valves; I48.2 Chronic atrial fibrillation; F10.21 Alcohol dependence, in remission; K74.60 Unspecified cirrhosis of liver; Z91.19 Patient's noncompliance with other medical treatment and regimen; Z91.14 Patient's other noncompliance with medication regimen; Z86.73 Personal history of transient ischemic attack (TIA), and cerebral infarction without residual deficits; Z82.49 Family history of ischemic heart disease and other diseases of the circulatory system; Z79.01 Long term (current) use of anticoagulants; Z87.891 Personal history of nicotine dependence
CPT/HCPCS: 36415; 71045; 71250; 76700; 80048; 80053; 80069; 81001; 83735; 83880; 84484; 85025; 85610; 85730; 93005; 93306; 94640; 94760; 96374; J1940; J3490; J7613; J7626; 99285-25